=== PATIENT | female | born 1975 | race Caucasian/White ===

== ENCOUNTER → 2020-07-06 08:12 | Outpatient (BNVA) | payer MEDICARE, MEDICAID, SELFPAY | PROVIDERS: PCP Internal Medicine; Referring Provider Internal Medicine; Visit Provider Internal Medicine | DX: E21.3 Hyperparathyroidism, unspecified (principal); E55.9 Vitamin D deficiency, unspecified | CPT/HCPCS: 99214 ==

== ENCOUNTER 2020-07-14 11:04 | Outpatient (REF) | payer MEDICARE, MEDICAID, SELFPAY ==
--- NOTE | 2020-07-14 11:28 | XR_ITS ---
EXAMINATION: XR CHEST CLINICAL INFORMATION: Shortness of breath COMPARISON: Chest radiographs 10/15/2016, 11/12/2015 TECHNIQUE: Frontal view of the chest was obtained. FINDINGS: The lungs are clear. There is no vascular congestion, airspace consolidation, groundglass opacity, or effusion. No pneumothorax or pleural reaction. The heart is normal in size. The hilar and mediastinal contours and visualized bony structures are unremarkable. XR/XR chest 1V IMPRESSION: Unremarkable examination.
[2020-07-14 12:10] LABS: Glucose Urine UA NEG (NEG); Leukocyte Esterase Urine NEG (NEG); Nitrite Urine NEG (NEG); PH 5.5 (5.0-8.0); Specific Gravity - Urine 1.025 (1.005-1.025); Urine Blood NEG (NEG); Urine Ketones NEG (NEG); Urine Protein TRACE MG/DL (NEG-TRACE)
[2020-07-14 12:11] LABS: Appearance Urine CLEAR; Color Urine YELLOW
[2020-07-14 12:33] LABS: Anion Gap 14 (12-20); Blood Urea Nitrogen 11 mg/dL (9-16); Calcium 9.7 mg/dL (8.4-10.2); Carbon Dioxide 29 mmol/L (22-29); Chloride 102 mmol/L (96-108); Estimated Glomerular Filt Rate > 60; Phosphorus 4.2 mg/dL (2.7-4.5); Potassium 4.9 mmol/l (3.3-5.1); Sodium 140 mmol/L (135-145)
[2020-07-14 12:45] LABS: Creatinine Urine 60.02 mg/dL; Creatinine Urine 60.04 mg/dL; Microalbum/Creatinine Ratio Ur 366.5 ug/mg cr; Protein/Creatinine Ratio, Ur 0.53 (<0.2); Total Protein Urine Random 32 mg/dL (<12)
[2020-07-14 12:47] LABS: Renal w Reflex Lab Use Only Order verified
== END 2020-07-14 11:05 | disposition home or self-care (01) ==
LOC: HO.LAB 11:04
PROVIDERS: PCP Physician Assistant; Visit Provider Internal Medicine Nephrology
DX: R80.9 Proteinuria, unspecified (principal); R31.9 Hematuria, unspecified; F17.200 Nicotine dependence, unspecified, uncomplicated
CPT/HCPCS: 71045; 80051; 81003; 82043; 82310; 82565; 84100; 84156; 84520

== ENCOUNTER → 2020-08-03 13:54 | Outpatient (BNVA) | payer MEDICARE, MEDICAID, SELFPAY | PROVIDERS: PCP Physician Assistant; Referring Provider Physician Assistant; Visit Provider Surgery | DX: R92.1 Mammographic calcification found on diagnostic imaging of breast (principal); Z80.3 Family history of malignant neoplasm of breast | CPT/HCPCS: 99212 ==

== ENCOUNTER 2020-09-07 09:29 | Outpatient (REF) | payer MEDICARE, MEDICAID, SELFPAY ==
--- NOTE | 2020-09-07 09:32 | EMG_ITS ---
HISTORY OF PRESENT ILLNESS: This is a 45-year-old woman with a 6-month history of right upper extremity pain, numbness, and tingling affecting all the fingers. She is on no medications. PHYSICAL EXAMINATION: On examination, she is alert and oriented with normal intellectual functions. Cranial nerves II through XII are normal. Muscle tone and strength are normal in all 4 extremities. Deep tendon reflexes are symmetrical. No Tinel or Phalen sign. IMPRESSION: Rule out carpal tunnel syndrome. Nerve conduction EMG study: Moderately severe carpal tunnel syndrome on the right. Normal EMG of the right C5 through T1 innervated muscles. MD DELMY Mckinney/CHRIS / [id number]
== END 2020-09-07 09:30 | disposition home or self-care (01) ==
LOC: HO.NEURO 09:29
PROVIDERS: Visit Provider Physician Assistant
DX: G56.01 Carpal tunnel syndrome, right upper limb (principal)
CPT/HCPCS: 95886; 95910; 95913

== ENCOUNTER 2020-09-21 15:12 | Outpatient (REF) | payer MEDICARE, MEDICAID, SELFPAY ==
[2020-09-21 17:04] LABS: Rheumatoid Factor < 15.0 IU/mL (<15.0)
[2020-09-21 17:18] LABS: Erythrocyte Sedimentation Rate 16 MM/HR (0-20)
[2020-09-22 16:07] LABS: Cyclic Citrullinated Peptide <16 UNITS
== END 2020-09-21 15:13 | disposition home or self-care (01) ==
LOC: HO.LAB 15:12
PROVIDERS: PCP Internal Medicine; Visit Provider Physician Assistant
DX: M25.50 Pain in unspecified joint (principal)
CPT/HCPCS: 36415; 85652; 86200; 86431

== ENCOUNTER → 2020-09-26 10:29 | Outpatient (BNVA) | payer MEDICARE, MEDICAID, SELFPAY | PROVIDERS: PCP Physician Assistant; Visit Provider Orthopaedic Surgery | DX: G56.02 Carpal tunnel syndrome, left upper limb (principal); G56.01 Carpal tunnel syndrome, right upper limb | CPT/HCPCS: 99202 ==

== ENCOUNTER 2020-10-20 13:30 | Day surgery (SDC) | payer MEDICARE, MEDICAID, SELFPAY ==
[2020-10-20 13:36] VITALS: BP 144/95; PULSE 72; RESP 16; TEMP 36.2; O2SAT 98; BMI 37.3
--- NOTE | 2020-10-20 15:03 | MHC.SHP ---
Pre-Procedural Eval Section B Chief Complaint: RTCPS Allergies: Allergies Allergy/AdvReac Type Severity Reaction Status Date / Time fentanyl [FENTANYL] Allergy Severe VOMITING-SE Verified 07/14/20 10:09 NATALIE ibuprofen [From MOTRIN] AdvReac Intermediate KIDNEY Verified 07/14/20 10:09 PROBLEMS azithromycin AdvReac Unknown stomach Verified 07/14/20 10:09 upset tramadol AdvReac Unknown dizziness Verified 07/14/20 10:09 and vomiting, vomiting FRUIT,FRESH Allergy Severe MOUTH Uncoded 07/06/20 08:51 ITCHING/SWELLING ENVIRONMENTAL Allergy Intermediate HAYFEVER Uncoded 07/06/20 08:51 Plan I have reviewed the history and physical and performed a pertinent physical examination on my patient. No changes have occurred unless specified.
--- NOTE | 2020-10-20 16:45 | W.PM.OPN ---
Operative Note Operative Note Date of Service: 10/20/20 Narrative: Preop diagnosis: 1. Right Carpal tunnel syndrome Postop diagnosis: 1. Right Carpal tunnel syndrome Procedure: 1. Right Carpal tunnel release Surgeon: Elsie Hough MD Anesthesia: local block using 1% lidocaine with epinephrine Findings: Thickened transverse carpal ligament. EBL: Less than 5 mL Specimens: None Complications: None Disposition: Brought to recovery room in stable condition Plan: Follow-up for 7-10 days for wound check and suture removal Indications: The patient is 45 years old, with right carpal tunnel syndrome that has been unresponsive to nonoperative management. The risks and benefits of operative treatment including but not limited to risk of damage to blood vessels, nerves, tendons, infection, persistent pain, persistent symptoms, or possible need for additional surgery were discussed with the patient and the patient wishes to proceed with surgery. Procedure: Once consent was obtained a local block was performed using a combination of 1% lidocaine with epinephrine. The patient was then brought back to the operating suite and placed on the operative table in supine position. A tourniquet was applied to the proximal aspect of the right upper extremity and the limb was prepped and draped in a standard surgical fashion. Once assured that we had a good block, a 1.5 cm longitudinal incision was made centered over the right carpal tunnel. The incision was made through the skin to the subcutaneous tissues using a #15 blade. Dissection was made down to the level of the transverse carpal ligament with care being taken to protect the palmar cutaneous nerve. Once the transverse carpal ligament was clearly visualized, a longitudinal incision was made in the transverse carpal ligament 1st using a #15 blade, then using tenotomy scissors under direct visualization. Care was taken to look for and protect the motor branch of the median nerve when seen in this area. Once satisfied with our carpal tunnel release the wound was copiously irrigated with normal saline and hemostasis was obtained with a brief period of local pressure. The skin edges were reapproximated with some 5.0 nylon suture material and a sterile dressing was applied. The patient appears to have tolerated the procedure well and with no complications. All digits were well vascularized at the conclusion of the case.
[2020-10-20 17:30] VITALS: BP 143/86; PULSE 94; RESP 18; TEMP 37.4; O2SAT 97
== END 2020-10-20 17:50 | disposition home or self-care (01) ==
PROVIDERS: PCP Internal Medicine; Visit Provider Orthopaedic Surgery
PROC: (CPT 64721; principal; 2020-10-20 15:00)
DX: G56.01 Carpal tunnel syndrome, right upper limb (principal); I10 Essential (primary) hypertension; F17.210 Nicotine dependence, cigarettes, uncomplicated; Z88.1 Allergy status to other antibiotic agents; Z88.8 Allergy status to other drugs, medicaments and biological substances
CPT/HCPCS: 64721

== ENCOUNTER → 2020-10-27 08:37 | Outpatient (BNVA) | payer MEDICARE, MEDICAID, SELFPAY | PROVIDERS: Visit Provider Orthopaedic Surgery | DX: G56.01 Carpal tunnel syndrome, right upper limb (principal); G56.02 Carpal tunnel syndrome, left upper limb | CPT/HCPCS: 99212 ==

== ENCOUNTER → 2020-11-10 12:08 | Outpatient (BNVA) | payer MEDICARE, MEDICAID, SELFPAY | PROVIDERS: PCP Physician Assistant; Visit Provider Internal Medicine | DX: E66.01 Morbid (severe) obesity due to excess calories (principal); R00.0 Tachycardia, unspecified | CPT/HCPCS: 99212 ==

== ENCOUNTER → 2020-12-16 10:42 | Outpatient (BNVA) | payer MEDICARE, MEDICAID, SELFPAY | PROVIDERS: PCP Physician Assistant; Visit Provider Internal Medicine | DX: E66.01 Morbid (severe) obesity due to excess calories (principal); E21.3 Hyperparathyroidism, unspecified; E83.52 Hypercalcemia; E55.9 Vitamin D deficiency, unspecified | CPT/HCPCS: Q3014 ==

== ENCOUNTER 2021-01-05 09:43 | Outpatient (REF) | payer MEDICARE, MEDICAID, SELFPAY ==
[2021-01-05 11:21] LABS: MANUAL DIFF FLAG NO
[2021-01-05 11:37] LABS: Basophils Percent Auto 0.9 % (0-2); Eosinophils Absolute Auto 0.1 X10*3/uL (0.0-0.4); Eosinophils Percent Auto 3.1 % (0-4); Hematocrit 41.9 % (37-47); Hemoglobin 12.9 g/dl (12.0-16.0); Imm Gran Abs Auto 0.01 X10*3/uL (0.00-0.03); Imm Gran Pct Auto 0.2 % (0.0-0.4); Lymphocytes Absolute Auto 2.3 X10*3/uL (1.2-4.9); Lymphocytes Percent Auto 51.4 % (20-40); Mean Corpuscular HGB Conc 30.8 g/dl (31.0-35.0); Mean Corpuscular Hemoglobin 25.1 pg (27.0-33.0); Mean Corpuscular Volume 81.5 fL (80-98); Monocytes Absolute Auto 0.5 X10*3/uL (0.1-1.2); Neutrophils Absolute Auto 1.5 X10*3/uL (2.0-8.3); Neutrophils Percent Auto 34.4 % (45-73); Platelet Count 305 X10*3/uL (160-400); Red Blood Count 5.14 X10*6/uL (4.20-5.50); Red Cell Distribution Width 13.6 % (11.0-16.0); White Blood Count 4.5 X10*3/uL (4.8-10.8)
[2021-01-05 12:05] LABS: Alanine Aminotransferase 99 U/L (0-31); Albumin Level 4.5 g/dL (3.5-5.0); Alkaline Phosphatase 117 U/L (39-117); Anion Gap 14 (12-20); Aspartate Amino Transferase 57 U/L (5-31); Bilirubin Total 0.5 mg/dL (0.0-1.0); Blood Urea Nitrogen 11 mg/dL (9-16); Calcium 10.1 mg/dL (8.4-10.2); Carbon Dioxide 29 mmol/L (22-29); Chloride 102 mmol/L (96-108); Estimated Glomerular Filt Rate > 60; Glucose Random 135 mg/dL (60-115); Potassium 4.7 mmol/L (3.3-5.1); Sodium 140 mmol/L (135-145); Total Protein 7.9 g/dL (6.5-8.0)
[2021-01-06 05:42] LABS: Mumps Virus IgG Antibody <9.00 AU/mL; Rubella IgG Antibody 5.93 Index
== END 2021-01-05 09:44 | disposition home or self-care (01) ==
LOC: HO.LAB 09:43
PROVIDERS: Absent Provider Internal Medicine; PCP Internal Medicine; Visit Provider Physician Assistant
DX: D72.819 Decreased white blood cell count, unspecified (principal); Z01.84 Encounter for antibody response examination
CPT/HCPCS: 36415; 80053; 85025; 86735; 86762; 86765; 86787

== ENCOUNTER 2021-01-11 06:50 | Outpatient (REF) | payer MEDICARE, MEDICAID, SELFPAY ==
[2021-01-11 08:00] LABS: Glucose Fasting 150 mg/dL (60-99)
[2021-01-11 08:00] LABS: Anion Gap 17 (12-20); Blood Urea Nitrogen 14 mg/dL (9-16); Calcium 10.2 mg/dL (8.4-10.2); Carbon Dioxide 25 mmol/L (22-29); Chloride 100 mmol/L (96-108); Estimated Glomerular Filt Rate > 60; Glucose Fasting 152 mg/dL (60-99); Potassium 4.9 mmol/L (3.3-5.1); Sodium 137 mmol/L (135-145)
[2021-01-11 08:11] LABS: Estimated Average Glucose 166 mg/dL; Hemoglobin A1C 152.4632 umol/L; Hemoglobin A1c % 7.4 %
[2021-01-11 09:18] LABS: Glucose 1 Hour 327 mg/dL
[2021-01-11 10:00] LABS: Glucose 2 Hour 262 mg/dL
[2021-01-12 14:42] LABS: Adrenocorticotropic Hormone 58 pg/mL (6-50)
== END 2021-01-11 06:51 | disposition home or self-care (01) ==
LOC: HO.LAB 06:50
PROVIDERS: PCP Physician Assistant; Visit Provider Internal Medicine
DX: E66.01 Morbid (severe) obesity due to excess calories (principal)
CPT/HCPCS: 36415; 80048; 82024; 82533; 83036

== ENCOUNTER → 2021-02-07 09:29 | Outpatient (BNVA) | payer MEDICARE, MEDICAID, SELFPAY | PROVIDERS: Visit Provider Obstetrics & Gynecology ==

== ENCOUNTER → 2021-02-08 10:56 | Outpatient (BNVA) | payer MEDICARE, MEDICAID, SELFPAY | PROVIDERS: PCP Internal Medicine; Visit Provider Internal Medicine | DX: E11.65 Type 2 diabetes mellitus with hyperglycemia (principal); E78.5 Hyperlipidemia, unspecified; I10 Essential (primary) hypertension; E21.3 Hyperparathyroidism, unspecified; E83.52 Hypercalcemia; E55.9 Vitamin D deficiency, unspecified | CPT/HCPCS: 99212 ==

== ENCOUNTER 2021-02-09 07:17 | Outpatient (REF) | payer MEDICARE, MEDICAID, SELFPAY ==
[2021-02-09 08:48] LABS: Cholesterol 247 mg/dL; HDL Cholesterol 47 mg/dL; LDL Cholesterol Calculated 171 mg/dl; Triglycerides 148 mg/dL
[2021-02-10 04:42] LABS: LDL Cholesterol Direct 166 mg/dL (<100)
[2021-02-10 22:06] LABS: Adrenocorticotropic Hormone <5 pg/mL (6-50)
[2021-02-15 20:52] LABS: Dexamethasone 346 ng/dL
== END 2021-02-09 07:18 | disposition home or self-care (01) ==
LOC: HO.LAB 07:17
PROVIDERS: PCP Internal Medicine; Visit Provider Internal Medicine
DX: E83.52 Hypercalcemia (principal); E11.9 Type 2 diabetes mellitus without complications
CPT/HCPCS: 36415; 80061; 80299; 82024; 82533; 83721; 84449

== ENCOUNTER 2021-02-15 14:24 | Outpatient (REF) | payer MEDICARE, MEDICAID, SELFPAY | END 2021-02-15 14:25 | disposition home or self-care (01) | LOC: HO.MAMMO 14:24 | PROVIDERS: Visit Provider Obstetrics & Gynecology | DX: Z13.89 Encounter for screening for other disorder (principal) ==

== ENCOUNTER 2021-02-23 14:30 | Outpatient (RCR) | payer MEDICARE, MEDICAID, SELFPAY ==
--- NOTE | 2020-12-06 13:41 | MHC.OT.OEV ---
[address] [phone] F: [phone] Occupational Therapy Evaluation Diagnosis: R CTR Date of Onset: 04/16/20 Date of Surgery: 10/20/20 Attending Provider: Elsie Hough Prescribed Treatment: Harsh and magdalena GAFFNEY Follow Up Appointment: History of Current Condition: About one year of numbness, tingling and pain in the R hand. S/P R CTR 10/20/20 EMG nerve conduction study: Performed by Dr. Humphrey on 09/07/2020 of the right upper extremity shows evidence moderately severe carpal tunnel syndrome on the right . 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, enjoys yard work, wood working, baseball Living Situation, Family and/or Social Support: Lives with and daughter (16 years old) Current Level of Function and Occupation Self Care, Employment, Leisure: OOW since Covid-19 pandemic, completing online school with increased pain in R hand from typing and mouse use; unable to do leisure activities post-op Sleep: No problems with sleeping Driving: Difficulty changing gears of car Pain Assessment Pain Score: 0-10 Pain Scale Used: Numeric (0 - 10) Pain Location and Description: R volar wrist/carpal tunnel Aggravating Factors: Driving, using R hand for IADLs Alleviating Factors: Not currently using heat/ice for pain relief Skin and Soft Tissue Assessment Skin and Soft Tissue: Redness Swelling Scar Tissue Comments: Healing R volar palm incision, mild redness and edema at surgical site Sensory Assessment Temperature: Light Touch: WFL Proprioception: Vibration: Comments: R RF, SF 2.83 (normal), MF, IF, thumb 3.61 (diminished light touch) Reports burning in carpal tunnel Edema Assessment Upper Extremity: WNL Lower Extremity: Comments: R wrist circumference, distal to U.S. 18.6 cm, L 18.5 cm R DPC circumference 20.5 cm, 20.3 cm Dexterity Assessment Dexterity: WFL Comments: Functional dexterity test: R 28 sec (moderately functional), L 28 sec Special Tests Comments: (-) reverse phalens AROM(PROM) Strength Elbow Flexion: Extension: Pronation: Supination: Comments: WFL, continue to assess as necessary Flexion: Extension: Pronation: Supination: Comments: Wrist Flexion: R 55; L 65 Extension: R 49; L 65 Ulnar Deviation: R 30; L 30 Radial Deviation: R 15; L 15 Comments: R wrist pain with RD/UD Flexion: Extension: Ulnar Deviation: Radial Deviation: Comments: Thumb Thumb CMC Flexion: Thumb MCP Flexion: Thumb IP Flexion: Radial Abduction: Palmar Abduction: Lannon (Kapandji 0-10): Comments: Mild pain with thumb movement; ROM WFL Digits Index MCP: PIP: DIP: Long MCP: PIP: DIP: Ring MCP: PIP: DIP: Small MCP: PIP: DIP: Comments: WFL Gross Grasp: R 19 lb; L 65 Lateral Pinch: R 8, L 17 Two-Point Pinch: R 9, L 10 Three-Jaw Alex: R 12, L 18 Comments: R hand pain with all strength testing Patient Education Primary Language: Lao Special Librarian Required: No Current Knowledge: Understands information with skills for self-management Teaching Method: Demonstration Handouts Verbal Education Needs Identified on Evaluation: ADL's Disease Information Exercise Pain Safety How did patient/family demonstrate learning? Patient demonstrates Patient verbalizes Barriers to Learning: None Readiness for Learning: Accepting Who was educated? Patient Comments: Plan of Care Assessment: Marlyn is a 45 year old woman who had been having carpal tunnel symptoms for almost a year, who opted to undergo R CTR on 10/20/[address] Hough. 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 Pt previously independent with ADLs/IADLs, and enjoys yard work, house cleaning, and wood working. Her surgery has relieved the numbness and tingling, yet edema and pain continue to limit use of the R hand. She reports hypersensitivity and burning sensation in her R palm/carpal tunnel region and has diminished sensation to her thumb, IF, and LF. She will benefit from skilled OT 2x/week for 6 weeks to maximize independence and return of function to the R hand. STG Duration: 3 weeks Short Term Goals: Ind HEP Ind heat/ice use Ind desensitization/scar massage R wrist ext >55 degrees R wrist flexion >60 degrees Reports <5/10 pain with light ADLs/IADLs R gross grasp >40 lbs LTG Duration: 6 weeks Hand Ii Thermal Cutter Goals: R wrist ext >60 degrees R gross grasp >60 lbs QuickDASH < 37% Report <2/10 pain with ADLs/IADLs Tolerate lifting >10 lbs without pain Frequency and Duration: The patient will be seen 2x/week for 6 weeks Treatment Plan: Therapeutic Exercise Therapeutic Activity Home Exercise Program Splinting Neuro Re-ed Patient Education Desensitization/Sensory Re-ed Edema Control ADL Training Ultrasound NMES Iontophoresis Paraffin Fluidotherapy MHP Cold Packs Joint Mobilization Soft Tissue Mobilization Kinesiotaping Other (see comments) Electronically Signed By: Siena Varela OT/s Reviewed/agree with student documentation: Yes Therapist: Macy Eubanks OTR/L Please sign and return to therapist, Thank you for your referral.
--- NOTE | 2021-02-23 15:43 | MHC.OT.DC ---
[address] [phone] F: [phone] Occupational Therapy Discharge Note Provider: Dr Hough Diagnosis: R CTR Date of Surgery: 10/20/20 Date of Evaluation: 12/06/20 Date of Discharge: 02/23/21 Treatments to Date: 19 Cancellations to Date: 3 Discharge Status: Improved Function Independent with HEP Discharge Summary: Marlyn was seen post-op right carpal tunnel release w/ increased edema and pillar pain. She has progressed well w/ overall good use of the hand, still decreased strength and pain w/ heavy gripping activities. Good follow through w/ HEP and joint protection, good understanding for self management Electronically Signed By: Jaida Wlaler OTR/L Please Sign and return to therapist, thank you for your referral.
== END 2021-02-23 15:43 | disposition other institution (70) ==
LOC: HO.OT 14:30
PROVIDERS: PCP Physician Assistant; Visit Provider Orthopaedic Surgery
DX: G56.01 Carpal tunnel syndrome, right upper limb (principal)
CPT/HCPCS: 29130; 97035; 97110; 97112; 97140; 97166; 97760

== ENCOUNTER → 2021-03-14 09:04 | Outpatient (BNVA) | payer MEDICARE, MEDICAID, SELFPAY | PROVIDERS: PCP Internal Medicine; Visit Provider Dietitian, Registered | DX: E11.65 Type 2 diabetes mellitus with hyperglycemia (principal); E24.9 Cushing's syndrome, unspecified; E66.01 Morbid (severe) obesity due to excess calories; E55.9 Vitamin D deficiency, unspecified; E78.5 Hyperlipidemia, unspecified; E21.3 Hyperparathyroidism, unspecified; I10 Essential (primary) hypertension; Z68.35 Body mass index [BMI] 35.0-35.9, adult; Z91.011 Allergy to milk products; Z88.5 Allergy status to narcotic agent; Z88.8 Allergy status to other drugs, medicaments and biological substances; Z91.018 Allergy to other foods | CPT/HCPCS: 97802 ==

== ENCOUNTER 2021-04-26 15:12 | Outpatient (REF) | payer MEDICARE, MEDICAID, SELFPAY ==
--- NOTE | ~2021-04-26 | MM_ITS ---
EXAMINATION: MM SCREENING DIGITAL BREAST TOMOSYNTHESIS, BILATERAL CLINICAL INFORMATION: Screening. Asymptomatic. COMPARISON: Mammography: April 25, 2020 and studies dating back to March 04, 2012 TECHNIQUE: Digital breast tomosynthesis is performed in both the craniocaudal and mediolateral oblique views along with computer-aided detection (CAD). Synthesized 2D images are generated from the tomosynthesis. FINDINGS: The breasts are heterogeneously dense, which may obscure small masses (ACR BI-RADS breast composition Category c). There are no significant masses, abnormal calcifications, or other abnormalities. MM/MM tomosynthesis screening BI IMPRESSION: There are no significant changes from prior study. ASSESSMENT: BI-RADS 1: Negative RECOMMENDATION: Routine annual mammography screening. This patient's information was entered into a reminder system with a target due date for their next mammogram.
== END 2021-04-26 15:13 | disposition home or self-care (01) ==
LOC: HO.MAMMO 15:12
PROVIDERS: Visit Provider Internal Medicine
DX: Z12.31 Encounter for screening mammogram for malignant neoplasm of breast (principal)
CPT/HCPCS: 77063; 77067

== ENCOUNTER → 2021-05-09 10:34 | Outpatient (BNVA) | payer MEDICARE, MEDICAID, SELFPAY | PROVIDERS: PCP Internal Medicine; Visit Provider Dietitian, Registered | DX: E11.65 Type 2 diabetes mellitus with hyperglycemia (principal); Z71.3 Dietary counseling and surveillance | CPT/HCPCS: 97803 ==

== ENCOUNTER 2021-06-14 10:57 | Outpatient (REF) | payer MEDICARE, MEDICAID, SELFPAY ==
[2021-06-14 11:54] LABS: Hematocrit 42.5 % (37-47); Hemoglobin 13.1 g/dl (12.0-16.0); Mean Corpuscular HGB Conc 30.8 g/dl (31.0-35.0); Mean Corpuscular Volume 81.3 fL (80-98); Mean Platelet Volume 11.6 fL (9.4-12.3); Platelet Count 279 X10*3/uL (160-400); Red Blood Count 5.23 X10*6/uL (4.20-5.50); Red Cell Distribution Width 14.2 % (11.0-16.0); White Blood Count 4.9 X10*3/uL (4.8-10.8)
[2021-06-14 12:05] LABS: Estimated Average Glucose 123 mg/dL; Hemoglobin A1c % 5.9 %
[2021-06-14 12:21] LABS: Creatinine Urine 84.53 mg/dL; Microalbum/Creatinine Ratio Ur 243.7 ug/mg cr
[2021-06-14 12:23] LABS: Alanine Aminotransferase 26 U/L (0-31); Albumin Level 4.6 g/dL (3.5-5.0); Alkaline Phosphatase 79 U/L (39-117); Anion Gap 13 (12-20); Aspartate Amino Transferase 19 U/L (5-31); Bilirubin Total 0.4 mg/dL (0.0-1.0); Blood Urea Nitrogen 15 mg/dL (9-16); Calcium 10.3 mg/dL (8.4-10.2); Carbon Dioxide 27 mmol/L (22-29); Chloride 106 mmol/L (96-108); Cholesterol 241 mg/dL; Estimated Glomerular Filt Rate > 60; Glucose Random 99 mg/dL (60-115); HDL Cholesterol 54 mg/dL; LDL Cholesterol Calculated 156 mg/dl; Sodium 141 mmol/L (135-145); Total Protein 7.9 g/dL (6.5-8.0); Triglycerides 158 mg/dL
[2021-06-14 12:43] LABS: TSH reflex Free T4 1.35 uIU/mL (0.32-4.0)
[2021-06-14 12:59] LABS: Vitamin B12 435 pg/mL (200-900)
[2021-06-15 23:17] LABS: LDL Cholesterol Direct 163 mg/dL (<100)
[2021-06-21 05:22] LABS: Fructosamine 248 umol/L (205-285)
== END 2021-06-14 10:58 | disposition home or self-care (01) ==
LOC: HO.LAB 10:57
PROVIDERS: Internal Medicine; PCP Internal Medicine; Visit Provider Physician Assistant
DX: E11.65 Type 2 diabetes mellitus with hyperglycemia (principal); I10 Essential (primary) hypertension
CPT/HCPCS: 36415; 80053; 80061; 82043; 82607; 82985; 83036; 83721; 84443; 85027

== ENCOUNTER → 2021-07-05 09:53 | Outpatient (BNVA) | payer MEDICARE, MEDICAID, SELFPAY | PROVIDERS: PCP Internal Medicine; Visit Provider Internal Medicine | DX: E11.65 Type 2 diabetes mellitus with hyperglycemia (principal); E78.5 Hyperlipidemia, unspecified; E21.3 Hyperparathyroidism, unspecified; E83.52 Hypercalcemia; E55.9 Vitamin D deficiency, unspecified; I10 Essential (primary) hypertension | CPT/HCPCS: 99212 ==

== ENCOUNTER → 2021-08-09 11:04 | Outpatient (BNVA) | payer MEDICARE, MEDICAID, SELFPAY | PROVIDERS: PCP Internal Medicine; Visit Provider Dietitian, Registered | DX: E11.65 Type 2 diabetes mellitus with hyperglycemia (principal) | CPT/HCPCS: 97803 ==

== ENCOUNTER 2021-09-15 11:35 | Outpatient (REF) | payer MEDICARE, MEDICAID, SELFPAY ==
[2021-09-15 12:02] LABS: Basophils Percent Auto 0.6 % (0-2); Eosinophils Absolute Auto 0.1 X10*3/uL (0.0-0.4); Eosinophils Percent Auto 2.6 % (0-4); Hematocrit 42.1 % (37.0-47.0); Hemoglobin 13.2 g/dl (12.0-16.0); Lymphocytes Percent Auto 60.3 % (20-40); MANUAL DIFF FLAG SCAN; Mean Corpuscular HGB Conc 31.4 g/dl (31.0-35.0); Mean Corpuscular Hemoglobin 25.6 pg (27.0-33.0); Mean Corpuscular Volume 81.7 fL (80.0-98.0); Mean Platelet Volume 11.2 fL (9.4-12.3); Monocytes Absolute Auto 0.4 X10*3/uL (0.1-1.2); Monocytes Percent Auto 7.2 % (2-11); Neutrophils Absolute Auto 1.5 x10*3/uL (2.0-8.3); Neutrophils Percent Auto 29.3 % (45-73); Platelet Count 266 X10*3/uL (160-400); Red Blood Count 5.15 X10*6/uL (4.20-5.50); Red Cell Distribution Width 13.2 % (11.0-16.0); SCAN SMEAR FLAG 1
[2021-09-15 12:25] LABS: SLIDE REVIEW VERIFIED
[2021-09-15 12:30] LABS: Estimated Average Glucose 126 mg/dL
[2021-09-15 12:33] LABS: Alanine Aminotransferase 22 U/L (0-31); Albumin Level 4.6 g/dL (3.5-5.0); Alkaline Phosphatase 82 U/L (39-117); Anion Gap 12 (12-20); Aspartate Amino Transferase 17 U/L (5-31); Bilirubin Total 0.5 mg/dL (0.0-1.0); Blood Urea Nitrogen 18 mg/dL (9-16); Calcium 10.2 mg/dL (8.4-10.2); Carbon Dioxide 31 mmol/L (22-29); Chloride 102 mmol/L (96-108); Cholesterol 257 mg/dL; Estimated Glomerular Filt Rate > 60; Glucose Fasting 105 mg/dL (60-99); HDL Cholesterol 50 mg/dL; LDL Cholesterol Calculated 172 mg/dl; Potassium 4.8 mmol/L (3.3-5.1); Sodium 140 mmol/L (135-145); Total Protein 8.2 g/dL (6.5-8.0); Triglycerides 178 mg/dL
== END 2021-09-15 11:36 | disposition home or self-care (01) ==
LOC: HO.LAB 11:35
PROVIDERS: PCP Internal Medicine; Visit Provider Nurse Practitioner Acute Care
DX: Z00.00 Encounter for general adult medical examination without abnormal findings (principal)
CPT/HCPCS: 36415; 80053; 80061; 83036; 85025

== ENCOUNTER → 2021-10-18 13:56 | Outpatient (BNVA) | payer MEDICARE, MEDICAID, SELFPAY | PROVIDERS: PCP Internal Medicine; Visit Provider Dietitian, Registered | DX: E11.65 Type 2 diabetes mellitus with hyperglycemia (principal); Z71.3 Dietary counseling and surveillance | CPT/HCPCS: 97803 ==

== ENCOUNTER 2021-12-04 08:25 | Outpatient (REF) | payer MEDICARE, MEDICAID, SELFPAY ==
[2021-12-04 10:10] LABS: Estimated Average Glucose 128 mg/dL; Hemoglobin A1c % 6.1 %
[2021-12-04 10:27] LABS: Alanine Aminotransferase 26 U/L (0-31); Albumin Level 4.4 g/dL (3.5-5.0); Alkaline Phosphatase 79 U/L (39-117); Anion Gap 13 (12-20); Aspartate Amino Transferase 17 U/L (5-31); Bilirubin Total 0.5 mg/dL (0.0-1.0); Blood Urea Nitrogen 20 mg/dL (9-16); Calcium 10.4 mg/dL (8.4-10.2); Carbon Dioxide 26 mmol/L (22-29); Chloride 104 mmol/L (96-108); Cholesterol 162 mg/dL; Estimated Glomerular Filt Rate > 60; Glucose Random 116 mg/dL (60-115); HDL Cholesterol 45 mg/dL; LDL Cholesterol Calculated 98 mg/dl; Potassium 4.7 mmol/L (3.3-5.1); Sodium 138 mmol/L (135-145); Total Protein 7.5 g/dL (6.5-8.0); Triglycerides 97 mg/dL
[2021-12-04 10:53] LABS: Vitamin D 25-OH Total 20.9 ng/mL (>30)
[2021-12-05 23:02] LABS: LDL Cholesterol Direct 90 mg/dL (<100)
[2021-12-06 22:37] LABS: Calcium (PTHI) 10.4 mg/dL (8.6-10.2); PTHI 40 pg/mL (16-77)
== END 2021-12-04 08:26 | disposition home or self-care (01) ==
LOC: HO.LAB 08:25
PROVIDERS: PCP Physician Assistant; Visit Provider Internal Medicine
DX: E21.3 Hyperparathyroidism, unspecified (principal); E55.9 Vitamin D deficiency, unspecified; E11.65 Type 2 diabetes mellitus with hyperglycemia
CPT/HCPCS: 36415; 80053; 80061; 82306; 83036; 83721; 83970

== ENCOUNTER → 2021-12-06 14:58 | Outpatient (BNVA) | payer MEDICARE, MEDICAID, SELFPAY | PROVIDERS: PCP Internal Medicine; Visit Provider Internal Medicine | DX: E11.65 Type 2 diabetes mellitus with hyperglycemia (principal); E78.5 Hyperlipidemia, unspecified; E21.3 Hyperparathyroidism, unspecified; E83.52 Hypercalcemia; E55.9 Vitamin D deficiency, unspecified; I10 Essential (primary) hypertension | CPT/HCPCS: 82947; 99212 ==

== ENCOUNTER → 2022-01-17 10:59 | Outpatient (BNVA) | payer MEDICARE, MEDICAID, SELFPAY | PROVIDERS: PCP Internal Medicine; Visit Provider Dietitian, Registered | DX: E11.65 Type 2 diabetes mellitus with hyperglycemia (principal) | CPT/HCPCS: 97803 ==

== ENCOUNTER 2022-01-23 07:53 | Outpatient (REF) | payer MEDICARE, MEDICAID, SELFPAY ==
--- NOTE | ~2022-01-23 | XR_ITS ---
EXAMINATION: XR SHOULDER, RIGHT CLINICAL INFORMATION: Pain right shoulder. COMPARISON: None TECHNIQUE: Three views of the right shoulder. FINDINGS: The bones and soft tissues are normal. No fracture. Glenohumeral and acromioclavicular alignment is anatomic with normal joint space. No abnormal soft tissue calcifications. There is a soft tissue artifact overlying the head of humerus only in one view. XR/XR shoulder RT min 2V IMPRESSION: Unremarkable right shoulder exam.
== END 2022-01-23 07:54 | disposition home or self-care (01) ==
LOC: HO.HOSX 07:53
PROVIDERS: Visit Provider Physician Assistant
DX: M75.101 Unspecified rotator cuff tear or rupture of right shoulder, not specified as traumatic (principal)
CPT/HCPCS: 73030; 99202

== ENCOUNTER → 2022-02-06 11:26 | Outpatient (BNVA) | payer MEDICARE, MEDICAID, SELFPAY | PROVIDERS: PCP Internal Medicine; Visit Provider Physician Assistant | DX: M75.101 Unspecified rotator cuff tear or rupture of right shoulder, not specified as traumatic (principal); E11.65 Type 2 diabetes mellitus with hyperglycemia | CPT/HCPCS: 99212; J1020; J1040 ==

== ENCOUNTER → 2022-02-13 10:01 | Outpatient (BNVA) | payer MEDICARE, MEDICAID, SELFPAY | PROVIDERS: PCP Internal Medicine; Visit Provider Obstetrics & Gynecology | DX: Z13.89 Encounter for screening for other disorder (principal) ==

== ENCOUNTER 2022-04-16 14:10 | Outpatient (REF) | payer MEDICARE, MEDICAID, SELFPAY | END 2022-04-16 14:11 | disposition home or self-care (01) | LOC: HO.MAMMO 14:10 | PROVIDERS: Visit Provider Internal Medicine | DX: Z13.89 Encounter for screening for other disorder (principal) ==

== ENCOUNTER → 2022-04-24 11:04 | Outpatient (BNVA) | payer MEDICARE, MEDICAID, SELFPAY | PROVIDERS: PCP Internal Medicine; Visit Provider Dietitian, Registered | DX: E11.65 Type 2 diabetes mellitus with hyperglycemia (principal) | CPT/HCPCS: 97803 ==

== ENCOUNTER 2022-04-30 14:00 | Outpatient (REF) | payer MEDICARE, MEDICAID, SELFPAY ==
--- NOTE | ~2022-04-30 | MM_ITS ---
EXAMINATION: MM SCREENING DIGITAL BREAST TOMOSYNTHESIS, BILATERAL CLINICAL INFORMATION: Screening. Asymptomatic. The lifetime risk of breast cancer based on the Tyrer-Cuzick Model is 19%. COMPARISON: Mammography: 04/26/2021, 04/25/2020, 12/03/2018 TECHNIQUE: Digital breast tomosynthesis is performed in both the craniocaudal and mediolateral oblique views along with computer-aided detection (CAD). Synthesized 2D images are generated from the tomosynthesis. FINDINGS: The breasts are heterogeneously dense, which may obscure small masses (ACR BI-RADS breast composition Category c). Parenchymal pattern is similar to prior studies. There is no developing density or architectural abnormality. No abnormal calcifications. The axilla and skin contours are unremarkable. No significant changes. MM/MM tomosynthesis screening BI IMPRESSION: No mammographic evidence of malignancy. ASSESSMENT: BI-RADS 1: Negative RECOMMENDATION: Routine annual mammography screening. This patient's information was entered into a reminder system with a target due date for their next mammogram.
== END 2022-04-30 14:01 | disposition home or self-care (01) ==
LOC: HO.MAMMO 14:00
PROVIDERS: PCP Physician Assistant; Visit Provider Internal Medicine
DX: Z12.31 Encounter for screening mammogram for malignant neoplasm of breast (principal)
CPT/HCPCS: 77063; 77067

== ENCOUNTER 2022-06-11 09:22 | Outpatient (REF) | payer MEDICARE, MEDICAID, SELFPAY ==
--- NOTE | ~2022-06-11 | XR_ITS ---
EXAMINATION: XR SACRUM AND COCCYX CLINICAL INFORMATION: Hip pain. COMPARISON: None. TECHNIQUE: 2 views of the sacrum and 2 views of the coccyx were obtained. FINDINGS: No fracture or malalignment. There is transitional anatomy at the lumbosacral junction, unchanged from prior. Mild osteoarthritis the pubic symphysis. Hip joints appear well preserved. Soft tissues are unremarkable. XR/XR sacrum coccyx min 2V IMPRESSION: Mild osteoarthritis of the pubic symphysis. Normal appearance of the sacrum and coccyx.
--- NOTE | ~2022-06-11 | XR_ITS ---
EXAMINATION: XR HIP, RIGHT CLINICAL INFORMATION: Right hip pain. COMPARISON: None TECHNIQUE: AP and frog-leg lateral views of the right hip. FINDINGS: Right hip joint appears relatively well-preserved. No fracture or malalignment. Joint space is normal. Bone mineralization is normal. Transitional anatomy is evident at the lumbosacral junction. Soft tissues are normal. XR/XR hip RT min 2V IMPRESSION: Right hip joint appears relatively well-preserved radiographically. No acute osseous findings.
[2022-06-11 10:10] LABS: Estimated Average Glucose 131 mg/dL; Hemoglobin A1c % 6.2 %
[2022-06-11 10:28] LABS: Alanine Aminotransferase 22 U/L (0-31); Albumin Level 4.7 g/dL (3.5-5.0); Alkaline Phosphatase 79 U/L (39-117); Anion Gap 15 (12-20); Aspartate Amino Transferase 18 U/L (5-31); Bilirubin Total 0.2 mg/dL (0.0-1.0); Blood Urea Nitrogen 13 mg/dL (9-16); Calcium 10.1 mg/dL (8.4-10.2); Carbon Dioxide 27 mmol/L (22-29); Chloride 104 mmol/L (96-108); Cholesterol 172 mg/dL; Estimated Glomerular Filt Rate > 60; Glucose Fasting 122 mg/dL (60-99); HDL Cholesterol 42 mg/dL; LDL Cholesterol Calculated 106 mg/dl; Potassium 4.7 mmol/L (3.3-5.1); Sodium 141 mmol/L (135-145); Total Protein 7.8 g/dL (6.5-8.0); Triglycerides 124 mg/dL
[2022-06-11 10:51] LABS: TSH reflex Free T4 1.26 uIU/mL (0.32-4.0); Vitamin D 25-OH Total 35.9 ng/mL (>30)
[2022-06-11 11:19] LABS: Creatinine Urine 87.11 mg/dL
[2022-06-12 11:02] LABS: Calcium (PTHI) 10.1 mg/dL (8.6-10.2); PTHI 50 pg/mL (16-77)
== END 2022-06-11 09:23 | disposition home or self-care (01) ==
LOC: HO.LAB 09:22
PROVIDERS: PCP Physician Assistant; Visit Provider Physician Assistant
DX: M25.551 Pain in right hip (principal); E21.3 Hyperparathyroidism, unspecified; I10 Essential (primary) hypertension; E11.65 Type 2 diabetes mellitus with hyperglycemia; E78.2 Mixed hyperlipidemia
CPT/HCPCS: 36415; 72220; 73502; 80053; 80061; 82043; 82306; 83036; 83970; 84443

== ENCOUNTER → 2022-07-17 13:39 | Outpatient (BNVA) | payer MEDICARE, MEDICAID, SELFPAY | PROVIDERS: PCP Physician Assistant; Visit Provider Physician Assistant | DX: M75.101 Unspecified rotator cuff tear or rupture of right shoulder, not specified as traumatic (principal); E11.65 Type 2 diabetes mellitus with hyperglycemia | CPT/HCPCS: 99212; J1020 ==

== ENCOUNTER 2022-07-23 06:01 | Outpatient (REF) | payer MEDICARE, MEDICAID, SELFPAY | END 2022-07-23 06:02 | disposition home or self-care (01) | LOC: HO.HOSX 06:01 | PROVIDERS: Visit Provider Physician Assistant | DX: Z13.89 Encounter for screening for other disorder (principal) ==

== ENCOUNTER → 2022-07-25 11:00 | Outpatient (BNVA) | payer MEDICARE, MEDICAID, SELFPAY | PROVIDERS: PCP Physician Assistant; Visit Provider Dietitian, Registered | DX: E11.65 Type 2 diabetes mellitus with hyperglycemia (principal) | CPT/HCPCS: 97803 ==

== ENCOUNTER → 2022-11-14 10:24 | Outpatient (BNVA) | payer MEDICARE, MEDICAID, SELFPAY | PROVIDERS: PCP Physician Assistant; Visit Provider Dietitian, Registered | DX: E11.65 Type 2 diabetes mellitus with hyperglycemia (principal); Z79.891 Long term (current) use of opiate analgesic | CPT/HCPCS: 97803 ==

== ENCOUNTER 2022-12-20 10:01 | Outpatient (REF) | payer MEDICARE, MEDICAID, SELFPAY ==
[2022-12-20 11:12] LABS: Estimated Average Glucose 134 mg/dL; Hemoglobin A1c % 6.3 %
[2022-12-20 11:38] LABS: Blood Urea Nitrogen 12 mg/dL (9-16); Cholesterol 127 mg/dL; Estimated Glomerular Filt Rate > 60; HDL Cholesterol 39 mg/dL; LDL Cholesterol Calculated 65 mg/dl; Triglycerides 115 mg/dL
[2022-12-20 11:40] LABS: Creatinine Urine 33.58 mg/dL; Microalbum/Creatinine Ratio Ur 312.6 ug/mg cr
== END 2022-12-20 10:02 | disposition home or self-care (01) ==
LOC: HO.LAB 10:01
PROVIDERS: PCP Physician Assistant; Visit Provider Physician Assistant
DX: E11.9 Type 2 diabetes mellitus without complications (principal)
CPT/HCPCS: 36415; 80061; 82043; 82565; 83036; 84520

== ENCOUNTER → 2023-02-18 10:10 | Outpatient (BNVA) | payer MEDICARE, MEDICAID, SELFPAY | PROVIDERS: PCP Physician Assistant; Visit Provider Obstetrics & Gynecology | DX: Z01.419 Encounter for gynecological examination (general) (routine) without abnormal findings (principal) | CPT/HCPCS: G0101 ==

== ENCOUNTER 2023-05-02 14:32 | Outpatient (REF) | payer MEDICARE, MEDICAID, SELFPAY ==
--- NOTE | ~2023-05-02 | MM_ITS ---
EXAMINATION: MM SCREENING DIGITAL BREAST TOMOSYNTHESIS, BILATERAL CLINICAL INFORMATION: Screening. Asymptomatic. COMPARISON: Mammography: This study is compared with prior exams dating back to TECHNIQUE: Digital breast tomosynthesis is performed in both the craniocaudal and mediolateral oblique views along with computer-aided detection (CAD). Synthesized 2D images are generated from the tomosynthesis. FINDINGS: The breasts are heterogeneously dense, which may obscure small masses (ACR BI-RADS breast composition Category c). There are no significant masses, abnormal calcifications, or other abnormalities. MM/MM tomosynthesis screening BI IMPRESSION: No mammographic evidence of malignancy. ASSESSMENT: BI-RADS BI-RADS 1 - Negative RECOMMENDATION: Routine annual mammography screening. 1 year F/U This examination should not preclude the clinical evaluation of a suspicious palpable abnormality. This patient's information was entered into a reminder system with a target due date for their next mammogram.
== END 2023-05-02 14:33 | disposition home or self-care (01) ==
LOC: HO.MAMMO 14:32
PROVIDERS: PCP Physician Assistant; Visit Provider Obstetrics & Gynecology
DX: Z12.31 Encounter for screening mammogram for malignant neoplasm of breast (principal)
CPT/HCPCS: 77063; 77067

== ENCOUNTER → 2023-05-02 14:45 | Outpatient (BNV) | payer MEDICARE, MEDICAID, SELFPAY | PROVIDERS: PCP Physician Assistant; Visit Provider Radiology Diagnostic Radiology | DX: Z12.31 Encounter for screening mammogram for malignant neoplasm of breast (principal) | CPT/HCPCS: 77063; 77067 ==

== ENCOUNTER 2023-06-12 15:00 | Outpatient (AMB) | payer MEDICARE, MEDICAID, SELFPAY ==
[2023-06-12 15:12] VITALS: BP 116/72; PULSE 85; RESP 17; O2SAT 98; BMI 36.4
--- NOTE | 2023-06-12 15:12 | MHC.PC.OV ---
Vital Signs 06/12/23 15:12 Height 5 ft 4 in Weight 212 lb 2 oz BMI 36.4 BP 116/72 Blood Pressure Location Lt brachial Position Sitting Respiration 17 Pulse 85 Pulse Source Pulse Oximeter Pulse Oximetry (%) 98 Oxygen Delivery Method Room Air Intake Visit Reasons: f/u DMII Allergies lactose Allergy (Unknown, Verified 06/12/23 15:29) upset stomach fentanyl [FENTANYL] Adverse Reaction (Severe, Verified 06/12/23 15:29) VOMITING-SEVERE azithromycin Adverse Reaction (Intermediate, Verified 06/12/23 15:29) stomach upset ibuprofen [From MOTRIN] Adverse Reaction (Intermediate, Verified 06/12/23 15:29) KIDNEY PROBLEMS tramadol Adverse Reaction (Intermediate, Verified 06/12/23 15:29) dizziness and vomiting, vomiting FRUIT,FRESH Allergy (Severe, Uncoded 12/24/22 09:56) MOUTH ITCHING/SWELLING Medication List - Last Reconciled 06/12/23 by Maury Caputo PA-C albuterol sulfate 2.5 mg inhalation Q4H PRN albuterol sulfate 90 mcg/actuation inhalation atorvastatin 20 mg PO BEDTIME 90 days blood sugar diagnostic (FreeStyle Lite Strips) 1 strip miscellaneous TID blood-glucose meter (FreeStyle Lite Meter kit) As directed Ca lac-mag cit-pas flwr-everett rt 25-50-20-10 mg (MyoCalm) tabs PO cholecalciferol (vitamin D3) 50 mcg PO DAILY 30 days clotrimazole-betamethasone 1-0.05 % 1 appl topical BID 15 days epinephrine 0.3 mg IM ONCE PRN fexofenadine 180 mg PO DAILY 90 days fluticasone propionate 50 mcg/actuation sprays intranasal hydrocortisone 2.5% appl topical lancets (FreeStyle Lancets) 4x daily losartan 50 mg PO DAILY 90 days montelukast (Singulair) 10 mg PO BEDTIME 90 days pantoprazole 40 mg PO DAILY 90 days Tobacco use date assessed: 12/24/22 Dental Screening Dental Screen Date: 06/12/23 Did you have a dental visit in the last 12 months?: Yes Did you have a dental problem in the last 6 months where you did not have access to dental care?: No Was dental information given to patient?: Patient has dentist HPI f/u DMII HPI Details patient is a 48-year-old female here today for follow-up visit..? Patient has a past history significant for hyperlipidemia,? type 2 diabetes, obesity, , mild lymphocytosis,? asthma,? polyarthralgia. Unfortunately has gained weight since last office visit- she reports she has a problem with food would like medication to help her reduce her portion sizes. Concerns--> continues to have bilateral wrist and ankle localized swelling. She does report a time when a physical therapist did do a side she that did help this willing go down. Has tried her partner's water pill though was not effective. Recent renal functions normal. Microalbuminuria improved from previous. . .. Hyperparathyroidism:? Did recently have an elevated calcium though parathyroid hormone normal.? Endocrinology suspect this is due to a robust albumin.? No further workup needed at this time.? She will continue vitamin-D supplementation .. DMII:? Has been working adamantly on lifestyle to reduce carbohydrates in her diet and being more physically active to reduce her weight.? Patient's most recent A1c is 6.4. PLAN: She is interested in starting G LP 1 to help with her diabetes an added benefit of weight loss. .. ?Hyperlipidemia:? Most recent lipid panel much improved with LDL at 90 and total cholesterol 160s. ?She is willing to continue statin therapy ( atorvastatin 20mg) Laboratory Tests 06/11/22 06/11/22 06/11/22 09:37 09:45 09:45 Fasting Glucose 122 H LDL Cholesterol, C alc 106 Urine Microalbumin 203.0 12/20/22 12/20/22 10:22 10:24 Fasting Glucose LDL Cholesterol, C alc 65 Urine Microalbumin 105.0 [facility] Medical History Visit for suture removal GERD (gastroesophageal reflux disease) HLD (hyperlipidemia) HTN (hypertension) T2DM (type 2 diabetes mellitus) T2DM (type 2 diabetes mellitus) Morbid obesity Vitamin D deficiency Hyperparathyroidism Hypercalcemia Surgical History History of carpal tunnel release History of removal of cyst H/O myringotomy History of endometrial ablation H/O LEEP Family History Sister Lung cancer AIDS IV drug user Paternal Uncle Colon cancer Paternal Aunt Colon cancer Breast cancer Maternal Aunt Ovarian cancer Leukemia Breast cancer Brain cancer Brother AIDS IV drug user Family/Other FH: mental illness Social History Housing: Apartment Alcohol intake: current Alcohol intake frequency: holidays/special occasions only Alcohol type: hard liquor Patient Tobacco Use Status: Former Tobacco user Quit Date: 2019 Tobacco use type: Cigarette Years Smoked: 30 e-Cigarette/Vaping Use: Never Used Second Hand Smoke Exposure: No service: No Current occupational status: unemployed Current occupation: Right Handed Cognitive needs: No Hearing needs: No Vision needs: No Female Reproductive History Menstrual Age of Menarche: 7 Questionnaire Thrive Questionnaire Date Thrive assessed: 12/24/22 KAYLIE-7 AMB Questionnaire KAYLIE-7 Date KAYLIE - 7 assessed: 12/24/22 (pt has complex PTSD) Source: Developed by Drs. Lee Vigil, Karli Turner, Tuan Kline and colleagues, with an educational tati from [employer]. Review of Systems Const Denies headache(s) Eyes Denies loss of vision ENT Denies vertigo, Denies dizziness, Denies headache(s) and Denies sore throat Card Denies chest pain, Denies leg edema and Denies lightheadedness Resp Denies cough, Denies hemoptysis and Denies wheezing GI Denies abdominal pain, Denies melena, Denies constipation, Denies diarrhea and Denies vomiting Denies urinary frequency, Denies dysuria and Denies urinary urgency Musc Denies arthralgias, Denies joint swelling, Denies numbness and Denies tingling Neuro Denies Abnormal speech present, Denies behavioral changes, Denies vertigo, Denies dizziness, Denies headache(s), Denies loss of vision, Denies memory loss, Denies numbness and Denies tingling Psych Denies anxiety, Denies behavioral changes, Denies depression, Denies memory loss and Denies panic attacks Reji/Lymph Denies easy bleeding and Denies easy bruising Aller/Immun Denies wheezing Physical exam (Primary Care) Vital Signs: Last Vital Signs Pulse 85 06/12/23 15:12 Resp 17 06/12/23 15:12 BP 116/72 06/12/23 15:12 Pulse Ox 98 06/12/23 15:12 Oxygen Delivery Method Room Air 06/12/23 15:12 BMI result Body Mass Index 36.4 BMI Assessment/Plan discussion: High Tobacco/Smoking Status: Tobacco use Status Tobacco use date assessed 12/24/22 06/12/23 15:13 Patient Tobacco Use Status Former Tobacco user 06/12/23 15:13 Tobacco use type Cigarette 06/12/23 15:13 e-Cigarette/Vaping Use Never Used 06/12/23 15:13 Thrive Assessment: Date of Thrive Assessment Date Thrive assessed 12/24/22 06/12/23 15:13 Const Other: Obese General: healthy appearing, no acute distress, alert and awake Nutritional Appearance: well nourished Orientation/consciousness: oriented to person, oriented to place and oriented to time HENMT Ears: TM's normal bilaterally General nose exam: Normal nasal mucous membranes and turbinates present Eyes Conjunctivae: conjunctivae normal Sclerae: sclerae normal Pupils: Equal, round and reactive pupils present Neck Neck: Yes no lymphadenopathy and Yes no JVD Thyroid: Thyroid normal Carotids: no bruits Resp Effort & Inspection: normal respiratory effort and not tachypneic Auscultation: no crackles, no rales, no rhonchi and no wheezes Cardio Rate: regular rate Rhythm: regular rhythm Heart sounds: no murmurs and normal S1 and S2 GI Palpation (GI): Soft to palpation, nontender, no hepatomegaly and no splenomegaly Auscultation: normal bowel sounds Skin General skin exam: no rashes or lesions noted and dry skin Neuro General: oriented to person, oriented to place and oriented to time Cranial nerves: Yes Equal, round and reactive pupils present Speech: No Abnormal speech present Gait exam (Neuro): Normal gait present Motor exam (neuro): no tremor noted Extrem Other: BILATERAL UPPER EXTREMITIES AND REGION AROUND NECK WITH LOCALIZED EDEMA Right upper extremity: full ROM and edema Left upper extremity: full ROM and edema Right lower extremity: full ROM; no edema Left lower extremity: full ROM; no edema Psych Mental Status: mental status grossly normal Speech and movement: Normal speech and movement present Affect: normal affect Attitude: cooperative Thought process: Normal thought process present Results AMB Hemoglobin A1c AMB Hemoglobin A1c 6.4 % Last Edit by LOKI Medina on 06/12/23 15:30 Assessment and Plan Assessment & Plan (1) T2DM (type 2 diabetes mellitus): Comment: Most recent A1c at 6.2% on 05/2022 (pre DM) , BMI 34.9/203 lbs (11/2022) was 33.8/197 lbs (07/2022) Code(s): E11.9 - Type 2 diabetes mellitus without complications Qualifiers: Diabetes mellitus longterm insulin use: without longterm use Diabetes mellitus complication status: with hyperglycemia Qualified Code(s): E11.65 - Type 2 diabetes mellitus with hyperglycemia Plan: Patient's type 2 diabetes well managed lifestyle modifications. Today's A1c acceptable. Patient would like to start GLP for added benefit of weight loss. Goal A1c is to remain below 6.5 (2) HLD (hyperlipidemia): Code(s): E78.5 - Hyperlipidemia, unspecified Qualifiers: Hyperlipidemia type: mixed hyperlipidemia Qualified Code(s): E78.2 - Mixed hyperlipidemia Plan: Patient continues working on lifestyle modifications on reducing high cholesterol foods in her diet. She continues on atorvastatin 20 mg. Most recent lipid panel showing acceptable total cholesterol and LDL. Goal LDL to be below 100. (3) Lymphedema: Code(s): I89.0 - Lymphedema, not elsewhere classified Plan: Unclear etiology to patient's bilateral forearm and ankle localized swelling. Likely lymphedema thus will send for occupational therapy for lymphedema wrappings and massage. (4) HTN (hypertension): Code(s): I10 - Essential (primary) hypertension Qualifiers: Hypertension type: unspecified Qualified Code(s): I10 - Essential (primary) hypertension Plan: Patient's blood pressure acceptable today in office. Will continue her on her current dose of losartan 50 mg with goal blood pressure to be below 140/90 (5) Obese: Code(s): E66.9 - Obesity, unspecified Qualifiers: Obesity type: due to excess calories Obesity classification: adult class 1 (BMI 30 - 34.9) Serious obesity comorbidity presence: with serious comorbidity Body mass index: BMI 33.0-33.9 Qualified Code(s): E66.09 - Other obesity due to excess calories; Z68.33 - Body mass index [BMI] 33.0-33.9, adult Plan: Unfortunately has gained weight since last office visit. Patient does understand her BMI is over 30 and will work on being more physically active and adapting to better eating habits to reduce her weight Orders: Orders OT Evaluation and Treatment Today I89.0 - Lymphedema, not elsewhere classified AMB Hemoglobin A1c Today E11.9 - Type 2 diabetes mellitus without complications Lipid Panel Today E78.5 - Hyperlipidemia, unspecified Medications: New semaglutide (Ozempic) for 6 weeks 0.25 mg (0.368 mL) subcut QWEEK 6 weeks 3 mL 1RF E11.65 - Type 2 diabetes mellitus with hyperglycemia Coding Level of Care Code Est Pt Level 4 (61027) Diagnoses Type 2 diabetes mellitus with hyperglycemia, without long-term current use of insulin E11.65 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
== END 2023-06-12 15:59 | disposition home or self-care (01) ==
PROVIDERS: PCP Physician Assistant; Visit Provider Physician Assistant
DX: E11.65 Type 2 diabetes mellitus with hyperglycemia (principal); E11.9 Type 2 diabetes mellitus without complications; E21.3 Hyperparathyroidism, unspecified; E78.2 Mixed hyperlipidemia; I89.0 Lymphedema, not elsewhere classified; I10 Essential (primary) hypertension; E66.09 Other obesity due to excess calories; Z68.33 Body mass index [BMI] 33.0-33.9, adult
CPT/HCPCS: 83036; 99214

== ENCOUNTER 2023-07-25 10:50 | Outpatient (AMB) | payer MEDICARE, MEDICAID, SELFPAY ==
[2023-07-25 10:53] VITALS: BP 118/80; PULSE 70; O2SAT 98; BMI 36.2
--- NOTE | 2023-07-25 10:53 | MHC.PC.OV ---
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 Accompanied by: Self / Same As Patient Allergies lactose Allergy (Unknown, Verified 07/25/23 12:33) upset stomach fentanyl [FENTANYL] Adverse Reaction (Severe, Verified 07/25/23 12:33) VOMITING-SEVERE azithromycin Adverse Reaction (Intermediate, Verified 07/25/23 12:33) stomach upset ibuprofen [From MOTRIN] Adverse Reaction (Intermediate, Verified 07/25/23 12:33) KIDNEY PROBLEMS tramadol Adverse Reaction (Intermediate, Verified 07/25/23 12:33) dizziness and vomiting, vomiting FRUIT,FRESH Allergy (Severe, Uncoded 12/24/22 09:56) MOUTH ITCHING/SWELLING Medication List - Last Reconciled 07/25/23 by Maury Caputo PA-C albuterol sulfate 2.5 mg inhalation Q4H PRN albuterol sulfate 90 mcg/actuation inhalation atorvastatin 20 mg PO BEDTIME 90 days blood sugar diagnostic (FreeStyle Lite Strips) 1 strip miscellaneous TID blood-glucose meter (FreeStyle Lite Meter kit) As directed Ca lac-mag cit-pas flwr-everett rt 25-50-20-10 mg (MyoCalm) tabs PO cholecalciferol (vitamin D3) 50 mcg PO DAILY 30 days clotrimazole-betamethasone 1-0.05 % 1 appl topical BID 15 days epinephrine 0.3 mg IM ONCE PRN fexofenadine 180 mg PO DAILY 90 days fluticasone propionate 50 mcg/actuation sprays intranasal hydrocortisone 2.5% appl topical lancets (FreeStyle Lancets) 4x daily losartan 50 mg PO DAILY 90 days montelukast (Singulair) 10 mg PO BEDTIME 90 days pantoprazole 40 mg PO DAILY 90 days semaglutide (Ozempic) 0.5 mg (0.736 mL) subcut QWEEK 6 weeks Tobacco use date assessed: 12/24/22 Dental Screening Dental Screen Date: 07/25/23 Did you have a dental visit in the last 12 months?: Yes Did you have a dental problem in the last 6 months where you did not have access to dental care?: No Was dental information given to patient?: Patient has dentist HPI f/u weight check HPI Details patient is a 48-year-old female here today for follow-up visit..? Patient has a past history significant for hyperlipidemia,? type 2 diabetes, obesity, , mild lymphocytosis,? asthma,? polyarthralgia. Last visit we discussed her weight and type 2 diabetes. She is willing to start G LP 1. She has noted some weight loss with the medication. No notable side effects. She would like to continue with the medication and will increase her dose to 0.5 mg weekly. CHRONIC MEDICAL CONDITIONS--> Concerns--> continues to have bilateral wrist and ankle localized swelling. She does report a time when a physical therapist did do a side she that did help this willing go down. Has tried her partner's water pill though was not effective. Recent renal functions normal. Microalbuminuria improved from previous. . .. Hyperparathyroidism:? Did recently have an elevated calcium though parathyroid hormone normal.? Endocrinology suspect this is due to a robust albumin.? No further workup needed at this time.? She will continue vitamin-D supplementation .. DMII:? Has been working adamantly on lifestyle to reduce carbohydrates in her diet and being more physically active to reduce her weight.? Patient's most recent A1c is 6.4. HAS STARTED GLP1 ?Hyperlipidemia:? Most recent lipid panel much improved with LDL at 90 and total cholesterol 160s. ?She is willing to continue statin therapy ( atorvastatin 20mg) [facility] History Visit for suture removal GERD (gastroesophageal reflux disease) HLD (hyperlipidemia) HTN (hypertension) T2DM (type 2 diabetes mellitus) T2DM (type 2 diabetes mellitus) Morbid obesity Vitamin D deficiency Hyperparathyroidism Hypercalcemia Surgical History History of carpal tunnel release History of removal of cyst H/O myringotomy History of endometrial ablation H/O LEEP Family History Sister Lung cancer AIDS IV drug user Paternal Uncle Colon cancer Paternal Aunt Colon cancer Breast cancer Maternal Aunt Ovarian cancer Leukemia Breast cancer Brain cancer Brother AIDS IV drug user Family/Other FH: mental illness Social History Housing: Apartment Alcohol intake: current Alcohol intake frequency: holidays/special occasions only Alcohol type: hard liquor Patient Tobacco Use Status: Former Tobacco user Quit Date: 2019 Tobacco use type: Cigarette Years Smoked: 30 e-Cigarette/Vaping Use: Never Used Second Hand Smoke Exposure: No service: No Current occupational status: unemployed Current occupation: Right Handed Cognitive needs: No Hearing needs: No Vision needs: No Female Reproductive History Menstrual Age of Menarche: 7 Questionnaire Thrive Questionnaire Date Thrive assessed: 12/24/22 KAYLIE-7 AMB Questionnaire KAYLIE-7 Date KAYLIE - 7 assessed: 12/24/22 (pt has complex PTSD) Source: Developed by Drs. Lee Vigil, Karli Turner, Tuan Kline and colleagues, with an educational tati from [employer]. Review of Systems Const Denies headache(s) Eyes Denies loss of vision ENT Denies vertigo, Denies dizziness, Denies headache(s) and Denies sore throat Card Denies chest pain, Denies leg edema and Denies lightheadedness Resp Denies cough, Denies hemoptysis and Denies wheezing GI Denies abdominal pain, Denies melena, Denies constipation, Denies diarrhea and Denies vomiting Denies urinary frequency, Denies dysuria and Denies urinary urgency Musc Denies arthralgias, Denies joint swelling, Denies numbness and Denies tingling Neuro Denies Abnormal speech present, Denies behavioral changes, Denies vertigo, Denies dizziness, Denies headache(s), Denies loss of vision, Denies memory loss, Denies numbness and Denies tingling Psych Denies anxiety, Denies behavioral changes, Denies depression, Denies memory loss and Denies panic attacks Reji/Lymph Denies easy bleeding and Denies easy bruising Aller/Immun Denies wheezing Physical exam (Primary Care) Vital Signs: Last Vital Signs Pulse 70 07/25/23 10:53 BP 118/80 07/25/23 10:53 Pulse Ox 98 07/25/23 10:53 Oxygen Delivery Method Room Air 07/25/23 10:53 BMI result Body Mass Index 36.2 BMI Assessment/Plan discussion: High Tobacco/Smoking Status: Tobacco use Status Tobacco use date assessed 12/24/22 07/25/23 10:53 Patient Tobacco Use Status Former Tobacco user 07/25/23 10:53 Tobacco use type Cigarette 07/25/23 10:53 e-Cigarette/Vaping Use Never Used 07/25/23 10:53 Thrive Assessment: Date of Thrive Assessment Date Thrive assessed 12/24/22 07/25/23 10:53 Const Other: Obese General: healthy appearing, no acute distress, alert and awake Nutritional Appearance: well nourished Orientation/consciousness: oriented to person, oriented to place and oriented to time HENMT Ears: TM's normal bilaterally General nose exam: Normal nasal mucous membranes and turbinates present Eyes Conjunctivae: conjunctivae normal Sclerae: sclerae normal Pupils: Equal, round and reactive pupils present Neck Neck: Yes no lymphadenopathy and Yes no JVD Thyroid: Thyroid normal Carotids: no bruits Resp Effort & Inspection: normal respiratory effort and not tachypneic Auscultation: no crackles, no rales, no rhonchi and no wheezes Cardio Rate: regular rate Rhythm: regular rhythm Heart sounds: no murmurs and normal S1 and S2 GI Palpation (GI): Soft to palpation, nontender, no hepatomegaly and no splenomegaly Auscultation: normal bowel sounds Skin General skin exam: no rashes or lesions noted and dry skin Neuro General: oriented to person, oriented to place and oriented to time Cranial nerves: Yes Equal, round and reactive pupils present Speech: No Abnormal speech present Gait exam (Neuro): Normal gait present Motor exam (neuro): no tremor noted Extrem Right upper extremity: full ROM Left upper extremity: full ROM Right lower extremity: full ROM; no edema Left lower extremity: full ROM; no edema Psych Mental Status: mental status grossly normal Speech and movement: Normal speech and movement present Affect: normal affect Attitude: cooperative Thought process: Normal thought process present Assessment and Plan Assessment & Plan (1) T2DM (type 2 diabetes mellitus): Code(s): E11.9 - Type 2 diabetes mellitus without complications Qualifiers: Diabetes mellitus complication status: with hyperglycemia Diabetes mellitus mcfp insulin use: without extermination supervisor use Qualified Code(s): E11.65 - Type 2 diabetes mellitus with hyperglycemia Plan: Patient's type 2 diabetes well managed lifestyle modifications. Patient has started G LP 1 and has noted some weight loss. She will increase her dose to 0.5 mg weekly. Advised to get fasting labs done to evaluate fasting blood sugar Goal A1c is to remain below 6.5 Medications: Changed From semaglutide (Ozempic) for 6 weeks 0.25 mg (0.368 mL) subcut QWEEK 3 mL 1RF 6 weeks E11.65 - Type 2 diabetes mellitus with hyperglycemia To semaglutide (Ozempic) 0.5 mg (0.736 mL) subcut QWEEK 3 mL 1RF 6 weeks E11.65 - Type 2 diabetes mellitus with hyperglycemia Coding Level of Care Code Est Pt Level 3 (65731) Diagnoses Type 2 diabetes mellitus with hyperglycemia, without long-term current use of insulin E11.65 Diabetes mellitus complication status: with hyperglycemia Diabetes mellitus extermination supervisor insulin use: without extermination supervisor use
== END 2023-07-25 11:27 | disposition home or self-care (01) ==
PROVIDERS: PCP Physician Assistant; Visit Provider Physician Assistant
DX: E11.65 Type 2 diabetes mellitus with hyperglycemia (principal)
CPT/HCPCS: 99213

== ENCOUNTER 2023-09-05 10:36 | Outpatient (AMB) | payer MEDICARE, MEDICAID, SELFPAY ==
[2023-09-05 11:00] VITALS: BP 122/80; PULSE 74; RESP 16; BMI 36.0
--- NOTE | 2023-09-05 11:00 | A.OFFPC_ITS ---
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 Accompanied by: Self / Same As Patient Allergies lactose Allergy (Unknown, Verified 09/05/23 11:09) upset stomach fentanyl [FENTANYL] Adverse Reaction (Severe, Verified 09/05/23 11:09) VOMITING-SEVERE azithromycin Adverse Reaction (Intermediate, Verified 09/05/23 11:09) stomach upset ibuprofen [From MOTRIN] Adverse Reaction (Intermediate, Verified 09/05/23 11:09) KIDNEY PROBLEMS tramadol Adverse Reaction (Intermediate, Verified 09/05/23 11:09) dizziness and vomiting, vomiting FRUIT,FRESH Allergy (Severe, Uncoded 09/05/23 11:03) MOUTH ITCHING/SWELLING Medication List - Last Reconciled 09/05/23 by Maury Caputo PA-C albuterol sulfate 2.5 mg inhalation Q4H PRN albuterol sulfate 90 mcg/actuation inhalation atorvastatin 20 mg PO BEDTIME 90 days blood sugar diagnostic (FreeStyle Lite Strips) 1 strip miscellaneous TID blood-glucose meter (FreeStyle Lite Meter kit) As directed Ca lac-mag cit-pas flwr-everett rt 25-50-20-10 mg (MyoCalm) tabs PO cholecalciferol (vitamin D3) 50 mcg PO DAILY 30 days clotrimazole-betamethasone 1-0.05 % 1 appl topical BID 15 days epinephrine 0.3 mg IM ONCE PRN fexofenadine 180 mg PO DAILY 90 days fluticasone propionate 50 mcg/actuation sprays intranasal hydrocortisone 2.5% appl topical lancets (FreeStyle Lancets) 4x daily losartan 50 mg PO DAILY 90 days montelukast (Singulair) 10 mg PO BEDTIME 90 days pantoprazole 40 mg PO DAILY 90 days semaglutide (Ozempic) 0.5 mg (0.736 mL) subcut QWEEK 6 weeks Tobacco use date assessed: 12/24/22 Dental Screening Dental Screen Date: 09/05/23 Did you have a dental visit in the last 12 months?: Yes Did you have a dental problem in the last 6 months where you did not have access to dental care?: No Was dental information given to patient?: Patient has dentist HPI f/u Weight - HPI Details Patient is a 48-year-old female here today for follow-up visit..? Patient has a past history significant for hyperlipidemia,? type 2 diabetes, obesity, , mild lymphocytosis,? asthma,? polyarthralgia. Type 2 diabetes--> Last visit we discussed her weight and type 2 diabetes. She has noted some weight loss with the medication. No notable side effects. Will hold off on increasing dose of Ozempic. She will try to increase her physical activity for more weight loss. .. CHRONIC MEDICAL CONDITIONS--> . . .. Hyperparathyroidism:? Did recently have an elevated calcium though parathyroid hormone normal.? Endocrinology suspect this is due to a robust albumin.? No further workup needed at this time.? She will continue vitamin-D supplementation .. DMII:? Has been working adamantly on lifestyle to reduce carbohydrates in her diet and being more physically active to reduce her weight.? Patient's most recent A1c is 6.4. HAS STARTED GLP1 ?Hyperlipidemia:? Most recent lipid panel much improved with LDL at 90 and total cholesterol 160s. ?She is willing to continue statin therapy ( atorvastatin 20mg). [facility] Medical History Visit for suture removal GERD (gastroesophageal reflux disease) HLD (hyperlipidemia) HTN (hypertension) T2DM (type 2 diabetes mellitus) T2DM (type 2 diabetes mellitus) Morbid obesity Vitamin D deficiency Hyperparathyroidism Hypercalcemia Surgical History History of carpal tunnel release History of removal of cyst H/O myringotomy History of endometrial ablation H/O LEEP Family History Sister Lung cancer AIDS IV drug user Paternal Uncle Colon cancer Paternal Aunt Colon cancer Breast cancer Maternal Aunt Ovarian cancer Leukemia Breast cancer Brain cancer Brother AIDS IV drug user Family/Other FH: mental illness Social History Housing: Apartment Alcohol intake: current Alcohol intake frequency: holidays/special occasions only Alcohol type: hard liquor Patient Tobacco Use Status: Former Tobacco user Quit Date: 2019 Tobacco use type: Cigarette Years Smoked: 30 e-Cigarette/Vaping Use: Never Used Second Hand Smoke Exposure: No service: No Current occupational status: unemployed Current occupation: Right Handed Cognitive needs: No Hearing needs: No Vision needs: No Female Reproductive History Menstrual Age of Menarche: 7 Questionnaire Thrive Questionnaire Date Thrive assessed: 12/24/22 KAYLIE-7 AMB Questionnaire KAYLIE-7 Date KAYLIE - 7 assessed: 12/24/22 (pt has complex PTSD) Source: Developed by Drs. Lee Vigil, Karli Turner, Tuan Kline and colleagues, with an educational tati from [employer]. Review of Systems Const Denies headache(s) Eyes Denies loss of vision ENT Denies vertigo, Denies dizziness, Denies headache(s) and Denies sore throat Card Denies chest pain, Denies leg edema and Denies lightheadedness Resp Denies cough, Denies hemoptysis and Denies wheezing GI Denies abdominal pain, Denies melena, Denies constipation, Denies diarrhea and Denies vomiting Denies urinary frequency, Denies dysuria and Denies urinary urgency Musc Reports back pain, Reports arthralgias, Reports joint swelling, Denies numbness and Denies tingling Neuro Denies Abnormal speech present, Denies behavioral changes, Denies vertigo, Denies dizziness, Denies headache(s), Denies loss of vision, Denies memory loss, Denies numbness and Denies tingling Psych Denies anxiety, Denies behavioral changes, Denies depression, Denies memory loss and Denies panic attacks Reji/Lymph Denies easy bleeding and Denies easy bruising Aller/Immun Denies wheezing Physical exam (Primary Care) Vital Signs: Last Vital Signs Pulse 74 09/05/23 11:00 Resp 16 09/05/23 11:00 BP 122/80 09/05/23 11:00 BMI result Body Mass Index 36.0 BMI Assessment/Plan discussion: High Tobacco/Smoking Status: Tobacco use Status Tobacco use date assessed 12/24/22 09/05/23 11:06 Patient Tobacco Use Status Former Tobacco user 09/05/23 11:06 Tobacco use type Cigarette 09/05/23 11:06 e-Cigarette/Vaping Use Never Used 09/05/23 11:06 Thrive Assessment: Date of Thrive Assessment Date Thrive assessed 12/24/22 09/05/23 11:06 Const Other: Obese General: healthy appearing, no acute distress, alert and awake Nutritional Appearance: well nourished Orientation/consciousness: oriented to person, oriented to place and oriented to time HENMT Ears: TM's normal bilaterally General nose exam: Normal nasal mucous membranes and turbinates present Eyes Conjunctivae: conjunctivae normal Sclerae: sclerae normal Pupils: Equal, round and reactive pupils present Neck Neck: Yes no lymphadenopathy and Yes no JVD Thyroid: Thyroid normal Carotids: no bruits Resp Effort & Inspection: normal respiratory effort and not tachypneic Auscultation: no crackles, no rales, no rhonchi and no wheezes Cardio Rate: regular rate Rhythm: regular rhythm Heart sounds: no murmurs and normal S1 and S2 GI Palpation (GI): Soft to palpation, nontender, no hepatomegaly and no splenomegaly Auscultation: normal bowel sounds Skin General skin exam: no rashes or lesions noted and dry skin Neuro General: oriented to person, oriented to place and oriented to time Cranial nerves: Yes Equal, round and reactive pupils present Speech: No Abnormal speech present Gait exam (Neuro): Normal gait present Motor exam (neuro): no tremor noted Extrem Right upper extremity: full ROM Left upper extremity: full ROM Right lower extremity: full ROM; no edema Left lower extremity: full ROM; no edema Psych Mental Status: mental status grossly normal Speech and movement: Normal speech and movement present Affect: normal affect Attitude: cooperative Thought process: Normal thought process present Results AMB Hemoglobin A1c AMB Hemoglobin A1c 6.4 % Last Edit by LOKI Medina on 09/05/23 11:09 Results Reviewed Results Reviewed: Laboratory Last Values Hgb A1c (Clinic) 6.4 % (4.0-6.0) H 09/05/23 11:07 Assessment and Plan Assessment & Plan (1) T2DM (type 2 diabetes mellitus): Code(s): E11.9 - Type 2 diabetes mellitus without complications Qualifiers: Diabetes mellitus complication status: with hyperglycemia 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 Patient has started G LP 1 and has noted some weight loss. She does understand most for problem was the relationship with food and will try to work on reducing her carbohydrates. Advised to get fasting labs done to evaluate fasting blood sugar Goal A1c is to remain below 6.5 Orders: Orders AMB Hemoglobin A1c Today E11.9 - Type 2 diabetes mellitus without complications Medications: Changed From semaglutide (Ozempic) 0.5 mg (0.736 mL) subcut QWEEK 6 weeks 3 mL 1RF E11.65 - Type 2 diabetes mellitus with hyperglycemia To semaglutide (Ozempic) 0.5 mg (0.736 mL) subcut QWEEK 4 weeks 3 mL 3RF E11.65 - Type 2 diabetes mellitus with hyperglycemia From fluticasone propionate 50 mcg/actuation intranasal To fluticasone propionate 50 mcg/actuation 1 spray intranasal BID 30 days 16 grams 3RF From albuterol sulfate 90 mcg/actuation inhalation J45.909 - Unspecified asthma, uncomplicated To albuterol sulfate 90 mcg/actuation 2 puffs inhalation Q6-8H 30 days 8.5 grams 3RF J45.909 - Unspecified asthma, uncomplicated Refilled losartan 50 mg PO DAILY 90 days 90 tabs 1RF I10 - Essential (primary) hypertension montelukast (Singulair) 10 mg PO BEDTIME 90 days 90 tabs 1RF J45.909 - Unspecified asthma, uncomplicated clotrimazole-betamethasone 1-0.05 % 1 appl topical BID 15 days 45 grams 1RF B35.3 - Tinea pedis losartan 50 mg PO DAILY 90 days 90 tabs 1RF I10 - Essential (primary) hypertension Coding Level of Care Code Est Pt Level 3 (61561) Diagnoses Type 2 diabetes mellitus with hyperglycemia, without long-term current use of insulin E11.65 Diabetes mellitus complication status: with hyperglycemia Diabetes mellitus assisted insulin use: without assisted use
== END 2023-09-05 11:36 | disposition home or self-care (01) ==
PROVIDERS: PCP Physician Assistant; Visit Provider Physician Assistant
DX: E11.65 Type 2 diabetes mellitus with hyperglycemia (principal); E11.9 Type 2 diabetes mellitus without complications
CPT/HCPCS: 83036; 99213

== ENCOUNTER 2023-10-17 09:57 | Outpatient (AMB) | payer MEDICARE, MEDICAID, SELFPAY ==
[2023-10-17 09:58] VITALS: BP 110/84; PULSE 91; O2SAT 97; BMI 35.4
--- NOTE | 2023-10-17 09:58 | MHC.PC.OV ---
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: No Accompanied by: Self / Same As Patient Allergies lactose Allergy (Unknown, Verified 10/17/23 10:46) upset stomach fentanyl [FENTANYL] Adverse Reaction (Severe, Verified 10/17/23 10:46) VOMITING-SEVERE azithromycin Adverse Reaction (Intermediate, Verified 10/17/23 10:46) stomach upset ibuprofen [From MOTRIN] Adverse Reaction (Intermediate, Verified 10/17/23 10:46) KIDNEY PROBLEMS tramadol Adverse Reaction (Intermediate, Verified 10/17/23 10:46) dizziness and vomiting, vomiting FRUIT,FRESH Allergy (Severe, Uncoded 10/17/23 10:46) MOUTH ITCHING/SWELLING Medication List - Last Reconciled 10/17/23 by Brian Arias MD albuterol sulfate 2.5 mg inhalation Q4H PRN albuterol sulfate 90 mcg/actuation 2 puffs inhalation Q6-8H 30 days atorvastatin 20 mg PO BEDTIME 90 days blood sugar diagnostic (FreeStyle Lite Strips) 1 strip miscellaneous TID blood-glucose meter (FreeStyle Lite Meter kit) As directed Ca lac-mag cit-pas flwr-everett rt 25-50-20-10 mg (MyoCalm) tabs PO cephalexin 500 mg PO BID cholecalciferol (vitamin D3) 50 mcg PO DAILY 30 days clotrimazole-betamethasone 1-0.05 % 1 appl topical BID 15 days epinephrine 0.3 mg IM ONCE PRN fexofenadine 180 mg PO DAILY 90 days fluticasone propionate 50 mcg/actuation 1 spray intranasal BID 30 days hydrocortisone 2.5% appl topical lancets (FreeStyle Lancets) 4x daily losartan 50 mg PO DAILY 90 days montelukast (Singulair) 10 mg PO BEDTIME 90 days pantoprazole 40 mg PO DAILY 90 days semaglutide (Ozempic) 0.5 mg (0.736 mL) subcut QWEEK 4 weeks Tobacco use date assessed: 10/17/23 Dental Screening Dental Screen Date: 10/17/23 Did you have a dental visit in the last 12 months?: Yes Did you have a dental problem in the last 6 months where you did not have access to dental care?: No Was dental information given to patient?: Patient has dentist HPI ongoing strep throat HPI Details Patient comes in today for follow up of her sore throat States that her throat is still currently sore; has noticed that she still seems to have a large whitish abscess on the right side of her tonsils but states that it was not present when she looked into her throat yesterday, leading her to think that her throat is finally starting to get better and is wondering why the abscess came back She went to her local urgent care center in [place] initially on 10/03/2023 for what appears to be as asthma exacerbation brought about by a URI of about 3 weeks' duration She had a chest x-ray done at the time which showed a patchy left lower lobe infiltrate but recalls that she was never advised that she had pneumonia then She was sent home at that time with Rx for oral Prednisone taper and Augmentin 875 mg BID x 7 days for empiric Abx Tx States that she finished all of her prescribed Rx but felt that her symptoms did not really improve much although she admitted that she did not take the prednisone taper due to concerns about her blood sugar as she is a diabetic She went back to urgent care 12 days later on 10/15/2023 when she woke up in the middle of the night with increased sore throat Exam of her throat then reportedly revealed only increased erythema and some congestion but she tested positive for strep She was started then on oral Cephalexin 500 mg BID x 10 days and she is currently on day #3 of her Abx Tx States that she did run a fever yesterday, with her temperature going up to 102 F; denies any chills Relates (+) sore throat (as above), and on and off ear pain and discomfort lately Denies any chest pains, no SOB No nausea/vomiting, no abdominal pain and no change in bowel habits noted PFSH Medical History Visit for suture removal GERD (gastroesophageal reflux disease) HLD (hyperlipidemia) HTN (hypertension) T2DM (type 2 diabetes mellitus) T2DM (type 2 diabetes mellitus) Morbid obesity Vitamin D deficiency Hyperparathyroidism Hypercalcemia Surgical History History of carpal tunnel release History of removal of cyst H/O myringotomy History of endometrial ablation H/O LEEP Family History Sister Lung cancer AIDS IV drug user Paternal Uncle Colon cancer Paternal Aunt Colon cancer Breast cancer Maternal Aunt Ovarian cancer Leukemia Breast cancer Brain cancer Brother AIDS IV drug user Family/Other FH: mental illness Social History Housing: Apartment Alcohol intake: current Alcohol intake frequency: holidays/special occasions only Alcohol type: hard liquor Patient Tobacco Use Status: Former Tobacco user Quit Date: 2019 Tobacco use type: Cigarette Years Smoked: 30 e-Cigarette/Vaping Use: Never Used Second Hand Smoke Exposure: No service: No Current occupational status: unemployed Current occupation: Right Handed Cognitive needs: No Hearing needs: No Vision needs: No Female Reproductive History Menstrual Age of Menarche: 7 Questionnaire PHQ-9 Over the last 2 weeks, how often have you been bothered by any of the following problems? 1. Little interest or pleasure in doing things: not at all 2. Feeling down, depressed, or hopeless: not at all 3. Trouble falling or staying asleep, or sleeping too much: not at all 4. Feeling tired or having little energy: not at all 5. Poor appetite or overeating: not at all 6. Feeling bad about yourself - or that you are a failure or have let yourself or your family down: not at all 7. Trouble concentrating on things, such as reading the newspaper or watching television: not at all 8. Moving or speaking so slowly that other people could have noticed. Or the opposite - being so fidgety or restless that you have been moving around a lot more than usual: not at all 9. Thoughts that you would be better off or of hurting yourself in some way: not at all Total score: 0 Depression Screening Interpretation: Negative Depression Screening Done: Yes 89069 - PHQ-9 Billing: Yes Source: Developed by Drs. Lee Vigil, Karli Turner, Tuan Kline and colleagues, with an educational tati from [employer]. Thrive Questionnaire Date Thrive assessed: 10/17/23 I am a: Patient What is your living situation today?: I have a steady place to live Within the past 12 months, did the food you bought not last and you didn't have the money to get more?: Never true Within the past 12 months, did you worry whether your food would run out before you got money to buy more?: Never true Do you have trouble paying for medicines?: No Do you have trouble getting transportation to medical appointments?: No Do you have trouble paying your heating and electricity bill?: No Do you have trouble taking care of your child, family member or friend?: No Do you have trouble with day-to-day activities such as bathing, preparing meals, shopping, managing finances, etc.?: No Are you currently unemployed and looking for a job?: No Are you interested in more education?: No Please select the resources that you would like help with: None Currently or been in a relationship where the following occur: no concerns reported THRIVE Score: 0 AUDIT C Alcohol Use Questionnaire (AUDIT-C) 1. How often do you have a drink containing alcohol?: Monthly or less 2. How many drinks containing alcohol do you have on a typical day when you are drinking?: 1 or 2 3. How often do you have six or more drinks on one occasion?: Never Total Score: 1 Score Reviewed/Action Taken: Yes KYALIE-7 AMB Questionnaire KAYLIE-7 Date KAYLIE - 7 assessed: 10/17/23 (pt has complex PTSD) Feeling nervous, anxious, or on edge: 0 = Not at all Not being able to stop or control worryin = Not at all Worrying too much about different things: 0 = Not at all Trouble relaxin = Not at all Being so restless that it is hard to sit still: 0 = Not at all Becoming easily annoyed or irritable: 0 = Not at all Feeling afraid as if something awful might happen: 0 = Not at all Total KAYLIE-7 score (0-4 normal; 5-9 mild; 10-14 moderate; 15-21 severe): 0 Source: Developed by Drs. Lee Vigil, Karli Turner, Tuan Kline and colleagues, with an educational tati from [employer]. Review of Systems Const Denies chills, Reports fatigue, Reports fever(s) and Denies headache(s) ENT Denies dysphagia, Denies dizziness, Reports otalgia (on and off in both ears), Denies headache(s), Reports nasal congestion, Denies neck pain, Reports odynophagia, Reports sinus pressure and Reports sore throat (increased) Card Denies chest pain, Denies irregular heart rhythm, Denies palpitations and Reports dyspnea on exertion (mild) Resp Reports chest congestion (chest feels tight at times), Reports cough (on and off - coughs up thick brownish phlegm at times), Denies pain with cough, Reports dyspnea on exertion (mild) and Reports wheezing (on and off) GI Denies abdominal pain, Denies constipation, Denies dysphagia, Denies diarrhea, Denies nausea, Reports odynophagia and Denies vomiting Denies difficulty voiding, Denies nocturia and Denies urinary urgency Musc Denies back pain and Denies neck pain Skin/Breast Denies rash Neuro Denies dizziness and Denies headache(s) Endo Reports fatigue and Denies palpitations Aller/Immun Reports wheezing (on and off) Physical exam (Primary Care) Vital Signs: Last Vital Signs Pulse 91 10/17/23 09:58 BP 110/84 10/17/23 09:58 Pulse Ox 97 10/17/23 09:58 Oxygen Delivery Method Room Air 10/17/23 09:58 BMI result Body Mass Index 35.4 Tobacco/Smoking Status: Tobacco use Status Tobacco use date assessed 10/17/23 10/17/23 10:00 Patient Tobacco Use Status Former Tobacco user 10/17/23 10:00 Tobacco use type Cigarette 10/17/23 10:00 e-Cigarette/Vaping Use Never Used 10/17/23 10:00 PHQ-9: PHQ-9 Score PHQ-9: Total score 0 10/17/23 10:52 Depression Screening Interpretation: Negative Thrive Assessment: Date of Thrive Assessment Date Thrive assessed 10/17/23 10/17/23 10:00 Currently or been in a relationship where the following occur: no concerns reported Const General: no acute distress and alert HENMT Ears: TM's normal bilaterally and EAC's normal Throat: Yes abnormal tonsil ((+) large exudate noted on the right tonsil) and Yes posterior oropharynx abnormal (increased erythema of the posterior pharynx) Neck Neck: Yes supple and Yes lymphadenopathy ((+) palpable bilateral posterior cervical lymph nodes) Resp Auscultation: no rales, rhonchi (scattered) throughout, wheezes (occasional) expiratory wheezes (bilaterally), diminished lung sounds (slightly) bilateral and bronchial breath sounds bilateral Cardio Rate: regular rate Rhythm: regular rhythm Heart sounds: no murmurs GI Palpation (GI): Soft to palpation and nontender Auscultation: normal bowel sounds Extrem General: Yes no clubbing, cyanosis or edema Assessment and Plan Assessment & Plan (1) Strep pharyngitis: Code(s): J02.0 - Streptococcal pharyngitis Plan: Will increase her Cephalexin 500 mg BID to 500 mg Q 6 hours for a total of 7 days - will send in Rx for additional 10 capsules so she can complete a 10 days course of Cephalexin as originally instructed Will also start her additionally on Doxycycline 100 mg BID x 7 days (2) Pneumonia: Code(s): J18.9 - Pneumonia, unspecified organism Qualifiers: Laterality: unspecified laterality Lung location: unspecified part of lung Pneumonia type: due to unspecified organism Qualified Code(s): J18.9 - Pneumonia, unspecified organism Plan: Will have her get repeat chest x-rays in 7 days for follow up She has been advised to increase her Cephalexin 500 mg to Q 6 hours dosing and to start additionally on Doxycycline 100 mg BID x 7 days for double Abx coverage (3) Asthma exacerbation: Code(s): J45.901 - Unspecified asthma with (acute) exacerbation Qualifiers: Asthma severity: moderate Asthma persistence: persistent Qualified Code(s): J45.41 - Moderate persistent asthma with (acute) exacerbation Plan: Patient will be on double Abx coverage for the next 7 to 10 days (Cephalexin and Doxycycline) She prefers NOT to take oral Prednisone taper due to concerns about her diabetes Have advised her to start using her nebulizer with her Albuterol neb solution Q 6 hours when she is at home and her Montelukast 10 mg QD Have advised her to seek medical attention JOE if she experiences progressive dyspnea/SOB despite her inhaler or nebulizer treatments at any time over the next couple of weeks Plan Follow up as scheduled in December 2023 with her PCP Orders: Orders XR chest 2V 1 Week J18.9 - Pneumonia, unspecified organism Medications: New cephalexin 500 mg PO Q6H 10 caps 0RF doxycycline monohydrate 100 mg PO BID 7 days 14 caps 0RF pneumonia Coding Level of Care Code Est Pt Level 4 (22241) Diagnoses Strep pharyngitis J02.0 Pneumonia due to infectious organism, unspecified laterality, unspecified part of lung J18.9 Laterality: unspecified laterality Lung location: unspecified part of lung Pneumonia type: due to unspecified organism Moderate persistent asthma with exacerbation J45.41 Asthma severity: moderate Asthma persistence: persistent
== END 2023-10-17 11:00 | disposition home or self-care (01) ==
PROVIDERS: PCP Physician Assistant; Visit Provider Internal Medicine
DX: J02.0 Streptococcal pharyngitis (principal); J18.9 Pneumonia, unspecified organism; J45.41 Moderate persistent asthma with (acute) exacerbation
CPT/HCPCS: 99214

== ENCOUNTER 2023-11-05 11:51 | Outpatient (REF) | payer MEDICARE, MEDICAID, SELFPAY ==
--- NOTE | ~2023-11-05 | XR_ITS ---
EXAMINATION: XR CHEST CLINICAL INFORMATION: Pneumonia follow up. COMPARISON: 07/14/2020 TECHNIQUE: Two views of the chest were obtained. FINDINGS: There is no gross pneumothorax. Heart size is normal. No pleural effusion. No focal consolidation to suggest pneumonia. Mild degenerative changes in the thoracic spine. XR/XR chest 2V IMPRESSION: No evidence of pneumonia.
== END 2023-11-05 11:52 | disposition home or self-care (01) ==
LOC: HO.XRAY 11:51
PROVIDERS: Visit Provider Internal Medicine
DX: J18.9 Pneumonia, unspecified organism (principal)
CPT/HCPCS: 71046

== ENCOUNTER 2023-12-09 10:12 | Outpatient (REF) | payer MEDICARE, MEDICAID, SELFPAY ==
[2023-12-09 10:58] LABS: Hematocrit 42.4 % (37.0-47.0); Hemoglobin 13.3 g/dl (12.0-16.0); Mean Corpuscular HGB Conc 31.4 g/dl (31.0-35.0); Mean Corpuscular Hemoglobin 25.2 pg (27.0-33.0); Mean Corpuscular Volume 80.3 fL (80.0-98.0); Mean Platelet Volume 11.7 fL (9.4-12.3); Platelet Count 284 X10*3/uL (160-400); Red Blood Count 5.28 X10*6/uL (4.20-5.50); White Blood Count 4.8 X10*3/uL (4.8-10.8)
[2023-12-09 11:40] LABS: Alanine Aminotransferase 22 U/L (0-31); Albumin Level 4.6 g/dL (3.5-5.0); Alkaline Phosphatase 88 U/L (39-117); Anion Gap 14 (12-20); Aspartate Amino Transferase 16 U/L (5-31); Blood Urea Nitrogen 12 mg/dL (9-16); Calcium 9.9 mg/dL (8.4-10.2); Carbon Dioxide 27 mmol/L (22-29); Chloride 105 mmol/L (96-108); Cholesterol 152 mg/dL (<200); Estimated Glomerular Filt Rate > 60; Glucose Fasting 106 mg/dL (60-99); HDL Cholesterol 46 mg/dL (>40); LDL Cholesterol Calculated 72 mg/dL (<100); Potassium 4.4 mmol/L (3.3-5.1); Sodium 142 mmol/L (135-145); Total Protein 8.1 g/dL (6.5-8.0); Triglycerides 171 mg/dL (<150)
[2023-12-09 11:42] LABS: Rheumatoid Factor < 13.0 IU/mL (<15.0)
[2023-12-09 12:47] LABS: Bilirubin Total 0.4 mg/dL (0.0-1.0)
[2023-12-10 10:04] LABS: Complement C3 164 mg/dL (83-193)
[2023-12-13 12:18] LABS: ANA Titer 2 1:40 titer; Anti Nuclear Antibody Pattern Nuclear, Homogeneous; Anti Nuclear Antibody Screen POSITIVE (NEGATIVE)
== END 2023-12-09 10:13 | disposition home or self-care (01) ==
LOC: HO.LAB 10:12
PROVIDERS: PCP Physician Assistant; Visit Provider Physician Assistant
DX: E11.65 Type 2 diabetes mellitus with hyperglycemia (principal); I89.0 Lymphedema, not elsewhere classified; E78.5 Hyperlipidemia, unspecified
CPT/HCPCS: 36415; 80053; 80061; 85027; 86038; 86039; 86160; 86431

== ENCOUNTER 2023-12-18 19:16 | Emergency (ER) | payer OTHER, SELFPAY ==
--- NOTE | 2023-12-18 19:23 | ED_ITS ---
HPI - Head Injury General Chief complaint: Head Injury Stated complaint: work inj, hit by door Time Seen by Provider: 12/18/23 19:41 Source: patient Mode of arrival: ambulatory Limitations: no limitations History of Present Illness HPI Narrative: 48 yo female with PMH of HTN not on thinners here with c/o hitting forehead against heavy door swinging back at her while at work 345pm. No LOC but since then has nausea and headache. No prior head injury took motrin with little relief. MD Complaint: head injury and head pain Onset (ago): day(s) (today 345pm) Mechanism of Injury: work related injury Place: work Loss of Consciousness: no Location of injury: frontal Severity: mild Quality: aching Radiation: neck Other Injuries: none Associated symptoms: neck pain and other (headache) Related Data Home Medications Medication Instructions Recorded Confirmed albuterol sulfate 2.5 mg/3 mL 2.5 mg inhalation Q4H PRN 08/10/20 10/17/23 (0.083 %) solution for nebulization hydrocortisone 2.5 % topical cream applic topical 08/10/20 10/17/23 epinephrine 0.3 mg/0.3 mL 0.3 mg IM ONCE PRN 12/16/20 10/17/23 injection, auto-injector calcium lact-mag citr-passion tab PO 07/27/22 10/17/23 flower-valerian 25 mg-50 mg-20 mg tablet (MyoCalm) cephalexin 500 mg capsule 500 mg PO BID 10/17/23 10/17/23 Previous Rx's Medication Instructions Recorded blood-glucose meter (FreeStyle #1 ea 01/12/21 Lite Meter kit) lancets 28 gauge (FreeStyle #100 ea 01/12/21 Lancets) fexofenadine 180 mg tablet 180 mg PO DAILY allergies 90 days 12/19/21 #90 tabs blood sugar diagnostic (FreeStyle 1 strip miscellaneous TID for 06/13/22 Lite Strips) diabetes mellitus #300 strips cholecalciferol (vitamin D3) 50 50 mcg PO DAILY 30 days #30 caps 09/03/22 mcg (2,000 unit) capsule atorvastatin 20 mg tablet 20 mg PO BEDTIME 90 days #90 tabs 06/10/23 pantoprazole 40 mg tablet,delayed 40 mg PO DAILY 90 days #90 tabs 07/16/23 release albuterol sulfate 90 mcg/actuation 2 puff inhalation Q6-8H 30 days 09/05/23 aerosol inhaler #8.5 grams clotrimazole-betamethasone 1 1 appl topical BID 15 days #45 09/05/23 %-0.05 % topical cream grams fluticasone propionate 50 1 spray intranasal BID 30 days #16 09/05/23 mcg/actuation nasal grams spray,suspension losartan 50 mg tablet 50 mg PO DAILY 90 days #90 tabs 09/05/23 montelukast 10 mg tablet 10 mg PO BEDTIME 90 days #90 tabs 09/05/23 (Singulair) semaglutide 0.25 mg or 0.5 mg (2 0.5 mg (0.736 mL) subcut QWEEK 4 09/05/23 mg/3 mL) subcutaneous pen injector weeks #3 mL (Ozempic) cephalexin 500 mg capsule 500 mg PO Q6H #10 caps 10/17/23 doxycycline monohydrate 100 mg 100 mg PO BID pneumonia 7 days #14 10/17/23 capsule caps cyclobenzaprine 10 mg tablet 10 mg PO TID PRN muscle spasm #20 12/18/23 tabs losartan 50 mg tablet 50 mg PO DAILY #30 tabs 12/18/23 ondansetron 4 mg disintegrating 4 mg PO Q8H PRN nausea and 12/18/23 tablet vomiting #20 tabs Allergies Allergy/AdvReac Type Severity Reaction Status Date / Time lactose Allergy Unknown upset Verified 12/18/23 19:26 stomach fentanyl [FENTANYL] AdvReac Severe VOMITING-SE Verified 12/18/23 19:26 NATALIE azithromycin AdvReac Intermediate stomach Verified 12/18/23 19:26 upset ibuprofen [From MOTRIN] AdvReac Intermediate KIDNEY Verified 12/18/23 19:26 PROBLEMS tramadol AdvReac Intermediate dizziness Verified 12/18/23 19:26 and vomiting, vomiting FRUIT,FRESH Allergy Severe MOUTH Uncoded 12/18/23 19:26 ITCHING/SWELLING Review of Systems Review of Systems: Constitutional : No Fever, No Chills, No Fatigue ENT/Mouth : No sore throat, No Rhinorrhea Eyes: No Eye Pain, No Swelling, No Redness Cardiovascular : No Chest Pain, No SOB, No Dyspnea on Exertion Respiratory : No Cough, No Sputum Gastrointestinal : No Nausea, No Vomiting, No Diarrhea, No abdominal Pain Genitourinary : No Dysuria, No Urinary Frequency, No Hematuria, Musculoskeletal : No joint pain, No Myalgias, No Joint Swelling, pos neck pain Skin : No Skin Lesions, No rash Neuro : No Weakness, No Numbness, No Dizziness, positive Headache Psych : No Anxiety/Panic, No Depression All other systems reviewed and are negative PMFSH Past Medical History Attestation statement: The following information was validated with the patient. Source: old records reviewed Medical History Visit for suture removal GERD (gastroesophageal reflux disease) HLD (hyperlipidemia) HTN (hypertension) T2DM (type 2 diabetes mellitus) T2DM (type 2 diabetes mellitus) Morbid obesity Vitamin D deficiency Hyperparathyroidism Hypercalcemia Surgical History History of carpal tunnel release History of removal of cyst H/O myringotomy History of endometrial ablation H/O LEEP Family History Family History Sister Lung cancer AIDS IV drug user Paternal Uncle Colon cancer Paternal Aunt Colon cancer Breast cancer Maternal Aunt Ovarian cancer Leukemia Breast cancer Brain cancer Brother AIDS IV drug user Family/Other FH: mental illness Social History Social History Housing: Apartment Alcohol intake: current Alcohol intake frequency: holidays/special occasions only Alcohol type: hard liquor Patient Tobacco Use Status: Former Tobacco user Quit Date: 2019 Tobacco use type: Cigarette Years Smoked: 30 Smoked in Last 30 Days: No e-Cigarette/Vaping Use: Never Used Second Hand Smoke Exposure: No Use of substances other than those prescribed or required for medical reasons: No Advance Directives: No Advance Directives Information Provided: No Patient : No service: No Current occupational status: unemployed Current occupation: Right Handed Cognitive needs: No Hearing needs: No Vision needs: No Physical Exam Vital Signs: Vital Signs: Last Vital Signs Temp 99 F 12/18/23 19:26 Pulse 104 H 12/18/23 19:26 Resp 16 12/18/23 19:26 BP 154/96 H 12/18/23 19:26 Pulse Ox 97 12/18/23 19:26 O2 Del Method Room Air 04/03/24 19:26 BMI result Body Mass Index 35.7 Appearance: Alert. Oriented X3. No acute distress. Eyes: Pupils equal, round and reactive to light. ENT: Pharynx normal. Frontal R sided no obvious trauma or hematoma no raccoon e yes no loza sign no hemotympanum Neck: No midline ttp some mild bilateral trapezius ttp CVS: Normal heart rate and rhythm. Pulses normal. Respiratory: No respiratory distress. Breath sounds normal. Abdomen: Soft and nontender. Skin: Skin warm and dry. Normal skin color. Normal skin turgor. Extremities: No lower extremity edema. No calf ttp Neuro: Oriented X 3. No motor deficit. No sensory deficit. Course Course Course Narrative: This is an RME: Additional HPI, ROS, PE not included below will be deferred to primary provider. This is [id number]-female, with a history of asthma, GERD, hypertension, hyperlipidemia, prediabetes, who presents emergency department after work- related injury. Patient states that she hit her head with a door while working at 3:45 p.m.. She is endorsing headache, nausea, and neck pain. No midline spine tenderness. Alert, oriented, no focal deficits seen on examination. Plan: CT head, neck, further ER evaluation needed. Medical Decision Making Medical Decision Making MDM Narrative: 48 yo female with PMH of HTN, DM here with c/o head injury after door swung back and hit her in head she is not on thinners she is GCS 15 suspect concussion. Has some lateral neck pain she is NV intact. Suspect concussion I doubt cervical spine fracture given no midline ttp and doubt ICH given 4.5 hours no severe headaches, vomiting and minimal swelling seen ext on forehead. Given precautions to return. Differential Diagnosis Differential Diagnoses: The differential diagnosis associated with the presentation includes head injury, concussion, neck strain Admission/Observation Consideration of admission/observation: Escalation of care including admission/observation considered GCS 15 4.5 hours after incident without thinners or LOC can be DC home External Record Review External record reviewed: Office record Tests considered The following testing was considered but not selected: CT head and neck but given GCS 15 at 4.5 hours, no thinners and appears not toxic no midline ttp doubt ICH or cervical fracture Prescription Management I considered prescription management with: Pain Medication and Other Discharge Plan Discharge Clinical Impression: Acute strain of neck muscle Qualifiers: Encounter type: initial encounter Qualified Code(s): S16.1XXA - Strain of m uscle, fascia and tendon at neck level, initial encounter Concussion Qualifiers: Encounter type: initial encounter Loss of consciousness presence/duration: without LOC Qualified Code(s): S06.0X0A - Concussion without loss of consciousness, initial encounter Patient Disposition: Home, Self-Care Instructions: Cervical Strain (ED), Concussion (ED) Additional Instructions: return for vomiting, worsening pain, confusion or any other concerns. follow up with your doctor or work connection if headaches persiste after 5 days. Prescriptions: New cyclobenzaprine 10 mg tablet 10 mg PO TID PRN (Reason: muscle spasm) Qty: 20 0RF ondansetron 4 mg tablet,disintegrating 4 mg PO Q8H PRN (Reason: nausea and vomiting) Qty: 20 0RF losartan 50 mg tablet 50 mg PO DAILY Qty: 30 0RF No Action (DME) lancets [FreeStyle Lancets] 28 gauge misc See Rx Instructions .ROUTE .MEDSUPPLY Qty: 100 11RF Rx Instructions: 4x daily (DME) blood-glucose meter [FreeStyle Lite Meter] Kit See Rx Instructions .ROUTE .MEDSUPPLY Qty: 1 0RF Rx Instructions: As directed cholecalciferol (vitamin D3) 50 mcg (2,000 unit) capsule 50 mcg PO DAILY 30 Days Qty: 30 11RF atorvastatin 20 mg tablet 20 mg PO BEDTIME 90 Days Qty: 90 3RF pantoprazole 40 mg tablet,delayed release (DR/EC) 40 mg PO DAILY 90 Days Qty: 90 1RF hydrocortisone 2.5 % cream topical albuterol sulfate 2.5 mg /3 mL (0.083 %) solution for nebulization 2.5 mg inhalation Q4H PRN montelukast [Singulair] 10 mg tablet 10 mg PO BEDTIME 90 Days Qty: 90 1RF Ozempic 0.25 mg or 0.5 mg (2 mg/3 mL) pen injector 0.5 mg subcut QWEEK 28 Days Qty: 3 3RF albuterol sulfate 90 mcg/actuation HFA aerosol inhaler 2 puff inhalation Q6-8H 30 Days Qty: 8.5 3RF clotrimazole-betamethasone 1-0.05 % cream 1 appl topical BID 15 Days Qty: 45 1RF fluticasone propionate 50 mcg/actuation spray,suspension 1 spray intranasal BID 30 Days Qty: 16 3RF losartan 50 mg tablet 50 mg PO DAILY 90 Days Qty: 90 1RF fexofenadine 180 mg tablet 180 mg PO DAILY 90 Days Qty: 90 1RF FreeStyle Lite Strips Strip 1 strip miscellaneous TID Qty: 300 1RF cephalexin 500 mg capsule 500 mg PO BID cephalexin 500 mg capsule 500 mg PO Q6H Qty: 10 0RF doxycycline monohydrate 100 mg capsule 100 mg PO BID 7 Days Qty: 14 0RF epinephrine 0.3 mg/0.3 mL auto-injector 0.3 mg IM ONCE PRN MyoCalm 25-50-20-10 mg tablet PO Stand Alone Forms: Work/School Release
[2023-12-18 19:26] VITALS: BP 154/96; PULSE 104; RESP 16; TEMP 37.2; O2SAT 97; BMI 35.7
[2023-12-18 20:24] VITALS: BP 128/82; PULSE 88; RESP 20; TEMP 36.9; O2SAT 98
[2023-12-18] MEDS: Acetaminophen 325 MG TABLET 975 MG PO (20:49)
[2023-12-18 20:56] VITALS: BP 128/82; PULSE 88; RESP 20; TEMP 36.9; O2SAT 98
== END 2023-12-18 20:58 | disposition home or self-care (01) ==
PROVIDERS: Emergency Provider Emergency Medicine
DX: S06.0X0A Concussion without loss of consciousness, initial encounter (principal); S16.1XXA Strain of muscle, fascia and tendon at neck level, initial encounter; E11.9 Type 2 diabetes mellitus without complications; I10 Essential (primary) hypertension; W20.8XXA Other cause of strike by thrown, projected or falling object, initial encounter; Y93.9 Activity, unspecified; Y92.89 Other specified places as the place of occurrence of the external cause; Y99.0 Civilian activity done for income or pay
CPT/HCPCS: 99283; 99284

== ENCOUNTER 2024-01-09 09:40 | Outpatient (AMB) | payer MEDICARE, MEDICAID, SELFPAY ==
--- NOTE | 2024-01-09 09:55 | MHC.PC.OV ---
Vital Signs 01/09/24 10:15 Height 5 ft 4 in Weight 207 lb BMI 35.5 BP 124/74 Blood Pressure Location Lt brachial Position Sitting Pulse 70 Pulse Source Pulse Oximeter Pulse Oximetry (%) 97 Oxygen Delivery Method Room Air Intake Visit Reasons: f/u DMII- weight check Ambulance Assistant Required: No Accompanied by: Self / Same As Patient Allergies lactose Allergy (Unknown, Verified 01/09/24 10:35) upset stomach fentanyl [FENTANYL] Adverse Reaction (Severe, Verified 01/09/24 10:35) VOMITING-SEVERE azithromycin Adverse Reaction (Intermediate, Verified 01/09/24 10:35) stomach upset ibuprofen [From MOTRIN] Adverse Reaction (Intermediate, Verified 01/09/24 10:35) KIDNEY PROBLEMS tramadol Adverse Reaction (Intermediate, Verified 01/09/24 10:35) dizziness and vomiting, vomiting FRUIT,FRESH Allergy (Severe, Uncoded 01/09/24 10:16) MOUTH ITCHING/SWELLING Medication List - Last Reconciled 01/09/24 by Maury Caputo PA-C albuterol sulfate 2.5 mg inhalation Q4H PRN albuterol sulfate 90 mcg/actuation 2 puffs inhalation Q6-8H 30 days atorvastatin 20 mg PO BEDTIME 90 days blood sugar diagnostic (FreeStyle Lite Strips) 1 strip miscellaneous TID blood-glucose meter (FreeStyle Lite Meter kit) As directed Ca lac-mag cit-pas flwr-everett rt 25-50-20-10 mg (MyoCalm) tabs PO cephalexin 500 mg PO BID cholecalciferol (vitamin D3) 50 mcg PO DAILY 30 days clotrimazole-betamethasone 1-0.05 % 1 appl topical BID 15 days cyclobenzaprine 10 mg PO TID PRN doxycycline monohydrate 100 mg PO BID 7 days epinephrine 0.3 mg IM ONCE PRN fexofenadine 180 mg PO DAILY 90 days fluticasone propionate 50 mcg/actuation 1 spray intranasal BID 30 days hydrocortisone 2.5% appl topical lancets (FreeStyle Lancets) 4x daily losartan 50 mg PO DAILY 90 days montelukast (Singulair) 10 mg PO BEDTIME 90 days ondansetron 4 mg PO Q8H PRN pantoprazole 40 mg PO DAILY 90 days semaglutide (Ozempic) 0.5 mg (0.736 mL) subcut QWEEK 4 weeks Tobacco use date assessed: 10/17/23 Dental Screening Dental Screen Date: 10/17/23 HPI f/u DMII- weight check HPI Details Patient is a 48-year-old female here today for follow-up visit..? Patient has a past history significant for hyperlipidemia,? type 2 diabetes, obesity, , mild lymphocytosis,? asthma,? polyarthralgia. Concern--> reports a few episodes over the last few months heart palpitations during times of physical activity and perhaps anxiety. She is concerned that she has a cardiac condition. She reports she often has to cough or tap the mid lower chest to have the palpitation go away. She has seen a pershing missile crewmember in the past and did have a benign sinus tachycardia. She otherwise denies any chest discomfort, shortness of breath or dizziness .. Polyarthralgia: She continues to have bilateral hand, knee and ankle pains. She did have an OSCAR that was weakly positive 1:80. Does have upcoming appointment with Rheumatology. PLAN: Will get x-rays of affected joints evaluate for evidence of inflammatory arthritis Type 2 diabetes--> Last visit we discussed her weight and type 2 diabetes. Today's A1c is 6.1. She has noted some weight loss with the medication. No notable side effects. She has not noted any significant weight loss. Asking for higher dose of Ozempic. .. Lymphedema: Does seem to have mild lymphedema in the upper and lower extremities. Did do a few lymphedema massage is with occupational therapy that did help. .. CHRONIC MEDICAL CONDITIONS--> . . .. Hyperparathyroidism:? Did recently have an elevated calcium though parathyroid hormone normal.? Endocrinology suspect this is due to a robust albumin.? No further workup needed at this time.? She will continue vitamin-D supplementation .. ?Hyperlipidemia:? Most recent lipid panel much improved with LDL at 90 and total cholesterol 160s. ?She is willing to continue statin therapy ( atorvastatin 20mg PFSH Medical History Visit for suture removal GERD (gastroesophageal reflux disease) HLD (hyperlipidemia) HTN (hypertension) T2DM (type 2 diabetes mellitus) T2DM (type 2 diabetes mellitus) Morbid obesity Vitamin D deficiency Hyperparathyroidism Hypercalcemia Surgical History History of carpal tunnel release History of removal of cyst H/O myringotomy History of endometrial ablation H/O LEEP Family History Sister Lung cancer AIDS IV drug user Paternal Uncle Colon cancer Paternal Aunt Colon cancer Breast cancer Maternal Aunt Ovarian cancer Leukemia Breast cancer Brain cancer Brother AIDS IV drug user Family/Other FH: mental illness Social History Housing: Apartment Alcohol intake: current Alcohol intake frequency: holidays/special occasions only Alcohol type: hard liquor Patient Tobacco Use Status: Former Tobacco user Quit Date: 2019 Tobacco use type: Cigarette Years Smoked: 30 e-Cigarette/Vaping Use: Never Used Second Hand Smoke Exposure: No service: No Current occupational status: unemployed Current occupation: Right Handed Cognitive needs: No Hearing needs: No Vision needs: No Female Reproductive History Menstrual Age of Menarche: 7 Questionnaire Thrive Questionnaire Date Thrive assessed: 10/17/23 KAYLIE-7 AMB Questionnaire KAYLIE-7 Date KAYLIE - 7 assessed: 10/17/23 Source: Developed by Drs. Lee Vigil, Karli Turner, Tuan Kline and colleagues, with an educational tati from [employer] software. Review of Systems Const Denies headache(s) Eyes Denies loss of vision ENT Denies vertigo, Denies dizziness, Denies headache(s) and Denies sore throat Card Denies chest pain, Denies leg edema and Denies lightheadedness Resp Denies cough, Denies hemoptysis and Denies wheezing GI Denies abdominal pain, Denies melena, Denies constipation, Denies diarrhea and Denies vomiting Denies urinary frequency, Denies dysuria and Denies urinary urgency Musc Denies back pain, Reports arthralgias, Denies joint swelling, Denies numbness, Reports stiffness and Denies tingling Neuro Denies Abnormal speech present, Denies behavioral changes, Denies vertigo, Denies dizziness, Denies headache(s), Denies loss of vision, Denies memory loss, Denies numbness and Denies tingling Psych Denies anxiety, Denies behavioral changes, Denies depression, Denies memory loss and Denies panic attacks Reji/Lymph Denies easy bleeding and Denies easy bruising Aller/Immun Denies wheezing Physical exam (Primary Care) Vital Signs: Last Vital Signs Pulse 70 01/09/24 10:15 BP 124/74 01/09/24 10:15 Pulse Ox 97 01/09/24 10:15 Oxygen Delivery Method Room Air 01/09/24 10:15 BMI result Body Mass Index 35.5 Tobacco/Smoking Status: Tobacco use Status Tobacco use date assessed 10/17/23 01/09/24 09:56 Patient Tobacco Use Status Former Tobacco user 01/09/24 09:56 Tobacco use type Cigarette 01/09/24 09:56 e-Cigarette/Vaping Use Never Used 01/09/24 09:56 Thrive Assessment: Date of Thrive Assessment Date Thrive assessed 10/17/23 01/09/24 09:56 Const General: healthy appearing, no acute distress, alert and awake Nutritional Appearance: well nourished Orientation/consciousness: oriented to person, oriented to place and oriented to time HENMT Ears: TM's normal bilaterally General nose exam: Normal nasal mucous membranes and turbinates present Eyes Conjunctivae: conjunctivae normal Sclerae: sclerae normal Pupils: Equal, round and reactive pupils present Neck Neck: Yes no lymphadenopathy and Yes no JVD Thyroid: Thyroid normal Carotids: no bruits Resp Effort & Inspection: normal respiratory effort and not tachypneic Auscultation: no crackles, no rales, no rhonchi and no wheezes Cardio Rate: regular rate Rhythm: regular rhythm Heart sounds: no murmurs and normal S1 and S2 GI Palpation (GI): Soft to palpation, nontender, no hepatomegaly and no splenomegaly Auscultation: normal bowel sounds Skin General skin exam: no rashes or lesions noted and dry skin Neuro General: oriented to person, oriented to place and oriented to time Cranial nerves: Yes Equal, round and reactive pupils present Speech: No Abnormal speech present Gait exam (Neuro): Normal gait present Motor exam (neuro): no tremor noted Extrem Right upper extremity: full ROM Left upper extremity: full ROM Right lower extremity: full ROM; no edema Left lower extremity: full ROM; no edema Psych Mental Status: mental status grossly normal Speech and movement: Normal speech and movement present Affect: normal affect Attitude: cooperative Thought process: Normal thought process present Results AMB Hemoglobin A1c AMB Hemoglobin A1c 6.1 % Last Edit by LOKI Medina on 01/09/24 10:26 Results Reviewed Results Reviewed: Laboratory Last Values Hgb A1c (Clinic) 6.1 % (4.0-6.0) H 01/09/24 09:48 Assessment and Plan Assessment & Plan (1) HTN (hypertension): Code(s): I10 - Essential (primary) hypertension Qualifiers: Hypertension type: unspecified Qualified Code(s): I10 - Essential (primary) hypertension Plan: Patient's blood pressure acceptable today in office. Will continue her current dose of antihypertensive medication with goal blood pressure to be below 140/90 (2) T2DM (type 2 diabetes mellitus): Code(s): E11.9 - Type 2 diabetes mellitus without complications Qualifiers: Diabetes mellitus complication status: with hyperglycemia Diabetes mellitus skilled nursing insulin use: without skilled nursing use Qualified Code(s): E11.65 - Type 2 diabetes mellitus with hyperglycemia Plan: Patient's type 2 diabetes well controlled. She is interested in further weight reduction thus will increase her Ozempic to 1 mg. Goal A1c is to remain below 6.5 (3) HLD (hyperlipidemia): Code(s): E78.5 - Hyperlipidemia, unspecified Qualifiers: Hyperlipidemia type: unspecified Qualified Code(s): E78.5 - Hyperlipidemia, unspecified (4) Lymphedema: Code(s): I89.0 - Lymphedema, not elsewhere classified Plan: Patient continues to have what seems to be lymphedema in her extremities which has been evident for the past several years. She has had treatment in her right upper extremity with occupational therapy lymphedema massage which had helped reduce her swelling. She is interested in perhaps getting compression sleeves. (5) Positive OSCAR (antinuclear antibody): Code(s): R76.8 - Other specified abnormal immunological findings in serum Plan: As per HPI patient does have positive OSCAR . Her rheumatoid factor was negative. Concerns for rheumatoid arthritis due to her polyarthralgia complaints. (6) Arthralgia of hands, bilateral: Code(s): M25.541 - Pain in joints of right hand; M25.542 - Pain in joints of left hand (7) Bilateral knee pain: Code(s): M25.561 - Pain in right knee; M25.562 - Pain in left knee Qualifiers: Chronicity: unspecified Qualified Code(s): M25.561 - Pain in right knee; M25.562 - Pain in left knee (8) Bilateral foot pain: Code(s): M79.671 - Pain in right foot; M79.672 - Pain in left foot Orders: Orders XR hand RT 2V Today M25.541 - Pain in joints of right hand, M25.542 - Pain in joints of left hand XR knee LT 3V Today M25.561 - Pain in right knee, M25.562 - Pain in left knee XR foot LT 2V Today M79.671 - Pain in right foot, M79.672 - Pain in left foot XR foot RT 2V Today M79.671 - Pain in right foot, M79.672 - Pain in left foot AMB Hemoglobin A1c Today E11.65 - Type 2 diabetes mellitus with hyperglycemia XR hand LT 2V Today M25.541 - Pain in joints of right hand, M25.542 - Pain in joints of left hand XR knee RT 3V Today M25.561 - Pain in right knee, M25.562 - Pain in left knee Medications: New semaglutide (Ozempic) 1 mg (0.75 mL) subcut QWEEK 4 weeks 3 mL 3RF E11.65 - Type 2 diabetes mellitus with hyperglycemia, M25.561 - Pain in right knee, M25.562 - Pain in left knee Discontinued semaglutide (Ozempic) Discontinued Reason: Doctor's Order 0.5 mg (0.736 mL) subcut QWEEK 4 weeks 3 mL 3RF E11.65 - Type 2 diabetes mellitus with hyperglycemia Coding Level of Care Code Est Pt Level 4 (00080) Diagnoses Hypertension, unspecified type I10 Hypertension type: unspecified Type 2 diabetes mellitus with hyperglycemia, without long-term current use of insulin E11.65 Diabetes mellitus complication status: with hyperglycemia 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
[2024-01-09 10:15] VITALS: BP 124/74; PULSE 70; O2SAT 97; BMI 35.5
== END 2024-01-09 11:09 | disposition home or self-care (01) ==
PROVIDERS: PCP Physician Assistant; Visit Provider Physician Assistant
DX: I10 Essential (primary) hypertension (principal); E11.65 Type 2 diabetes mellitus with hyperglycemia; E78.5 Hyperlipidemia, unspecified; I89.0 Lymphedema, not elsewhere classified; R76.8 Other specified abnormal immunological findings in serum; M25.541 Pain in joints of right hand; M25.542 Pain in joints of left hand; M25.561 Pain in right knee; M25.562 Pain in left knee; M79.671 Pain in right foot; M79.672 Pain in left foot
CPT/HCPCS: 83036; 99214

== ENCOUNTER 2024-01-23 12:47 | Outpatient (REF) | payer MEDICARE, MEDICAID, SELFPAY ==
--- NOTE | ~2024-01-23 | XR_ITS ---
EXAMINATION: XR KNEES, BILATERAL XR HANDS, BILATERAL XR FEET, BILATERAL CLINICAL INFORMATION: Pain in right knee, joints of right hand and right foot. COMPARISON: Bilateral knees 11/22/2016. TECHNIQUE: 3 views of each hand, 3 views of each foot, 3 views of each knee. FINDINGS: RIGHT FOOT: Moderate dorsal and plantar calcaneal spurs. The bone mineralization is normal. Moderate degenerative changes in the first metatarsophalangeal joint with joint space narrowing and hypertrophic change. LEFT FOOT: [id number] dorsal and plantar calcaneal spurs. The bone mineralization is normal. Moderate degenerative changes in the first metatarsophalangeal joint with joint space narrowing and hypertrophic change. RIGHT KNEE: Moderate narrowing of the medial compartment with small medial marginal osteophytes. Trace joint effusion. Tiny posterior patellar osteophytes. LEFT KNEE: Mild narrowing of the medial compartment with small medial marginal osteophytes. Trace joint effusion. Tiny posterior patellar osteophytes. RIGHT HAND: Mild degenerative changes in the first carpometacarpal joint. There are a few small scattered cystic lucencies, with examples notable in the third metacarpal head, first proximal phalanx, and lunate. No displaced fracture appreciated. Subtle sclerosis with associated cystic lucencies in the lunate. LEFT HAND: Mild degenerative changes in the first carpometacarpal joint. There are a few scattered cystic lucencies. Subtle sclerosis with associated cystic lucencies in the lunate. Alignment preserved. No displaced fracture appreciated. XR/XR knee LT 3V IMPRESSION: 1. Moderate degenerative changes in the bilateral first metatarsophalangeal joints. 2. Moderate degenerative changes in the bilateral knees. 3. Mild degenerative changes in the bilateral first carpometacarpal joints. 4. Scattered cystic lucencies in the bilateral hands. 5. Subtle sclerosis with associated cystic lucencies in the bilateral lunate bones, more notable on the left. 6. Recommend follow-up imaging in 10-14 days if fracture is suspected.
--- NOTE | ~2024-01-23 | XR_ITS ---
EXAMINATION: XR KNEES, BILATERAL XR HANDS, BILATERAL XR FEET, BILATERAL CLINICAL INFORMATION: Pain in right knee, joints of right hand and right foot. COMPARISON: Bilateral knees 11/22/2016. TECHNIQUE: 3 views of each hand, 3 views of each foot, 3 views of each knee. FINDINGS: RIGHT FOOT: Moderate dorsal and plantar calcaneal spurs. The bone mineralization is normal. Moderate degenerative changes in the first metatarsophalangeal joint with joint space narrowing and hypertrophic change. LEFT FOOT: [id number] dorsal and plantar calcaneal spurs. The bone mineralization is normal. Moderate degenerative changes in the first metatarsophalangeal joint with joint space narrowing and hypertrophic change. RIGHT KNEE: Moderate narrowing of the medial compartment with small medial marginal osteophytes. Trace joint effusion. Tiny posterior patellar osteophytes. LEFT KNEE: Mild narrowing of the medial compartment with small medial marginal osteophytes. Trace joint effusion. Tiny posterior patellar osteophytes. RIGHT HAND: Mild degenerative changes in the first carpometacarpal joint. There are a few small scattered cystic lucencies, with examples notable in the third metacarpal head, first proximal phalanx, and lunate. No displaced fracture appreciated. Subtle sclerosis with associated cystic lucencies in the lunate. LEFT HAND: Mild degenerative changes in the first carpometacarpal joint. There are a few scattered cystic lucencies. Subtle sclerosis with associated cystic lucencies in the lunate. Alignment preserved. No displaced fracture appreciated. XR/XR foot RT 2V IMPRESSION: 1. Moderate degenerative changes in the bilateral first metatarsophalangeal joints. 2. Moderate degenerative changes in the bilateral knees. 3. Mild degenerative changes in the bilateral first carpometacarpal joints. 4. Scattered cystic lucencies in the bilateral hands. 5. Subtle sclerosis with associated cystic lucencies in the bilateral lunate bones, more notable on the left. 6. Recommend follow-up imaging in 10-14 days if fracture is suspected.
--- NOTE | ~2024-01-23 | XR_ITS ---
EXAMINATION: XR KNEES, BILATERAL XR HANDS, BILATERAL XR FEET, BILATERAL CLINICAL INFORMATION: Pain in right knee, joints of right hand and right foot. COMPARISON: Bilateral knees 11/22/2016. TECHNIQUE: 3 views of each hand, 3 views of each foot, 3 views of each knee. FINDINGS: RIGHT FOOT: Moderate dorsal and plantar calcaneal spurs. The bone mineralization is normal. Moderate degenerative changes in the first metatarsophalangeal joint with joint space narrowing and hypertrophic change. LEFT FOOT: [id number]-[id number] dorsal and plantar calcaneal spurs. The bone mineralization is normal. Moderate degenerative changes in the first metatarsophalangeal joint with joint space narrowing and hypertrophic change. RIGHT KNEE: Moderate narrowing of the medial compartment with small medial marginal osteophytes. Trace joint effusion. Tiny posterior patellar osteophytes. LEFT KNEE: Mild narrowing of the medial compartment with small medial marginal osteophytes. Trace joint effusion. Tiny posterior patellar osteophytes. RIGHT HAND: Mild degenerative changes in the first carpometacarpal joint. There are a few small scattered cystic lucencies, with examples notable in the third metacarpal head, first proximal phalanx, and lunate. No displaced fracture appreciated. Subtle sclerosis with associated cystic lucencies in the lunate. LEFT HAND: Mild degenerative changes in the first carpometacarpal joint. There are a few scattered cystic lucencies. Subtle sclerosis with associated cystic lucencies in the lunate. Alignment preserved. No displaced fracture appreciated. XR/XR foot LT 2V IMPRESSION: 1. Moderate degenerative changes in the bilateral first metatarsophalangeal joints. 2. Moderate degenerative changes in the bilateral knees. 3. Mild degenerative changes in the bilateral first carpometacarpal joints. 4. Scattered cystic lucencies in the bilateral hands. 5. Subtle sclerosis with associated cystic lucencies in the bilateral lunate bones, more notable on the left. 6. Recommend follow-up imaging in 10-14 days if fracture is suspected.
--- NOTE | ~2024-01-23 | XR_ITS ---
EXAMINATION: XR KNEES, BILATERAL XR HANDS, BILATERAL XR FEET, BILATERAL CLINICAL INFORMATION: Pain in right knee, joints of right hand and right foot. COMPARISON: Bilateral knees 11/22/2016. TECHNIQUE: 3 views of each hand, 3 views of each foot, 3 views of each knee. FINDINGS: RIGHT FOOT: Moderate dorsal and plantar calcaneal spurs. The bone mineralization is normal. Moderate degenerative changes in the first metatarsophalangeal joint with joint space narrowing and hypertrophic change. LEFT FOOT: [id number] dorsal and plantar calcaneal spurs. The bone mineralization is normal. Moderate degenerative changes in the first metatarsophalangeal joint with joint space narrowing and hypertrophic change. RIGHT KNEE: Moderate narrowing of the medial compartment with small medial marginal osteophytes. Trace joint effusion. Tiny posterior patellar osteophytes. LEFT KNEE: Mild narrowing of the medial compartment with small medial marginal osteophytes. Trace joint effusion. Tiny posterior patellar osteophytes. RIGHT HAND: Mild degenerative changes in the first carpometacarpal joint. There are a few small scattered cystic lucencies, with examples notable in the third metacarpal head, first proximal phalanx, and lunate. No displaced fracture appreciated. Subtle sclerosis with associated cystic lucencies in the lunate. LEFT HAND: Mild degenerative changes in the first carpometacarpal joint. There are a few scattered cystic lucencies. Subtle sclerosis with associated cystic lucencies in the lunate. Alignment preserved. No displaced fracture appreciated. XR/XR knee RT 3V IMPRESSION: 1. Moderate degenerative changes in the bilateral first metatarsophalangeal joints. 2. Moderate degenerative changes in the bilateral knees. 3. Mild degenerative changes in the bilateral first carpometacarpal joints. 4. Scattered cystic lucencies in the bilateral hands. 5. Subtle sclerosis with associated cystic lucencies in the bilateral lunate bones, more notable on the left. 6. Recommend follow-up imaging in 10-14 days if fracture is suspected.
== END 2024-01-23 12:48 | disposition home or self-care (01) ==
LOC: HO.XRAY 12:47
PROVIDERS: Visit Provider Physician Assistant
DX: M25.541 Pain in joints of right hand (principal); M25.542 Pain in joints of left hand; M25.561 Pain in right knee; M25.562 Pain in left knee; M79.671 Pain in right foot; M79.672 Pain in left foot
CPT/HCPCS: 73120; 73562; 73620

== ENCOUNTER 2024-01-24 10:57 | Outpatient (AMB) | payer OTHER, SELFPAY ==
[2024-01-24 11:00] VITALS: BP 132/76; PULSE 76; O2SAT 98; BMI 35.9
--- NOTE | 2024-01-24 11:00 | MHC.OFFVIS ---
Vital Signs 01/24/24 11:00 Height 5 ft 4 in Weight 208 lb 15.971 oz BMI 35.9 BP 132/76 Blood Pressure Location Rt brachial Position Sitting Pulse 76 Pulse Source Pulse Oximeter Pulse Oximetry (%) 98 Oxygen Delivery Method Room Air Intake Visit Reasons: + OSCAR/Joint Pain Intake Note: New patient, internally referred, presents to office today for wrist pain. Reports pain in all joints, really bad bl feet. Pain began approx since she was in her 20's. 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 Markham 48yoF presents for evaluation of Joint pain and +OSCAR. She has had multiple joint pain now for many years. She describes that the pain jumps around to different joints. --sometimes right index finger hooker, and right big toe, or lateral left foot. --+OSCAR 1:80 --Morning stiffness last about about 20 minutes. --denies rashes, but gets hives with contact to surfaces. --Female cousin with Lupus and other with RA. --Reports calcium deposits in right shoulder and got corticosteroids injections in the past about 2 years ago (07/2022) [facility] Medical History Visit for suture removal GERD (gastroesophageal reflux disease) HLD (hyperlipidemia) HTN (hypertension) T2DM (type 2 diabetes mellitus) T2DM (type 2 diabetes mellitus) Morbid obesity Vitamin D deficiency Hyperparathyroidism Hypercalcemia Surgical History History of carpal tunnel release History of removal of cyst H/O myringotomy History of endometrial ablation H/O LEEP Family History Sister Lung cancer AIDS IV drug user Paternal Uncle Colon cancer Paternal Aunt Colon cancer Breast cancer Maternal Aunt Ovarian cancer Leukemia Breast cancer Brain cancer Brother AIDS IV drug user Family/Other FH: mental illness Social History Housing: Apartment Alcohol intake: current Alcohol intake frequency: holidays/special occasions only Alcohol type: hard liquor Patient Tobacco Use Status: Former Tobacco user Tobacco use type: Cigarette Years Smoked: 30 e-Cigarette/Vaping Use: Never Used Second Hand Smoke Exposure: No service: No Current occupational status: unemployed Current occupation: Right Handed Cognitive needs: No Hearing needs: No Vision needs: No Female Reproductive History Menstrual Age of Menarche: 7 Review of Systems Const All systems reviewed & are unremarkable except as noted in HPI and below Physical Exam Vital Signs: Last Vital Signs Pulse 76 01/24/24 11:00 BP 132/76 01/24/24 11:00 Pulse Ox 98 01/24/24 11:00 Oxygen Delivery Method Room Air 01/24/24 11:00 BMI result Body Mass Index 35.9 Const General: cooperative, healthy appearing and no acute distress Resp Effort & Inspection: normal respiratory effort and able to speak in complete sentences Cardio Rate: regular rate Peripheral pulses: Peripheral pulses 2+ throughout GI Palpation (GI): Soft to palpation Skin Lesions: no lesions Rashes: no rashes Extrem Other: Right shoulder: Normal to inspection. No ecchymosis, erythema, or edema. Full ROM in all plains. Slight the tenderness to palpation of the bicep tendon insertion. Positive cross-body reach. Positive empty can due to pain but not weakness. Negative drop arm. NVI. Results Reviewed Results Reviewed: XR/XR knee RT 3V IMPRESSION: 1. Moderate degenerative changes in the bilateral first metatarsophalangeal joints. 2. Moderate degenerative changes in the bilateral knees. 3. Mild degenerative changes in the bilateral first carpometacarpal joints. 4. Scattered cystic lucencies in the bilateral hands. 5. Subtle sclerosis with associated cystic lucencies in the bilateral lunate bones, more notable on the left. 6. Recommend follow-up imaging in 10-14 days if fracture is suspected. Laboratory Tests 12/09/23 01/27/24 10:24 14:52 WBC 4.8 RBC 5.28 Hgb 13.3 Hct 42.4 ESR 23 H Uric Acid 5.3 Total Creatine Kinase 143 H C-Reactive Protein 0.49 Total Protein (PEP) 8.3 H Qizuv-6-Ycqjautsu 1.0 H Apvt-6-Pwgpdqxr 0.6 H IgG Total 1314 IgA Total 398 H IgM 54 OSCAR Titer 1:80 H OSCAR Titer 2 1:40 H Assessment & Plan Assessment & Plan (1) Positive OSCAR (antinuclear antibody): Code(s): R76.8 - Other specified abnormal immunological findings in serum Category: Medical (2) Bilateral knee pain: Code(s): M25.561 - Pain in right knee; M25.562 - Pain in left knee Category: Medical Qualifiers: Chronicity: unspecified Qualified Code(s): M25.561 - Pain in right knee; M25.562 - Pain in left knee (3) Bilateral foot pain: Code(s): M79.671 - Pain in right foot; M79.672 - Pain in left foot Category: Medical (4) Painful arc syndrome of right shoulder: Code(s): M75.101 - Unspecified rotator cuff tear or rupture of right shoulder, not specified as traumatic Category: Medical Plan The patient is here for evaluation of multiple joint pain and +OSCAR. While she does have multiple joint pain, initially, I do not see a clinical presentation for a CTD or inflammatory process that underlies her complaints. There is no synovitis or periaticular or soft tissue swelling or tenderness on PE. She does hae some right shoulder pathology that she has received steroid injection for in the past. 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 I will obtain a Rheum panel for further evaluation. f/u 3 weeks. I spent 35 minutes reviewing history, evaluation patient and documenting. Orders: Orders Anti-Centromere B Antibodies 01/27/24 R76.8 - Other specified abnormal immunological findings in serum, M79.671 - Pain in right foot, M79.672 - Pain in left foot, M25.561 - Pain in right knee, M25.562 - Pain in left knee C Reactive Protein 01/27/24 R76.8 - Other specified abnormal immunological findings in serum, M79.671 - Pain in right foot, M79.672 - Pain in left foot, M25.561 - Pain in right knee, M25.562 - Pain in left knee Erythrocyte Sedimentation Rate 01/27/24 R76.8 - Other specified abnormal immunological findings in serum, M79.671 - Pain in right foot, M79.672 - Pain in left foot, M25.561 - Pain in right knee, M25.562 - Pain in left knee Immunofixation Pnl, Serum 01/27/24 R76.8 - Other specified abnormal immunological findings in serum, M79.671 - Pain in right foot, M79.672 - Pain in left foot, M25.561 - Pain in right knee, M25.562 - Pain in left knee Anti DNA DS Antibody 01/27/24 R76.8 - Other specified abnormal immunological findings in serum, M79.671 - Pain in right foot, M79.672 - Pain in left foot, M25.561 - Pain in right knee, M25.562 - Pain in left knee Anti Extractable Nuclear Ag 01/27/24 R76.8 - Other specified abnormal immunological findings in serum, M79.671 - Pain in right foot, M79.672 - Pain in left foot, M25.561 - Pain in right knee, M25.562 - Pain in left knee Complement C3 01/27/24 R76.8 - Other specified abnormal immunological findings in serum, M79.671 - Pain in right foot, M79.672 - Pain in left foot, M25.561 - Pain in right knee, M25.562 - Pain in left knee Complement C4 01/27/24 R76.8 - Other specified abnormal immunological findings in serum, M79.671 - Pain in right foot, M79.672 - Pain in left foot, M25.561 - Pain in right knee, M25.562 - Pain in left knee Creatine Kinase Total 01/27/24 R76.8 - Other specified abnormal immunological findings in serum, M79.671 - Pain in right foot, M79.672 - Pain in left foot, M25.561 - Pain in right knee, M25.562 - Pain in left knee Immunoglobulins,IgG IgA IgM 01/27/24 R76.8 - Other specified abnormal immunological findings in serum, M79.671 - Pain in right foot, M79.672 - Pain in left foot, M25.561 - Pain in right knee, M25.562 - Pain in left knee Protein Electrophoresis, Serum 01/27/24 R76.8 - Other specified abnormal immunological findings in serum, M79.671 - Pain in right foot, M79.672 - Pain in left foot, M25.561 - Pain in right knee, M25.562 - Pain in left knee Sjogren's Antibodies 01/27/24 R76.8 - Other specified abnormal immunological findings in serum, M79.671 - Pain in right foot, M79.672 - Pain in left foot, M25.561 - Pain in right knee, M25.562 - Pain in left knee Uric Acid 01/27/24 M79.671 - Pain in right foot, M79.672 - Pain in left foot Coding Level of Care Code New Pt Level 4 (67405) Diagnoses Positive OSCAR (antinuclear antibody) R76.8 Pain in both knees, unspecified chronicity M25.561; M25.562 Chronicity: unspecified Bilateral foot pain M79.671; M79.672 Painful arc syndrome of right shoulder M75.101
== END 2024-01-24 11:59 | disposition home or self-care (01) ==
PROVIDERS: PCP Physician Assistant; Visit Provider Nurse Practitioner Family
DX: R76.8 Other specified abnormal immunological findings in serum (principal); M25.561 Pain in right knee; M25.562 Pain in left knee; M79.671 Pain in right foot; M79.672 Pain in left foot; M75.101 Unspecified rotator cuff tear or rupture of right shoulder, not specified as traumatic
CPT/HCPCS: 99204

== ENCOUNTER → 2024-01-24 10:57 | Outpatient (BNVA) | payer MEDICAID, SELFPAY | PROVIDERS: PCP Physician Assistant; Visit Provider Nurse Practitioner Family | DX: R76.8 Other specified abnormal immunological findings in serum (principal); M25.561 Pain in right knee; M25.562 Pain in left knee; M79.671 Pain in right foot; M79.672 Pain in left foot; M75.101 Unspecified rotator cuff tear or rupture of right shoulder, not specified as traumatic | CPT/HCPCS: 99202 ==

== ENCOUNTER 2024-01-27 14:15 | Outpatient (REF) | payer MEDICARE, MEDICAID, SELFPAY ==
[2024-01-27 16:13] LABS: C Reactive Protein 0.49 mg/dL (< or = 0.50); Uric Acid 5.3 mg/dL (2.4-5.7)
[2024-01-27 19:48] LABS: Erythrocyte Sedimentation Rate 23 MM/HR (0-20)
[2024-01-28 14:19] LABS: Anti DNA DS Antibody <1 IU/mL; Antibody to SS-A Antigen <1.0 NEG AI (<1.0 NEG); Antibody to SS-B Antigen <1.0 NEG AI (<1.0 NEG); SM/Ribonucleoprotein Ab <1.0 NEG AI (<1.0 NEG); Smith Protein <1.0 NEG AI (<1.0 NEG)
[2024-01-28 17:19] LABS: Complement C3 184 mg/dL (83-193)
[2024-01-28 22:47] LABS: Prot Elec - Albumin 4.6 g/dL (3.8-4.8); Prot Elec - Alpha1 0.3 g/dL (0.2-0.3); Prot Elec - Beta 1 0.5 g/dL (0.4-0.6); Prot Elec - Beta 2 0.6 g/dL (0.2-0.5); Prot Elec - Gamma 1.3 g/dL (0.8-1.7); Prot Elec - Total Protein 8.3 g/dL (6.1-8.1)
[2024-01-29 07:53] LABS: Anti-Centromere B Antibodies <1.0 NEG AI (<1.0 NEG)
[2024-01-30 16:28] LABS: IgA 398 mg/dL (47-310); IgG 1314 mg/dL (600-1640); IgM 54 mg/dL (50-300)
== END 2024-01-27 14:16 | disposition home or self-care (01) ==
LOC: HO.LAB 14:15
PROVIDERS: PCP Physician Assistant; Visit Provider Nurse Practitioner Family
DX: R76.8 Other specified abnormal immunological findings in serum (principal); M79.671 Pain in right foot; M79.672 Pain in left foot; M25.561 Pain in right knee; M25.562 Pain in left knee
CPT/HCPCS: 36415; 82550; 82784; 84165; 84550; 85652; 86140; 86160; 86225; 86235; 86334

== ENCOUNTER 2024-02-17 15:18 | Outpatient (AMB) | payer MEDICARE, MEDICAID, SELFPAY ==
[2024-02-17 15:19] VITALS: BMI 35.7
--- NOTE | 2024-02-17 15:19 | A.OFFVIS_ITS ---
Vital Signs 02/17/24 15:19 Height 5 ft 4 in Weight 208 lb BMI 35.7 Intake Visit Reasons: right shoulder injection Intake Note: Cassy is a 48 year old right hand dominant female who presents today for a follow up of the right shoulder, Last injection 07/17/22. Patient reports not sure on how long the injection lasted her since its been 2 years. She expresses that she wants to repeat. Allergies lactose Allergy (Unknown, Verified 01/24/24 11:05) upset stomach fentanyl [FENTANYL] Adverse Reaction (Severe, Verified 01/24/24 11:05) VOMITING-SEVERE azithromycin Adverse Reaction (Intermediate, Verified 01/24/24 11:05) stomach upset ibuprofen [From MOTRIN] Adverse Reaction (Intermediate, Verified 01/24/24 11:05) KIDNEY PROBLEMS tramadol Adverse Reaction (Intermediate, Verified 01/24/24 11:05) dizziness and vomiting, vomiting FRUIT,FRESH Allergy (Severe, Uncoded 01/24/24 11:05) MOUTH ITCHING/SWELLING HPI HPI right shoulder injection : Details: 48-year-old right hand dominant female who presents in the office today for a follow up of right shoulder pain. I last saw the patient in the office on 07/17/2022 when she received a cortisone injection in the right shoulder. While in the office today the patient reports she would like to repeat the cortisone injection. She reports having controlled diabetes with an A1c of 6.1 as of 12/2023. Patient has a significant medical history of diabetes mellitus. [facility] Medical History Visit for suture removal GERD (gastroesophageal reflux disease) HLD (hyperlipidemia) HTN (hypertension) T2DM (type 2 diabetes mellitus) T2DM (type 2 diabetes mellitus) Morbid obesity Vitamin D deficiency Hyperparathyroidism Hypercalcemia Surgical History History of carpal tunnel release History of removal of cyst H/O myringotomy History of endometrial ablation H/O LEEP Family History Sister Lung cancer AIDS IV drug user Paternal Uncle Colon cancer Paternal Aunt Colon cancer Breast cancer Maternal Aunt Ovarian cancer Leukemia Breast cancer Brain cancer Brother AIDS IV drug user Family/Other FH: mental illness Social History Housing: Apartment Alcohol intake: current Alcohol intake frequency: holidays/special occasions only Alcohol type: hard liquor Patient Tobacco Use Status: Former Tobacco user Tobacco use type: Cigarette Years Smoked: 30 e-Cigarette/Vaping Use: Never Used Second Hand Smoke Exposure: No service: No Current occupational status: unemployed Current occupation: Right Handed Cognitive needs: No Hearing needs: No Vision needs: No Female Reproductive History Menstrual Age of Menarche: 7 Review of Systems Const All systems reviewed & are unremarkable except as noted in HPI and below Physical Exam Vital Signs: BMI result Body Mass Index 35.7 Const General: cooperative, healthy appearing and no acute distress Resp Effort & Inspection: normal respiratory effort and able to speak in complete sentences Cardio Rate: regular rate Peripheral pulses: Peripheral pulses 2+ throughout GI Palpation (GI): Soft to palpation Skin Lesions: no lesions Rashes: no rashes Extrem Other: Right shoulder: Normal to inspection. No ecchymosis, erythema, or edema. Full ROM in all plains. Slight the tenderness to palpation of the bicep tendon insertion. Positive cross-body reach. Positive empty can due to pain but not weakness. Negative drop arm. NVI. Office Procedures Joint Injection/Drain Joint Injection/Drain Primary Site: right shoulder Prep: site was prepped using aseptic technique, ethochloride spray was applied and injection warnings given Injected: 80 mg of, DepoMedrol, with 8 mL of (2% plain lido ) and in the subcromial space Approach Used: posterolateral Procedure: The patient tolerated the procedure well, but had some pain with the injection and there was some relief with the local anesthesia Coding 80195 - Large joint Procedure code (CPT) selection complete Assessment & Plan Assessment & Plan (1) Painful arc syndrome of right shoulder: Code(s): M75.101 - Unspecified rotator cuff tear or rupture of right shoulder, not specified as traumatic Category: Medical (2) T2DM (type 2 diabetes mellitus): Code(s): E11.9 - Type 2 diabetes mellitus without complications Category: Medical Qualifiers: Diabetes mellitus complication status: with hyperglycemia Diabetes mellitus detention insulin use: without detention use Qualified Code(s): E11.65 - Type 2 diabetes mellitus with hyperglycemia Plan Ms. Markham is a 48-year-old right hand dominant female who presents in the office today for a follow up of right shoulder pain. I last saw the patient in the office on 07/17/2022 when she received a cortisone injection in the right s houlder. While in the office today the patient reports she would like to repeat the cortisone injection. She reports having controlled diabetes with an A1c of 6.1 as of 12/2023. Patient has a significant medical history of diabetes mellitus. The patient was offered a cortisone injection in the right shoulder with 80 mg of DepoMedrol. The patient was explained the risk, benefits, and alternatives to receiving this injection. After receiving consent for the injection, the patient had the procedure done while in the office today. The patient tolerated the procedure well with no complications. Due to the patient?s history of diabetes, they were instructed to monitor her blood glucose level. The patient was informed that they could see a rise in their numbers and if the numbers became too high, they were instructed to call their PCP. The patient was also informed that they could have facial flushing as a side effect of the injection, but this will pass. Follow-up will be PRN, or sooner if needed. Patient Instructions: Scribed by Ginger Thompson medical laboratory manager, for Jacqueline Almodovar PA-C on 02/17/2024 at 3:32 pm, EST. 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
== END 2024-02-17 15:43 | disposition home or self-care (01) ==
PROVIDERS: PCP Physician Assistant; Visit Provider Physician Assistant
DX: M75.101 Unspecified rotator cuff tear or rupture of right shoulder, not specified as traumatic (principal); E11.65 Type 2 diabetes mellitus with hyperglycemia
CPT/HCPCS: 20610; 99213

== ENCOUNTER → 2024-02-17 15:18 | Outpatient (BNVA) | payer MEDICARE, MEDICAID, SELFPAY | PROVIDERS: PCP Physician Assistant; Visit Provider Physician Assistant | DX: M75.101 Unspecified rotator cuff tear or rupture of right shoulder, not specified as traumatic (principal); E11.65 Type 2 diabetes mellitus with hyperglycemia | CPT/HCPCS: 20610; 99212; J1010 ==

== ENCOUNTER 2024-02-25 09:28 | Outpatient (REF) | payer MEDICARE, MEDICAID, SELFPAY ==
[2024-02-28 00:38] LABS: HPV mRNA E6/E7 rflx Not Detected (Not Detected)
== END 2024-02-25 09:29 | disposition home or self-care (01) ==
LOC: HO.LNP 09:28
PROVIDERS: PCP Physician Assistant; Visit Provider Obstetrics & Gynecology
DX: Z01.419 Encounter for gynecological examination (general) (routine) without abnormal findings (principal); N90.89 Other specified noninflammatory disorders of vulva and perineum; R76.8 Other specified abnormal immunological findings in serum; M25.561 Pain in right knee; M25.562 Pain in left knee; M79.671 Pain in right foot; M79.672 Pain in left foot; M75.101 Unspecified rotator cuff tear or rupture of right shoulder, not specified as traumatic
CPT/HCPCS: 87624; 88142; 99212; G0101; Q0091

== ENCOUNTER 2024-02-25 09:28 | Outpatient (AMB) | payer MEDICARE, MEDICAID, SELFPAY ==
--- NOTE | 2024-02-25 09:42 | A.OFFVIS_ITS ---
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: No Information Interpreted: non-clinical & clinical Food Service Clerk: Food Service Clerk Present (Leslie Frazier ADELFO) Accompanied by: Self / Same As Patient Allergies lactose Allergy (Unknown, Verified 02/25/24 09:47) upset stomach fentanyl [FENTANYL] Adverse Reaction (Severe, Verified 02/25/24 09:47) VOMITING-SEVERE azithromycin Adverse Reaction (Intermediate, Verified 02/25/24 09:47) stomach upset ibuprofen [From MOTRIN] Adverse Reaction (Intermediate, Verified 02/25/24 09:47) KIDNEY PROBLEMS tramadol Adverse Reaction (Intermediate, Verified 02/25/24 09:47) dizziness and vomiting, vomiting FRUIT,FRESH Allergy (Severe, Uncoded 02/25/24 09:47) MOUTH ITCHING/SWELLING Post menopausal: Yes HPI Comments Details: Presenting for annual exam. Complaining of periclitoral itching and irritation Last Pap/HPV was negative in 03/05, h/o severe dysplasia s/p leep in Last Mammogram was BI-RADS 1 in 05/08 Last colonoscopy was in June of 2016, the recommendation was to repeat colonoscopy in her early 50s [facility] Medical History Visit for suture removal GERD (gastroesophageal reflux disease) HLD (hyperlipidemia) HTN (hypertension) T2DM (type 2 diabetes mellitus) T2DM (type 2 diabetes mellitus) Morbid obesity Vitamin D deficiency Hyperparathyroidism Hypercalcemia Surgical History History of carpal tunnel release History of removal of cyst H/O myringotomy History of endometrial ablation H/O LEEP Family History Sister Lung cancer AIDS IV drug user Paternal Uncle Colon cancer Paternal Aunt Colon cancer Breast cancer Maternal Aunt Ovarian cancer Leukemia Breast cancer Brain cancer Brother AIDS IV drug user Family/Other FH: mental illness Social History Housing: Apartment Alcohol intake: current Alcohol intake frequency: holidays/special occasions only Alcohol type: hard liquor Patient Tobacco Use Status: Former Tobacco user Tobacco use type: Cigarette Years Smoked: 30 e-Cigarette/Vaping Use: Never Used Second Hand Smoke Exposure: No service: No Current occupational status: unemployed Current occupation: Right Handed Cognitive needs: No Hearing needs: No Vision needs: No Female Reproductive History Menstrual Age of Menarche: 7 Date of last pap smear: 03/01/20 Date of Mammogram: 05/02/23 Review of Systems Const All systems reviewed & are unremarkable except as noted in HPI and below Card Reports as per HPI Resp Reports as per HPI GI Reports as per HPI and Reports no additional complaints Reports as per HPI Physical Exam Vital Signs: Last Vital Signs BP 110/70 02/25/24 09:43 BMI result Body Mass Index 35.6 Const General: cooperative, healthy appearing and comfortable Chest Chest palpation & inspection: normal inspection of the chest and normal palpation of entire chest wall Breast/axilla inspection: normal inspection of the breasts and normal inspection of the axillae Breast/axilla palpation: normal palpation of the breasts, normal palpation of the axillae and no axillary lymphadenopathy Resp Effort & Inspection: normal respiratory effort Auscultation: clear to auscultation bilaterally Percussion: percussion normal Cardio Palpation: normal PMI Rate: regular rate Rhythm: regular rhythm Heart sounds: no murmurs and no rubs Peripheral pulses: Peripheral pulses 2+ throughout GI Inspection: Yes normal to inspection Palpation (GI): Soft to palpation, nontender, no guarding, not rigid and No hepatosplenomegaly present Percussion: Yes normal to percussion Auscultation: normal bowel sounds Rectal Exam - Female: deferred General: Yes bladder normal to palpation External Female Exam: lesion (Periclitoral leukoplakia/lesion) Speculum Exam - Vagina: normal appearance of the vagina, normal palpation, normal vaginal discharge and not erythematous Speculum Exam - Cervix: normal appearance of the cervix and normal palpation Bimanual exam- vagina & uterus: normal bimanual exam, normal palpation, uterine size normal, bladder normal to palpation, consistency normal and normal palpation Bimanual Exam- Adnexa, other: normal adnexae, no masses and no tenderness Assessment & Plan Assessment & Plan (1) Well woman exam: Code(s): Z01.419 - Encounter for gynecological examination (general) (routine) without abnormal findings Category: Medical Plan: Co testing done since the patient has history of KIMI 3 status post LEEP in . Counseled the patient about the recommended dietary allowance of 1200 mg of Calcium & 600 IU of vitamin D. Instructions given the patient to schedule next screening Mammogram in 05/09. The patient will call her GI to schedule her next screening colonoscopy . The patient was instructed to perform monthly self-breast exams and schedule annual exam in a year. All questions answered and the patient verbalized understanding. (2) Vulvar lesion: Comment: Periclitoral lesion/leukoplakia Code(s): N90.89 - Other specified noninflammatory disorders of vulva and perineum Category: Medical Plan: Discussed with the patient the finding on pelvic exam, periclitoral leukoplakia/lesion rule out BARBER, recommended biopsy. Instructions given the patient to schedule a 2 week biopsy appointment. All questions answered, the patient verbalized understanding Coding Level of Care Code Est Pt Prev Care 40-64y(98189) Diagnoses Well woman exam Z01.419 Vulvar lesion N90.89
[2024-02-25 09:43] VITALS: BP 110/70; BMI 35.6
== END 2024-02-25 10:37 | disposition home or self-care (01) ==
PROVIDERS: PCP Physician Assistant; Visit Provider Obstetrics & Gynecology
DX: Z01.419 Encounter for gynecological examination (general) (routine) without abnormal findings (principal); N90.89 Other specified noninflammatory disorders of vulva and perineum
CPT/HCPCS: 99213; G0101; Q0091

== ENCOUNTER 2024-02-25 10:22 | Outpatient (AMB) | payer MEDICARE, MEDICAID, SELFPAY ==
[2024-02-25 10:40] VITALS: BP 130/76; PULSE 74; O2SAT 97; BMI 35.7
--- NOTE | 2024-02-25 10:40 | MHC.OFFVIS ---
Vital Signs 02/25/24 10:40 Height 5 ft 4 in Weight 207 lb 14.334 oz BMI 35.7 BP 130/76 Blood Pressure Location Rt brachial Position Sitting Pulse 74 Pulse Source Pulse Oximeter Pulse Oximetry (%) 97 Oxygen Delivery Method Room Air Intake Visit Reasons: +OSCAR/Calcific Tendinitis Intake Note: Patient last seen 01/24/24 by Mery, presents today for follow up and test results. 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 Shahrzad Bundy returns for follow-up of evaluation of Joint pain and +OSCAR to review lab results and imaging. She a right shoulder injection 02/16/2024 and feels improved. Initial History 01/24/2024: Ms. Shahrzad Bundy presents for evaluation of Joint pain and +OSCAR. She has had multiple joint pain now for many years. She describes that the pain jumps around to different joints. --sometimes right index finger hooker, and right big toe, or lateral left foot. --+OSCAR 1:80 --Morning stiffness last about about 20 minutes. --denies rashes, but gets hives with contact to surfaces. --Female cousin with Lupus and other with RA. --Reports calcium deposits in right shoulder and got corticosteroids injections in the past about 2 years ago (07/2022) [facility] Medical History Visit for suture removal GERD (gastroesophageal reflux disease) HLD (hyperlipidemia) HTN (hypertension) T2DM (type 2 diabetes mellitus) T2DM (type 2 diabetes mellitus) Morbid obesity Vitamin D deficiency Hyperparathyroidism Hypercalcemia Surgical History History of carpal tunnel release History of removal of cyst H/O myringotomy History of endometrial ablation H/O LEEP Family History Sister Lung cancer AIDS IV drug user Paternal Uncle Colon cancer Paternal Aunt Colon cancer Breast cancer Maternal Aunt Ovarian cancer Leukemia Breast cancer Brain cancer Brother AIDS IV drug user Family/Other FH: mental illness Social History Housing: Apartment Alcohol intake: current Alcohol intake frequency: holidays/special occasions only Alcohol type: hard liquor Patient Tobacco Use Status: Former Tobacco user Tobacco use type: Cigarette Years Smoked: 30 e-Cigarette/Vaping Use: Never Used Second Hand Smoke Exposure: No service: No Current occupational status: unemployed Current occupation: Right Handed Cognitive needs: No Hearing needs: No Vision needs: No Female Reproductive History Menstrual Age of Menarche: 7 Review of Systems Const All systems reviewed & are unremarkable except as noted in HPI and below Physical Exam Vital Signs: Last Vital Signs Pulse 74 02/25/24 10:40 BP 130/76 02/25/24 10:40 Pulse Ox 97 02/25/24 10:40 Oxygen Delivery Method Room Air 02/25/24 10:40 BMI result Body Mass Index 35.7 Const General: cooperative, healthy appearing and no acute distress Resp Effort & Inspection: normal respiratory effort and able to speak in complete sentences Cardio Rate: regular rate Peripheral pulses: Peripheral pulses 2+ throughout GI Palpation (GI): Soft to palpation Skin Lesions: no lesions Rashes: no rashes Extrem Other: Right shoulder: Normal to inspection. No ecchymosis, erythema, or edema. Full ROM in all plains. Slight the tenderness to palpation of the bicep tendon insertion. Positive cross-body reach. Positive empty can due to pain but not weakness. Negative drop arm. NVI. Results Reviewed Results Reviewed: XR/XR knee RT 3V IMPRESSION: 1. Moderate degenerative changes in the bilateral first metatarsophalangeal joints. 2. Moderate degenerative changes in the bilateral knees. 3. Mild degenerative changes in the bilateral first carpometacarpal joints. 4. Scattered cystic lucencies in the bilateral hands. 5. Subtle sclerosis with associated cystic lucencies in the bilateral lunate bones, more notable on the left. 6. Recommend follow-up imaging in 10-14 days if fracture is suspected. Laboratory Tests 12/09/23 01/27/24 10:24 14:52 WBC 4.8 RBC 5.28 Hgb 13.3 Hct 42.4 ESR 23 H Uric Acid 5.3 Total Creatine Kinase 143 H C-Reactive Protein 0.49 Total Protein (PEP) 8.3 H Bvofe-8-Dxeeuznzk 1.0 H Liha-8-Sencumkn 0.6 H IgG Total 1314 IgA Total 398 H IgM 54 OSCAR Titer 1:80 H OSCAR Titer 2 1:40 H Assessment & Plan Assessment & Plan (1) Positive OSCAR (antinuclear antibody): Code(s): R76.8 - Other specified abnormal immunological findings in serum Category: Medical (2) Bilateral knee pain: Code(s): M25.561 - Pain in right knee; M25.562 - Pain in left knee Category: Medical Qualifiers: Chronicity: unspecified Qualified Code(s): M25.561 - Pain in right knee; M25.562 - Pain in left knee (3) Bilateral foot pain: Code(s): M79.671 - Pain in right foot; M79.672 - Pain in left foot Category: Medical (4) Painful arc syndrome of right shoulder: Code(s): M75.101 - Unspecified rotator cuff tear or rupture of right shoulder, not specified as traumatic Category: Medical Plan #+OSCAR/OA multiple sites: At this time I do not see that there is an underlying CTD or inflammatory arthritis to her joint pain. She does have a history of calcific tendinitis to the right shoulder. She has had right shoulder pain since high school when she injured her shoulder playing softball. Imaging of feet, hand and knees showed mild to moderate arthritis. She would benefit from supportive footwear, especially to the right foot where there appears to be collapsed arch (patient also says it was not flat before). The Rehum panel shows mild elevated IgA, identifying some acute inflammatory process - no synovitis or soft tissue swelling seen on PE. Mild Elevated ESR at 23(20). Patient knows to call the office if she develop red, warm swollen joints and other symptoms discussed. I also discussed with her that certain calcium bjorn deposits in her soft tissue can cause swelling, especially the dorsum of the hands. f/u as needed I spent 20 minutes reviewing history, evaluation patient and documenting. Initial Assessment: The patient is here for evaluation of multiple joint pain and +OSCAR. While she does have multiple joint pain, initially, I do not see a clinical presentation for a CTD or inflammatory process that underlies her complaints. There is no synovitis or periaticular or soft tissue swelling or tenderness on PE. She does have some right shoulder pathology that she has received steroid injection for in the past. 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 I will obtain a Rheum panel for further evaluation. Coding Level of Care Code Est Pt Level 3 (32625) Diagnoses Positive OSCAR (antinuclear antibody) R76.8 Pain in both knees, unspecified chronicity M25.561; M25.562 Chronicity: unspecified Bilateral foot pain M79.671; M79.672 Painful arc syndrome of right shoulder M75.101
== END 2024-02-25 11:18 | disposition home or self-care (01) ==
LOC: HO.RHE 10:22
PROVIDERS: PCP Physician Assistant; Visit Provider Nurse Practitioner Family
DX: R76.8 Other specified abnormal immunological findings in serum (principal); M25.561 Pain in right knee; M25.562 Pain in left knee; M79.671 Pain in right foot; M79.672 Pain in left foot; M75.101 Unspecified rotator cuff tear or rupture of right shoulder, not specified as traumatic
CPT/HCPCS: 99213

== ENCOUNTER 2024-03-06 10:26 | Emergency (ER) | payer MEDICARE, MEDICAID, SELFPAY ==
--- NOTE | ~2024-03-06 | XR_ITS ---
EXAMINATION: XR CHEST CLINICAL INFORMATION: Cough with green sputum COMPARISON: Chest radiograph 11/05/2023 TECHNIQUE: 2 views of the chest were obtained. FINDINGS: The lungs are adequately expanded. No focal consolidation. No pleural effusion, edema or pneumothorax. The cardiomediastinal silhouette is within normal limits. Degenerative changes of thoracic spine. No acute osseous abnormality. XR/XR chest 2V IMPRESSION: No acute pulmonary disease.
[2024-03-06 10:31] VITALS: BP 144/85; PULSE 89; RESP 16; TEMP 36.3; O2SAT 100; BMI 35.6
[2024-03-06 10:55] LABS: IDNOW Serial# 08D9AD1C; Strep A Nucleic Acid Negative (Negative)
--- NOTE | 2024-03-06 11:16 | ED.URI ---
HPI - URI/Sore Throat General Chief Complaint: Upper Respiratory Symptoms Stated Complaint: vomiting green Time Seen by Provider: 03/06/24 11:10 Source: patient Mode of arrival: ambulatory Limitations: no limitations History of Present Illness ED Provider: Edgar VELAZQUEZ Narrative: Patient is a 48-year-old female with history of asthma, GERD, multiple episodes of pneumonia, former smoker, has not smoked in the last 3-4 years, T2 DM, HTN, HLD presenting to the emergency department with complaint of productive cough. States symptoms began over the weekend with a sore throat, then progressed to cough productive of yellow-green sputum. Reports 1 subjective fever over the weekend, none since. Denies any abdominal pain, nausea, vomiting, diarrhea. States sore throat has since resolved but is continuing to have productive cough and reports discomfort to upper airway with coughing episodes. Denies wheezing. States cough is only when sputum to cough up is present. Voice hoarseness for past 2 days. MD elicited complaint: cough Pertinent past history: pneumonia and asthma Onset (ago): day(s) Description of mucous: yellow and green Able to tolerate fluids by mouth: Yes Associated symptoms: voice changes, headache and sore throat Related Data Home Medications ?Medication ?Instructions ?Recorded ?Confirmed albuterol sulfate 2.5 mg/3 mL 2.5 mg inhalation Q4H PRN 08/10/20 01/09/24 (0.083 %) solution for nebulization hydrocortisone 2.5 % topical cream applic topical 08/10/20 01/09/24 epinephrine 0.3 mg/0.3 mL 0.3 mg IM ONCE PRN 12/16/20 01/09/24 injection, auto-injector calcium lact-mag citr-passion tab PO 07/27/22 01/09/24 flower-valerian 25 mg-50 mg-20 mg tablet (MyoCalm) Previous Rx's ?Medication ?Instructions ?Recorded blood-glucose meter (FreeStyle #1 ea 01/12/21 Lite Meter kit) lancets 28 gauge (FreeStyle #100 ea 01/12/21 Lancets) fexofenadine 180 mg tablet 180 mg PO DAILY allergies 90 days 12/19/21 #90 tabs blood sugar diagnostic (FreeStyle 1 strip miscellaneous TID for 06/13/22 Lite Strips) diabetes mellitus #300 strips cholecalciferol (vitamin D3) 50 50 mcg PO DAILY 30 days #30 caps 09/03/22 mcg (2,000 unit) capsule atorvastatin 20 mg tablet 20 mg PO BEDTIME 90 days #90 tabs 06/10/23 albuterol sulfate 90 mcg/actuation 2 puff inhalation Q6-8H 30 days 09/05/23 aerosol inhaler #8.5 grams clotrimazole-betamethasone 1 1 appl topical BID 15 days #45 09/05/23 %-0.05 % topical cream grams fluticasone propionate 50 1 spray intranasal BID 30 days #16 09/05/23 mcg/actuation nasal grams spray,suspension montelukast 10 mg tablet 10 mg PO BEDTIME 90 days #90 tabs 09/05/23 (Singulair) cyclobenzaprine 10 mg tablet 10 mg PO TID PRN muscle spasm #20 12/18/23 tabs ondansetron 4 mg disintegrating 4 mg PO Q8H PRN nausea and 12/18/23 tablet vomiting #20 tabs losartan 50 mg tablet 50 mg PO DAILY 90 days #90 tabs 12/19/23 semaglutide 1 mg/dose (4 mg/3 mL) 1 mg (0.75 mL) subcut QWEEK 4 01/09/24 subcutaneous pen injector (Ozempic) weeks #3 mL pantoprazole 40 mg tablet,delayed 40 mg PO DAILY 90 days #90 tabs 01/29/24 release Allergies Allergy/AdvReac Type Severity Reaction Status Date / Time lactose Allergy Unknown upset Verified 03/06/24 10:31 stomach fentanyl [FENTANYL] AdvReac Severe VOMITING-SE Verified 03/06/24 10:31 NATALIE azithromycin AdvReac Intermediate stomach Verified 03/06/24 10:31 upset ibuprofen [From MOTRIN] AdvReac Intermediate KIDNEY Verified 03/06/24 10:31 PROBLEMS tramadol AdvReac Intermediate dizziness Verified 03/06/24 10:31 and vomiting, vomiting FRUIT,FRESH Allergy Severe MOUTH Uncoded 03/06/24 10:31 ITCHING/SWELLING Review of Systems Review of Systems: As per HPI. Yes all other systems are reviewed and are negative Constitutional: Constitutional: Reports as per HPI PMFSH Past Medical History Medical History Visit for suture removal GERD (gastroesophageal reflux disease) HLD (hyperlipidemia) HTN (hypertension) T2DM (type 2 diabetes mellitus) T2DM (type 2 diabetes mellitus) Morbid obesity Vitamin D deficiency Hyperparathyroidism Hypercalcemia Surgical History History of carpal tunnel release History of removal of cyst H/O myringotomy History of endometrial ablation H/O LEEP Family History Family History Sister Lung cancer AIDS IV drug user Paternal Uncle Colon cancer Paternal Aunt Colon cancer Breast cancer Maternal Aunt Ovarian cancer Leukemia Breast cancer Brain cancer Brother AIDS IV drug user Family/Other FH: mental illness Social History Social History Housing: Apartment Alcohol intake: current Alcohol intake frequency: holidays/special occasions only Alcohol type: hard liquor Patient Tobacco Use Status: Former Tobacco user Tobacco use type: Cigarette Years Smoked: 30 e-Cigarette/Vaping Use: Never Used Second Hand Smoke Exposure: No Advance Directives: No Advance Directives Information Provided: No Do you have a plan to hurt others: No Plan service: No Current occupational status: unemployed Current occupation: Right Handed Cognitive needs: No Hearing needs: No Vision needs: No Physical Exam Vital Signs: Vital Signs: Last Vital Signs Temp 97.4 F 03/06/24 10:31 Pulse 89 03/06/24 10:31 Resp 16 03/06/24 10:31 BP 144/85 H 03/06/24 10:31 Pulse Ox 100 03/06/24 10:31 O2 Del Method Room Air 03/06/24 10:31 BMI result Body Mass Index 35.6 Vital signs have been reviewed and appear to be correct. Blood pressure normal. Heart rate normal. Respiratory rate normal. Temperature normal. Oxygen saturation normal. Const: General: cooperative, healthy appearing and no acute distress Orientation/consciousness: oriented to person, oriented to place, oriented to time and patient oriented x3 Limitations: no limitations HEENT: Head: Yes normocephalic and Yes atraumatic Ears: external ears normal, TM's normal bilaterally and EAC's normal General nose exam: Normal external nose present Face and sinus: Yes face symmetric Mouth: Normal oral and palatal mucosa present, oropharynx normal, moist mucous membranes, no drooling and no trismus Throat: Yes uvula midline, Yes abnormal tonsil (erythema present, no exudate or edema), No peritonsillar mass and No uvular edema Eyes: Pupils: Equal, round and reactive pupils present Neck: Neck: Yes normal visual inspection, Yes no lymphadenopathy and Yes supple Resp: Effort & Inspection: normal respiratory effort and able to speak in complete sentences Auscultation: clear to auscultation bilaterally Cardio: Rate: regular rate Rhythm: regular rhythm Heart sounds: S1 normal heart sound present and S2 normal heart sound present GI: Palpation (GI): Soft to palpation and nontender Auscultation: normoactive bowel sounds : General: Yes no CVA tenderness Back/Spine/Pelvis: Back: no CVA tenderness Skin: General skin exam: elasticity normal and turgor normal Neuro: General: oriented to person, oriented to place, oriented to time, patient oriented x3, moves all extremities, no focal motor deficits and CN's II-XI intact bilaterally Cranial nerves: Yes Equal, round and reactive pupils present Cognition (Neuro): normal cognition Extrem: General: Yes full ROM, Yes no pedal edema and Yes no calf tenderness Psych: Mental Status: mental status grossly normal Affect: normal affect Thought process: Normal thought process present Medical Decision Making Medical Decision Making [facility] Narrative: Patient is a 48-year-old female with history of asthma, GERD, multiple episodes of pneumonia, former smoker, has not smoked in the last 3-4 years, T2 DM, HTN, HLD presenting to the emergency department with complaint of productive cough. On exam patient is awake, A+Ox3, VS WNL, afebrile, normal neurological exam without focal deficits, physical exam findings as above. Given reported symptoms and physical exam findings, initial differential includes strep pharyngitis, viral illness, COVID, flu, RSV, bronchitis, pneumonia. Strep and viral swabs negative. X-ray chest notable for no evidence of pneumonia. My interpretation is in agreement with the radiologist's interpretation. Discussed with patient that symptoms are likely due to viral illness. Advised patient to monitor her oxygen level at home with pulse oximeter. Instructed her to follow-up with PCP. Return precautions discussed at bedside. Patient verbalized understanding of and agreement with plan. Differential Diagnosis Differential Diagnoses: The differential diagnosis associated with the presentation includes As per MDM. Lab Data [facility] Lab Attestation statement: I reviewed the patient's lab results. As per MDM. Labs: Lab Results 03/06/24 Range/Units 10:41 Influenza Type A (PCR) NEGATIVE (Negative) Influenza Type B (PCR) NEGATIVE (Negative) RSV RNA Qual (PCR) NEGATIVE (Negative) SARS-CoV-2 RNA (RT-PCR) NEGATIVE (Negative) S. pyogenes GrpA SAUL Negative (Negative) Independent Interpretation I performed an independent interpretation of an: Plain X-Ray Interpretation: No evidence of pneumonia on chest x-rayORDER #: [id number] XR/XR chest 2V IMPRESSION: No acute pulmonary disease. Radiology Impression Discussion of test interpretation with radiology: I have reviewed the radiologist's reading. External Record Review External record reviewed: Inpatient record, Office record and Outpatient record Prescription Management offered cough medicine, patient declined Discharge Plan Discharge Clinical Impression: Upper respiratory infection, viral Patient Disposition: Home, Self-Care Instructions: Upper Respiratory Infection (DC), Viral Syndrome (ED) Additional Instructions: You were evaluated in the emergency department today for sore throat and cough. Your Covid, flu, RSV and strep tests were all negative. Your chest x-ray did not show any evidence of pneumonia. Your symptoms are likely related to a viral illness which will resolve on its own with time and rest. You should ensure adequate fluid intake, and can use Tylenol 650 mg or ibuprofen 600 mg every 6 hours as needed for fever or discomfort. Please follow-up with your primary care provider this week. Return to the emergency department if you develop chest pain, worsening shortness of breath, difficulty swallowing, fever 100.4? F or greater or any other concerning symptoms. Prescriptions: No Action (DME) lancets [FreeStyle Lancets] 28 gauge misc See Rx Instructions .ROUTE .MEDSUPPLY Qty: 100 11RF Rx Instructions: 4x daily (DME) blood-glucose meter [FreeStyle Lite Meter] Kit See Rx Instructions .ROUTE .MEDSUPPLY Qty: 1 0RF Rx Instructions: As directed cholecalciferol (vitamin D3) 50 mcg (2,000 unit) capsule 50 mcg PO DAILY 30 Days Qty: 30 11RF atorvastatin 20 mg tablet 20 mg PO BEDTIME 90 Days Qty: 90 3RF losartan 50 mg tablet 50 mg PO DAILY 90 Days Qty: 90 2RF pantoprazole 40 mg tablet,delayed release (DR/EC) 40 mg PO DAILY 90 Days Qty: 90 1RF cyclobenzaprine 10 mg tablet 10 mg PO TID PRN (Reason: muscle spasm) Qty: 20 0RF ondansetron 4 mg tablet,disintegrating 4 mg PO Q8H PRN (Reason: nausea and vomiting) Qty: 20 0RF hydrocortisone 2.5 % cream topical albuterol sulfate 2.5 mg /3 mL (0.083 %) solution for nebulization 2.5 mg inhalation Q4H PRN montelukast [Singulair] 10 mg tablet 10 mg PO BEDTIME 90 Days Qty: 90 1RF albuterol sulfate 90 mcg/actuation HFA aerosol inhaler 2 puff inhalation Q6-8H 30 Days Qty: 8.5 3RF clotrimazole-betamethasone 1-0.05 % cream 1 appl topical BID 15 Days Qty: 45 1RF fluticasone propionate 50 mcg/actuation spray,suspension 1 spray intranasal BID 30 Days Qty: 16 3RF fexofenadine 180 mg tablet 180 mg PO DAILY 90 Days Qty: 90 1RF FreeStyle Lite Strips Strip 1 strip miscellaneous TID Qty: 300 1RF Ozempic 1 mg/dose (4 mg/3 mL) pen injector 1 mg subcut QWEEK 28 Days Qty: 3 3RF epinephrine 0.3 mg/0.3 mL auto-injector 0.3 mg IM ONCE PRN MyoCalm 25-50-20-10 mg tablet PO Print Language: Burkinan
[2024-03-06 11:27] LABS: Influenza A PCR NEGATIVE (Negative); Influenza B PCR NEGATIVE (Negative); Resp Syncy Virus RNA Qual PCR NEGATIVE (Negative); SARS COV2 PCR INHOUSE NEGATIVE (Negative)
[2024-03-06 12:07] VITALS: BP 144/85; PULSE 89; RESP 16; TEMP 36.3; O2SAT 100
== END 2024-03-06 12:08 | disposition home or self-care (01) ==
PROVIDERS: Emergency Provider Emergency Medicine; PCP Physician Assistant
DX: J06.9 Acute upper respiratory infection, unspecified (principal); R05.9 Cough, unspecified; Z87.891 Personal history of nicotine dependence; Z79.899 Other long term (current) drug therapy; Z03.818 Encounter for observation for suspected exposure to other biological agents ruled out
CPT/HCPCS: 0241U; 71046; 87651; 99282; 99283

== ENCOUNTER 2024-03-16 11:04 | Outpatient (AMB) | payer MEDICARE, MEDICAID, SELFPAY ==
--- NOTE | 2024-03-16 11:06 | MHC.OFFVIS ---
Vital Signs 03/16/24 11:07 Height 5 ft 4 in Weight 207 lb BMI 35.5 BP 128/90 H Blood Pressure Location Lt brachial Position Sitting Intake Visit Reasons: Vulva biopsy Allergies lactose Allergy (Unknown, Verified 03/16/24 11:09) upset stomach fentanyl [FENTANYL] Adverse Reaction (Severe, Verified 03/16/24 11:09) VOMITING-SEVERE azithromycin Adverse Reaction (Intermediate, Verified 03/16/24 11:09) stomach upset ibuprofen [From MOTRIN] Adverse Reaction (Intermediate, Verified 03/16/24 11:09) KIDNEY PROBLEMS tramadol Adverse Reaction (Intermediate, Verified 03/16/24 11:09) dizziness and vomiting, vomiting FRUIT,FRESH Allergy (Severe, Uncoded 03/16/24 11:09) MOUTH ITCHING/SWELLING HPI Comments Details: Presenting for vulvar biopsy for periclitoral leukoplakia [facility] Medical History Visit for suture removal GERD (gastroesophageal reflux disease) HLD (hyperlipidemia) HTN (hypertension) T2DM (type 2 diabetes mellitus) T2DM (type 2 diabetes mellitus) Morbid obesity Vitamin D deficiency Hyperparathyroidism Hypercalcemia Surgical History History of carpal tunnel release History of removal of cyst H/O myringotomy History of endometrial ablation H/O LEEP Family History Sister Lung cancer AIDS IV drug user Paternal Uncle Colon cancer Paternal Aunt Colon cancer Breast cancer Maternal Aunt Ovarian cancer Leukemia Breast cancer Brain cancer Brother AIDS IV drug user Family/Other FH: mental illness Social History Housing: Apartment Alcohol intake: current Alcohol intake frequency: holidays/special occasions only Alcohol type: hard liquor Patient Tobacco Use Status: Former Tobacco user Tobacco use type: Cigarette Years Smoked: 30 e-Cigarette/Vaping Use: Never Used Second Hand Smoke Exposure: No service: No Current occupational status: unemployed Current occupation: Right Handed Cognitive needs: No Hearing needs: No Vision needs: No Female Reproductive History Menstrual Age of Menarche: 7 Review of Systems Const All systems reviewed & are unremarkable except as noted in HPI and below Physical Exam Vital Signs: Last Vital Signs BP 128/90 H 03/16/24 11:07 BMI result Body Mass Index 35.5 General: Yes no CVA tenderness External Female Exam: No normal external appearance (Left periclitoral leukoplakia) and normal appearance of the urethra Speculum Exam - Vagina: normal appearance of the vagina, normal palpation, no lesions and no masses Speculum Exam - Cervix: normal appearance of the cervix, normal palpation, no lesions, no masses and nontender Bimanual exam- vagina & uterus: normal bimanual exam, normal palpation, uterine size normal, normal palpation, uterine shape normal, No Cervical tenderness present and non-tender Bimanual Exam- Adnexa, other: normal adnexae Back/Spine/Pelvis Back: no CVA tenderness Office Procedures QA SPECIALIST Biopsy Before the procedure was started d/w patient the procedure, alternatives ( do nothing, medical rx), & all the risks associated with the procedure ( bleeding , infection, vulvar scarring, painful intercourse, injury to vessels, possible need for transfusion with all its risks) then patient signed the consent. Preop dx: Left periclitoral leukoplakia Op: Left periclitoral leukoplakia biopsy Post op: Same Anesthesia: Lidocaine 1% 3cc used Procedure: Using betadine the area was scrubbed and draped in the usual manner. 3 cc of lidocaine was used for anesthesia at the left vulvar lesion area ; using punch biopsy forceps and pickup the left vulvar lesion biopsy was performed. Pressure was used for hemostasis. The patient tolerated the procedure well. Discharge Instructions: The patient was instructed to schedule an appointment in 2 weeks for follow-up and to call if temp>100.4, area of the biopsy redness or pain, nausea/vomiting. This note was generated with a voice recognition program. Some errors may have been overlooked during the review of this note. Sometimes these errors may affect the content or meaning of a given sentence. [id number] of Vulva/Perineum Procedure code (CPT) selection complete Assessment & Plan Assessment & Plan (1) Vulvar lesion: Comment: Periclitoral lesion/leukoplakia Code(s): N90.89 - Other specified noninflammatory disorders of vulva and perineum Category: Medical Plan: Vulvar biopsy done, see procedure note Orders: Orders AMB QA SPECIALIST Biopsy Today N90.89 - Other specified noninflammatory disorders of vulva and perineum Coding Level of Care Code Procedure Only Diagnoses Vulvar lesion N90.89 CPT Codes QA SPECIALIST Biopsy - CPT: 80126-Ritlzz of Vulva/Perineum ([id number])
[2024-03-16 11:07] VITALS: BP 128/90; BMI 35.5
== END 2024-03-16 11:35 | disposition home or self-care (01) ==
PROVIDERS: PCP Physician Assistant; Visit Provider Obstetrics & Gynecology
DX: N90.89 Other specified noninflammatory disorders of vulva and perineum (principal)
CPT/HCPCS: 56605

== ENCOUNTER 2024-03-16 11:04 | Outpatient (REF) | payer MEDICARE, MEDICAID, SELFPAY | END 2024-03-16 11:05 | disposition home or self-care (01) | LOC: HO.LAB 11:04 | PROVIDERS: PCP Physician Assistant; Visit Provider Obstetrics & Gynecology | DX: N90.89 Other specified noninflammatory disorders of vulva and perineum (principal) | CPT/HCPCS: 56605; 88305; 88312 ==

== ENCOUNTER 2024-03-18 09:05 | Outpatient (AMB) | payer MEDICARE, MEDICAID, SELFPAY ==
[2024-03-18 09:17] VITALS: BP 132/80; PULSE 78; O2SAT 96; BMI 35.4
--- NOTE | 2024-03-18 09:17 | A.OFFPC_ITS ---
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 Nonselling Required: No Accompanied by: Self / Same As Patient Allergies lactose Allergy (Unknown, Verified 03/18/24 09:26) upset stomach fentanyl [FENTANYL] Adverse Reaction (Severe, Verified 03/18/24 09:26) VOMITING-SEVERE azithromycin Adverse Reaction (Intermediate, Verified 03/18/24 09:26) stomach upset ibuprofen [From MOTRIN] Adverse Reaction (Intermediate, Verified 03/18/24 09:26) KIDNEY PROBLEMS tramadol Adverse Reaction (Intermediate, Verified 03/18/24 09:26) dizziness and vomiting, vomiting FRUIT,FRESH Allergy (Severe, Uncoded 03/18/24 09:26) MOUTH ITCHING/SWELLING Medication List - Last Reconciled 03/18/24 by Maury Caputo PA-C albuterol sulfate 2.5 mg inhalation Q4H PRN albuterol sulfate 90 mcg/actuation 2 puffs inhalation Q6-8H 30 days atorvastatin 20 mg PO BEDTIME 90 days blood sugar diagnostic (FreeStyle Lite Strips) 1 strip miscellaneous TID blood-glucose meter (FreeStyle Lite Meter kit) As directed Ca lac-mag cit-pas flwr-everett rt 25-50-20-10 mg (MyoCalm) tabs PO cholecalciferol (vitamin D3) 50 mcg PO DAILY 30 days clotrimazole-betamethasone 1-0.05 % 1 appl topical BID 15 days cyclobenzaprine 10 mg PO TID PRN epinephrine 0.3 mg IM ONCE PRN fexofenadine 180 mg PO DAILY 90 days fluticasone propionate 50 mcg/actuation 1 spray intranasal BID 30 days hydrocortisone 2.5% appl topical lancets (FreeStyle Lancets) 4x daily losartan 50 mg PO DAILY 90 days montelukast (Singulair) 10 mg PO BEDTIME 90 days ondansetron 4 mg PO Q8H PRN pantoprazole 40 mg PO DAILY 90 days semaglutide (Ozempic) 1 mg (0.75 mL) subcut QWEEK 4 weeks Tobacco use date assessed: 10/17/23 Dental Screening Dental Screen Date: 10/17/23 HPI Follow up HPI Details Patient is a 48-year-old female here today for follow-up visit..? Patient has a past history significant for hyperlipidemia,? type 2 diabetes, obesity, , mild lymphocytosis,? asthma,? polyarthralgia. Concern--> reports recently seen at the ER for acute upper respiratory viral infection. Chest x-ray normal, labs stable. Viral testing was negative. She does continue to congestion feeling in her mid chest which has been a chronic issue that flares up every once in awhile. She does report some productivity of her cough. Has a history of asthma though has been better since she stopped smoking. She is interested in seeing a tombstone carver in possibly doing some allergy testing. Of note does see ENT for her allergies and did do allergy injections though did have side effect of localized injection site reaction. She also is concerned about her bilateral plantar dry skin and occasional itchiness. She does report antifungal cream is helpful though continues to have breakthrough symptoms. She would like to see a professor of english .. Polyarthralgia: Has followed up with Rheumatology about her polyarthralgias particularly her shoulder and was told she has osteoarthritis. Type 2 diabetes--> Last visit we discussed her weight and type 2 diabetes. Most recent A1c is 6.1. She has noted some weight loss with the medication. No notable side effects. She has not noted any significant weight loss. Asking for higher dose of Ozempic. .. Lymphedema: Does seem to have mild lymphedema in the upper and lower extremities. Did do a few lymphedema massage is with occupational therapy that did help. She is interested in being evaluated for pneumatic compression due to her upper extremity lymphedema .. CHRONIC MEDICAL CONDITIONS--> . . .. Hyperparathyroidism:? Did recently have an elevated calcium though parathyroid hormone normal.? Endocrinology suspect this is due to a robust albumin.? No further workup needed at this time.? She will continue vitamin-D supplementation .. ?Hyperlipidemia:? Most recent lipid panel much improved with LDL at 90 and total cholesterol 160s. Continues on atorvastatin 20 mg. [facility] Medical History Visit for suture removal GERD (gastroesophageal reflux disease) HLD (hyperlipidemia) HTN (hypertension) T2DM (type 2 diabetes mellitus) T2DM (type 2 diabetes mellitus) Morbid obesity Vitamin D deficiency Hyperparathyroidism Hypercalcemia Surgical History History of carpal tunnel release History of removal of cyst H/O myringotomy History of endometrial ablation H/O LEEP Family History Sister Lung cancer AIDS IV drug user Paternal Uncle Colon cancer Paternal Aunt Colon cancer Breast cancer Maternal Aunt Ovarian cancer Leukemia Breast cancer Brain cancer Brother AIDS IV drug user Family/Other FH: mental illness Social History Housing: Apartment Alcohol intake: current Alcohol intake frequency: holidays/special occasions only Alcohol type: hard liquor Patient Tobacco Use Status: Former Tobacco user Tobacco use type: Cigarette Years Smoked: 30 e-Cigarette/Vaping Use: Never Used Second Hand Smoke Exposure: No service: No Current occupational status: unemployed Current occupation: Right Handed Cognitive needs: No Hearing needs: No Vision needs: No Female Reproductive History Menstrual Age of Menarche: 7 Questionnaire Thrive Questionnaire Date Thrive assessed: 10/17/23 KAYLIE-7 AMB Questionnaire KAYLIE-7 Date KAYLIE - 7 assessed: 10/17/23 Source: Developed by Drs. Lee Vigil, Karli Turner, Tuan Kline and colleagues, with an educational tati from [employer]. Review of Systems Const Denies headache(s) Eyes Denies loss of vision ENT Denies vertigo, Denies dizziness, Denies headache(s) and Denies sore throat Card Denies chest pain, Denies leg edema and Denies lightheadedness Resp Reports cough, Denies hemoptysis, Reports excessive phlegm production and Denies wheezing GI Denies abdominal pain, Denies melena, Denies constipation, Denies diarrhea and Denies vomiting Denies urinary frequency, Denies dysuria and Denies urinary urgency Musc Denies arthralgias, Denies joint swelling, Denies numbness and Denies tingling Neuro Denies Abnormal speech present, Denies behavioral changes, Denies vertigo, Denies dizziness, Denies headache(s), Denies loss of vision, Denies memory loss, Denies numbness and Denies tingling Psych Denies anxiety, Denies behavioral changes, Denies depression, Denies memory loss and Denies panic attacks Reji/Lymph Denies easy bleeding and Denies easy bruising Aller/Immun Denies wheezing Physical exam (Primary Care) Vital Signs: Last Vital Signs Pulse 78 03/18/24 09:17 BP 132/80 03/18/24 09:17 Pulse Ox 96 03/18/24 09:17 Oxygen Delivery Method Room Air 03/18/24 09:17 BMI result Body Mass Index 35.4 Tobacco/Smoking Status: Tobacco use Status Tobacco use date assessed 10/17/23 03/18/24 09:18 Patient Tobacco Use Status Former Tobacco user 03/18/24 09:18 Tobacco use type Cigarette 03/18/24 09:18 e-Cigarette/Vaping Use Never Used 03/18/24 09:18 Thrive Assessment: Date of Thrive Assessment Date Thrive assessed 10/17/23 03/18/24 09:18 Const General: healthy appearing, no acute distress, alert and awake Nutritional Appearance: well nourished Orientation/consciousness: oriented to person, oriented to place and oriented to time HENMT Ears: TM's normal bilaterally General nose exam: Normal nasal mucous membranes and turbinates present Eyes Conjunctivae: conjunctivae normal Sclerae: sclerae normal Pupils: Equal, round and reactive pupils present Neck Neck: Yes no lymphadenopathy and Yes no JVD Thyroid: Thyroid normal Carotids: no bruits Resp Effort & Inspection: normal respiratory effort and not tachypneic Auscultation: no crackles, no rales, no rhonchi and no wheezes Cardio Rate: regular rate Rhythm: regular rhythm Heart sounds: no murmurs and normal S1 and S2 GI Palpation (GI): Soft to palpation, nontender, no hepatomegaly and no splenomegaly Auscultation: normal bowel sounds Skin General skin exam: no rashes or lesions noted and dry skin Neuro General: oriented to person, oriented to place and oriented to time Cranial nerves: Yes Equal, round and reactive pupils present Speech: No Abnormal speech present Gait exam (Neuro): Normal gait present Motor exam (neuro): no tremor noted Extrem Other: LEFT UPPER EXTREMITY CIRCUMFERENTIAL FOREARM -TO 225 CM AND BICEPS-245 CM RIGHT UPPER EXTREMITY CIRCUMFERENTIAL FOREARM- 260 CM BICEPS 335 CM Right upper extremity: full ROM Left upper extremity: full ROM Right lower extremity: full ROM; no edema Left lower extremity: full ROM; no edema Psych Mental Status: mental status grossly normal Speech and movement: Normal speech and movement present Affect: normal affect Attitude: cooperative Thought process: Normal thought process present Assessment and Plan Assessment & Plan (1) Bronchitis: Code(s): J40 - Bronchitis, not specified as acute or chronic Plan: Patient recently suffered an upper respiratory viral infection. No antibiotics needed. Has been clinically improving. She does report often having chest congestion and a productive cough over last several years. Does have asthma though has been better since she stopped smoking. She does significant environmental allergies does use Singulair. She is interested in seeing a tombstone carver and perhaps being evaluated for biologic to help her pulmonary symptoms. (2) Lymphedema: Code(s): I89.0 - Lymphedema, not elsewhere classified Plan: Patient continues to have what seems to be lymphedema in her extremities which has been evident for the past several years. She has had treatment in her right upper extremity with occupational therapy lymphedema massage which had helped reduce her swelling. She is interested in p erhaps getting a pneumatic compression machine. PLEASE SEE UPPER EXTREMITY CIRCUMFERENTIAL MEASUREMENTS (3) HTN (hypertension): Code(s): I10 - Essential (primary) hypertension Qualifiers: Hypertension type: unspecified Qualified Code(s): I10 - Essential (primary) hypertension Plan: Patient's blood pressure acceptable today in office. Will continue her current dose of antihypertensive medication with goal blood pressure to be below 140/90 (4) T2DM (type 2 diabetes mellitus): Code(s): E11.9 - Type 2 diabetes mellitus without complications Qualifiers: Diabetes mellitus penitentiary insulin use: without remote computer terminal operator use Diabetes mellitus complication status: with hyperglycemia Qualified Code(s): E11.65 - Type 2 diabetes mellitus with hyperglycemia Plan: Patient's type 2 diabetes well controlled. She is interested in further weight reduction thus will increase her Ozempic to 1 mg. Goal A1c is to remain below 6.5 (5) HLD (hyperlipidemia): Code(s): E78.5 - Hyperlipidemia, unspecified Qualifiers: Hyperlipidemia type: unspecified Qualified Code(s): E78.5 - Hyperlipidemia, unspecified (6) Asthma: Code(s): J45.909 - Unspecified asthma, uncomplicated Qualifiers: Asthma severity: mild Asthma persistence: persistent Asthma complication type: uncomplicated Qualified Code(s): J45.30 - Mild persistent asthma, uncomplicated (7) Tinea pedis, recurrent: Code(s): B35.3 - Tinea pedis Plan: Patient continues to have bilateral foot dry skin and fungal infection. Antifungal topical treatment is helpful temporarily though continues to come back. Has been moisturizing and exfoliating her feet though has not been significantly helpful. She would like to see a professor of english Orders: Orders Resp Allergy Profile Region I Today J40 - Bronchitis, not specified as acute or chronic, R05.9 - Cough, unspecified Referrals Pulmonology Referral J40 - Bronchitis, not specified as acute or chronic, J45.30 - Mild persistent asthma, uncomplicated Dermatology Referral B35.3 - Tinea pedis Medications: Refilled montelukast (Singulair) 10 mg PO BEDTIME 90 days 90 tabs 1RF J45.909 - Unspecified asthma, uncomplicated atorvastatin 20 mg PO BEDTIME 90 days 90 tabs 3RF E78.2 - Mixed hyperlipidemia Patient Instructions: Goal: A1c to remain below 6.5, goal LDL to be below 100 Barrier: Adherence to physical activity and healthy eating habits Coding Level of Care Code Est Pt Level 4 (31075) Complex EM visit Add On G2211 Diagnoses Bronchitis J40 Lymphedema I89.0 Hypertension, unspecified type I10 Hypertension type: unspecified Type 2 diabetes mellitus with hyperglycemia, without long-term current use of insulin E11.65 Diabetes mellitus penitentiary insulin use: without penitentiary use Diabetes mellitus complication status: with hyperglycemia Hyperlipidemia, unspecified hyperlipidemia type E78.5 Hyperlipidemia type: unspecified Mild persistent asthma without complication J45.30 Asthma severity: mild Asthma persistence: persistent Asthma complication type: uncomplicated Tinea pedis, recurrent B35.3
== END 2024-03-18 09:59 | disposition home or self-care (01) ==
PROVIDERS: PCP Physician Assistant; Visit Provider Physician Assistant
DX: J40 Bronchitis, not specified as acute or chronic (principal); I89.0 Lymphedema, not elsewhere classified; E11.65 Type 2 diabetes mellitus with hyperglycemia; I10 Essential (primary) hypertension; E78.5 Hyperlipidemia, unspecified; J45.30 Mild persistent asthma, uncomplicated; B35.3 Tinea pedis
CPT/HCPCS: 99214; G2211

== ENCOUNTER 2024-03-30 10:19 | Outpatient (AMB) | payer MEDICARE, MEDICAID, SELFPAY ==
--- NOTE | 2024-03-30 10:20 | A.OFFVIS_ITS ---
Intake Visit Reasons: TV Biopsy results Allergies lactose Allergy (Unknown, Verified 03/18/24 09:26) upset stomach fentanyl [FENTANYL] Adverse Reaction (Severe, Verified 03/18/24 09:26) VOMITING-SEVERE azithromycin Adverse Reaction (Intermediate, Verified 03/18/24 09:26) stomach upset ibuprofen [From MOTRIN] Adverse Reaction (Intermediate, Verified 03/18/24 09:26) KIDNEY PROBLEMS tramadol Adverse Reaction (Intermediate, Verified 03/18/24 09:26) dizziness and vomiting, vomiting FRUIT,FRESH Allergy (Severe, Uncoded 03/18/24 09:26) MOUTH ITCHING/SWELLING HPI Comments Details: The patient is scheduled tele health visit to discuss the results of the vulvar biopsy pathology. Doing well complaining of long-term history of urinary frequency with urine incontinence upon coughing laughing or lifting heavy objects in addition to urgency and urge incontinence. 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 See description. [facility] Medical History Visit for suture removal GERD (gastroesophageal reflux disease) HLD (hyperlipidemia) HTN (hypertension) T2DM (type 2 diabetes mellitus) T2DM (type 2 diabetes mellitus) Morbid obesity Vitamin D deficiency Hyperparathyroidism Hypercalcemia Surgical History History of carpal tunnel release History of removal of cyst H/O myringotomy History of endometrial ablation H/O LEEP Family History Sister Lung cancer AIDS IV drug user Paternal Uncle Colon cancer Paternal Aunt Colon cancer Breast cancer Maternal Aunt Ovarian cancer Leukemia Breast cancer Brain cancer Brother AIDS IV drug user Family/Other FH: mental illness Social History Housing: Apartment Alcohol intake: current Alcohol intake frequency: holidays/special occasions only Alcohol type: hard liquor Patient Tobacco Use Status: Former Tobacco user Tobacco use type: Cigarette Years Smoked: 30 e-Cigarette/Vaping Use: Never Used Second Hand Smoke Exposure: No service: No Current occupational status: unemployed Current occupation: Right Handed Cognitive needs: No Hearing needs: No Vision needs: No Female Reproductive History Menstrual Age of Menarche: 7 Review of Systems Const All systems reviewed & are unremarkable except as noted in HPI and below Reports as per HPI and Reports no additional complaints GI Reports no additional complaints Reports no additional complaints Telehealth Telehealth Telehealth Platform: Telephone Location of provider rendering services: practice address Location of patient: address on file Patient Identification confirmed using: Name, : Yes Telehealth method: video Patient verbally consented to treatment: Yes Patient verbally consented to billing insurance company: Yes Patient informed of any privacy concerns related to visit: Yes Assessment & Plan Assessment & Plan (1) Lichen simplex chronicus: Code(s): L28.0 - Lichen simplex chronicus Category: Medical Plan: Discussed with the patient the pathology results showing lichen simplex chronicus. Counseled the patient on how to stop the ?itch-scratch cycle,? the following information were discussed with the patient regarding vulvar care and hygiene: Avoid baby wipes on anti-septic so but the fluid, scented toilet paper, creams or gels, personal lubricant, nylon underwear, specific laundry detergents, shaving, latex products, sanitary products, soaps, oils, topical agent . In addition recommended to the patient to use the following: Mild soaps, avoiding it on the vulva, cleanse of out with water only, gently pat the vulva dry after bathing, fly preservative-free, unscented or fragrance free emollients to hold the moisture in the skin, use Anne care bottles to rinse after urination, with 100% cotton, and scented fragments free menstrual pads use adequate lubricant for intercourse. Will prescribe a medium-potency, Triamcinolone acetonide 0.1% cream to be used 1-2 times daily for 4 weeks and if it does not work, instructed the patient to call back will send the prescription for clobetasol 0.05%, a high-potency topical corticosteroid ointment , and oral antipruritic medication hydroxyzine 25 mg p.o. Q 6-8 p.r.n. Instructions given the patient to call in case of persistence or worsening of her symptoms. All questions answered, the patient verbalized understanding. (2) Urine incontinence: Code(s): R32 - Unspecified urinary incontinence Category: Medical Plan: Discussed with the patient the different types of Urine incontinence, stress urinary incontinence, intrinsic sphincter deficiency, overactive bladder and its work up. We will refer to [facility] per patient request. All questions answered, the patient verbalized understanding. I spent a total of 20 minutes reviewing the chart, talking to the patient via video and documenting in the medical record. Orders: Referrals Urogynecology Referral R32 - Unspecified urinary incontinence Medications: New triamcinolone acetonide 0.1% Apply to the affected area twice a day for 4 weeks 1 appl topical BID 4 weeks 80 grams 0RF Discontinued clotrimazole-betamethasone 1-0.05 % Discontinued Reason: Doctor's Order 1 appl topical BID 15 days 45 grams 1RF B35.3 - Tinea pedis Coding Level of Care Code Tele Est Pt Level 1 (79225) Diagnoses Lichen simplex chronicus L28.0 Urine incontinence R32
== END 2024-03-30 11:52 | disposition home or self-care (01) ==
LOC: HO.HWS 10:19
PROVIDERS: PCP Physician Assistant; Visit Provider Obstetrics & Gynecology
DX: L28.0 Lichen simplex chronicus (principal); R32 Unspecified urinary incontinence
CPT/HCPCS: 99211

== ENCOUNTER → 2024-03-30 10:19 | Outpatient (BNVA) | payer MEDICARE, MEDICAID, SELFPAY | PROVIDERS: PCP Physician Assistant; Visit Provider Obstetrics & Gynecology ==

== ENCOUNTER 2024-04-13 09:57 | Outpatient (AMB) | payer MEDICARE, MEDICAID, SELFPAY ==
[2024-04-13 10:10] VITALS: BP 104/70; PULSE 96; O2SAT 99; BMI 35.8
--- NOTE | 2024-04-13 10:10 | A.OFFPC_ITS ---
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 Required: No Accompanied by: Self / Same As Patient Allergies lactose Allergy (Unknown, Verified 04/13/24 10:11) upset stomach fentanyl [FENTANYL] Adverse Reaction (Severe, Verified 04/13/24 10:11) VOMITING-SEVERE azithromycin Adverse Reaction (Intermediate, Verified 04/13/24 10:11) stomach upset ibuprofen [From MOTRIN] Adverse Reaction (Intermediate, Verified 04/13/24 10:11) KIDNEY PROBLEMS tramadol Adverse Reaction (Intermediate, Verified 04/13/24 10:11) dizziness and vomiting, vomiting FRUIT,FRESH Allergy (Severe, Uncoded 04/13/24 10:11) MOUTH ITCHING/SWELLING Medication List - Last Reconciled 04/13/24 by Maury Caputo PA-C albuterol sulfate 2.5 mg inhalation Q4H PRN albuterol sulfate 90 mcg/actuation 2 puffs inhalation Q6-8H 30 days atorvastatin 20 mg PO BEDTIME 90 days blood sugar diagnostic (FreeStyle Lite Strips) 1 strip miscellaneous TID blood-glucose meter (FreeStyle Lite Meter kit) As directed Ca lac-mag cit-pas flwr-everett rt 25-50-20-10 mg (MyoCalm) tabs PO cholecalciferol (vitamin D3) 50 mcg PO DAILY 30 days cyclobenzaprine 10 mg PO TID PRN epinephrine 0.3 mg IM ONCE PRN fexofenadine 180 mg PO DAILY 90 days fluticasone propionate 50 mcg/actuation 1 spray intranasal BID 30 days lancets (FreeStyle Lancets) 4x daily losartan 50 mg PO DAILY 90 days montelukast (Singulair) 10 mg PO BEDTIME 90 days ondansetron 4 mg PO Q8H PRN pantoprazole 40 mg PO DAILY 90 days semaglutide (Ozempic) 1 mg (0.75 mL) subcut QWEEK 4 weeks triamcinolone acetonide 0.1% 1 appl topical BID 4 weeks Tobacco use date assessed: 10/17/23 Dental Screening Dental Screen Date: 10/17/23 HPI f/u weight check HPI Details Patient is a 48-year-old female here today for follow-up visit..? Patient has a past history significant for hyperlipidemia,? type 2 diabetes, obesity, , mild lymphocytosis,? asthma,? polyarthralgia. 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 Has been referred to urogynecology for her urinary incontinence. Asthma: Still at times has chest congestion and a cough. Does have upcoming appointment to establish with pulmonology Type 2 diabetes--> Last visit we discussed her weight and type 2 diabetes. Today's A1c is 6.2. She has noted some weight loss with the medication. No notable side effects. We did discuss possibly increasing her Ozempic dose of will like to continue on current dose and start lifestyle and dietary modifications. She has not noted any significant weight loss. .. [facility] Medical History Visit for suture removal GERD (gastroesophageal reflux disease) HLD (hyperlipidemia) HTN (hypertension) T2DM (type 2 diabetes mellitus) T2DM (type 2 diabetes mellitus) Morbid obesity Vitamin D deficiency Hyperparathyroidism Hypercalcemia Surgical History History of carpal tunnel release History of removal of cyst H/O myringotomy History of endometrial ablation H/O LEEP Family History Sister Lung cancer AIDS IV drug user Paternal Uncle Colon cancer Paternal Aunt Colon cancer Breast cancer Maternal Aunt Ovarian cancer Leukemia Breast cancer Brain cancer Brother AIDS IV drug user Family/Other FH: mental illness Social History Housing: Apartment Alcohol intake: current Alcohol intake frequency: holidays/special occasions only Alcohol type: hard liquor Patient Tobacco Use Status: Former Tobacco user Tobacco use type: Cigarette Years Smoked: 30 e-Cigarette/Vaping Use: Never Used Second Hand Smoke Exposure: No service: No Current occupational status: unemployed Current occupation: Right Handed Cognitive needs: No Hearing needs: No Vision needs: No Female Reproductive History Menstrual Age of Menarche: 7 Questionnaire Thrive Questionnaire Date Thrive assessed: 10/17/23 KAYLIE-7 AMB Questionnaire KAYLIE-7 Date KAYLIE - 7 assessed: 10/17/23 Source: Developed by Drs. Lee Vigil, Karli Turner, Tuan Kline and colleagues, with an educational tati from [employer]. Review of Systems Const Denies headache(s) Eyes Denies loss of vision ENT Denies vertigo, Denies dizziness, Denies headache(s) and Denies sore throat Card Denies chest pain, Denies leg edema and Denies lightheadedness Resp Reports chest congestion, Reports cough, Denies hemoptysis and Denies wheezing GI Denies abdominal pain, Denies melena, Denies constipation, Denies diarrhea and Denies vomiting Denies urinary frequency, Denies dysuria and Denies urinary urgency Musc Denies arthralgias, Denies joint swelling, Denies numbness and Denies tingling Neuro Denies Abnormal speech present, Denies behavioral changes, Denies vertigo, Denies dizziness, Denies headache(s), Denies loss of vision, Denies memory loss, Denies numbness and Denies tingling Psych Denies anxiety, Denies behavioral changes, Denies depression, Denies memory loss and Denies panic attacks Reji/Lymph Denies easy bleeding and Denies easy bruising Aller/Immun Denies wheezing Physical exam (Primary Care) Vital Signs: Last Vital Signs Pulse 96 04/13/24 10:10 BP 104/70 04/13/24 10:10 Pulse Ox 99 04/13/24 10:10 Oxygen Delivery Method Room Air 04/13/24 10:10 BMI result Body Mass Index 35.8 Tobacco/Smoking Status: Tobacco use Status Tobacco use date assessed 10/17/23 04/13/24 10:11 Patient Tobacco Use Status Former Tobacco user 04/13/24 10:11 Tobacco use type Cigarette 04/13/24 10:11 e-Cigarette/Vaping Use Never Used 04/13/24 10:11 Thrive Assessment: Date of Thrive Assessment Date Thrive assessed 10/17/23 04/13/24 10:11 Const General: healthy appearing, no acute distress, alert and awake Nutritional Appearance: well nourished Orientation/consciousness: oriented to person, oriented to place and oriented to time HENMT Ears: TM's normal bilaterally General nose exam: Normal nasal mucous membranes and turbinates present Eyes Conjunctivae: conjunctivae normal Sclerae: sclerae normal Pupils: Equal, round and reactive pupils present Neck Neck: Yes no lymphadenopathy and Yes no JVD Thyroid: Thyroid normal Carotids: no bruits Resp Effort & Inspection: normal respiratory effort and not tachypneic Auscultation: no crackles, no rales, no rhonchi and no wheezes Cardio Rate: regular rate Rhythm: regular rhythm Heart sounds: no murmurs and normal S1 and S2 GI Palpation (GI): Soft to palpation, nontender, no hepatomegaly and no splenomegaly Auscultation: normal bowel sounds Skin General skin exam: no rashes or lesions noted and dry skin Neuro General: oriented to person, oriented to place and oriented to time Cranial nerves: Yes Equal, round and reactive pupils present Speech: No Abnormal speech present Gait exam (Neuro): Normal gait present Motor exam (neuro): no tremor noted Extrem Right upper extremity: full ROM Left upper extremity: full ROM Right lower extremity: full ROM; no edema Left lower extremity: full ROM; no edema Psych Mental Status: mental status grossly normal Speech and movement: Normal speech and movement present Affect: normal affect Attitude: cooperative Thought process: Normal thought process present Assessment and Plan Assessment & Plan (1) T2DM (type 2 diabetes mellitus): Code(s): E11.9 - Type 2 diabetes mellitus without complications Qualifiers: Diabetes mellitus retirement insulin use: without retirement use Diabetes mellitus complication status: with hyperglycemia Qualified Code(s): E11.65 - Type 2 diabetes mellitus with hyperglycemia Plan: Patient's type 2 diabetes well controlled. Continue Ozempic at current dose of 1 mg. She will work extensively on lifestyle and dietary modifications. Will follow-up in 3 months Goal A1c is to remain below 6.5 (2) HTN (hypertension): Code(s): I10 - Essential (primary) hypertension Qualifiers: Hypertension type: unspecified Qualified Code(s): I10 - Essential (primary) hypertension Plan: Patient's blood pressure acceptable today in office. Will continue her current dose of antihypertensive medication with goal blood pressure to be below 140/90 (3) Asthma: Code(s): J45.909 - Unspecified asthma, uncomplicated Qualifiers: Asthma severity: mild Asthma persistence: persistent Asthma complication type: uncomplicated Qualified Code(s): J45.30 - Mild persistent asthma, uncomplicated Plan: Will be establishing care with medical practice manager in late April. Continues to a heaviness in her chest and cough though has been better since she has stopped smoking. Orders: Orders Comprehensive [place]. 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
== END 2024-04-13 10:30 | disposition home or self-care (01) ==
PROVIDERS: PCP Physician Assistant; Visit Provider Physician Assistant
DX: E11.65 Type 2 diabetes mellitus with hyperglycemia (principal); I10 Essential (primary) hypertension; J45.30 Mild persistent asthma, uncomplicated
CPT/HCPCS: 99214

== ENCOUNTER 2024-05-07 14:40 | Outpatient (REF) | payer MEDICARE, MEDICAID, OTHER, SELFPAY ==
--- NOTE | ~2024-05-07 | MM_ITS ---
EXAMINATION: MM SCREENING DIGITAL BREAST TOMOSYNTHESIS, BILATERAL CLINICAL INFORMATION: Screening. Asymptomatic. COMPARISON: Mammography: This study is compared with prior exams dating back to 2019. TECHNIQUE: Digital breast tomosynthesis is performed in both the craniocaudal and mediolateral oblique views along with computer-aided detection (CAD). Synthesized 2D images are generated from the tomosynthesis. FINDINGS: The breasts are heterogeneously dense, which may obscure small masses (ACR BI-RADS breast composition Category c). There are no significant masses, abnormal calcifications, or other abnormalities. MM/MM tomosynthesis screening BI IMPRESSION: No mammographic evidence of malignancy. ASSESSMENT: BI-RADS BI-RADS 1 - Negative RECOMMENDATION: Routine annual mammography screening. 1 year F/U This examination should not preclude the clinical evaluation of a suspicious palpable abnormality. This patient's information was entered into a reminder system with a target due date for their next mammogram. Electronically signed by: Lizzy Hooks MD 05/25/2024 08:02 AM INEZT
== END 2024-05-07 14:41 | disposition home or self-care (01) ==
LOC: HO.MAMMO 14:40
PROVIDERS: PCP Physician Assistant; Visit Provider Physician Assistant
DX: Z12.31 Encounter for screening mammogram for malignant neoplasm of breast (principal)
CPT/HCPCS: 77063; 77067

== ENCOUNTER → 2024-05-07 14:45 | Outpatient (BNV) | payer MEDICARE, MEDICAID, OTHER, SELFPAY | PROVIDERS: PCP Physician Assistant; Visit Provider Radiology Diagnostic Radiology | DX: Z12.31 Encounter for screening mammogram for malignant neoplasm of breast (principal) | CPT/HCPCS: 77063; 77067 ==

== ENCOUNTER → 2024-05-12 13:59 | Outpatient (RCR) | payer MEDICARE, MEDICAID, SELFPAY ==
[2020-07-05 10:47] VITALS: BP 138/72; PULSE 70; RESP 20; TEMP 36.7; O2SAT 99
[2020-07-05 10:54] VITALS: BMI 36.4
--- NOTE | 2020-07-05 13:11 | PM.HEMONCPN ---
Medical Summary - Medical Summary Chief complaint: Follow-up Medical Summary: Diagnosis: Leukopenia/mild neutropenia, chronic Mildly reduced ANC ranging from 1.5-2.5. Normal WBC count, normal hemoglobin and platelet counts. Slightly elevated lymphocytes. Hematological workup showed positive OSCAR with titer 1 : 40. Normal serum protein electrophoresis and immunofixation. Flow cytometry negative for clonal expansion or atypical lymphocytes, rare CD 34 positive circulating myeloblasts noted, comprising 0.1% of all analyzed WBCs, significance reported as uncertain. Medical and Surgical History Depression GERD Past history of alcohol and substance abuse Allergic rhinitis Arthritis History of iron deficiency anemia secondary to menorrhagia, status post endometrial ablation Myringotomy HPV positive, ascus, status post LEEP in 2002 Mild hypercalcemia. Interval History Interval history: Patient is here to discuss results of blood work from the last visit. She has no new complaints today. Review of Systems - Constitutional Reports no additional constitutional complaints PMFSH Family History: Family History (Last Updated 07/05/20 @ 11:10 by Soumya Teague RN) Sister Lung cancer Paternal Uncle Colon cancer Paternal Aunt Colon cancer Breast cancer Maternal Aunt Ovarian cancer Leukemia Breast cancer Brain cancer Home Medications and Allergies Home Medications Medication Instructions Recorded Confirmed Type fexofenadine 1 tab PO DAILY PRN 07/05/20 07/05/20 History fluticasone propionate 2 spray INTRANASAL DAILY 07/05/20 07/05/20 History pantoprazole 1 tab PO DAILY 07/05/20 07/05/20 History Allergies Allergy/AdvReac Type Severity Reaction Status Date / Time fentanyl [FENTANYL] Allergy Severe VOMITING-SE Unverified 06/02/20 14:52 NATALIE ibuprofen [From MOTRIN] AdvReac Intermediate KIDNEY Unverified 06/02/20 14:52 PROBLEMS azithromycin AdvReac Unknown stomach Unverified 05/12/20 00:00 upset tramadol AdvReac Unknown dizziness Unverified 05/12/20 00:00 and vomiting, vomiting FRUIT,FRESH Allergy Severe MOUTH Uncoded 06/02/20 14:52 ITCHING/SWELLING ENVIRONMENTAL Allergy Intermediate HAYFEVER Uncoded 06/02/20 14:52 Exam Vital signs: Vital Signs Temp 98.1 F 07/05/20 10:47 Pulse 70 07/05/20 10:47 Resp 20 07/05/20 10:47 BP 138/72 07/05/20 10:47 Pulse Ox 99 07/05/20 10:47 Intake & Output 07/04/20 07/05/20 07/05/20 18:59 06:59 18:59 Other: Weight 96.3 kg Weight 96.3 kg Body Mass Index 36.4 - Constitutional Present: no acute distress Progress Note: A/P (1) Leucopenia Status: Chronic Assessment and plan: This is a 45-year-old woman with mild leukopenia/neutropenia and relative lymphocytosis. This is intermittent and not associated with any symptoms. 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 She does not have hematinic deficiencies. Blood flow cytometry did not reveal any clonal expansion or atypical findings but myeloblasts seen which is reported as uncertain significance. I discussed this finding with the patient. Repeat flow cytometry in 6 months. Patient states that she just quit smoking. Over 15 minutes spent counseling the patient about above findings. Follow-up in 6 months. - Time Spent With Patient Total time spent is greater than 50% in coordination of care (as documented) at patient's floor/unit and/or counseling patient: less than 15 minutes
--- NOTE | 2020-07-05 13:51 | MHC.HEMONC ---
Patient here today for follow up and to discuss labs with patient. Patient has pain in bilateral legs but no other complaints. MD aware. Follow up scheduled.
== END | disposition home or self-care (01) ==
LOC: HO.ONC 07-05 10:09
PROVIDERS: PCP Internal Medicine; Visit Provider Internal Medicine
DX: D70.9 Neutropenia, unspecified (principal)
CPT/HCPCS: 99213

== ENCOUNTER 2024-07-16 15:42 | Outpatient (AMB) | payer MEDICARE, MEDICAID, OTHER, SELFPAY ==
[2024-07-16 15:54] VITALS: BP 120/76; PULSE 111; O2SAT 97; BMI 36.9
--- NOTE | 2024-07-16 15:54 | A.OFFPC_ITS ---
Vital Signs 3 07/16/24 15:54 Height 5 ft 4 in Weight 215 lb 4 oz BMI 36.9 BP 120/76 Blood Pressure Location Lt brachial Position Sitting Pulse 111 H Pulse Source Pulse Oximeter Pulse Oximetry (%) 97 Oxygen Delivery Method Room Air Intake Visit Reasons: 3 Month F/U Allergies lactose Allergy (Unknown, Verified 07/16/24 15:56) upset stomach fentanyl [FENTANYL] Adverse Reaction (Severe, Verified 07/16/24 15:56) VOMITING-SEVERE azithromycin Adverse Reaction (Intermediate, Verified 07/16/24 15:56) stomach upset ibuprofen [From MOTRIN] Adverse Reaction (Intermediate, Verified 07/16/24 15:56) KIDNEY PROBLEMS tramadol Adverse Reaction (Intermediate, Verified 07/16/24 15:56) dizziness and vomiting, vomiting FRUIT,FRESH Allergy (Severe, Uncoded 07/16/24 15:56) MOUTH ITCHING/SWELLING Medication List - Last Reconciled 07/16/24 by Maury Caputo PA-C albuterol sulfate 2.5 mg inhalation Q4H PRN albuterol sulfate 90 mcg/actuation 2 puffs inhalation Q6-8H 30 days atorvastatin 20 mg PO BEDTIME 90 days blood sugar diagnostic (FreeStyle Lite Strips) 1 strip miscellaneous TID blood-glucose meter (FreeStyle Lite Meter kit) As directed Ca lac-mag cit-pas flwr-everett rt 25-50-20-10 mg (MyoCalm) tabs PO cholecalciferol (vitamin D3) 50 mcg PO DAILY 30 days cyclobenzaprine 10 mg PO TID PRN epinephrine 0.3 mg IM ONCE PRN fexofenadine 180 mg PO DAILY 90 days fluticasone propionate 50 mcg/actuation 1 spray intranasal BID 30 days lancets (FreeStyle Lancets) 4x daily losartan 50 mg PO DAILY 90 days montelukast (Singulair) 10 mg PO BEDTIME 90 days ondansetron 4 mg PO Q8H PRN pantoprazole 40 mg PO DAILY 90 days semaglutide (Ozempic) 1 mg (0.75 mL) subcut QWEEK 4 weeks triamcinolone acetonide 0.1% 1 appl topical BID 4 weeks Tobacco use date assessed: 10/17/23 Dental Screening Dental Screen Date: 10/17/23 HPI 3 Month F/U 2 HPI0 Details Patient is a 49-year-old female here today for follow-up visit..? Patient has a past history significant for hyperlipidemia,? type 2 diabetes, obesity, , mild lymphocytosis,? asthma,? polyarthralgia. Concern--> over last 2 days having a sore throat. She does admit to a sick contact in her grandson. On physical exam today she does have tonsillar exudates noted. Type 2 diabetes--> today's A1c is 6.2.. patient's type 2 diabetes has been well controlled recently. She has been on GLP 1 (Ozempic) though has not noted any weight loss. She does admit her life is pretty sedentary and she is not consistent with good eating habits.. Unfortunately at some side effects of constipation with Ozempic. She is interested in returning back to metformin and getting off of Ozempic as she is not seeing much weight loss [facility] Medical History Visit for suture removal GERD (gastroesophageal reflux disease) HLD (hyperlipidemia) HTN (hypertension) T2DM (type 2 diabetes mellitus) T2DM (type 2 diabetes mellitus) Morbid obesity Vitamin D deficiency Hyperparathyroidism Hypercalcemia Surgical History History of carpal tunnel release History of removal of cyst H/O myringotomy History of endometrial ablation H/O LEEP Family History Sister Lung cancer AIDS IV drug user Paternal Uncle Colon cancer Paternal Aunt Colon cancer Breast cancer Maternal Aunt Ovarian cancer Leukemia Breast cancer Brain cancer Brother AIDS IV drug user Family/Other FH: mental illness Social History Housing: Apartment Alcohol intake: current Alcohol intake frequency: holidays/special occasions only Alcohol type: hard liquor Patient Tobacco Use Status: Former Tobacco user Tobacco use type: Cigarette Years Smoked: 30 e-Cigarette/Vaping Use: Never Used Second Hand Smoke Exposure: No service: No Current occupational status: unemployed Current occupation: Right Handed Cognitive needs: No Hearing needs: No Vision needs: No Female Reproductive History Menstrual Age of Menarche: 7 Questionnaire Thrive Questionnaire Date Thrive assessed: 10/17/23 KAYLIE-7 AMB Questionnaire KAYLIE-7 Date KAYLIE - 7 assessed: 10/17/23 Source: Developed by Drs. Lee Vigil, Karli Turner, Tuan Kline and colleagues, with an educational tati from [employer]. Review of Systems Const Denies headache(s) Eyes Denies loss of vision ENT Denies vertigo, Denies dizziness, Denies headache(s) and Denies sore throat Card Denies chest pain, Denies leg edema and Denies lightheadedness Resp Denies cough, Denies hemoptysis and Denies wheezing GI Denies abdominal pain, Denies melena, Denies constipation, Denies diarrhea and Denies vomiting Denies urinary frequency, Denies dysuria and Denies urinary urgency Musc Denies arthralgias, Denies joint swelling, Denies numbness and Denies tingling Neuro Denies Abnormal speech present, Denies behavioral changes, Denies vertigo, Denies dizziness, Denies headache(s), Denies loss of vision, Denies memory loss, Denies numbness and Denies tingling Psych Denies anxiety, Denies behavioral changes, Denies depression, Denies memory loss and Denies panic attacks Reji/Lymph Denies easy bleeding and Denies easy bruising Aller/Immun Denies wheezing Physical exam (Primary Care) Vital Signs: Last Vital Signs Pulse 111 H 07/16/24 15:54 BP 120/76 07/16/24 15:54 Pulse Ox 97 07/16/24 15:54 Oxygen Delivery Method Room Air 07/16/24 15:54 BMI result Body Mass Index 36.9 BMI Assessment/Plan discussion: High BMI High, discussed plan: lifestyle, weight reduction, dietary and physical activity Tobacco/Smoking Status: Tobacco use Status Tobacco use date assessed 10/17/23 07/16/24 15:55 Patient Tobacco Use Status Former Tobacco user 07/16/24 15:55 Tobacco use type Cigarette 07/16/24 15:55 e-Cigarette/Vaping Use Never Used 07/16/24 15:55 Thrive Assessment: Date of Thrive Assessment Date Thrive assessed 10/17/23 07/16/24 15:55 Const General: healthy appearing, no acute distress, alert and awake Nutritional Appearance: well nourished Orientation/consciousness: oriented to person, oriented to place and oriented to time HENMT Ears: TM's normal bilaterally General nose exam: Normal nasal mucous membranes and turbinates present Mouth/tongue images: 2 1. NOTED TONSILLAR EXUDATES Eyes Conjunctivae: conjunctivae normal Sclerae: sclerae normal Pupils: Equal, round and reactive pupils present Neck Neck: Yes no lymphadenopathy and Yes no JVD Thyroid: Thyroid normal Carotids: no bruits Resp Effort & Inspection: normal respiratory effort and not tachypneic Auscultation: no crackles, no rales, no rhonchi and no wheezes Cardio Rate: regular rate Rhythm: regular rhythm Heart sounds: no murmurs and normal S1 and S2 GI Palpation (GI): Soft to palpation, nontender, no hepatomegaly and no splenomegaly Auscultation: normal bowel sounds Skin General skin exam: no rashes or lesions noted and dry skin Neuro General: oriented to person, oriented to place and oriented to time Cranial nerves: Yes Equal, round and reactive pupils present Speech: No Abnormal speech present Gait exam (Neuro): Normal gait present Motor exam (neuro): no tremor noted Extrem Right upper extremity: full ROM Left upper extremity: full ROM Right lower extremity: full ROM; no edema Left lower extremity: full ROM; no edema Psych Mental Status: mental status grossly normal Speech and movement: Normal speech and movement present Affect: normal affect Attitude: cooperative Thought process: Normal thought process present Office Procedures Flu Questionnaire Does the patient have a severe egg allergy?: No Does the patient have severe life threatening allergies?: No Does the patient have a fever or illness today?: No Has the patient ever had Guillain-[place] Syndrome?: No Has the patient ever had any past reaction to a flu shot?: No Results AMB Hemoglobin A1c 2 AMB Hemoglobin A1c 6.2 % Last Edit by ADELFO House on 07/16/24 16:22 Immunizations Fluarix Triv [id number] (PF) 45 mcg (15 mcg x 3)/0.5 mL IM syringe Performing Provider: aMury Caputo PA-C [facility] [place] [facility] Documented (not given) by: LOKI Medina on 07/16/24 15:55 Reason Not Given: Patient Refused Results Reviewed Results Reviewed: Laboratory Last Values Hgb A1c (Clinic) 6.2 % (4.0-6.0) H 07/16/24 15:56 Coding Level of Care Code Est Pt Level 4 (11853) Diagnoses Type 2 diabetes mellitus with hyperglycemia, without long-term current use of insulin E11.65 Diabetes mellitus complication status: with hyperglycemia Diabetes mellitus prison insulin use: without prison use Hypertension, unspecified type I10 Hypertension type: unspecified Acute bacterial tonsillitis J03.80; B96.89 Mixed hyperlipidemia E78.2 Hyperlipidemia type: mixed hyperlipidemia Assessment & Plan Assessment & Plan (1) T2DM (type 2 diabetes mellitus): Code(s): E11.9 - Type 2 diabetes mellitus without complications Category: Medical Qualifiers: Diabetes mellitus complication status: with hyperglycemia Diabetes mellitus prison insulin use: without prison use Qualified Code(s): E11.65 - Type 2 diabetes mellitus with hyperglycemia Plan: Patient's type 2 diabetes well controlled at this time. Was better controlled with GLP 1 though had side effect and no added benefit of weight loss. She would like to return back to using metformin thus will start 500 mg daily and increase to 500 b.i.d.. Goal A1c is to remain below 6.5. (2) HTN (hypertension): Code(s): I10 - Essential (primary) hypertension Category: Medical Qualifiers: Hypertension type: unspecified Qualified Code(s): I10 - Essential (primary) hypertension Plan: Patient's blood pressure acceptable today in office. Will continue on losartan 50 mg daily with blood pressure to remain below 140/90 (3) Acute bacterial tonsillitis: Code(s): J03.80 - Acute tonsillitis due to other specified organisms; B96.89 - Other specified bacterial agents as the cause of diseases classified elsewhere Category: Medical Plan: Patient does have tonsillar exudates on physical exam today. Will supply patient with amoxicillin to use if symptoms worsen. (4) HLD (hyperlipidemia): Code(s): E78.5 - Hyperlipidemia, unspecified Category: Medical Qualifiers: Hyperlipidemia type: mixed hyperlipidemia Qualified Code(s): E78.2 - Mixed hyperlipidemia Plan: Patient's most recent lipid panel showing good control over total cholesterol and LDL. Goal LDL is to remain below 100. Orders: Orders 2 Influenza [id number] Immunization 07/16/24 Z23 - Encounter for immunization AMB Hemoglobin A1c 07/16/24 E11.65 - Type 2 diabetes mellitus with hyperglycemia Referrals 2 Podiatry Referral M72.2 - Plantar fascial fibromatosis Medications: New 2 metformin 500 mg PO BID 30 days 60 tabs 1RF E11.65 - Type 2 diabetes mellitus with hyperglycemia amoxicillin 500 mg PO Q8H 7 days 21 caps 0RF B96.89 - Other specified bacterial agents as the cause of diseases classified elsewhere, J03.80 - Acute tonsillitis due to other specified organisms Refilled 2 losartan 50 mg PO DAILY 90 days 90 tabs 2RF I10 - Essential (primary) hypertension Discontinued 2 semaglutide (Ozempic) Discontinued Reason: Doctor's Order 1 mg (0.75 mL) subcut QWEEK 4 weeks 3 mL 3RF E11.65 - Type 2 diabetes mellitus with hyperglycemia, M25.561 - Pain in right knee, M25.562 - Pain in left knee Patient Instructions: Goal: A1c to remain below 6.5, LDL to remain below 100 Barriers: Adherence to physical activity and healthy eating habits
== END 2024-07-16 16:26 | disposition home or self-care (01) ==
LOC: HO.HMCH 15:42
PROVIDERS: PCP Physician Assistant; Visit Provider Physician Assistant
DX: E11.65 Type 2 diabetes mellitus with hyperglycemia (principal); I10 Essential (primary) hypertension; J03.80 Acute tonsillitis due to other specified organisms; B96.89 Other specified bacterial agents as the cause of diseases classified elsewhere; E78.2 Mixed hyperlipidemia

== ENCOUNTER → 2024-07-16 15:42 | Outpatient (BNVA) | payer MEDICARE, MEDICAID, OTHER, SELFPAY | PROVIDERS: PCP Physician Assistant; Visit Provider Physician Assistant | DX: E11.65 Type 2 diabetes mellitus with hyperglycemia (principal); I10 Essential (primary) hypertension; J03.80 Acute tonsillitis due to other specified organisms; B96.89 Other specified bacterial agents as the cause of diseases classified elsewhere; E78.2 Mixed hyperlipidemia; Z23 Encounter for immunization | CPT/HCPCS: 83036; 90471; 90656; 99212 ==

== ENCOUNTER 2024-10-21 08:49 | Outpatient (AMB) | payer MEDICARE, MEDICAID, OTHER, SELFPAY ==
--- NOTE | 2024-10-21 08:53 | A.OFFPC_ITS ---
Vital Signs 10/21/24 08:55 Height 5 ft 4 in Weight 213 lb 8 oz BMI 36.6 BP 120/68 Blood Pressure Location Lt brachial Position Sitting Pulse 67 Pulse Source Pulse Oximeter Temp 97.3 F Temp Source Skin Pulse Oximetry (%) 98 Oxygen Delivery Method Room Air Intake Visit Reasons: f/u DMII Intake Note: Patient is here to follow up on DM. Pt decline flu shot today. Children'S Tutor Required: No Apprenticeship Representative: Not Required per policy Accompanied by: Self / Same As Patient Allergies lactose Allergy (Unknown, Verified 10/21/24 09:10) upset stomach fentanyl [FENTANYL] Adverse Reaction (Severe, Verified 10/21/24 09:10) VOMITING-SEVERE azithromycin Adverse Reaction (Intermediate, Verified 10/21/24 09:10) stomach upset ibuprofen [From MOTRIN] Adverse Reaction (Intermediate, Verified 10/21/24 09:10) KIDNEY PROBLEMS tramadol Adverse Reaction (Intermediate, Verified 10/21/24 09:10) dizziness and vomiting, vomiting FRUIT,FRESH Allergy (Severe, Uncoded 10/21/24 09:10) MOUTH ITCHING/SWELLING Medication List - Last Reconciled 10/21/24 by Maury Caputo PA-C albuterol sulfate 2.5 mg inhalation Q4H PRN albuterol sulfate 90 mcg/actuation 2 puffs inhalation Q6-8H 30 days atorvastatin 20 mg PO BEDTIME 90 days betamethasone, augmented 0.05 % 1 appl topical BID blood sugar diagnostic (FreeStyle Lite Strips) 1 strip miscellaneous TID blood-glucose meter (FreeStyle Lite Meter kit) As directed Ca lac-mag cit-pas flwr-everett rt 25-50-20-10 mg (MyoCalm) tabs PO cholecalciferol (vitamin D3) 50 mcg PO DAILY 30 days cyclobenzaprine 10 mg PO TID PRN epinephrine 0.3 mg IM ONCE PRN fexofenadine 180 mg PO DAILY 90 days fluticasone propionate 50 mcg/actuation 1 spray intranasal BID 30 days lancets (FreeStyle Lancets) 4x daily losartan 50 mg PO DAILY 90 days metformin 500 mg PO BID montelukast (Singulair) 10 mg PO BEDTIME 90 days ondansetron 4 mg PO Q8H PRN pantoprazole 40 mg PO DAILY 90 days triamcinolone acetonide 0.1% 1 appl topical BID 4 weeks Tobacco use date assessed: 10/21/24 Dental Screening Dental Screen Date: 10/21/24 Did you have a dental visit in the last 12 months?: Yes Did you have a dental problem in the last 6 months where you did not have access to dental care?: No Was dental information given to patient?: Patient has dentist HPI f/u DMII HPI Details Patient is a 49-year-old female here today for follow-up visit..? Patient has a past history significant for hyperlipidemia,? type 2 diabetes, obesity, , mild lymphocytosis,? asthma,? polyarthralgia. Eczema--> The patient also presents with dyshidrotic eczema, primarily affecting her hands and feet. She described consistent presence of blisters that are sometimes painful and itchy, necessitating manual drainage for relief. The patient confirmed that diagnosis followed a scrape test indicating eczema, excluded for fungal infection. She is currently using betamethasone dipropionate ointment for management Type 2 diabetes--> She patient has a documented history of Type 2 Diabetes Mellitus. She previously used Ozempic for glycemic control but discontinued due to insufficient weight loss and high blood sugar readings. She recently recorded a blood sugar level of 209 mg/dL after fasting for two hours and expressed concerns about her A1c, which had been 6.2 but increased to 6.8. The patient is actively making dietary changes to manage weight and improve glycemic control. There is a longstanding history of obesity, with the patient expressing challenges in weight management. The patient discussed previous metformin prescription and family member perceptions of its renal protective benefits. [facility] Medical History Visit for suture removal GERD (gastroesophageal reflux disease) HLD (hyperlipidemia) HTN (hypertension) T2DM (type 2 diabetes mellitus) T2DM (type 2 diabetes mellitus) Morbid obesity Vitamin D deficiency Hyperparathyroidism Hypercalcemia Surgical History History of carpal tunnel release History of removal of cyst H/O myringotomy History of endometrial ablation H/O LEEP Family History Sister Lung cancer AIDS IV drug user Paternal Uncle Colon cancer Paternal Aunt Colon cancer Breast cancer Maternal Aunt Ovarian cancer Leukemia Breast cancer Brain cancer Brother AIDS IV drug user Family/Other FH: mental illness Social History Housing: Apartment Alcohol intake: current Alcohol intake frequency: holidays/special occasions only Alcohol type: hard liquor Patient Tobacco Use Status: Former Tobacco user Tobacco use type: Cigarette Years Smoked: 30 e-Cigarette/Vaping Use: Never Used Second Hand Smoke Exposure: Yes service: No Current occupational status: unemployed Current occupation: Right Handed Cognitive needs: No Hearing needs: No Vision needs: No Female Reproductive History Menstrual Age of Menarche: 7 Questionnaire PHQ-9 Over the last 2 weeks, how often have you been bothered by any of the following problems? 1. Little interest or pleasure in doing things: not at all 2. Feeling down, depressed, or hopeless: not at all 3. Trouble falling or staying asleep, or sleeping too much: not at all 4. Feeling tired or having little energy: not at all 5. Poor appetite or overeating: not at all 6. Feeling bad about yourself - or that you are a failure or have let yourself or your family down: not at all 7. Trouble concentrating on things, such as reading the newspaper or watching television: not at all 8. Moving or speaking so slowly that other people could have noticed. Or the opposite - being so fidgety or restless that you have been moving around a lot more than usual: not at all 9. Thoughts that you would be better off or of hurting yourself in some way: not at all Total score: 0 Depression Screening Interpretation: Negative Depression Screening Done: Yes 20635 - PHQ-9 Billing: Yes Source: Developed by Drs. Lee Vigil, Karli Turner, Tuan Kline and colleagues, with an educational tati from [employer]. Thrive Questionnaire Date Thrive assessed: 10/21/24 I am a: Patient What is your living situation today?: I have a steady place to live Within the past 12 months, did the food you bought not last and you didn't have the money to get more?: Never true Within the past 12 months, did you worry whether your food would run out before you got money to buy more?: Never true Do you have trouble paying for medicines?: No Do you have trouble getting transportation to medical appointments?: No Do you have trouble paying your heating and electricity bill?: No Do you have trouble taking care of your child, family member or friend?: No Do you have trouble with day-to-day activities such as bathing, preparing meals, shopping, managing finances, etc.?: No Are you currently unemployed and looking for a job?: No Are you interested in more education?: No Please select the resources that you would like help with: None Currently or been in a relationship where the following occur: No concerns reported THRIVE Score: 0 AUDIT C Alcohol Use Questionnaire (AUDIT-C) 1. How often do you have a drink containing alcohol?: Monthly or less 2. How many drinks containing alcohol do you have on a typical day when you are drinking?: 1 or 2 Total Score: 1 KAYLIE-7 AMB Questionnaire KAYLIE-7 Date KAYLIE - 7 assessed: 10/21/24 Feeling nervous, anxious, or on edge: 0 = Not at all Not being able to stop or control worryin = Not at all Worrying too much about different things: 0 = Not at all Trouble relaxin = Not at all Being so restless that it is hard to sit still: 0 = Not at all Becoming easily annoyed or irritable: 0 = Not at all Feeling afraid as if something awful might happen: 0 = Not at all Total KAYLIE-7 score (0-4 normal; 5-9 mild; 10-14 moderate; 15-21 severe): 0 Source: Developed by Drs. Lee Vigil, Karli Turner, Tuan Kline and colleagues, with an educational tati from [employer]. KAYLIE-7 Assessment Billing KAYLIE-7 Assessment Tool: KAYLEI-7 Assessment 05352 Review of Systems Const Denies headache(s) Eyes Denies loss of vision ENT Denies vertigo, Denies dizziness, Denies headache(s) and Denies sore throat Card Denies chest pain, Denies leg edema and Denies lightheadedness Resp Denies cough, Denies hemoptysis and Denies wheezing GI Denies abdominal pain, Denies melena, Denies constipation, Denies diarrhea and Denies vomiting Denies urinary frequency, Denies dysuria and Denies urinary urgency Musc Denies arthralgias, Denies joint swelling, Denies numbness and Denies tingling Neuro Denies Abnormal speech present, Denies behavioral changes, Denies vertigo, Denies dizziness, Denies headache(s), Denies loss of vision, Denies memory loss, Denies numbness and Denies tingling Psych Denies anxiety, Denies behavioral changes, Denies depression, Denies memory loss and Denies panic attacks Reji/Lymph Denies easy bleeding and Denies easy bruising Aller/Immun Denies wheezing Physical exam (Primary Care) Vital Signs: Last Vital Signs Temp 97.3 F 10/21/24 08:55 Pulse 67 10/21/24 08:55 BP 120/68 10/21/24 08:55 Pulse Ox 98 10/21/24 08:55 Oxygen Delivery Method Room Air 10/21/24 08:55 BMI result Body Mass Index 36.6 BMI Assessment/Plan discussion: High BMI High, discussed plan: lifestyle, weight reduction, dietary and physical activity Tobacco/Smoking Status: Tobacco use Status Tobacco use date assessed 10/21/24 10/21/24 09:04 Patient Tobacco Use Status Former Tobacco user 10/21/24 09:04 Tobacco use type Cigarette 10/21/24 09:04 e-Cigarette/Vaping Use Never Used 10/21/24 09:04 PHQ-9: PHQ-9 Score PHQ-9: Total score 0 10/21/24 09:04 Depression Screening Interpretation: Negative Thrive Assessment: Date of Thrive Assessment Date Thrive assessed 10/21/24 10/21/24 09:04 Currently or been in a relationship where the following occur: No concerns reported Const General: healthy appearing, no acute distress, alert and awake Nutritional Appearance: well nourished Orientation/consciousness: oriented to person, oriented to place and oriented to time HENMT Ears: TM's normal bilaterally General nose exam: Normal nasal mucous membranes and turbinates present Eyes Conjunctivae: conjunctivae normal Sclerae: sclerae normal Pupils: Equal, round and reactive pupils present Neck Neck: Yes no lymphadenopathy and Yes no JVD Thyroid: Thyroid normal Carotids: no bruits Resp Effort & Inspection: normal respiratory effort and not tachypneic Auscultation: no crackles, no rales, no rhonchi and no wheezes Cardio Rate: regular rate Rhythm: regular rhythm Heart sounds: no murmurs and normal S1 and S2 GI Palpation (GI): Soft to palpation, nontender, no hepatomegaly and no splenomegaly Auscultation: normal bowel sounds Skin General skin exam: no rashes or lesions noted and dry skin Neuro General: oriented to person, oriented to place and oriented to time Cranial nerves: Yes Equal, round and reactive pupils present Speech: No Abnormal speech present Gait exam (Neuro): Normal gait present Motor exam (neuro): no tremor noted Extrem Right upper extremity: full ROM Left upper extremity: full ROM Right lower extremity: full ROM; no edema Left lower extremity: full ROM; no edema Psych Mental Status: mental status grossly normal Speech and movement: Normal speech and movement present Affect: normal affect Attitude: cooperative Thought process: Normal thought process present Results AMB Hemoglobin A1c AMB Hemoglobin A1c 6.8 % Last Edit by ADELFO House on 10/21/24 09:22 Coding Level of Care Code Est Pt Level 4 (65405) Diagnoses Type 2 diabetes mellitus with hyperglycemia, without long-term current use of insulin E11.65 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 living use Diabetes mellitus complication status: with hyperglycemia Hypertension, unspecified type I10 Hypertension type: unspecified Mixed hyperlipidemia E78.2 Hyperlipidemia type: mixed hyperlipidemia Dyshydrosis L30.1 Class 2 obesity E66.812 Additional Codes PHQ-9 - 19957 - PHQ-9 Billing: Yes ([id number]) KAYLIE-7 Assessment Billing - KAYLIE-7 Assessment Tool: KAYLIE-7 Assessment [id number] ([id number]) Assessment & Plan Assessment & Plan (1) T2DM (type 2 diabetes mellitus): Code(s): E11.9 - Type 2 diabetes mellitus without complications Category: Medical Qualifiers: 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 She is interested in capturing better glycemic control and is willing to start metformin 500 b.i.d.. She is concerned about side effects and elevations in her liver enzymes which will be monitored. Goal A1c is to be below 6.0 (2) HTN (hypertension): Code(s): I10 - Essential (primary) hypertension Category: Medical Qualifiers: Hypertension type: unspecified Qualified Code(s): I10 - Essential ( primary) hypertension Plan: Patient's blood pressure acceptable today in office. Will continue on losartan 50 mg daily with blood pressure to remain below 140/90 (3) HLD (hyperlipidemia): Code(s): E78.5 - Hyperlipidemia, unspecified Category: Medical Qualifiers: Hyperlipidemia type: mixed hyperlipidemia Qualified Code(s): E78.2 - Mi xed hyperlipidemia Plan: Patient's most recent lipid panel showing good control over total cholesterol and LDL. Goal LDL is to remain below 100. (4) Dyshydrosis: Code(s): L30.1 - Dyshidrosis [pompholyx] Category: Medical Plan: Has been recently diagnosed with eczema dyshidrosis on her hands and soles. She has been started on topical steroid ointment which has been significantly helping her skin manifestation. (5) Class 2 obesity: Code(s): E66.812 - Obesity, class 2 Category: Medical Plan: Patient does understand her BMI is over 35 and continue working on lifestyle and dietary modifications. Has tried GLP 1 in the past though was not effective on reducing her caloric intake and losing weight. Orders: Orders AMB Hemoglobin A1c Today E11.65 - Type 2 diabetes mellitus with hyperglycemia
[2024-10-21 08:55] VITALS: BP 120/68; PULSE 67; TEMP 36.3; O2SAT 98; BMI 36.6
--- OUTSIDE RECORDS SUMMARY | 2024-10-21 08:55 | XMS_ITS | Clinical Summary ---
Author Organization [facility] ity Address [address] [place] [address] Care Team Providers Care Eyeglass Frames Inspector Name Role Phone Physician, Pcp Unknown Primary Care Provider Tawny vailable Social History Tobacco Use Types Packs/Day Years Used Date Smoking Tobacco: Never Assessed Sex and Gender Information Value Date Recorded Sex Assigned at Not on file Gender Identity Not on file Sexual Orientation Not on file Job Start Date Occupation Industry Not on file Not on file Not on file Plan of Treatment Upcoming Encounters Date Type Department Care Team ([facility] st Contact Info) Description 10/28/2024 9:15 AM EST Office Visit Orthopedic Surgery - [place] [address] [phone] Manjeet Marvin, DPM [address] [address] Health Maintenance Due Date Last Done Comments Breast Cancer Screening 1973 DTaP,Tdap,and Td Vaccines (1 - Tdap) 1992 Hepatitis B Vaccines (1 of 3 - 19+ 3-dose series) 1992 Cervical Cancer Screening: P ap Smear 1994 Zoster Vaccines (1 of 2) 2023 COVID-19 Vaccine ( - 2023-2 5 season) 2024 Influenza Vaccine (#1) 2024 Colorectal Cancer Screening: Colonoscopy 08/19/2024 Depression Screening 08/19/2024 HIV Screening 08/19/2024 Hepatitis C Screening 08/19/2024 Medicare Annual Wellness Visit 08/19/2024 Social Influencers of Health Screening 08/19/2024 HIB Vaccines Aged Out No longer eligi ble based on patient's age to complete this topic HPV Vaccines Aged Out No longer eligi ble based on patient's age to complete this topic Hepatitis A Vaccines Aged Out No long er eligible based on patient's age to complete this topic IPV Vaccines Aged Out No longer eligi ble based on patient's age to complete this topic MMR Vaccines Aged Out No longer eligi ble based on patient's age to complete this topic Meningococcal ACWY Vaccine Aged Out N o longer eligible based on patient's age to complete this topic Pneumococcal Vaccine: Pediat rics (0 to 5 Years) and At-Risk Patients (6 to 64 Years) Aged Out No longer eligible b ased on patient's age to complete this topic RSV Immunization Patients Un mandeep 20 months Aged Out No longer eligible b ased on patient's age to complete this topic Varicella Vaccines Aged Out No longer eligible based on patient's age to complete this topic Care Teams Eyeglass Frames Inspector Relationship Specialty Start Date End Date Physician, Pcp Unknown PCP - General 10/14/24
--- OUTSIDE RECORDS SUMMARY | 2024-10-21 08:55 | XMS_ITS | Clinical Summary ---
Author Organization [facility] Address [address] [address] Phone Care Team Providers Care Wage Hand Name Role Phone Maury Caputo Primary Care Provider [phone] Allergies Active Allergy Reactions Criticality Noted Date Comments Azithromycin Other (see comments) 11/29/2020 Tramadol Other (see comments) 11/29/2020 Medications Albuterol Sulfate (ProAir RespiClick) 108 (90 Base) MCG/ACT aerosol powder Inhale 2 puffs if needed Active fluticasone (FLONASE) 50 MCG/ACT nasal spray Active pantoprazole (PROTONIX) 40 MG EC tablet Take 1 tablet by mouth 2 (two) times a day Active azelastine (ASTELIN) 0.1 % nasal spray if needed 11/30/2020 Active EPINEPHrine (EPIPEN) 0.3 MG/0.3ML injection syringe INJECT THE CONTENTS OF 1 SYRINGE IN THE MUSCLE ONCE NEEDED 11/30/2020 Active fexofenadine (JANEY) 180 MG tablet Take 180 mg by mouth 1 (one) time each day Active montelukast (SINGULAIR) 10 MG tablet Take 10 mg by mouth every night Active atorvastatin (LIPITOR) 20 MG tablet Take 20 mg by mouth at bed time 05/30/2022 Active losartan (COZAAR) 50 MG tablet TAKE 1 TABLET BY MOUTH EVERY DAY 30 tablet 2 06/10/2023 Active Ozempic, 0.25 or 0.5 MG/DOSE, 2 MG/3ML solution pen-injector 0.5 mg 06/12/2023 Active Active Problems Problem Noted Date Diagnosed Date Anxiety 07/24/2022 Asthma 07/24/2022 Depressive disorder 07/24/2022 H/O Spinal surgery 07/24/2022 Migraine 07/24/2022 Essential hypertension 12/23/2020 Blood in urine 11/29/2020 Proteinuria 11/29/2020 Immunizations Name Administration Dates Next Due Influenza, Unspecified 06/25/2021 MMR 02/09/2021 Tdap 10/25/2020 Family History Medical History Relation Comments Hypertension Mother Relation Status Comments Father Mother Alive Social History Tobacco Use Types Packs/Day Years Used Date Smoking Tobacco: Former Cigarettes Q uit: 05/29/2020 Tobacco Cessation:Counseling Given: Not Answered Comments:Smoking History Info:Every day Alcohol Use Standard Drinks/Week Comments Not Currently 0 (1 standard drink = 0.6 oz pur e alcohol) Comments Unknown Sex and Gender Information Value Date Recorded Sex Assigned at Not on file Legal Sex Female 4:46 PM EST Gender Identity Not on file Sexual Orientation Not on file Last Filed Vital Signs Vital Sign Reading Time Taken Comments Blood Pressure 138/72 07/24/2023 12:58 PM EST Pulse 84 07/24/2023 12:58 PM EST Temperature - - Respiratory Rate - - Oxygen Saturation 99% 07/24/2023 12:58 PM EST Inhaled Oxygen Concentration - - Weight 95.3 kg (210 lb) 07/24/2023 12:58 PM EST Height 162.6 cm (5' 4 ) 12/23/2020 4:08 PM EDT Body Mass Index 36.05 12/23/2020 4:08 PM EDT Plan of Treatment Upcoming Encounters Date Type Department Care Team (Late st Contact Info) Description 10/22/2024 4:30 PM EST Office Visit [facility] [address] [phone] Melissa Pelayo ARNP [address] [phone] Health Maintenance Due Date Last Done Comments Breast Cancer Screening 1973 Pneumococcal Vaccine: Pediat rics (0 to 5 Years) and At-Risk Patients (6 to 64 Years) (1 of 2 - PCV) 1979 Hepatitis B Vaccine (1 of 3 - 19+ 3-dose series) 04/20 Colorectal Cancer Screening: Annual FOBT 2022 Colorectal Cancer Screening: Colonoscopy 2022 Colorectal Cancer Screening: Sigmoidoscopy 2022 Influenza Vaccine (#1) 2024 06/25/2021 Insurance [place] Care Teams Wage Hand Relationship Specialty Start Date End Date Maury Caputo PA [address] [facility], [address] [place] [address] PCP - General Physician Lifestyle Director 07/24/23
--- OUTSIDE RECORDS SUMMARY | 2024-10-21 08:55 | XMS_ITS | Encounter Summary ---
Author Organization [facility] Address [address] [facility] [address] [place] [address] Phone Care Team Providers Care Pipe Bowls Paint Trimmer Name Role Phone Maury Caputo Primary Care Provider [phone] Reason for Visit * Reason Comments Med Refill Encounter Details Date Type Department Care Team (Late Contact Info) Description 02/28/2023 Refill [facility] [address] [place] [phone] Landen Nguyen MD Social History Tobacco Use Types Packs/Day Years Used Date Smoking Tobacco: Former Cigarettes Q uit: 05/29/2020 Comments:Smoking History Inf o:Every day Alcohol Use Standard Drinks/Week Comments Not Currently 0 (1 standard drink = 0.6 oz pur e alcohol) Comments Unknown Sex and Gender Information Value Date Recorded Sex Assigned at Not on file Legal Sex Female 4:46 PM EST Gender Identity Not on file Sexual Orientation Not on file documented as of this encounter Plan of Treatment Upcoming Encounters Date Type Department Care Team (Late st Contact Info) Description 10/22/2024 4:30 PM EST Office Visit [facility] [address] [phone] Melissa Pelayo ARNP [address] [facility] [address] [place] [address] documented as of this encounter Visit Diagnoses Not on filedocumented in this encounter Care Teams Pipe Bowls Paint Trimmer Relationship Specialty Start Date End Date Maury Caputo PA [address] [place] [address], [address] [place] [address] PCP - General Physician Jewelry Dipper 07/24/23 documented as of this encounter
== END 2024-10-21 09:40 | disposition home or self-care (01) ==
PROVIDERS: PCP Physician Assistant; Visit Provider Physician Assistant
DX: E11.65 Type 2 diabetes mellitus with hyperglycemia (principal); I10 Essential (primary) hypertension; Z68.36 Body mass index [BMI] 36.0-36.9, adult; E66.812 Obesity, class 2; E78.2 Mixed hyperlipidemia; L30.1 Dyshidrosis [pompholyx]

== ENCOUNTER → 2024-10-21 08:49 | Outpatient (BNVA) | payer MEDICARE, MEDICAID, OTHER, SELFPAY | PROVIDERS: PCP Physician Assistant; Visit Provider Physician Assistant | DX: E11.65 Type 2 diabetes mellitus with hyperglycemia (principal); I10 Essential (primary) hypertension; E78.2 Mixed hyperlipidemia; L30.1 Dyshidrosis [pompholyx]; E66.812 Obesity, class 2; Z68.36 Body mass index [BMI] 36.0-36.9, adult; Z71.3 Dietary counseling and surveillance | CPT/HCPCS: 83036; 96127; 99212 ==

== ENCOUNTER 2024-12-18 09:33 | Outpatient (AMB) | payer MEDICAID, SELFPAY ==
--- NOTE | 2024-12-18 10:06 | MHC.OFFVIS ---
Intake Visit Reasons: Vaginal pump Accompanied by: Self / Same As Patient Allergies lactose Allergy (Unknown, Verified 12/18/24 10:08) upset stomach fentanyl [FENTANYL] Adverse Reaction (Severe, Verified 12/18/24 10:08) VOMITING-SEVERE azithromycin Adverse Reaction (Intermediate, Verified 12/18/24 10:08) stomach upset ibuprofen [From MOTRIN] Adverse Reaction (Intermediate, Verified 12/18/24 10:08) KIDNEY PROBLEMS tramadol Adverse Reaction (Intermediate, Verified 12/18/24 10:08) dizziness and vomiting, vomiting FRUIT,FRESH Allergy (Severe, Uncoded 10/21/24 09:10) MOUTH ITCHING/SWELLING HPI Comments Details: Presenting complaining of periclitoral lesion and nonhealing ulcer over the last few months. The patient has been applying clobetasol to the perineal area Last vulvar biopsy in 04/08 showed lichen sclerosus PFSH Medical History Visit for suture removal GERD (gastroesophageal reflux disease) HLD (hyperlipidemia) HTN (hypertension) T2DM (type 2 diabetes mellitus) T2DM (type 2 diabetes mellitus) Morbid obesity Vitamin D deficiency Hyperparathyroidism Hypercalcemia Surgical History History of carpal tunnel release History of removal of cyst H/O myringotomy History of endometrial ablation H/O LEEP Family History Sister Lung cancer AIDS IV drug user Paternal Uncle Colon cancer Paternal Aunt Colon cancer Breast cancer Maternal Aunt Ovarian cancer Leukemia Breast cancer Brain cancer Brother AIDS IV drug user Family/Other FH: mental illness Social History Housing: Apartment Alcohol intake: current Alcohol intake frequency: holidays/special occasions only Alcohol type: hard liquor Patient Tobacco Use Status: Former Tobacco user Tobacco use type: Cigarette Years Smoked: 30 e-Cigarette/Vaping Use: Never Used Second Hand Smoke Exposure: Yes service: No Current occupational status: unemployed Current occupation: Right Handed Cognitive needs: No Hearing needs: No Vision needs: No Female Reproductive History Menstrual Age of Menarche: 7 Review of Systems Const All systems reviewed & are unremarkable except as noted in HPI and below Physical Exam General: Yes no CVA tenderness External Female Exam: No normal external appearance (Periclitoral lesion whitish in color with a small ulcer) and normal appearance of the urethra Speculum Exam - Vagina: normal appearance of the vagina, normal palpation, no lesions and no masses Speculum Exam - Cervix: normal appearance of the cervix, normal palpation, no lesions, no masses and nontender Bimanual exam- vagina & uterus: normal bimanual exam, normal palpation, uterine size normal, normal palpation, uterine shape normal, No Cervical tenderness present and non-tender Bimanual Exam- Adnexa, other: normal adnexae Back/Spine/Pelvis Back: no CVA tenderness Office Procedures ACADEMIC DEPARTMENT CHAIR Biopsy Before the procedure was started d/w patient the procedure, alternatives ( do nothing, medical rx), & all the risks associated with the procedure ( bleeding , infection, vulvar scarring, painful intercourse, injury to vessels, possible need for transfusion with all its risks) then patient signed the consent. Preop dx: Periclitoral lesion/leukoplakia Op: Periclitoral lesion/leukopla biopsy Post op: Same Anesthesia: Lidocaine 1% 3cc used Procedure: Using betadine the area was scrubbed and draped in the usual manner. 3 cc of lidocaine was used for anesthesia at the Periclitoral lesion/leukopla area ; using punch biopsy and pickup the Periclitoral lesion/leukopla was biopsied. Pressure was used for hemostasis. The patient tolerated the procedure well. Discharge Instructions: The patient was instructed to schedule an appointment in 2 weeks for follow-up and to call if temp>100.4, area of the biopsy redness or pain, nausea/vomiting. This note was generated with a voice recognition program. Some errors may have been overlooked during the review of this note. Sometimes these errors may affect the content or meaning of a given sentence. 03091-Aggtyu of Vulva/Perineum Procedure code (CPT) selection complete Assessment & Plan Assessment & Plan (1) Vulvar lesion: Comment: Periclitoral lesion/leukoplakia Code(s): N90.89 - Other specified noninflammatory disorders of vulva and perineum Category: Medical Plan: Discussed with the patient the finding on pelvic exam showing a Periclitoral lesion, recommended biopsy which was taken, see procedure note Orders: Orders AMB ACADEMIC DEPARTMENT CHAIR Biopsy Today N90.89 - Other specified noninflammatory disorders of vulva and perineum Coding Level of Care Code Est Pt Level 3 (44400) Procedure Only Diagnoses Vulvar lesion N90.89 CPT Codes ACADEMIC DEPARTMENT CHAIR Biopsy - CPT: 46069-Mkkvgj of Vulva/Perineum ([id number])
--- OUTSIDE RECORDS SUMMARY | 2024-12-18 10:30 | XMS_ITS | Clinical Summary ---
Author Organization 175 [facility] Address 175 [place] [address] Phone Care Team Providers Care On Air Talent Name Role Phone Physician, Pcp Unknown Primary Care Provider Tawny vailable Social History Tobacco Use Types Packs/Day Years Used Date Smoking Tobacco: Never Assessed Comments Unknown Sex and Gender Information Value Date Recorded Sex Assigned at Not on file Legal Sex Female 10:26 AM EST Gender Identity Not on file Sexual Orientation Not on file Plan of Treatment Upcoming Encounters Date Type Department Care Team ([facility] Contact Info) Description 03/10/2025 8:15 AM EDT Consult Orthopedic Surgery - [place] [address] [phone] Manjeet Marvin, DPM [address] [address] Health Maintenance Due Date Last Done Comments Breast Cancer Screening 1973 DTaP,Tdap,and Td Vaccines (1 - Tdap) 1992 Hepatitis B Vaccines (1 of 3 - 19+ 3-dose series) 1992 Cervical Cancer Screening: P ap Smear 1994 Pneumococcal Vaccine: 50+ Ye ars (1 of 1 - PCV) 2023 Zoster Vaccines (1 of 2) 2023 COVID-19 [...] patient's age to complete this topic Meningococcal B Vacine Aged Out No lo nger eligible based on patient's age to complete [...] on patient's age to complete this topic Insurance MEDICARE MEDICAID - [place] Care Teams On Air Talent Relationship Specialty Start Date End Date Physician, Pcp Unknown PCP - General 10/14/24
--- OUTSIDE RECORDS SUMMARY | 2024-12-18 10:30 | XMS_ITS | Clinical Summary ---
Author Organization [facility] Address [address] [place] [address] Phone Care Team Providers Care Truck Bench Mechanic Name Role Phone Maury Caputo Primary Care Provider [phone] Allergies Active Allergy Reactions Criticality Noted Date [...] (ASTELIN) 0.1 % nasal spray if needed 1 Active EPINEPHrine (EPIPEN) 0.3 MG/0.3ML injection syringe INJECT THE CONTENTS OF 1 SYRINGE IN THE MUSCLE ONCE NEEDED 1 Active fexofenadine (JANEY) 180 MG tablet Take 180 mg by mouth 1 (one) time each day Active atorvastatin (LIPITOR) 20 MG tablet Take 20 mg by mouth at bed time 2 Active losartan (COZAAR) 50 MG tablet TAKE 1 TABLET BY MOUTH EVERY DAY 30 tablet 2 3 Active betamethasone, augmented, (DIPROLENE) 0.05 % ointment 5 Active triamcinolone (KENALOG) 0.1 % cream Apply 1 application. topically in the morning and 1 application. in the evening. Active montelukast (SINGULAIR) 10 MG tablet Take 10 mg by mouth every night 12/03/19 25 Discontinu ed(Med List Maintenanc e) Ozempic, 0.25 or 0.5 MG/DOSE, 2 MG/3ML solution pen-injector 0.5 mg 3 12/03/19 25 Discontinu ed(Med List Maintenanc e) Active Problems Problem Noted Date Diagnosed Date Anxiety 07/24/2022 Asthma 07/24/2022 Depressive disorder 07/24/2022 H/O Spinal surgery 07/24/2022 Migraine 07/24/2022 Essential hypertension 12/23/2020 Blood in urine 11/29/2020 Proteinuria 11/29/2020 Encounters Date Type Department Care Team Description 12/02/2024 8:30 AM EDT Office Visit [facility] [address] [phone] Melissa Pelayo ARNP Persistent proteinuria (Primary Dx); Essential hypertension 12/02/2024 Orders Only [facility] [place] [address] [phone] Melissa Pealyo ARNP 10/22/2024 Documentation Only [facility] [place] [address] [phone] Verenice Harrington MA from Last 3 Months Immunizations Name Administration Dates Next Due Influenza, [...] Sign Reading Time Taken Comments Blood Pressure 118/76 12/02/2024 8:28 AM EDT Pulse 78 12/02/2024 8:28 AM EDT Temperature - - Respiratory Rate - - Oxygen Saturation 98% 12/02/2024 8:28 AM EDT Inhaled Oxygen Concentration - - Weight 97.5 kg (215 lb) 12/02/2024 8:28 AM EDT Height 162.6 cm (5' 4 ) 12/23/2020 4:08 PM EDT Body Mass Index 36.9 12/23/2020 4:08 PM EDT Plan of Treatment Upcoming Encounters Date Type Department Care Team (Late st Contact Info) Description 12/02/2025 7:30 AM EDT Office Visit [facility] [address] [phone] Melissa Pelayo ARNP [address] [phone] Health Maintenance Due Date Last Done Comments [...] Sigmoidoscopy 2022 Influenza Vaccine (#1) 2024 06/25/2021 Procedures Procedure Name Priority Date/Time Associated Diagnosis Comments URINE ALBUMIN / CREATININE RATIO Routine 12/02/2024 7:48 AM EDT PROTEIN / CREATININE RATIO, URINE Routine 12/02/2024 7:48 AM EDT RENAL FUNCTION PANEL Routine 12/02/2024 7:48 AM EDT URINALYSIS WITH MICROSCOPIC Routine 12/02/2024 7:48 AM EDT MICROSCOPIC EXAMINATION - DO NOT USE Routine 12/02/2024 7:48 AM EDT from Last 3 Months Results * Microscopic Examination (12/02/2024 7:48 AM EDT) WBC, Urine None seen 0 - 5 /hpf [facility] RBC, Urine None seen 0 - 2 /hpf [facility] Squamous Epithelial, Urine 0-10 0 - 10 /hpf [facility] Casts None seen None seen /lpf [facility] Bacteria, Urine None seen None seen/Few [facility] 12/02/2024 7:48 AM EDT 12/02/2024 Melissa Pelayo [facility] MICROBIOLOGY - GENERAL ORDERABLES Final Result Performing Organization Address City/[facility]/ZIP Co de Phone Number [facility] [address] [place] [address] * (ABNORMAL) Protein, Total, Random Urine w/Creatinine (Protein/Creat Ratio) (12/02/2024 7:48 AM EDT) Creatinine, Ur 39.4 Not Estab. mg/dL [facility] Protein, Ur 31.7 Not Estab. mg/dL [facility] Urine Protein/Creati nine Ratio 805(H) 0 - 200 mg/g creat [facility] 12/02/2024 7:48 AM EDT 12/02/2024 Melissa [facility] LAB URINE ORDERABLES Final Result Performing Organization Address City/[facility]/ZIP Co de Phone Number [facility] [address] [place] [address] * (ABNORMAL) Urine Albumin / Creatinine Ratio (12/02/2024 7:48 AM EDT) Albumin, Urine 139.9 Not Estab. ug/mL [facility] Albumin/Creatin ine Ratio 355(H) 0 - 29 mg/g creat [facility] Comment: ? Normal: ?0 - ??29 ? Moderately increased: 30 - 300 ? Severely increased: ? >300 12/02/2024 7:48 AM EDT 12/02/2024 Melissa Pierce [facility] URINE ORDERABLES Final Result [facility] [address] [place] [address] * (ABNORMAL) Urinalysis with microscopic (12/02/2024 7:48 AM EDT) Specific [place], Urine 1.013 1.005 - 1.030 [facility] pH Urine 6.0 5.0 - 7.5 [facility] [phone] Color, Urine Yellow Yellow [facility] [phone] Appearance Urine Clear Clear [facility] [phone] WBC Esterase Urine Negative Negative [facility] Protein, Ur 1+(A) Negative/Tra ce [facility] Glucose, Ur Negative Negative [facility] Ketones, Urine Negative Negative [facility] Blood Urine Negative Negative [facility] Bilirubin Urine Negative Negative [facility] [phone] Urobilinogen Urine 0.2 0.2 - 1.0 mg/dL [facility] Nitrite, Urine Negative Negative [facility] [phone] Microscopic Examination See below: [facility] Comment:Microscopic was hetal cated and was performed. 12/02/2024 7:48 AM EDT 12/02/2024 Melissa Pierce [facility] URINE ORDERABLES Final Result [facility] [address] [place] [address] * (ABNORMAL) Renal Function Panel (12/02/2024 7:48 AM EDT) Glucose 124(H) 70 - 99 mg/dL [facility] BUN 12 6 - 24 mg/dL [facility] Creatinine 0.67 0.57 - 1.00 mg/dL [facility] eGFR CKD-EPI CR 2020 106 >59 mL/min/1.7 3 [facility] BUN/Creatinine Ratio 18 9 - 23 [facility] Sodium 139 134 - 144 mmol/L [facility] Potassium 4.5 3.5 - 5.2 mmol/L [facility] Chloride 102 96 - 106 mmol/L [facility] Bicarbonate (CO2) 23 20 - 29 mmol/L [facility] Calcium 10.2 8.7 - 10.2 mg/dL [facility] Phosphorus 3.8 3.0 - 4.3 mg/dL [facility] Albumin 4.5 3.8 - 4.9 g/dL [facility] 12/02/2024 7:48 AM EDT 12/02/2024 Melissa [facility] BLOOD ORDERABLES Final Result [facility] [address] [place] [address] from Last 3 Months Insurance [place]ICAID [place] Member Subscriber Plan / Payer (Ef fective 2020-Present) Name:Markham Marlyn Relation to Subscriber:Self Name:Haily Markhamscilla Payer ID:Not on file Group ID:Not on file Type:Not on file Address: [address] MEDICARE MEDICAID [place] MEDICARE Care Teams Truck Bench Mechanic Relationship Specialty Start Date End Date Maury Caputo PA [address] [place] [address], [address] [place] [address] PCP - General Physician Conference Producer 07/24/23
--- OUTSIDE RECORDS SUMMARY | 2024-12-18 10:30 | XMS_ITS | Encounter Summary ---
Author Organization [facility] Address [address] [facility] [address] [place] [address] Phone Care Team Providers Care Janitorial Cleaner Name Role Phone Maury Caputo Primary Care Provider [phone] Reason for Visit * Reason Comments Med Refill Encounter Details Date Type Department Care Team (Late Contact Info) Description 02/28/2023 Refill [facility] [address] [facility] [address] [place] [phone] Landen Nguyen MD Social History Tobacco Use [...] Visit [facility] [address] [phone] Melissa Pelayo ARNP [address] [phone] documented as of this encounter Visit Diagnoses Not on filedocumented in this encounter Care Teams Janitorial Cleaner Relationship Specialty Start Date End Date Maury Caputo PA [address] [place] [address], [address] [place] [address] [place] [address] PCP - General Physician Mica Spreader 07/24/23 documented as of this encounter
== END 2024-12-18 11:09 | disposition home or self-care (01) ==
PROVIDERS: PCP Physician Assistant; Visit Provider Obstetrics & Gynecology
DX: N90.89 Other specified noninflammatory disorders of vulva and perineum (principal)
CPT/HCPCS: 56605; 99213

== ENCOUNTER 2024-12-18 09:33 | Outpatient (REF) | payer OTHER, MEDICAID, SELFPAY ==
--- OUTSIDE RECORDS SUMMARY | 2024-12-18 14:01 | XMS_ITS | Clinical Summary ---
Author Organization [facility] Address [address] [place] [phone] Phone Care Team Providers Care Boat Builder And Repairer Name Role Phone Maury Caputo Primary Care Provider [phone] Allergies Active Allergy Reactions Criticality Noted Date [...] Office Visit [facility]. [address] [phone] Melissa Pelayo ARNP Persistent proteinuria (Primary Dx); Essential hypertension 12/02/2024 Orders Only [facility] [place] [address] [phone] Melissa Pelayo ARNP 10/22/2024 Documentation Only [facility] [place] [address] [phone] Verenice Harrington MA from Last 3 Months [...] Office Visit [facility] [address] [phone] Melissa Pelayo ARNP [address] [phone] Health Maintenance Due Date Last [...] None seen 0 - 5 /hpf [facility] RBC, Urine None seen 0 - 2 /hpf [facility] Squamous Epithelial, Urine 0-10 0 - 10 /hpf [facility] Casts None seen None seen /lpf [facility] Bacteria, Urine None seen None seen/Few [facility] 12/02/2024 7:48 AM EDT 12/02/2024 Melissa Pelayo [facility] MICROBIOLOGY - GENERAL ORDERABLES Final Result Performing Organization Address City/[facility]/ZIP Co de Phone Number [facility] [address] [place] [address] * (ABNORMAL) Protein, Total, Random Urine w/Creatinine (Protein/Creat Ratio) (12/02/2024 7:48 AM EDT) Creatinine, Ur 39.4 Not Estab. mg/dL [facility] Protein, Ur 31.7 Not Estab. mg/dL [facility] Urine Protein/Creati nine Ratio 805(H) 0 - 200 mg/g creat [facility] 12/02/2024 7:48 AM EDT 12/02/2024 Melissa [facility] URINE ORDERABLES Final Result Performing Organization Address City/[facility]/ZIP Co de Phone Number [facility] [address] [place] [address] * (ABNORMAL) Urine Albumin / Creatinine Ratio (12/02/2024 7:48 AM EDT) Albumin, Urine 139.9 Not Estab. ug/mL [facility] Albumin/Creatin ine Ratio 355(H) 0 - 29 mg/g creat [facility] Comment: ? Normal: ?0 - ??29 ? Moderately increased: 30 - 300 ? Severely increased: ? >300 12/02/2024 7:48 AM EDT 12/02/2024 Melissa Pierce [facility] URINE ORDERABLES Final Result [facility] [address] [place] [address] * (ABNORMAL) Urinalysis with microscopic (12/02/2024 7:48 AM EDT) Specific [place], Urine 1.013 1.005 - 1.030 [facility] pH Urine 6.0 5.0 - 7.5 [facility] [phone] Color, Urine Yellow Yellow [facility] Appearance Urine Clear Clear [facility] WBC Esterase Urine Negative Negative [facility] Protein, Ur 1+(A) Negative/Tra ce [facility] Glucose, Ur Negative Negative [facility] Ketones, Urine Negative Negative [facility] Blood Urine Negative Negative [facility] Bilirubin Urine Negative Negative [facility] [phone] Urobilinogen Urine 0.2 0.2 - 1.0 mg/dL [facility] [phone] Nitrite, Urine Negative Negative [facility] Microscopic Examination See below: [facility] Comment:Microscopic was hetal cated and was performed. 12/02/2024 7:48 AM EDT 12/02/2024 Melissa Pierce [facility] URINE ORDERABLES Final Result [facility] [address] [place] [address] * (ABNORMAL) Renal Function Panel (12/02/2024 7:48 AM EDT) Glucose 124(H) 70 - 99 mg/dL [facility] BUN 12 6 - 24 mg/dL [facility] Creatinine 0.67 0.57 - 1.00 mg/dL [facility] eGFR CKD-EPI CR 2020 106 >59 mL/min/1.7 3 [facility] BUN/Creatinine Ratio 18 9 - 23 [facility] Sodium 139 134 - 144 mmol/L [facility] Potassium 4.5 3.5 - 5.2 mmol/L [facility] Chloride 102 96 - 106 mmol/L [facility] Bicarbonate (CO2) 23 20 - 29 mmol/L [facility] Calcium 10.2 8.7 - 10.2 mg/dL [facility] Phosphorus 3.8 3.0 - 4.3 mg/dL [facility] Albumin 4.5 3.8 - 4.9 g/dL [facility] 12/02/2024 7:48 AM EDT 12/02/2024 Melissa [facility] BLOOD ORDERABLES Final Result [facility] [address] [place] [address] from Last 3 Months Insurance MEDICAID [place] Member Subscriber Plan / Payer (Ef fective 2020-Present) Name:Markham Marlyn Relation to Subscriber:Self Name:Haily Markhamscilla Payer ID:Not on file Group ID:Not on file Type:Not on file Address: [address] MEDICARE MEDICAID [place] MEDICARE Care Teams Boat Builder And Repairer Relationship Specialty Start Date End Date Maury Caputo PA [address] [place] [address], [address] [place] [address] PCP - General Physician Dietitian 07/24/23
--- OUTSIDE RECORDS SUMMARY | 2024-12-18 14:01 | XMS_ITS | Encounter Summary ---
Author Organization [facility] Address [facility] [address] [place] [address] Phone Care Team Providers Care Machine Grainer Name Role Phone Maury Caputo Primary Care Provider [phone] Reason for Visit * Reason Comments Med Refill Encounter Details Date Type Department Care Team (Late Contact Info) Description 02/28/2023 Refill [facility] [address] [place] [phone] Landen Nguyen MD Social History Tobacco Use [...] Visit [facility] [address] [phone] Melissa Pelayo ARNP [address] [phone] documented as of this encounter Visit Diagnoses Not on filedocumented in this encounter Care Teams Machine Grainer Relationship Specialty Start Date End Date Maury Caputo PA [address] [place] [address], [address] [place] [address] [place] [address] PCP - General Physician Substance Abuse Clinician 07/24/23 documented as of this encounter
--- OUTSIDE RECORDS SUMMARY | 2024-12-18 14:01 | XMS_ITS | Clinical Summary ---
Author Organization 175 [facility] Address [address] [place] [address] Phone Care Team Providers Care Court Operations Clerk Name Role Phone Physician, Pcp Unknown Primary [...] Upcoming Encounters Date Type Department Care Team ([facility] Contact Info) Description 03/10/2025 8:15 AM EDT Consult Orthopedic Surgery - [place] [address] [phone] Manjeet Marvin, DPM [address] [address] Health Maintenance Due Date Last Done Comments [...] Insurance MEDICARE MEDICAID - [place] Care Teams Court Operations Clerk Relationship Specialty Start Date End Date Physician, Pcp Unknown PCP - General 10/14/24
== END 2024-12-18 09:34 | disposition home or self-care (01) ==
LOC: HO.LNP 09:33
PROVIDERS: PCP Physician Assistant; Visit Provider Obstetrics & Gynecology
DX: N90.89 Other specified noninflammatory disorders of vulva and perineum (principal)
CPT/HCPCS: 56605; 88305; 88312; 99212

== ENCOUNTER 2025-01-27 08:55 | Outpatient (AMB) | payer MEDICAID, SELFPAY ==
--- NOTE | 2025-01-27 09:07 | MHC.PC.OV ---
Vital Signs 01/27/25 09:18 Height 5 ft 4 in Weight 221 lb 4 oz BMI 38.0 BP 118/76 Blood Pressure Location Rt brachial Position Sitting Pulse 110 H Pulse Source Pulse Oximeter Temp 98.7 F Temp Source Oral Pulse Oximetry (%) 97 Oxygen Delivery Method Room Air Intake Visit Reasons: f/u DMII Cell Tower Climber Required: No Accompanied by: Self / Same As Patient Allergies lactose Allergy (Unknown, Verified 01/27/25 09:31) upset stomach fentanyl [FENTANYL] Adverse Reaction (Severe, Verified 01/27/25 09:31) VOMITING-SEVERE azithromycin Adverse Reaction (Intermediate, Verified 01/27/25 09:31) stomach upset ibuprofen [From MOTRIN] Adverse Reaction (Intermediate, Verified 01/27/25 09:31) KIDNEY PROBLEMS tramadol Adverse Reaction (Intermediate, Verified 01/27/25 09:31) dizziness and vomiting, vomiting FRUIT,FRESH Allergy (Severe, Uncoded 01/27/25 09:31) MOUTH ITCHING/SWELLING Medication List - Last Reconciled 01/27/25 by Maury Caputo PA-C albuterol sulfate 2.5 mg inhalation Q4H PRN albuterol sulfate 90 mcg/actuation 2 puffs inhalation Q6-8H 30 days atorvastatin 20 mg PO BEDTIME 90 days betamethasone, augmented 0.05 % 1 appl topical BID blood sugar diagnostic (FreeStyle Lite Strips) 1 strip miscellaneous TID blood-glucose meter (FreeStyle Lite Meter kit) As directed Ca lac-mag cit-pas flwr-everett rt 25-50-20-10 mg (MyoCalm) tabs PO cholecalciferol (vitamin D3) 50 mcg PO DAILY 30 days cyclobenzaprine 10 mg PO TID PRN epinephrine 0.3 mg IM ONCE PRN fexofenadine 180 mg PO DAILY 90 days fluticasone propionate 50 mcg/actuation 1 spray intranasal BID 30 days lancets (FreeStyle Lancets) 4x daily losartan 50 mg PO DAILY 90 days metformin 500 mg PO BID montelukast (Singulair) 10 mg PO BEDTIME 90 days ondansetron 4 mg PO Q8H PRN pantoprazole 40 mg PO DAILY 90 days triamcinolone acetonide 0.1% 1 appl topical BID 4 weeks Tobacco use date assessed: 10/21/24 Dental Screening Dental Screen Date: 10/21/24 HPI f/u DMII HPI Details Patient is a 49-year-old female here today for follow-up visit..? Patient has a past history significant for hyperlipidemia,? type 2 diabetes, obesity, , mild lymphocytosis,? asthma,? polyarthralgia. Allergies: Her allergic history demonstrates pronounced sensitivity with nasal symptoms, sneezing, and facial discomfort, significantly impairing her daily functioning and work commitments. Previously known for reacting sensitively to environmental allergens, she is markedly cautious in her activities to prevent allergic episodes. Her use of antihistamines like Fexofenadine and nasal corticosteroids like Flonase has been chronic, providing limited relief this season. Eczema--> The patient also presents with dyshidrotic eczema, primarily affecting her hands and feet. She described consistent presence of blisters that are sometimes painful and itchy, necessitating manual drainage for relief. The patient confirmed that diagnosis followed a scrape test indicating eczema, excluded for fungal infection. She is currently using betamethasone dipropionate ointment for management Type 2 diabetes--> She patient has a documented history of Type 2 Diabetes Mellitus. She previously used Ozempic for glycemic control but discontinued due to insufficient weight loss and high blood sugar readings. Today's A1c is 7.0. She does admit to dietary indiscretion as she does stress eat. There is a longstanding history of obesity, with the patient expressing challenges in weight management. The patient discussed previous metformin prescription and family member perceptions of its renal protective benefits. .. Class 2 obesity: Has unfortunately gained weight since last office visit. She is willing to try an alternative GLP 1 to help her with glycemic control and weight loss. Will try Tirzepatide and up titrate per response [facility] Medical History (Updated 02/01/25 @ 08:34 by Maury Caputo PA-C) Visit for suture removal GERD (gastroesophageal reflux disease) HLD (hyperlipidemia) HTN (hypertension) T2DM (type 2 diabetes mellitus) Vitamin D deficiency Hyperparathyroidism Hypercalcemia Surgical History History of carpal tunnel release History of removal of cyst H/O myringotomy History of endometrial ablation H/O LEEP Family History Sister Lung cancer AIDS IV drug user Paternal Uncle Colon cancer Paternal Aunt Colon cancer Breast cancer Maternal Aunt Ovarian cancer Leukemia Breast cancer Brain cancer Brother AIDS IV drug user Family/Other FH: mental illness Social History Housing: Apartment Alcohol intake: current Alcohol intake frequency: holidays/special occasions only Alcohol type: hard liquor Patient Tobacco Use Status: Former Tobacco user Tobacco use type: Cigarette Years Smoked: 30 e-Cigarette/Vaping Use: Never Used Second Hand Smoke Exposure: Yes service: No Current occupational status: unemployed Current occupation: Right Handed Cognitive needs: No Hearing needs: No Vision needs: No Female Reproductive History Menstrual Age of Menarche: 7 Questionnaire PHQ-9 Over the last 2 weeks, how often have you been bothered by any of the following problems? 1. Little interest or pleasure in doing things: not at all 2. Feeling down, depressed, or hopeless: not at all 3. Trouble falling or staying asleep, or sleeping too much: not at all 4. Feeling tired or having little energy: not at all 5. Poor appetite or overeating: several days 6. Feeling bad about yourself - or that you are a failure or have let yourself or your family down: not at all 7. Trouble concentrating on things, such as reading the newspaper or watching television: several days 8. Moving or speaking so slowly that other people could have noticed. Or the opposite - being so fidgety or restless that you have been moving around a lot more than usual: not at all 9. Thoughts that you would be better off or of hurting yourself in some way: not at all Total score: 2 Depression Screening Interpretation: Negative Depression Screening Done: Yes 79030 - PHQ-9 Billing: Yes Source: Developed by Drs. Lee Vigil, Karli Turner, Tuan Kline and colleagues, with an educational tati from [employer]. Thrive Questionnaire Date Thrive assessed: 01/27/25 I am a: Patient What is your living situation today?: I have a steady place to live Within the past 12 months, did the food you bought not last and you didn't have the money to get more?: Never true Within the past 12 months, did you worry whether your food would run out before you got money to buy more?: Never true Do you have trouble paying for medicines?: I choose not to answer this question Do you have trouble getting transportation to medical appointments?: No Do you have trouble paying your heating and electricity bill?: I choose not to answer this question Do you have trouble taking care of your child, family member or friend?: No Do you have trouble with day-to-day activities such as bathing, preparing meals, shopping, managing finances, etc.?: No Are you currently unemployed and looking for a job?: No Are you interested in more education?: No Please select the resources that you would like help with: None Currently or been in a relationship where the following occur: No concerns reported THRIVE Score: 0 AUDIT C Alcohol Use Questionnaire (AUDIT-C) 1. How often do you have a drink containing alcohol?: Never 3. How often do you have six or more drinks on one occasion?: Never Total Score: 0 KAYLIE-7 AMB Questionnaire KAYLIE-7 Date KAYLIE - 7 assessed: 01/27/25 Feeling nervous, anxious, or on edge: 2 = More than half the days Not being able to stop or control worryin = More than half the days Worrying too much about different things: 2 = More than half the days Trouble relaxin = Several days Being so restless that it is hard to sit still: 1 = Several days Becoming easily annoyed or irritable: 1 = Several days Feeling afraid as if something awful might happen: 2 = More than half the days Total KAYLIE-7 score (0-4 normal; 5-9 mild; 10-14 moderate; 15-21 severe): 11 Source: Developed by Drs. Lee Vigil, Karli Turner, Tuan Kline and colleagues, with an educational tati from [employer]. KAYLIE-7 Assessment Billing KAYLIE-7 Assessment Tool: KAYLIE-7 Assessment 29769 Review of Systems Const Denies headache(s) Eyes Denies loss of vision ENT Denies vertigo, Denies dizziness, Denies headache(s) and Denies sore throat Card Denies chest pain, Denies leg edema and Denies lightheadedness Resp Denies cough, Denies hemoptysis and Denies wheezing GI Denies abdominal pain, Denies melena, Denies constipation, Denies diarrhea and Denies vomiting Denies urinary frequency, Denies dysuria and Denies urinary urgency Musc Denies arthralgias, Denies joint swelling, Denies numbness and Denies tingling Neuro Denies Abnormal speech present, Denies behavioral changes, Denies vertigo, Denies dizziness, Denies headache(s), Denies loss of vision, Denies memory loss, Denies numbness and Denies tingling Psych Denies anxiety, Denies behavioral changes, Denies depression, Denies memory loss and Denies panic attacks Reji/Lymph Denies easy bleeding and Denies easy bruising Aller/Immun Denies wheezing Physical exam (Primary Care) Vital Signs: Last Vital Signs Temp 98.7 F 01/27/25 09:18 Pulse 110 H 01/27/25 09:18 BP 118/76 01/27/25 09:18 Pulse Ox 97 01/27/25 09:18 Oxygen Delivery Method Room Air 01/27/25 09:18 BMI result Body Mass Index 38.0 BMI Assessment/Plan discussion: High BMI High, discussed plan: lifestyle, weight reduction, dietary and physical activity Tobacco/Smoking Status: Tobacco use Status Tobacco use date assessed 10/21/24 01/27/25 09:07 Patient Tobacco Use Status Former Tobacco user 01/27/25 09:07 Tobacco use type Cigarette 01/27/25 09:07 e-Cigarette/Vaping Use Never Used 01/27/25 09:07 PHQ-9: PHQ-9 Score PHQ-9: Total score 2 01/27/25 16:58 Depression Screening Interpretation: Negative Thrive Assessment: Date of Thrive Assessment Date Thrive assessed 01/27/25 01/27/25 09:21 Currently or been in a relationship where the following occur: No concerns reported Const General: healthy appearing, no acute distress, alert and awake Nutritional Appearance: well nourished Orientation/consciousness: oriented to person, oriented to place and oriented to time HENMT Ears: TM's normal bilaterally General nose exam: Normal nasal mucous membranes and turbinates present Eyes Conjunctivae: conjunctivae normal Sclerae: sclerae normal Pupils: Equal, round and reactive pupils present Neck Neck: Yes no lymphadenopathy and Yes no JVD Thyroid: Thyroid normal Carotids: no bruits Resp Effort & Inspection: normal respiratory effort and not tachypneic Auscultation: no crackles, no rales, no rhonchi and no wheezes Cardio Rate: regular rate Rhythm: regular rhythm Heart sounds: no murmurs and normal S1 and S2 GI Palpation (GI): Soft to palpation, nontender, no hepatomegaly and no splenomegaly Auscultation: normal bowel sounds Skin General skin exam: no rashes or lesions noted and dry skin Neuro General: oriented to person, oriented to place and oriented to time Cranial nerves: Yes Equal, round and reactive pupils present Speech: No Abnormal speech present Gait exam (Neuro): Normal gait present Motor exam (neuro): no tremor noted Extrem Right upper extremity: full ROM Left upper extremity: full ROM Right lower extremity: full ROM; no edema Left lower extremity: full ROM; no edema Psych Mental Status: mental status grossly normal Speech and movement: Normal speech and movement present Affect: normal affect Attitude: cooperative Thought process: Normal thought process present Results AMB Hemoglobin A1c AMB Hemoglobin A1c 7.0 % Last Edit by LOKI Medina on 01/27/25 09:50 Results Reviewed Results Reviewed: Laboratory Last Values Hgb A1c (Clinic) 7.0 % (4.0-6.0) H 01/27/25 09:19 Coding Level of Care Code Est Pt Level 4 (81559) Diagnoses Acute non-recurrent frontal sinusitis J01.10 Recurrence: non-recurrent Sinusitis location: frontal Type 2 diabetes mellitus with hyperglycemia, without long-term current use of insulin E11.65 Diabetes mellitus bed bug exterminator insulin use: without bed bug exterminator use Diabetes mellitus complication status: with hyperglycemia Hypertension, unspecified type I10 Hypertension type: unspecified Mixed hyperlipidemia E78.2 Hyperlipidemia type: mixed hyperlipidemia Dyshydrosis L30.1 Class 2 obesity E66.812 Additional Codes KAYLIE-7 Assessment Billing - KAYLIE-7 Assessment Tool: KAYLIE-7 Assessment [id number] ([id number]) PHQ-9 - 21619 - PHQ-9 Billing: Yes ([id number]) Assessment & Plan Assessment & Plan (1) Sinusitis, acute: Code(s): J01.90 - Acute sinusitis, unspecified Category: Medical Qualifiers: Recurrence: non-recurrent Sinusitis location: frontal Qualified Code(s): J01.10 - Acute frontal sinusitis, unspecified Plan: We reviewed management with current medication regimens, discussed prednisone taper for immediate relief. Her sinusitis usually evolves into a sinus infection. Will supply patient with an antibiotic prophylactically. Addressed environmental exposure precautions. (2) T2DM (type 2 diabetes mellitus): Code(s): E11.9 - Type 2 diabetes mellitus without complications Category: Medical Qualifiers: Diabetes mellitus mcfp insulin use: without mcfp use Diabetes mellitus complication status: with hyperglycemia Qualified Code(s): E11.65 - Type 2 diabetes mellitus with hyperglycemia Plan: Patient's type 2 diabetes suboptimally controlled with A1c today at 7.0 She is interested in capturing better glycemic control and is willing to try a alternative GLP 1. Goal A1c is to be below 6.0 (3) HTN (hypertension): Code(s): I10 - Essential (primary) hypertension Category: Medical Qualifiers: Hypertension type: unspecified Qualified Code(s): I10 - Essential (primary) hypertension Plan: Patient's blood pressure acceptable today in office. Will continue on losartan 50 mg daily with blood pressure to remain below 140/90 (4) HLD (hyperlipidemia): Code(s): E78.5 - Hyperlipidemia, unspecified Category: Medical Qualifiers: Hyperlipidemia type: mixed hyperlipidemia Qualified Code(s): E78.2 - Mixed hyperlipidemia Plan: Patient's most recent lipid panel showing good control over total cholesterol and LDL. Goal LDL is to remain below 100. (5) Dyshydrosis: Code(s): L30.1 - Dyshidrosis [pompholyx] Category: Medical Plan: Has been recently diagnosed with eczema dyshidrosis on her hands and soles. She has been started on topical steroid ointment which has been significantly helping her skin manifestation. (6) Class 2 obesity: Code(s): E66.812 - Obesity, class 2 Category: Medical Plan: Patient does understand her BMI is over 35 and continue working on lifestyle and dietary modifications. Has tried Ozempic in the past though was not effective on reducing her caloric intake and losing weight. She is willing to try an alternative GLP 1 to see if it will offer her more weight loss. Orders: Orders Comprehensive [place]. Panel Fast 01/27/25 I10 - Essential (primary) hypertension Complete Blood Count no Diff 01/27/25 I10 - Essential (primary) hypertension AMB Hemoglobin A1c 01/27/25 E11.65 - Type 2 diabetes mellitus with hyperglycemia SARS-CoV2/FLU/RSV 01/27/25 R09.89 - Other specified symptoms and signs involving the circulatory and respiratory systems Lipid Panel 01/27/25 E78.2 - Mixed hyperlipidemia Microalbumin, Random (w Creat) 01/27/25 E11.65 - Type 2 diabetes mellitus with hyperglycemia Medications: New prednisone take 3 tabs x 3 days, take 2 tablets x3 days, 1 tablet x3 days 10 mg PO DIRECTED 18 tabs 0RF 9 days J01.10 - Acute frontal sinusitis, unspecified doxycycline monohydrate 100 mg PO BID 14 caps 0RF 7 days J01.10 - Acute frontal sinusitis, unspecified tirzepatide (Mounjaro) for 4 weeks 2.5 mg (0.5 mL) subcut QWEEK 2 mL 0RF 4 weeks E11.65 - Type 2 diabetes mellitus with hyperglycemia Changed From epinephrine 0.3 mg IM ONCE PRN To epinephrine 0.3 mg (0.3 mL) IM ONCE PRN 2 ea 0RF anaphylaxis 30 days Refilled fexofenadine 180 mg PO DAILY 90 tabs 1RF allergies 90 days J45.909 - Unspecified asthma, uncomplicated Patient Instructions: Goal: A1c to be below 7.0, LDL to remain below 100 Barriers: Adherence to physical activity and healthy eating habits
[2025-01-27 09:18] VITALS: BP 118/76; PULSE 110; TEMP 37.1; O2SAT 97; BMI 38.0
--- OUTSIDE RECORDS SUMMARY | 2025-01-27 09:20 | XMS_ITS | Encounter Summary ---
Author Organization [facility] Address [address] [facility] [address] [place] [address] Phone Care Team Providers Care Logistics Project Manager Name Role Phone Maury Caputo Primary Care Provider [phone] Reason for Visit * Reason Comments Med Refill Encounter Details Date Type Department Care Team (Late Contact Info) Description 02/28/2023 Refill [facility] [address] [facility] [address] [place] [phone] Landen Nguyen MD Social History Tobacco Use [...] [facility] [address] [phone] Melissa Pelayo ARNP [address] [phone] documented as of this encounter Visit Diagnoses Not on filedocumented in this encounter Care Teams Logistics Project Manager Relationship Specialty Start Date End Date Maury Caputo PA [address] [place] [address], [address] [place] [address] [place] [address] PCP - General Physician Supervisor Newspaper Deliveries 07/24/23 documented as of this encounter
--- OUTSIDE RECORDS SUMMARY | 2025-01-27 09:20 | XMS_ITS | Clinical Summary ---
Author Organization [facility] Address [address] [place] [phone] Phone Care Team Providers Care Barn Operator Name Role Phone Maury Caputo Primary Care Provider Allergies Active Allergy Reactions Criticality Noted Date [...] and 1 application. in the evening. Active Active Problems Problem Noted Date Diagnosed Date Anxiety 07/24/2022 Asthma 07/24/2022 Depressive disorder 07/24/2022 H/O Spinal surgery 07/24/2022 Migraine 07/24/2022 Essential hypertension 12/23/2020 Blood in urine 11/29/2020 Proteinuria 11/29/2020 Encounters Date Type Department Care Team Description 12/02/2024 8:30 AM EDT Office Visit [facility] [address] [place] [address] Melissa Pelayo ARNP Persistent proteinuria (Primary Dx); Essential hypertension 12/02/2024 Orders Only [facility] [address] [place] [address] Melissa Pelayo ARNP from Last 3 Months Immunizations Immunization Administration Dates Next Due Influenza, Unspecified 06/25/2021 [...] Office Visit [facility] [address] [phone] Melissa PelayoKENYON [address] [phone] Health Maintenance Due Date Last Done Comments Breast Cancer Screening 1975 Hepatitis B Vaccine (1 of 3 - 19+ 3-dose series) 04/20 Pneumococcal Vaccine: 50+ Years (1 of 2 - PCV) 992 Colorectal Cancer Screening: Annual FOBT 2022 Colorectal Cancer Screening: Colonoscopy 2022 Colorectal Cancer Screening: Sigmoidoscopy 2022 Influenza Vaccine (Season Ended) 2025 06/25/20 21 Procedures Procedure Name Priority Date/Time Associated Diagnosis [...] None seen 0 - 5 /hpf [facility] RBC, Urine None seen 0 - 2 /hpf [facility] Squamous Epithelial, Urine 0-10 0 - 10 /hpf [facility] Casts None seen None seen /lpf [facility] Bacteria, Urine None seen None seen/Few [facility] 12/02/2024 7:48 AM EDT 12/02/2024 Melissa Pelayo [facility] MICROBIOLOGY - GENERAL ORDERABLES Final Result Performing Organization Address [facility]/ZIP Co de Phone Number VENICE [facility] [address] [place] [address] * (ABNORMAL) Protein, Total, Random Urine w/Creatinine (Protein/Creat Ratio) (12/02/2024 7:48 AM EDT) Creatinine, Ur 39.4 Not Estab. mg/dL [facility] Protein, Ur 31.7 Not Estab. mg/dL [facility] Urine Protein/Creati nine Ratio 805(H) 0 - 200 mg/g creat [facility] 12/02/2024 7:48 AM EDT 12/02/2024 us Melissa Pelayo [facility] URINE ORDERABLES Final Result Performing Organization Address [facility] Co de Phone Number [facility] [address] [place] [address] * (ABNORMAL) Urine Albumin / Creatinine Ratio (12/02/2024 7:48 AM EDT) Albumin, Urine 139.9 Not Estab. ug/mL [facility] Albumin/Creatin ine Ratio 355(H) 0 - 29 mg/g creat [facility] Comment: ? Normal: ?0 - ??29 ? Moderately increased: 30 - 300 ? Severely increased: ? >300 12/02/2024 7:48 AM EDT 12/02/2024 Melissa Pelayo [facility] URINE ORDERABLES Final Result [facility] [address] [place] [address] * (ABNORMAL) Urinalysis with microscopic (12/02/2024 7:48 AM EDT) Specific Aneta, Urine 1.013 1.005 - 1.030 [facility] [phone] pH Urine 6.0 5.0 - 7.5 [facility] Color, Urine Yellow Yellow [facility] Appearance Urine Clear Clear [facility] WBC Esterase Urine Negative Negative [facility] [phone] Protein, Ur 1+(A) Negative/Tra ce [facility] Glucose, Ur Negative Negative [facility] Ketones, Urine Negative Negative [facility] [phone] Blood Urine Negative Negative [facility] Bilirubin Urine Negative Negative [facility] Urobilinogen Urine 0.2 0.2 - 1.0 mg/dL [facility] [phone] Nitrite, Urine Negative Negative [facility] [phone] Microscopic Examination See below: [facility] [phone] Comment:Microscopic was hetal cated and was performed. 12/02/2024 7:48 AM EDT 12/02/2024 Melissa Pelayo [facility] URINE ORDERABLES Final Result [facility] [address] [place] [address] * (ABNORMAL) Renal Function Panel (12/02/2024 7:48 AM EDT) Glucose 124(H) 70 - 99 mg/dL [facility] BUN 12 6 - 24 mg/dL [facility] Creatinine 0.67 0.57 - 1.00 mg/dL [facility] eGFR CKD-EPI CR 2020 106 >59 mL/min/1.7 3 [facility] BUN/Creatinine Ratio 18 9 - 23 [facility] Sodium 139 134 - 144 mmol/L [facility] Potassium 4.5 3.5 - 5.2 mmol/L [facility] Chloride 102 96 - 106 mmol/L [facility] Bicarbonate (CO2) 23 20 - 29 mmol/L [facility] Calcium 10.2 8.7 - 10.2 mg/dL [facility] Phosphorus 3.8 3.0 - 4.3 mg/dL [facility] Albumin 4.5 3.8 - 4.9 g/dL [facility] 12/02/2024 7:48 AM EDT 12/02/2024 Melissa [facility] LAB BLOOD ORDERABLES Final Result [facility] [address] [place] [address] from Last 3 Months Insurance Medicaid [place] Member Subscriber Plan / Payer (Ef fective 2020-) Name:Marlyn Markham Relation to Subscriber:Self Name:Marlyn Markham Payer ID:Not on file Group ID:Not on file Type:Not on file Address: [place] [id number] Medicare Medicaid [place] Member Subscriber Plan / Payer (Ef fective 2020-) Name:Marlyn Markham Relation to Subscriber:Self Name:Marlyn Markham Payer ID:Not on file Group ID:Not on file Type:Not on file Address: [place] [id number] Medicare Care Teams Barn Operator Relationship Specialty Start Date End Date Maury Caputo PA [address] [place] [address], [address] [place] [address] PCP - General Physician Grain Elevator Superintendent 07/24/23
--- OUTSIDE RECORDS SUMMARY | 2025-01-27 09:20 | XMS_ITS | Clinical Summary ---
Author Organization 175 [facility] Address [address] [place] [address] Phone Care Team Providers Care Director Of Residential Services Name Role Phone Physician, Pcp Unknown Primary [...] Department Care Team ([facility] [address] Contact Info) Description 03/10/2025 8:15 AM EDT Consult Orthopedic Surgery - [place] [address] [phone] Manjeet Marvin, DPM [address] [address] Health Maintenance Due Date Last Done Comments Breast Cancer Screening 1973 DTaP,Tdap,and Td Vaccines (1 - Tdap) 1992 Hepatitis B Vaccines (1 of 3 - 19+ 3-dose series) 1992 Cervical Cancer Screening: P ap Smear 1994 Pneumococcal Vaccine: 50+ Ye ars (1 of 1 - PCV) 2023 Zoster Vaccines (1 of 2) 2023 COVID-19 Vaccine ( - 2023-2 5 season) 2024 Colorectal Cancer Screening: Colonoscopy 08/19/2024 Depression Screening 08/19/2024 HIV Screening 08/19/2024 Hepatitis C Screening 08/19/2024 Medicare Annual Wellness Visit 08/19/2024 Social Influencers of Health Screening 08/19/2024 Influenza Vaccine (Season Ended) 2025 HIB Vaccines Aged Out No longer eligi [...] age to complete this topic Meningococcal B Vaccine Aged Out No l onger eligible based on patient's age to complete [...] Insurance MEDICARE MEDICAID - [place] Care Teams Director Of Residential Services Relationship Specialty Start Date End Date Physician, Pcp Unknown PCP - General 10/14/24
== END 2025-01-27 10:03 | disposition home or self-care (01) ==
LOC: HO.HMCH 08:56
PROVIDERS: PCP Physician Assistant; Visit Provider Physician Assistant
DX: E11.65 Type 2 diabetes mellitus with hyperglycemia (principal)

== ENCOUNTER 2025-01-27 08:55 | Outpatient (REF) | payer MEDICAID, SELFPAY ==
--- OUTSIDE RECORDS SUMMARY | 2025-01-27 09:51 | XMS_ITS | Clinical Summary ---
Author Organization [facility] Address [address] [place] [address] Phone Care Team Providers Care Plant Taxonomist Name Role Phone Maury Caputo Primary Care Provider [phone] Allergies Active Allergy Reactions Criticality Noted Date [...] Office Visit [facility] [address] [facility] [address] [place] [address] Melissa Pelayo ARNP Persistent proteinuria (Primary Dx); Essential hypertension 12/02/2024 Orders Only [facility] [address] [facility] [address] [place] [address] Melissa Pelayo ARNP from Last 3 Months [...] Office Visit [facility] [address] [address] Melissa PelayoKENYON [address] [address] Health Maintenance Due Date Last [...] None seen 0 - 5 /hpf [facility] RBC, Urine None seen 0 - 2 /hpf [facility] Squamous Epithelial, Urine 0-10 0 - 10 /hpf [facility] Casts None seen None seen /lpf [facility] Bacteria, Urine None seen None seen/Few [facility] 12/02/2024 7:48 AM EDT 12/02/2024 Melissa Pelayo [facility] MICROBIOLOGY - GENERAL ORDERABLES Final Result Performing Organization Address [facility]/ZIP Co de Phone Number VENICE [facility] [address] [place] [address] * (ABNORMAL) Protein, Total, Random Urine w/Creatinine (Protein/Creat Ratio) (12/02/2024 7:48 AM EDT) Creatinine, Ur 39.4 Not Estab. mg/dL [facility] Protein, Ur 31.7 Not Estab. mg/dL [facility] Urine Protein/Creati nine Ratio 805(H) 0 - 200 mg/g creat [facility] 12/02/2024 7:48 AM EDT 12/02/2024 us Melissa Pelayo [facility] URINE ORDERABLES Final Result Performing Organization Address [facility] Co de Phone Number LABSetuServ [facility] [address] [place] [address] * (ABNORMAL) Urine Albumin / Creatinine Ratio (12/02/2024 7:48 AM EDT) Albumin, Urine 139.9 Not Estab. ug/mL [facility] Albumin/Creatin ine Ratio 355(H) 0 - 29 mg/g creat [facility] Comment: ? Normal: ?0 - ??29 ? Moderately increased: 30 - 300 ? Severely increased: ? >300 12/02/2024 7:48 AM EDT 12/02/2024 Melissa Pelayo [facility] URINE ORDERABLES Final Result [facility]CO [facility] [address] [place] [address] * (ABNORMAL) Urinalysis with microscopic (12/02/2024 7:48 AM EDT) Specific [place], Urine 1.013 1.005 - 1.030 [facility] pH Urine 6.0 5.0 - 7.5 [facility] Color, Urine Yellow Yellow [facility] Appearance Urine Clear Clear [facility] WBC Esterase Urine Negative Negative [facility] [phone] Protein, Ur 1+(A) Negative/Tra ce [facility] [phone] Glucose, Ur Negative Negative [facility] Ketones, Urine Negative Negative [facility] Blood Urine Negative Negative [facility] Bilirubin Urine Negative Negative [facility] [place] [phone] Urobilinogen Urine 0.2 0.2 - 1.0 mg/dL [facility] Nitrite, Urine Negative Negative [facility] [phone] Microscopic Examination See below: [facility] [phone] Comment:Microscopic was hetal cated and was performed. 12/02/2024 7:48 AM EDT 12/02/2024 Melissa Pelayo [facility] URINE ORDERABLES Final Result [facility] [address] [place] [address] * (ABNORMAL) Renal Function Panel (12/02/2024 7:48 AM EDT) Glucose 124(H) 70 - 99 mg/dL [facility] BUN 12 6 - 24 mg/dL [facility] Creatinine 0.67 0.57 - 1.00 mg/dL [facility] eGFR CKD-EPI CR 2020 106 >59 mL/min/1.7 3 [facility] BUN/Creatinine Ratio 18 9 - 23 [facility] Sodium 139 134 - 144 mmol/L [facility] Potassium 4.5 3.5 - 5.2 mmol/L [facility] Chloride 102 96 - 106 mmol/L [facility] Bicarbonate (CO2) 23 20 - 29 mmol/L [facility] Calcium 10.2 8.7 - 10.2 mg/dL [facility] Phosphorus 3.8 3.0 - 4.3 mg/dL [facility] Albumin 4.5 3.8 - 4.9 g/dL [facility] 12/02/2024 7:48 AM EDT 12/02/2024 Melissa JUAREZP LAB BLOOD ORDERABLES Final Result [facility] [address] [place] [address] from Last 3 Months Insurance [place] Member Subscriber Plan / Payer (Ef fective 2020-) Name:Marlyn Markham Relation to Subscriber:Self Name:Marlyn Markham Payer ID:Not on file Group ID:Not on file Type:Not on file Address: [place] [id number] Medicare Medicaid [place] Member Subscriber Plan / Payer (Ef fective 2020-) Name:Marlyn Markham Relation to Subscriber:Self Name:Marlyn Markham Payer ID:Not on file Group ID:Not on file Type:Not on file Address: [place] [id number] Medicare Care Teams Plant Taxonomist Relationship Specialty Start Date End Date Maury Caputo PA [address] [place] [address], [address] [place] [address] PCP - General Physician Learning Strategist 07/24/23
--- OUTSIDE RECORDS SUMMARY | 2025-01-27 09:51 | XMS_ITS | Clinical Summary ---
Author Organization 175 [facility] Address 175 [place] [address] Phone Care Team Providers Care Beader Tender Name Role Phone Physician, Pcp Unknown Primary [...] Upcoming Encounters Date Type Department Care Team ([facility] Contact Info) Description 03/10/2025 8:15 AM EDT Consult Orthopedic Surgery - [place] [address] [phone] Manjeet Marvin, DPM [address] [address] Health Maintenance Due Date Last Done Comments [...] Insurance MEDICARE MEDICAID - [place] Care Teams Beader Tender Relationship Specialty Start Date End Date Physician, Pcp Unknown PCP - General 10/14/24
--- OUTSIDE RECORDS SUMMARY | 2025-01-27 09:51 | XMS_ITS | Encounter Summary ---
Author Organization [facility] Address [address] [facility] [address] [place] [address] Phone Care Team Providers Care Civil Engineering Professor Name Role Phone Maury Caputo Primary Care Provider [phone] Reason for Visit * Reason Comments Med Refill Encounter Details Date Type Department Care Team (Late Contact Info) Description 02/28/2023 Refill [facility] [address] [facility] [address] [place] [phone] Landen Nguyen MD Social History Tobacco Use [...] Visit [facility] [address] [phone] Melissa Pelayo ARNP [address] [address] documented as of this encounter Visit Diagnoses Not on filedocumented in this encounter Care Teams Civil Engineering Professor Relationship Specialty Start Date End Date Maury Caputo PA [address] [place] [address], [address] [place] [address] [place] [address] PCP - General Physician Corking Machine Operator 07/24/23 documented as of this encounter
[2025-01-27 16:36] LABS: Influenza A PCR NEGATIVE (Negative); Influenza B PCR NEGATIVE (Negative); Resp Syncy Virus RNA Qual PCR NEGATIVE (Negative); SARS COV2 PCR INHOUSE NEGATIVE (Negative)
== END 2025-01-27 08:56 | disposition home or self-care (01) ==
LOC: HO.LAB 08:55
PROVIDERS: PCP Physician Assistant; Visit Provider Physician Assistant
DX: J01.10 Acute frontal sinusitis, unspecified (principal); E11.65 Type 2 diabetes mellitus with hyperglycemia; I10 Essential (primary) hypertension; E78.2 Mixed hyperlipidemia; L30.1 Dyshidrosis [pompholyx]; E66.812 Obesity, class 2; Z68.38 Body mass index [BMI] 38.0-38.9, adult; R09.89 Other specified symptoms and signs involving the circulatory and respiratory systems
CPT/HCPCS: 0241U; 83036; 96127; 99212

== ENCOUNTER 2025-05-04 07:48 | Outpatient (AMB) | payer MEDICAID, SELFPAY ==
--- NOTE | 2025-05-04 07:49 | MHC.OFFVIS ---
Vital Signs 05/04/25 07:52 Height 5 ft 4 in Weight 218 lb BMI 37.4 BP 134/84 Intake Visit Reasons: annual [place] Required: No Information Interpreted: non-clinical & clinical Food Server: Food Server Present (Leslie EMANUEL) Accompanied by: Self / Same As Patient Allergies lactose Allergy (Unknown, Verified 05/04/25 07:53) upset stomach fentanyl (FENTANYL) Adverse Reaction (Severe, Verified 05/04/25 07:53) VOMITING-SEVERE azithromycin Adverse Reaction (Intermediate, Verified 05/04/25 07:53) stomach upset ibuprofen (From MOTRIN) Adverse Reaction (Intermediate, Verified 05/04/25 07:53) KIDNEY PROBLEMS tramadol Adverse Reaction (Intermediate, Verified 05/04/25 07:53) dizziness and vomiting, vomiting FRUIT,FRESH Allergy (Severe, Uncoded 05/04/25 07:53) MOUTH ITCHING/SWELLING Post menopausal: Yes HPI Comments Details: Presenting for annual exam. No complaints. Last Pap/HPV was negative in 03/09 Last Mammogram was BI-RADS 1 in 05/09\last colonoscopy was in 07/01, the recommendation was to repeat in early 50s [facility] Medical History Visit for suture removal GERD (gastroesophageal reflux disease) HLD (hyperlipidemia) HTN (hypertension) T2DM (type 2 diabetes mellitus) Vitamin D deficiency Hyperparathyroidism Hypercalcemia Surgical History History of carpal tunnel release History of removal of cyst H/O myringotomy History of endometrial ablation H/O LEEP Family History Sister Lung cancer AIDS IV drug user Paternal Uncle Colon cancer Paternal Aunt Colon cancer Breast cancer Maternal Aunt Ovarian cancer Leukemia Breast cancer Brain cancer Brother AIDS IV drug user Family/Other FH: mental illness Social History Housing: Apartment Alcohol intake: current Alcohol intake frequency: holidays/special occasions only Alcohol type: hard liquor Patient Tobacco Use Status: Former Tobacco user Tobacco use type: Cigarette Years Smoked: 30 e-Cigarette/Vaping Use: Never Used Second Hand Smoke Exposure: Yes service: No Current occupational status: unemployed Current occupation: Right Handed Cognitive needs: No Hearing needs: No Vision needs: No Female Reproductive History Menstrual Age of Menarche: 7 Date of last pap smear: 02/26/24 Date of Mammogram: 05/07/24 Review of Systems Const All systems reviewed & are unremarkable except as noted in HPI and below Card Reports as per HPI Resp Reports as per HPI GI Reports as per HPI and Reports no additional complaints Reports as per HPI Physical Exam Vital Signs: Last Vital Signs BP 134/84 05/04/25 07:52 BMI result Body Mass Index 37.4 Const General: cooperative, healthy appearing and comfortable Chest Chest palpation & inspection: normal inspection of the chest and normal palpation of entire chest wall Breast/axilla inspection: normal inspection of the breasts and normal inspection of the axillae Breast/axilla palpation: normal palpation of the breasts, normal palpation of the axillae and no axillary lymphadenopathy Resp Effort & Inspection: normal respiratory effort Auscultation: clear to auscultation bilaterally Percussion: percussion normal Cardio Palpation: normal PMI Rate: regular rate Rhythm: regular rhythm Heart sounds: no murmurs and no rubs Peripheral pulses: Peripheral pulses 2+ throughout GI Inspection: Yes normal to inspection Palpation (GI): Soft to palpation, nontender, no guarding, not rigid and No hepatosplenomegaly present Percussion: Yes normal to percussion Auscultation: normal bowel sounds Rectal Exam - Female: deferred General: Yes bladder normal to palpation External Female Exam: No lesion Speculum Exam - Vagina: normal appearance of the vagina, normal palpation, normal vaginal discharge and not erythematous Speculum Exam - Cervix: normal appearance of the cervix and normal palpation Bimanual exam- vagina & uterus: normal bimanual exam, normal palpation, uterine size normal, bladder normal to palpation, consistency normal and normal palpation Bimanual Exam- Adnexa, other: normal adnexae, no masses and no tenderness Assessment & Plan Assessment & Plan (1) Well woman exam: Code(s): Z01.419 - Encounter for gynecological examination (general) (routine) without abnormal findings Category: Medical Plan: Co testing not indicated this year. Counseled the patient about the recommended dietary allowance of 1200 mg of Calcium & 600 IU of vitamin D. Mammogram scheduled for 05/22/2025 The patient was referred to GI for screening colonoscopy . The patient was instructed to perform monthly self-breast exams and schedule annual exam in a year. All questions answered and the patient verbalized understanding. Orders: Referrals Gastroenterology Referral Z12.11 - Encounter for screening for malignant neoplasm of colon Medications: New triamcinolone acetonide 0.1% Apply to the affected area 1 appl topical BID 80 grams 3RF Discontinued triamcinolone acetonide 0.1% Apply to the affected area twice a day for 4 weeks Discontinued Reason: Doctor's Order 1 appl topical BID 4 weeks 80 grams 0RF Coding Level of Care Code Est Pt Prev Care 40-64y(77737) Diagnoses Well woman exam Z01.419
--- OUTSIDE RECORDS SUMMARY | 2025-05-04 07:49 | XMS_ITS | Patient Health Record ---
Author Organization [facility] Address [address] [place] [address] Care Team Providers Care Senior Db2 Systems Programmer Name Role Phone Lilliana Hagan Primary Care Provider Lee Bender Unavailable [phone] Allergies Allergen (clinical drug ingredient) Drug/Non Drug Allergy documented on EMR Reaction Allergy Type Onset Date Status azithromycin Azithromycin Unknown Drug Allergy A ctive Reason For Referral No Information Medications Medication SIG (Take, Route, Fr equency, Duration) Notes Start Date End Date Status Flonase Active albuterol Active Omeprazole 20 MG 1 capsule Orally prn PRN Active Problems Problem Type SNOMED Code ICD Code Onset Dates Problem Status W/U Status Risk Notes Problem 819314167 Irritable bowel syndrome with diarrhea (K58.0) Active confirmed Problem 964592380 Blood in stool (K92.1) Active confirmed Plan Of Treatment Pending Test Test Name Order Date GI BIOPSY 06/18/2016 Future Test Test Name Order Date COLONOSCOPY 04/10/2016 Insurance Providers Payer Name Payer Address Payer Phone Subscriber Number Group Number Insured Name Patient Relationship to Insured Coverage Start Date Coverage End Date MEDICARE OF [place] [address] [place] [id number] [phone] [id number] INESSA LOBO Self - patient is the insured MEDICAID OF [facility] [address] [place] [address] [id number] INESSA LOBO Self - patient is the insured Medical (General) History Medical History History ICD Code Asthma Migraines Denies [place],DM,CVA,Lung disease,renal dise ase Urinary incontinence Surgical History Surgery Date(Month/Year) Tubes in ears Uterine ablation procedure Ganglion cyst
--- OUTSIDE RECORDS SUMMARY | 2025-05-04 07:49 | XMS_ITS | Clinical Summary ---
Author Organization [facility] Address [address] [place] [address] Phone Care Team Providers Care Master Black Belt Name Role Phone Lilliana Hagan MD Primary Care Provid er Allergies Active Allergy Reactions Criticality Noted Date Comments Azithromycin 11/29/2020 Other reaction(s): Other (see comments) Tramadol 11/29/2020 Other reaction(s): Other (see comments) Medications azelastine (OPTIVAR) 0.05 % ophthalmic solution azelastine 0.05 % eye drops INSTILL 1 DROPS IN AFFECTED EYE(S) TWICE DAILY Active clotrimazole-b etamethasone (LOTRISONE) cream clotrimazole-betam ethasone 1 %-0.05 % topical cream APPLY EXTERNALLY TO THE AFFECTED AREA TWICE DAILY FOR 15 DAYS Active dexAMETHasone (DECADRON) 1 MG tablet dexamethasone 1 mg tablet TAKE 1 TABLET BY MOUTH DAILY FOR 1 DAY Active EPINEPHrine 0.3 mg/0.3 mL auto-injector epinephrine 0.3 mg/0.3 mL injection, auto-injector INJECT THE CONTENTS OF 1 SYRINGE IN THE MUSCLE ONCE NEEDED Active erythromycin (ROMYCIN) ophthalmic ointment erythromycin 5 mg/gram (0.5 %) eye ointment APPLY IN AFFECTED EYE(S) TWICE DAILY Active fexofenadine (JANEY ALLERGY) 180 MG tablet daily. Active fluticasone propionate (FLONASE) 50 mcg/actuation nasal spray fluticasone propionate 50 mcg/actuation nasal spray,suspension SPRAY 2 PUFFS INTO BOTH NOSTRILS ONCE DAILY Active losartan (COZAAR) 50 MG tablet losartan 50 mg tablet TAKE 1 TABLET BY MOUTH EVERY DAY 0 Active hydrocortisone 2.5 % cream hydrocortisone 2.5 % topical cream JULIET EXT AA QD Active HYDROcodone-ac etaminophen (NORCO) 5-325 mg per tablet hydrocodone 5 mg-acetaminophen 325 mg tablet TAKE 1 TABLET BY MOUTH EVERY 4 TO 6 HOURS NEEDED FOR PAIN Active montelukast (SINGULAIR) 10 mg tablet montelukast 10 mg tablet TAKE 1 TABLET BY MOUTH AT BEDTIME Active neomycin-polym yxin B-gramicidin (NEOSPORIN) ophthalmic solution neomycin 1.75 mg-polymyxin 10,000 unit-gramicidin 0.025mg/mL eye drops INT 1 GTT IN AFFECTED EYE Q 4 H FOR 7 DAYS Active nicotine (NICODERM CQ) 21 mg/24 hr nicotine 21 mg/24 hr daily transdermal patch APPLY 1 PATCH TOPICALLY QD Active pantoprazole (PROTONIX) 40 MG tablet pantoprazole 40 mg tablet,delayed release TAKE 1 TABLET BY MOUTH EVERY DAY Active predniSONE (DELTASONE) 10 MG tablet prednisone 10 mg tablet TK 1 T PO QD FOR 4 DAYS Active naproxen (NAPROSYN) 500 MG tablet Take 1 tablet (500 mg total) by mouth 2 (two) times a day for 3 days. Then twice daily as needed for pain, inflammation 20 tablet 1 Active Active Problems Problem Noted Date Diagnosed Date Essential hypertension 12/23/2020 Blood in urine 11/29/2020 Proteinuria 11/29/2020 Immunizations Immunization Administration Dates Next Due INFLUENZA, SPLIT VIRUS, TRIVALENT W/ PRESERVATIV E IM 06/25/2021 MMR 02/09/2021 Tdap 10/25/2020 Social History Tobacco Use Types Packs/Day Years [...] Sign Reading Time Taken Comments Blood Pressure 147/88 08/12/2021 1:05 PM EST Pulse 64 08/12/2021 1:05 PM EST Temperature 36.1 C (97 F) 08/12/2021 1:05 PM EST Respiratory Rate 18 08/12/2021 1:05 PM EST Oxygen Saturation 100% 08/12/2021 1:05 PM EST Inhaled Oxygen Concentration - - Weight 86.6 kg (191 lb) 08/12/2021 1:05 PM EST Height 64 cm (2' 1.2 ) 08/12/2021 1:05 PM EST Body Mass Index 211.51 08/12/2021 1:05 PM EST Plan of Treatment Health Maintenance Due Date Last Done Comments BLOOD PRESSURE 1973 CREATININE LEVEL 1973 LIPID PANEL 1973 POTASSIUM LEVEL 1973 DEPRESSION SCREENING 1985 SMOKING Hx and SMOKELESS TOBACCO SCREENING 1986 HEPATITIS C SCREENING 1991 HIV ONE-TIME SCREENING (18-6 5 YEARS) 1991 PAP SMEAR 1994 MAMMOGRAM 2013 COLOGUARD 2018 COLONOSCOPY 2018 COLORECTAL CANCER SCREENING 2018 FIT TEST 2018 FOBT 2018 SIGMOIDOSCOPY 2018 VIRTUAL COLONOSCOPY 2018 PNEUMOCOCCAL VACCINES (50+ years) (1 of 1 - PCV) 2023 ZOSTER VACCINES (1 of 2) 2023 COVID-19 VACCINE (4 - 2023-2 5 season) 2024 07/23/2021, 01/09/2021, 12/17/2020 Adult Td,Tdap Booster 10/25/2030 10/25/2020 HEPATITIS A VACCINES Aged Out No long er eligible based on patient's age to complete this topic HIB VACCINES Aged Out No longer eligi ble based on patient's age to complete this topic MENINGOCOCCAL VACCINES (ACWY) Aged Out No longer eligible based on patient's age to complete this topic MENINGOCOCCAL VACCINES (B) Aged Out N o longer eligible based on patient's age to complete this topic Medical Devices Not on file Insurance MEDICARE PART A & B [facility] MEDICARE PART A & B [facility] MEDICARE PART A & [facility] [place] [id number] MEDICARE PART A & B [place] MED[facility] PART A & [facility] [place] [address] MEDICARE PART A & B [facility] [phone] Care Teams Master Black Belt Relationship Specialty Start Date End Date Lilliana Hagan MD [address] [place] [address] PCP - General Internal Medicine 08/12/21 Additional Source Comments The information contained in this document represents components of the legal health record. It is not the complete legal health record.[facility]
--- OUTSIDE RECORDS SUMMARY | 2025-05-04 07:49 | XMS_ITS | Encounter Summary ---
Author Organization [facility] Address [address] [facility] [address] [place] [address] Phone Care Team Providers Care Gas Turbine Assembler Name Role Phone Maury Caputo Primary Care Provider [phone] Reason for Visit * Reason Comments Med Refill Encounter Details Date Type Department Care Team (Late Contact Info) Description 02/28/2023 Refill [facility] [address] [facility] [address] [place] [phone] Landen Nguyen MD Social History Tobacco Use [...] and [facility] Associates [facility] [address] [address] Melissa Pelayo ARNP [address] [facility] [address] [place] [address] documented as of this encounter Visit Diagnoses Not on filedocumented in this encounter Care Teams Gas Turbine Assembler Relationship Specialty Start Date End Date Maury Caputo PA [address] [place] [address], [address] [place] [address] PCP - General Physician Independent Sales Representative 07/24/23 documented as of this encounter
--- OUTSIDE RECORDS SUMMARY | 2025-05-04 07:49 | XMS_ITS | Clinical Summary ---
Author Organization 175 [facility] Address 175 [place] [address] Phone Care Team Providers Care Beveler Name Role Phone Physician, Pcp Unknown Primary Care Provider Tawny vailable Medications No known medications Encounters Date Type Department Care Team Description 03/10/2025 8:15 AM EDT Consult Orthopedic Surgery [address] [address] Manjeet Marvin DPM Plantar fascial fibromatosis (Primary Dx); Eczema, unspecified type; Tinea pedis of both feet; Type 2 diabetes mellitus without complication, without long-term current use of insulin ([facility] V24, [facility] V28) from Last 3 Months Social History Tobacco Use Types Packs/Day Years Used Date Smoking Tobacco: Never Assessed Comments Unknown Sex and Gender Information Value Date Recorded Sex Assigned at Not on file Legal Sex Female 10:26 AM EST Gender Identity Not on file Sexual Orientation Not on file Last Filed Vital Signs Vital Sign Reading Time Taken Comments Blood Pressure - - Pulse - - Temperature - - Respiratory Rate - - Oxygen Saturation - - Inhaled Oxygen Concentration - - Weight 99.8 kg (220 lb) 03/10/2025 8:15 AM EDT Height 162.6 cm (5' 4 ) 03/10/2025 8:15 AM EDT Body Mass Index 37.76 03/10/2025 8:15 AM EDT Plan of Treatment Upcoming Encounters Date Type Department Care Team (Late st Contact Info) Description 06/09/2025 8:15 AM EDT Office Visit Orthopedic [facility] [address] [address] Manjeet Marvin DPM [address] [address] (work) Health Maintenance Due Date Last Done Comments Breast Cancer Screening 1973 Diabetes: Annual GFR (Glomerular Filtration Rate) 1973 Diabetes: Annual Foot Exam 1983 Diabetes: Annual Retina Eye Exam 1983 Hepatitis B Vaccines (1 of 3 - 19+ 3-dose series) 1992 Pneumococcal Vaccine: 50+ Years (1 of 2 - PCV) 1992 Cervical Cancer Screening: Pap Smear 1994 Zoster Vaccines (1 of 2) 2023 COVID-19 Vaccine ( season) 2024 08/16/2022, 07/23/2021, 01/09/2021, Additional history exists Cholesterol Screening (Lipid Panel) 08/19/2024 Colorectal Cancer Screening: Colonoscopy 08/19/2024 HIV Screening 08/19/2024 Hepatitis C Screening 08/19/2024 Medicare Annual Wellness Visit 08/19/2024 Social Influencers of Health Screening 08/19/2024 Depression Screening 09/16/2024 Diabetes: Annual Urine Albumin-Creatinine Ratio (uACR) 03/11/2025 Diabetes: Blood Sugar Control Test (HGBA1C) 03/11/2025 Hypertension/CHF/CAD Annual BMP Blood Test 03/11/2025 Influenza Vaccine (#1) 2025 , 06/10/2023, 06/13/2022, Additional history exists DTaP,Tdap,and Td Vaccines (2 - Td or Tdap) 10/25/2030 10/25/2020 MMR Vaccines Aged Out 02/09/2021 No longer eligi ble based on patient's age to complete this topic HIB Vaccines Aged Out No longer eligi [...] to complete this topic RSV Immunization Patients Under 20 months Aged Out No longer eligible based on patient's age to complete this topic Varicella Vaccines Aged Out No longer eligible based on patient's age to complete this topic Insurance MEDICARE MEDICAID - [place] Care Teams Beveler Relationship Specialty Start Date End Date Physician, Pcp Unknown PCP - General 10/14/24
[2025-05-04 07:52] VITALS: BP 134/84; BMI 37.4
== END 2025-05-04 08:20 | disposition home or self-care (01) ==
LOC: HO.HWS 07:48
PROVIDERS: PCP Physician Assistant; Visit Provider Obstetrics & Gynecology
DX: Z01.419 Encounter for gynecological examination (general) (routine) without abnormal findings (principal)
CPT/HCPCS: 99396; 99459

== ENCOUNTER → 2025-05-04 07:48 | Outpatient (BNVA) | payer MEDICAID, SELFPAY | PROVIDERS: PCP Physician Assistant; Visit Provider Obstetrics & Gynecology | DX: Z01.419 Encounter for gynecological examination (general) (routine) without abnormal findings (principal) | CPT/HCPCS: 99396 ==

== ENCOUNTER 2025-05-22 09:48 | Outpatient (REF) | payer MEDICAID, SELFPAY ==
--- OUTSIDE RECORDS SUMMARY | 2021-08-12 14:15 | XMS_ITS | Encounter Summary ---
Author Organization Located Within [facility] Address [address] [place] [phone] Phone Care Team Providers Care Top Collar Baster Name Role Phone Lilliana Hagan MD Primary Care Provid er Encounter Details Date Type Department Care Team (Late st Contact Info) Description 08/12/2021 1:15 PM EST Hospital Encounter [facility] [address] [place] [phone] Latoya Peres FNP [address] [place] [phone] [email or web address] Social History Tobacco Use Types Packs/Day Years [...] fracture. 2.Rotator cuff calcific tendinitis. Latoya Peres MECHANICAL MAINTENANCE TECHNICIAN IMG XR UPPER EXTREMITY Petra l Result documented in this encounter Visit Diagnoses Not on filedocumented in this encounter Care Teams Top Collar Baster Relationship Specialty Start Date End Date Lilliana Hagan MD [address] [place] [phone] PCP - General Internal Medicine 08/12/21 documented as of this encounter Additional Source Comments The information contained in this document represents components of the legal health record. It is not the complete legal health record.Located Within [facility]
--- NOTE | ~2025-05-22 | MM_ITS ---
EXAMINATION: MM SCREENING DIGITAL BREAST TOMOSYNTHESIS, BILATERAL CLINICAL INFORMATION: Screening. Asymptomatic. COMPARISON: Mammography: Comparison is made with available priors TECHNIQUE: Digital breast mammography with tomosynthesis is performed in both the craniocaudal and mediolateral oblique views along with computer-aided detection (CAD). FINDINGS: The breasts are heterogeneously dense, which may obscure small masses (ACR BI-RADS breast composition Category c). There are no significant masses, abnormal calcifications, or other abnormalities. MM/MM tomosynthesis screening BI IMPRESSION: No mammographic evidence of malignancy. ASSESSMENT: BI-RADS BI-RADS 1 - Negative RECOMMENDATION: Routine annual mammography screening. 1 year F/U This examination should not preclude the clinical evaluation of a suspicious palpable abnormality. This patient's information was entered into a reminder system with a target due date for their next mammogram. Electronically signed by: Jodi Larios DO 05/25/2025 02:13 PM EDT
--- OUTSIDE RECORDS SUMMARY | 2025-05-22 09:53 | XMS_ITS | Clinical Summary ---
Author Organization [facility] Address [address] [place] [phone] Phone Care Team Providers Care Labor Representative Name Role Phone Maury Caputo Primary Care Provider [phone] Allergies Active Allergy Reactions Criticality Noted Date [...] 11/29/2020 Immunizations Immunization Administration Dates Next Due Influenza, [...] Visit [facility] [address] [address] Melissa Pelayo ARNP [address] [address] Health Maintenance Due Date Last Done Comments Breast Cancer Screening 1973 Hepatitis B Vaccine (1 of 3 - 19+ 3-dose series) 04/20 Pneumococcal Vaccine: 50+ Years (1 of 2 - PCV) 992 Colorectal Cancer Screening: Annual FOBT 2022 Colorectal Cancer Screening: Colonoscopy 2022 Colorectal Cancer Screening: Sigmoidoscopy 2022 Influenza Vaccine (#1) 2025 06/25/2021 [place] Medicaid [place] Care Teams Labor Representative Relationship Specialty Start Date End Date Maury Caputo PA [address] [place] [address], [address] [place] [address] PCP - General Physician Small Craft Operator 07/24/23
--- OUTSIDE RECORDS SUMMARY | 2025-05-22 09:53 | XMS_ITS | Clinical Summary ---
Author Organization [address] [facility] Address [address] [place] [address] Phone Care Team Providers Care Coat Repair Inspector Name Role Phone Physician, Pcp Unknown Primary Care Provider Tawny vailable Medications No known medications Encounters Date Type Department Care Team Description 03/10/2025 8:15 AM EDT Consult Orthopedic Surgery [place] [id number] [address] Manjeet Marvin DPM Plantar fascial fibromatosis (Primary Dx); Eczema, unspecified type; Tinea pedis of both feet; Type 2 diabetes mellitus without complication, without long-term current use of insulin ([facility] V24, [facility] V28) from Last 3 Months [...] 06/09/2025 8:15 AM EDT Office Visit Orthopedic [facility] [address] [address] Manjeet Marvin DPM [address] [address] Health Maintenance Due Date Last Done Comments Breast Cancer Screening 1973 Diabetes: Annual GFR (Glomerular Filtration Rate) 1973 Diabetes: Annual Foot Exam 1983 Diabetes: Annual Retina Eye Exam 1983 Hepatitis B Vaccines (1 of 3 - 19+ 3-dose series) 1992 Pneumococcal Vaccine: 50+ Years (1 of 2 - PCV) 1992 Cervical Cancer Screening: Pap Smear 1994 Zoster Vaccines (1 of 2) 2023 Cholesterol Screening (Lipid Panel) 08/19/2024 Colorectal Cancer Screening: Colonoscopy 08/19/2024 HIV Screening 08/19/2024 Hepatitis C Screening 08/19/2024 Medicare Annual Wellness Visit 08/19/2024 Social Influencers of Health Screening 08/19/2024 Depression Screening 09/16/2024 Diabetes: Annual Urine Albumin-Creatinine Ratio (uACR) 03/11/2025 Diabetes: Blood Sugar Control Test (HGBA1C) 03/11/2025 Hypertension/CHF/CAD Annual BMP Blood Test 03/11/2025 COVID-19 Vaccine ( season) 2025 08/16/2022, 07/23/2021, 01/09/2021, Additional history exists Influenza Vaccine (#1) 2025 , 06/10/2023, 06/13/2022, [...] Insurance MEDICARE MEDICAID - [place] Care Teams Coat Repair Inspector Relationship Specialty Start Date End Date Physician, Pcp Unknown PCP - General 10/14/24
--- OUTSIDE RECORDS SUMMARY | 2025-05-22 09:53 | XMS_ITS | Encounter Summary ---
Author Organization [facility] Address [address] [facility] [address] [place] [address] Phone Care Team Providers Care Pipeline Systems Operator Name Role Phone Maury Caputo Primary Care Provider [phone] Reason for Visit * Reason Comments Med Refill Encounter Details Date Type Department Care Team (Late Contact Info) Description 02/28/2023 Refill [facility] [address] [facility] [address] [place] [phone] Landen Nguyen MD Social History Tobacco Use [...] Visit [facility] [address] [phone] Melissa Pelayo ARNP [address] [facility] [address] [place] [address] documented as of this encounter Visit Diagnoses Not on filedocumented in this encounter Care Teams Pipeline Systems Operator Relationship Specialty Start Date End Date Maury Caputo PA [address] [place] [address], [address] [place] [address] PCP - General Physician Project Control Analyst 07/24/23 documented as of this encounter
--- OUTSIDE RECORDS SUMMARY | 2025-05-22 09:53 | XMS_ITS | Patient Health Record ---
Author Organization [facility] Address [address] [place] [address] Care Team Providers Care Slice Cutting Machine Operator Name Role Phone Lilliana Hagan Primary Care Provider Unavailab Lee Lawrence Unavailable [phone] GLORIA FRANCO Unavailable Unavailable Allergies Allergen (clinical drug ingredient) Drug/Non Drug [...] Problem Status W/U Status Risk Notes Problem [id number] Irritable bowel syndrome with diarrhea (K58.0) Active confirmed Problem 358178105 Blood in stool (K92.1) Active confirmed Plan Of Treatment Pending Test Test Name Order Date GI BIOPSY 06/18/2016 Future Test Test Name Order Date COLONOSCOPY 04/10/2016 Insurance Providers Payer Name Payer Address Payer Phone Subscriber Number Group Number Insured Name Patient Relationship to Insured Coverage Start Date Coverage End Date MEDICARE OF [place] [address] [place]HEL [place] [id number] INESSA LOBO Self - patient is the insured MEDICAID OF [facility] [address] [place] [address] [id number] INESSA LOBO Self - patient is the insured Medical (General) History Medical History History ICD Code Asthma Migraines Denies UT,DM,CVA,Lung disease,renal dise ase Urinary incontinence Surgical History Surgery Date(Month/Year) Tubes in ears Uterine ablation procedure Ganglion cyst
--- OUTSIDE RECORDS SUMMARY | 2025-05-22 09:53 | XMS_ITS | Clinical Summary ---
Author Organization [facility] Address [address] [place] [address] Phone Care Team Providers Care Hotel Or Motel Receptionist Name Role Phone Lilliana Hagan MD Primary [...] 2023 ZOSTER VACCINES (1 of 2) 2023 INFLUENZA VACCINE (#1) 2025 06/25/2021 COVID-19 VACCINE ( - 2024-2 6 season) 2025 07/23/2021, 01/09/2021, 12/17/2020 Adult Td,Tdap Booster 10/25/2030 [...] file Insurance MEDICARE PART A & [facility] [place] [id number] MEDICARE PART A & B [place] A & [facility] & [place] & [facility] [place] & [place] [facility] & B Member Subscriber Plan / Payer (Ef fective 1996-Present) Name:Marlyn Markham Member ID:[id number] Relation to Subscriber:Self Name:Marlyn Markham Subscriber ID:[id number] Payer ID:[id number] Group ID:Not on file Type:Medicare Address: [facility] Inns [facility] [address] [place] [phone] [facility] [place] [address] Care Teams Hotel Or Motel Receptionist Relationship Specialty Start Date End Date Lilliana Hagan MD [address] [place] [address] PCP - General Internal Medicine 08/12/21 Additional Source Comments The information contained in this document represents components of the legal health record. It is not the complete legal health record.[facility]
[2025-05-22 11:25] LABS: Hematocrit 40.1 % (37.0-47.0); Hemoglobin 12.7 g/dl (12.0-16.0); Mean Corpuscular HGB Conc 31.7 g/dl (31.0-35.0); Mean Corpuscular Hemoglobin 25.2 pg (27.0-33.0); Mean Corpuscular Volume 79.6 fL (80.0-98.0); NRBC Abs Auto 0.000 X10*3/uL (0.0-0.012); NRBC Pct Auto 0.0 /100WBC (0.0-0.2); Platelet Count 259 X10*3/uL (160-400); Red Blood Count 5.04 X10*6/uL (4.20-5.50); White Blood Count 5.0 X10*3/uL (4.8-10.8)
[2025-05-22 12:01] LABS: Alanine Aminotransferase 38 U/L (0-31); Albumin Level 4.8 g/dL (3.5-5.0); Alkaline Phosphatase 85 U/L (39-117); Anion Gap 14 (12-20); Aspartate Amino Transferase 30 U/L (5-31); Blood Urea Nitrogen 10 mg/dL (9-16); Calcium 10.1 mg/dL (8.4-10.2); Carbon Dioxide 28 mmol/L (22-29); Chloride 103 mmol/L (96-108); Cholesterol 150 mg/dL (<200); Estimated Glomerular Filt Rate > 60; HDL Cholesterol 47 mg/dL (>40); Potassium 4.6 mmol/L (3.3-5.1); Sodium 140 mmol/L (135-145); Total Protein 7.8 g/dL (6.5-8.0); Triglycerides 144 mg/dL (<150)
[2025-05-22 12:36] LABS: Microalbum/Creatinine Ratio Ur 303.3 ug/mg cr (<30)
== END 2025-05-22 09:49 | disposition home or self-care (01) ==
LOC: HO.MAMMO 09:48
PROVIDERS: PCP Physician Assistant; Visit Provider Physician Assistant
DX: Z12.31 Encounter for screening mammogram for malignant neoplasm of breast (principal); I10 Essential (primary) hypertension; E11.65 Type 2 diabetes mellitus with hyperglycemia; E78.2 Mixed hyperlipidemia
CPT/HCPCS: 36415; 77063; 77067; 80053; 80061; 82043; 82570; 85027

== ENCOUNTER → 2025-05-22 10:45 | Outpatient (BNV) | payer MEDICAID, SELFPAY | PROVIDERS: PCP Physician Assistant; Visit Provider Internal Medicine | DX: Z12.31 Encounter for screening mammogram for malignant neoplasm of breast (principal) | CPT/HCPCS: 77063; 77067 ==

== ENCOUNTER 2025-06-08 08:49 | Outpatient (AMB) | payer MEDICAID, SELFPAY ==
--- OUTSIDE RECORDS SUMMARY | 2021-08-12 14:15 | XMS_ITS | Encounter Summary ---
Author Organization [facility] Address [address] [place] [phone] Phone Care Team Providers Care Veterans Rehabilitation Counselor Name Role Phone Lilliana Hagan MD Primary Care Provid er Encounter Details Date Type Department Care Team (Late st Contact Info) Description 08/12/2021 1:15 PM EST Hospital Encounter [facility] [address] [place] [phone] Latoya Peres FNP [address] [place] [phone] [email or web address] [place] Social History Tobacco Use [...] fracture. 2.Rotator cuff calcific tendinitis. Latoya Peres FIRST AID TEACHER IMG XR UPPER EXTREMITY Petra l Result documented in this encounter Visit Diagnoses Not on filedocumented in this encounter Care Teams Veterans Rehabilitation Counselor Relationship Specialty Start Date End Date Lilliana Hagan MD [address] [place] [phone] PCP - General Internal Medicine 08/12/21 documented as of this encounter Additional Source Comments The information contained in this document represents components of the legal health record. It is not the complete legal health record.[facility]
--- NOTE | 2025-06-08 08:52 | A.OFFPC_ITS ---
Vital Signs 3 06/08/25 08:53 Height 5 ft 4 in Weight 222 lb 2 oz BMI 38.1 BP 130/80 Blood Pressure Location Lt brachial Position Sitting Pulse 74 Pulse Source Pulse Oximeter Temp 97.1 F Temp Source Temporal Artery Scan Pulse Oximetry (%) 98 Oxygen Delivery Method Room Air Intake Visit Reasons: f/u dmii Intake Note: Patient is here to follow up on DM. Teacher Citizenship Required: No Teller Vault: Not Required per policy Accompanied by: Self / Same As Patient Allergies lactose Allergy (Unknown, Verified 06/08/25 09:29) upset stomach fentanyl (FENTANYL) Adverse Reaction (Severe, Verified 06/08/25 09:29) VOMITING-SEVERE azithromycin Adverse Reaction (Intermediate, Verified 06/08/25 09:29) stomach upset ibuprofen (From MOTRIN) Adverse Reaction (Intermediate, Verified 06/08/25 09:29) KIDNEY PROBLEMS tramadol Adverse Reaction (Intermediate, Verified 06/08/25 09:29) dizziness and vomiting, vomiting FRUIT,FRESH Allergy (Severe, Uncoded 06/08/25 09:29) MOUTH ITCHING/SWELLING Medication List - Last Reconciled 06/08/25 by Maury Caputo PA-C albuterol sulfate 2.5 mg inhalation Q4H PRN albuterol sulfate 90 mcg/actuation 2 puffs inhalation Q6-8H 30 days atorvastatin 20 mg PO BEDTIME 90 days blood sugar diagnostic (FreeStyle Lite Strips) 1 strip miscellaneous TID blood-glucose meter (FreeStyle Lite Meter kit) As directed Ca lac-mag cit-pas flwr-everett rt 25-50-20-10 mg (MyoCalm) tabs PO cholecalciferol (vitamin D3) 50 mcg PO DAILY 30 days cyclobenzaprine 10 mg PO TID PRN epinephrine 0.3 mg (0.3 mL) IM ONCE PRN 30 days fexofenadine 180 mg PO DAILY 90 days fluticasone propionate 50 mcg/actuation 1 spray intranasal BID 30 days lancets (FreeStyle Lancets) 4x daily losartan 50 mg PO DAILY 90 days metformin 500 mg PO BID montelukast (Singulair) 10 mg PO BEDTIME 90 days ondansetron 4 mg PO Q8H PRN pantoprazole 40 mg PO DAILY 90 days tirzepatide (Mounjaro) 2.5 mg (0.5 mL) subcut QWEEK 4 weeks triamcinolone acetonide 0.1% 1 appl topical BID Tobacco use date assessed: 06/08/25 Dental Screening Dental Screen Date: 10/21/24 HPI f/u dmii 2 HPI0 Details Patient is a 49-year-old female here today for follow-up visit..? Patient has a past history significant for hyperlipidemia,? type 2 diabetes, obesity, , mild lymphocytosis,? asthma,? polyarthralgia. Concern today--> The patient reports chronic pain in both knees, which she attributes to osteoarthritis diagnosed previously with moderate degenerative changes noted on x-rays last year. 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 She describes the pain as severe, with episodes of her knees giving out, and notes that the pain sometimes radiates to her entire leg. The patient also suspects a meniscus injury, particularly in the right knee, as she experiences a catching sensation and believes the meniscus may be damaged. She reports that the knee sometimes gets stuck while driving or sleeping, and she feels a catching sensation when moving the knee. In addition to knee issues, the patient has arthritis in her hands, with mild degenerative changes noted in both hands, more pronounced in the right hand. She experiences pain and occasional dropping of objects, particularly with the right hand PLAN: Will try for x-rays of both knees and an ultrasound of the right leg to evaluate for a Harrington cyst behind right knee. We did discuss possibly having side effects of statin in the setting of being more physically active causing the pain in herself tissues and musculature of her lower extremities. Will check a creatinine kinase Apneic episodes: Patient has been told she has apneic episodes during the night and is interested in getting screened for obstructive sleep apnea. .. Eczema--> The patient also presents with dyshidrotic eczema, she has followed up with Dermatology in his started Dupixent which completely resolved her skin manifestations over hands and feet Type 2 diabetes--> She patient has a documented history of Type 2 Diabetes Mellitus. She is concerned about using GLP 1 due to side effect profile. She continues with metformin Today's A1c below 7 She does admit to dietary indiscretion as she does stress eat. She has been working on a better diet and has been more physically active .. [facility] Medical History Visit for suture removal GERD (gastroesophageal reflux disease) HLD (hyperlipidemia) HTN (hypertension) T2DM (type 2 diabetes mellitus) Vitamin D deficiency Hyperparathyroidism Hypercalcemia Surgical History History of carpal tunnel release History of removal of cyst H/O myringotomy History of endometrial ablation H/O LEEP Family History Sister Lung cancer AIDS IV drug user Paternal Uncle Colon cancer Paternal Aunt Colon cancer Breast cancer Maternal Aunt Ovarian cancer Leukemia Breast cancer Brain cancer Brother AIDS IV drug user Family/Other FH: mental illness Social History Housing: Apartment Alcohol intake: current Alcohol intake frequency: holidays/special occasions only Alcohol type: hard liquor Patient Tobacco Use Status: Former Tobacco user Tobacco use type: Cigarette Years Smoked: 30 e-Cigarette/Vaping Use: Never Used Second Hand Smoke Exposure: Yes service: No Current occupational status: unemployed Current occupation: Right Handed Cognitive needs: No Hearing needs: No Vision needs: No Female Reproductive History Menstrual Age of Menarche: 7 Questionnaire Thrive Questionnaire Date Thrive assessed: 01/27/25 I am a: Patient What is your living situation today?: I have a steady place to live Within the past 12 months, did the food you bought not last and you didn't have the money to get more?: Never true Within the past 12 months, did you worry whether your food would run out before you got money to buy more?: Never true Do you have trouble paying for medicines?: I choose not to answer this question Do you have trouble getting transportation to medical appointments?: No Do you have trouble paying your heating and electricity bill?: I choose not to answer this question Do you have trouble taking care of your child, family member or friend?: No Do you have trouble with day-to-day activities such as bathing, preparing meals, shopping, managing finances, etc.?: No Are you currently unemployed and looking for a job?: No Are you interested in more education?: No Please select the resources that you would like help with: None Currently or been in a relationship where the following occur: No concerns reported THRIVE Score: 0 KAYLIE-7 AMB Questionnaire KAYLIE-7 Date KAYLIE - 7 assessed: 01/27/25 Source: Developed by Drs. Lee Vigil, Karli Turner, Tuan Kline and colleagues, with an educational tati from [employer]. Review of Systems Const Denies headache(s) Eyes Denies loss of vision ENT Denies vertigo, Denies dizziness, Denies headache(s) and Denies sore throat Card Denies chest pain, Denies leg edema and Denies lightheadedness Resp Denies cough, Denies hemoptysis and Denies wheezing GI Denies abdominal pain, Denies melena, Denies constipation, Denies diarrhea and Denies vomiting Denies urinary frequency, Denies dysuria and Denies urinary urgency Musc Denies arthralgias, Denies joint swelling, Denies numbness and Denies tingling Neuro Denies Abnormal speech present, Denies behavioral changes, Denies vertigo, Denies dizziness, Denies headache(s), Denies loss of vision, Denies memory loss, Denies numbness and Denies tingling Psych Denies anxiety, Denies behavioral changes, Denies depression, Denies memory loss and Denies panic attacks Reji/Lymph Denies easy bleeding and Denies easy bruising Aller/Immun Denies wheezing Physical exam (Primary Care) Vital Signs: Last Vital Signs Temp 97.1 F 06/08/25 08:53 Pulse 74 06/08/25 08:53 BP 130/80 06/08/25 08:53 Pulse Ox 98 06/08/25 08:53 Oxygen Delivery Method Room Air 06/08/25 08:53 BMI result Body Mass Index 38.1 BMI Assessment/Plan discussion: High BMI High, discussed plan: lifestyle, weight reduction, dietary and physical activity Tobacco/Smoking Status: Tobacco use Status Tobacco use date assessed 06/08/25 06/08/25 09:00 Patient Tobacco Use Status Former Tobacco user 06/08/25 09:00 Tobacco use type Cigarette 06/08/25 09:00 e-Cigarette/Vaping Use Never Used 06/08/25 09:00 Thrive Assessment: Date of Thrive Assessment Date Thrive assessed 01/27/25 06/08/25 09:00 Currently or been in a relationship where the following occur: No concerns reported Const General: healthy appearing, no acute distress, alert and awake Nutritional Appearance: well nourished Orientation/consciousness: oriented to person, oriented to place and oriented to time HENMT Ears: TM's normal bilaterally General nose exam: Normal nasal mucous membranes and turbinates present Eyes Conjunctivae: conjunctivae normal Sclerae: sclerae normal Pupils: Equal, round and reactive pupils present Neck Neck: Yes no lymphadenopathy and Yes no JVD Thyroid: Thyroid normal Carotids: no bruits Resp Effort & Inspection: normal respiratory effort and not tachypneic Auscultation: no crackles, no rales, no rhonchi and no wheezes Cardio Rate: regular rate Rhythm: regular rhythm Heart sounds: no murmurs and normal S1 and S2 GI Palpation (GI): Soft to palpation, nontender, no hepatomegaly and no splenomegaly Auscultation: normal bowel sounds Skin General skin exam: no rashes or lesions noted and dry skin Neuro General: oriented to person, oriented to place and oriented to time Cranial nerves: Yes Equal, round and reactive pupils present Speech: No Abnormal speech present Gait exam (Neuro): Normal gait present Motor exam (neuro): no tremor noted Extrem Right upper extremity: full ROM Left upper extremity: full ROM Right lower extremity: full ROM; no edema Left lower extremity: full ROM; no edema Knee images: 2 1. PAIN LOCATED IN THE POSTERIOR LATERAL REGION OF THE RIGHT KNEE. NOTED SOME DECREASE FLEXION Psych Mental Status: mental status grossly normal Speech and movement: Normal speech and movement present Affect: normal affect Attitude: cooperative Thought process: Normal thought process present Results AMB Hemoglobin A1c 2 AMB Hemoglobin A1c 6.8 % Last Edit by ADELFO House on 06/08/25 09:08 Results Reviewed Results Reviewed: Laboratory Last Values Hgb A1c (Clinic) 6.8 % (4.0-6.0) H 06/08/25 08:51 Coding Level of Care Code Est Pt Level 4 (76363) Diagnoses Acute pain of right knee M25.561 Chronicity: acute Acute pain of left knee M25.562 Chronicity: acute MINGO (obstructive sleep apnea) G47.33 Left foot pain M79.672 Type 2 diabetes mellitus with hyperglycemia, without long-term current use of insulin E11.65 Diabetes mellitus complication status: with hyperglycemia Diabetes mellitus assisted insulin use: without long wall mining machine tender use Hypertension, unspecified type I10 Hypertension type: unspecified Mixed hyperlipidemia E78.2 Hyperlipidemia type: mixed hyperlipidemia Dyshydrosis L30.1 Class 2 obesity E66.812 Assessment & Plan Assessment & Plan (1) Right knee pain: Code(s): M25.561 - Pain in right knee Category: Medical Qualifiers: Chronicity: acute Qualified Code(s): M25.561 - Pain in right knee Plan: The plan includes obtaining updated x-rays of the knees to assess any progression of degenerative changes and an ultrasound of the right knee to evaluate for a possible Harrington's cyst. A referral to orthopedics is made for potential cortisone injections to manage knee pain and inflammation. *Of note we did discuss the possibility of her cholesterol medication causing muscle and joint pain in her lower extremities secondary to her being much more physically active lately. Will check a creatinine kinase for possible myalgia related to statin use (2) Left knee pain: Code(s): M25.562 - Pain in left knee Category: Medical Qualifiers: Chronicity: acute Qualified Code(s): M25.562 - Pain in left knee Plan: As above (3) MINGO (obstructive sleep apnea): Code(s): G47.33 - Obstructive sleep apnea (adult) (pediatric) Category: Medical Plan: Patient does have risk for obstructive sleep apnea. For the suspected obstructive sleep apnea, a home sleep study is recommended to confirm the diagnosis and assess the need for CPAP therapy. The patient is advised to continue monitoring blood glucose levels and maintain current diabetes management strategies, with consideration of adjusting metformin dosage if necessary. (4) Left foot pain: Code(s): M79.672 - Pain in left foot Category: Medical Plan: Having left lateral foot pain, would like to get an x-ray to evaluate for any bony abnormalities. (5) T2DM (type 2 diabetes mellitus): Code(s): E11.9 - Type 2 diabetes mellitus without complications Category: Medical Qualifiers: Diabetes mellitus complication status: with hyperglycemia Diabetes mellitus assisted insulin use: without long wall mining machine tender use Qualified Code(s): E11.65 - Type 2 diabetes mellitus with hyperglycemia Plan: Patient's type 2 diabetes now controlled with A1c today at 6.8 She is concerned about using a GLP 1, continues to use metformin . Goal A1c is to be below 6.0 (6) HTN (hypertension): Code(s): I10 - Essential (primary) hypertension Category: Medical Qualifiers: Hypertension type: unspecified Qualified Code(s): I10 - Essential (primary) hypertension Plan: Patient's blood pressure acceptable today in office. Will continue on losartan 50 mg daily with blood pressure to remain below 140/90 (7) HLD (hyperlipidemia): Code(s): E78.5 - Hyperlipidemia, unspecified Category: Medical Qualifiers: Hyperlipidemia type: mixed hyperlipidemia Qualified Code(s): E78.2 - Mixed hyperlipidemia Plan: Patient's most recent lipid panel showing good control over total cholesterol and LDL. Goal LDL is to remain below 100. 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 Has started on Dupixent which has cleared up her dermatological symptoms. (9) Class 2 obesity: Code(s): E66.812 - Obesity, class 2 Category: Medical Plan: Patient does understand her BMI is over 35 and continue working on lifestyle and dietary modifications. Has tried Ozempic in the past though was not effective on reducing her caloric intake and losing weight. She is willing to try an alternative GLP 1 to see if it will offer her more weight loss. Orders: Orders 2 AMB Hemoglobin A1c Today E11.65 - Type 2 diabetes mellitus with hyperglycemia XR knee LT 3V Today M25.562 - Pain in left knee RT home sleep study Today G47.33 - Obstructive sleep apnea (adult) (pediatric) XR foot LT 2V Today M79.672 - Pain in left foot XR knee RT 3V Today M25.561 - Pain in right knee XR knee RT 3V Today M25.561 - Pain in right knee US Extremity Nonvas Limited RT Today M25.561 - Pain in right knee Creatine Kinase Total Today M25.541 - Pain in joints of right hand, M25.542 - Pain in joints of left hand Referrals 2 Orthopedics Referral M25.561 - Pain in right knee Medications: Refilled 2 albuterol sulfate 90 mcg/actuation 2 puffs inhalation Q6-8H 8.5 grams 3RF 30 days J45.909 - Unspecified asthma, uncomplicated atorvastatin 20 mg PO BEDTIME 90 tabs 3RF 90 days E78.2 - Mixed hyperlipidemia pantoprazole 40 mg PO DAILY 90 tabs 1RF 90 days K21.9 - Gastro-esophageal reflux disease without esophagitis
[2025-06-08 08:53] VITALS: BP 130/80; PULSE 74; TEMP 36.2; O2SAT 98; BMI 38.1
--- OUTSIDE RECORDS SUMMARY | 2025-06-08 09:55 | XMS_ITS | Patient Health Record ---
Author Organization [facility] Address [address] [place] [address] Care Team Providers Care Sales Estimator Name Role Phone Lilliana Hagan Primary Care Provider Unavailab Lee Lawrence Unavailable [phone] GLORIA FRANCO Unavailable Unavailable Allergies Allergen (clinical [...] Problem Status W/U Status Risk Notes Problem [id number] Irritable bowel syndrome with diarrhea (K58.0) Active confirmed Problem [id number] Blood in stool (K92.1) Active confirmed Plan Of Treatment Pending Test Test Name Order Date GI BIOPSY 06/18/2016 Future Test Test Name Order Date COLONOSCOPY 04/10/2016 Insurance Providers Payer Name Payer Address Payer Phone Subscriber Number Group Number Insured Name Patient Relationship to Insured Coverage Start Date Coverage End Date MEDICARE OF [place] [address] RACHEL MERCEDES [phone] [id number] INESSA LOBO Self - patient is the insured MEDICAID OF [facility] [address] [place] [address] [id number] INESSA LOBO Self - patient is the insured Medical (General) History Medical History History ICD Code Asthma Migraines Denies MN,DM,CVA,Lung disease,renal dise ase Urinary incontinence Surgical History Surgery Date(Month/Year) Tubes in ears Uterine ablation procedure Ganglion cyst
--- OUTSIDE RECORDS SUMMARY | 2025-06-08 09:55 | XMS_ITS | Clinical Summary ---
Author Organization [address] [facility] Address [address] [place] [address] Phone Care Team Providers Care Outpatient Facility Physical Therapist Name Role Phone Physician, Pcp Unknown Primary Care Provider Tawny vailable Medications No known medications Encounters Date Type Department Care Team Description 03/10/2025 8:15 AM EDT Consult Orthopedic Surgery [facility] [address] [facility] [address] [place] [address] Manjeet Marvin, DPM Plantar fascial fibromatosis (Primary Dx); Eczema, unspecified type; Tinea pedis of both feet; Type 2 diabetes mellitus without complication, without long-term current use of insulin ([facility] V24, [facility] V28) from Last 3 Months [...] 03/10/2025 8:15 AM EDT Plan of Treatment Health Maintenance Due Date [...] Insurance MEDICARE MEDICAID - [place] Care Teams Outpatient Facility Physical Therapist Relationship Specialty Start Date End Date Physician, Pcp Unknown PCP - General 10/14/24
--- OUTSIDE RECORDS SUMMARY | 2025-06-08 09:55 | XMS_ITS | Encounter Summary ---
Author Organization [facility] Address [address] [facility] [address] [place] [address] Phone Care Team Providers Care Home Restoration Service Cleaner Name Role Phone Maury Caputo Primary Care Provider [phone] Reason for Visit * Reason Comments Med Refill Encounter Details Date Type Department Care Team (Late Contact Info) Description 02/28/2023 Refill [facility] [address] [facility] [address] [place] [phone] Landen Nguyen MD Social History Tobacco Use [...] Visit [facility] [address] [address] Melissa Pelayo ARNP [address] [facility] [address] [place] [address] documented as of this encounter Visit Diagnoses Not on filedocumented in this encounter Care Teams Home Restoration Service Cleaner Relationship Specialty Start Date End Date Maury Caputo PA [address] [place] [address], [address] [place] [address] PCP - General Physician Health Actuary 07/24/23 documented as of this encounter
--- OUTSIDE RECORDS SUMMARY | 2025-06-08 09:55 | XMS_ITS | Clinical Summary ---
Author Organization [facility] Address [address] [place] [address] Phone Care Team Providers Care Hospitality Services Manager Name Role Phone Maury Caputo Primary Care Provider [phone] Allergies Active Allergy Reactions Criticality Noted Date [...] of the [facility] [address] [address] Melissa Pelayo ARNP [address] [address] Health Maintenance Due Date Last [...] [place] Care Teams Hospitality Services Manager Relationship Specialty Start Date End Date Maury Caputo PA [address] [place] [address], [address] [place] [address] PCP - General Physician Varnish Melter 07/24/23
--- OUTSIDE RECORDS SUMMARY | 2025-06-08 09:55 | XMS_ITS | Clinical Summary ---
Author Organization [facility] Address [address] [place] [address] Phone Care Team Providers Care Human Resources Supervisor Name Role Phone Lilliana Hagan MD Primary [...] file Insurance MEDICARE PART A & [facility] [place] [id number] MEDICARE PART [place] & [place] [facility] & [place] [facility] & [facility] PART A & [place] PART [place] & [facility] MEDIC[facility] PART A & B [facility] [place] [address] Care Teams Human Resources Supervisor Relationship Specialty Start Date End Date Lilliana Hagan MD [address] [place] [address] PCP - General Internal Medicine 08/12/21 Additional Source Comments The information contained in this document represents components of the legal health record. It is not the complete legal health record.[facility]
== END 2025-06-08 09:56 | disposition home or self-care (01) ==
PROVIDERS: PCP Physician Assistant; Visit Provider Physician Assistant
DX: E11.65 Type 2 diabetes mellitus with hyperglycemia (principal); M25.561 Pain in right knee; M25.562 Pain in left knee; I10 Essential (primary) hypertension; G47.33 Obstructive sleep apnea (adult) (pediatric); M79.672 Pain in left foot; E66.812 Obesity, class 2; E78.2 Mixed hyperlipidemia; L30.1 Dyshidrosis [pompholyx]

== ENCOUNTER → 2025-06-08 08:49 | Outpatient (BNVA) | payer MEDICAID, SELFPAY | PROVIDERS: PCP Physician Assistant; Visit Provider Physician Assistant | DX: M25.561 Pain in right knee (principal); M25.562 Pain in left knee; G47.33 Obstructive sleep apnea (adult) (pediatric); M79.672 Pain in left foot; E11.65 Type 2 diabetes mellitus with hyperglycemia; I10 Essential (primary) hypertension; E78.2 Mixed hyperlipidemia; L30.1 Dyshidrosis [pompholyx]; K21.9 Gastro-esophageal reflux disease without esophagitis; E66.812 Obesity, class 2; Z68.38 Body mass index [BMI] 38.0-38.9, adult | CPT/HCPCS: 83036; 99212 ==

== ENCOUNTER 2025-08-03 13:57 | Outpatient (REF) | payer OTHER, SELFPAY ==
--- OUTSIDE RECORDS SUMMARY | 2021-08-12 13:15 | XMS_ITS | Encounter Summary ---
Author Organization [facility] Address [address] [place] [phone] Phone Care Team Providers Care [employer] History Teacher Name Role Phone Lilliana Hagan MD Primary Care Provid er Encounter Details Date Type Department Care Team (Late st Contact Info) Description 08/12/2021 1:15 PM EST Hospital Encounter [facility] [address] [place] [phone] Latoya Peres FNP [address] [place] [phone] [email or web address] Social History Tobacco Use Types Packs/Day Years [...] fracture. 2.Rotator cuff calcific tendinitis. Latoya Peres ROTOR COIL TAPER IMG XR UPPER EXTREMITY Petra l Result documented in this encounter Visit Diagnoses Not on filedocumented in this encounter Care Teams [employer] History Teacher Relationship Specialty Start Date End Date Lilliana Hagan MD [address] [place] [phone] PCP - General Internal Medicine 08/12/21 documented as of this encounter Additional Source Comments The information contained in this document represents components of the legal health record. It is not the complete legal health record.[facility]
--- NOTE | ~2025-08-03 | XR_ITS ---
EXAMINATION: XR FOOT, LEFT CLINICAL INFORMATION: M79.672 - Pain in left foot COMPARISON: X-ray 02/03/2024 TECHNIQUE: AP, lateral, and oblique views of the left foot. FINDINGS: Alignment is anatomic. No visible acute fracture or dislocation. No significant arthropathy is seen. Moderate plantar and posterior calcaneal enthesopathy. No erosions. No abnormal soft tissue calcification. XR/XR foot LT min 3V IMPRESSION: Calcaneal spurring. Electronically signed by: David Joseph MD 08/04/2025 01:24 PM [facility]
--- NOTE | ~2025-08-03 | US_ITS ---
CLINICAL HISTORY: M25.561 - Pain in right knee Ultrasound right popliteal fossa Comparison: None provided Findings: 3.5 x 0.5 x 1.9 cm fluid collection in anterior knee. Relationship to underlying joint space and bony structures not determined. Collection is 2 cm deep from overlying skin surface. Etiology is indeterminate. Impression: Indeterminate anterior knee fluid collection as above This document has been electronically signed by: Slick Carbajal MD on 08/03/2025 19:28:40
--- NOTE | ~2025-08-03 | XR_ITS ---
EXAMINATION: X-ray bilateral knees CLINICAL INFORMATION: Pain COMPARISON: None TECHNIQUE: Bilateral knees AP one view. Right knee 2 views. Left knee 2 views. FINDINGS: Right knee: Moderate medial compartment, mild lateral patellofemoral arthritis. No visible acute fracture or dislocation. Small suprapatellar joint fluid. No suspicious bony lesions. No abnormal soft tissue calcification. Left knee: Mild medial and patellofemoral compartment arthritis. No visible acute fracture or dislocation. Small suprapatellar joint fluid. No abnormal soft tissue calcification. XR/XR Knee Caio 3V IMPRESSION: Right knee: Moderate medial compartment arthritis. Left knee: Osteoarthritis as above Electronically signed by: David Joseph MD 08/04/2025 01:23 PM [facility]
--- OUTSIDE RECORDS SUMMARY | 2025-08-04 07:53 | XMS_ITS | Clinical Summary ---
Author Organization [facility] Address [address] [place] [address] Phone Care Team Providers Care Body Builder Apprentice Name Role Phone Maury Caputo Primary Care Provider [phone] Allergies Active Allergy Reactions Criticality Noted Date [...] Years Used Date Smoking Tobacco: Former Cigarettes 1 Q uit: 05/29/2020 Tobacco Cessation:Counseling Given: Not [...] Visit [facility] [address] [address] Melissa Pelayo ARNP [address] [address] Health Maintenance Due Date Last [...] [place] Care Teams Body Builder Apprentice Relationship Specialty Start Date End Date Maury Caputo PA [address] [place] [address], [address] [place] [address] PCP - General Physician Windows Software Developer 07/24/23
--- OUTSIDE RECORDS SUMMARY | 2025-08-04 07:53 | XMS_ITS | Clinical Summary ---
Author Organization [facility] Address [address] [place] [address] Phone Care Team Providers Care Chargemaster Analyst Name Role Phone Lilliana Hagan MD Primary [...] INFLUENZA VACCINE (#1) 2025 06/25/2021 COVID-19 VACCINE (4 - 2024-2 6 season) 2025 07/23/2021, 01/09/2021, 12/17/2020 Adult Td,Tdap Booster 10/25/2030 10/25/2020 RSV VACCINE (1 - 1-dose 75+ series) 2048 HEPATITIS A VACCINES Aged Out No long er eligible based on patient's age to complete this topic HIB VACCINES Aged Out No longer eligi ble based on patient's age to complete this topic IPV VACCINES Aged Out No longer eligi ble based on patient's age to complete this topic MENINGOCOCCAL VACCINES (ACWY) Aged Out No longer eligible based on patient's age to complete this topic MENINGOCOCCAL VACCINES (B) Aged Out N o longer eligible based on patient's age to complete this topic Medical Devices Not on file Insurance [place]ARE [place] [address] MEDICARE PART A & B [facility] MEDICARE PART A & B HEALTH MEDICARE PART A & [address] [place], [place] [address]HEALTH MEDICARE PART A & [place] [address] [address] MEDICARE PART A & B Member Subscriber Plan / Payer ( fective 1996-) Name:Marlyn Markham Member ID:[id number] Relation to Subscriber:Self Name:Marlyn Markham Subscriber ID:[id number] Payer ID:[id number] Group ID:Not on file Type:Medicare Address: [employer] [place] [address] [place], [place] [address]HEALTH MEDICARE PART A & B Member Subscriber Plan / Payer ( fective 1996-) Name:Marlyn Markham Member ID:[id number] Relation to Subscriber:Self Name:Marlyn Markham Subscriber ID:[id number] Payer ID:[id number] Group ID:Not on file Type:Medicare Address: [employer]who [address] [place] [address] [place], [place] [address]HEALTH MEDICARE PART A & B [facility] MEDICARE PART A & B [facility] [place] [address] Care Teams Chargemaster Analyst Relationship Specialty Start Date End Date Lilliana Hagan MD [address] [place] [address] PCP - General Internal Medicine 08/12/21 Additional Source Comments The information contained in this document represents components of the legal health record. It is not the complete legal health record.[facility]
--- OUTSIDE RECORDS SUMMARY | 2025-08-04 07:53 | XMS_ITS | Encounter Summary ---
Author Organization [facility] Address 100 [facility] 200 [place] [address] Phone Care Team Providers Care Apparel Pattern Maker Name Role Phone Maury Caputo Primary Care Provider [phone] Reason for Visit * Reason Comments Med Refill Encounter Details Date Type Department Care Team (Late st Contact Info) Description 02/28/2023 Refill [facility] 200 [place] [phone] Landen Nguyen MD [address] [place] [address] Social History Tobacco Use Types Packs/Day Years Used Date Smoking Tobacco: Former Cigarettes 1 Q uit: 05/29/2020 Comments:Smoking History Inf o:Every [...] Visit [facility] [address] [facility] 204 [place] [address] Melissa Pelayo ARNP [address] [facility] 204 [place] [address] documented as of this encounter Visit Diagnoses Not on filedocumented in this encounter Care Teams Apparel Pattern Maker Relationship Specialty Start Date End Date Maury Caputo PA 2 [facility], [address] [place] [address] PCP - General Physician Confidential Investigator 07/24/23 documented as of this encounter
--- OUTSIDE RECORDS SUMMARY | 2025-08-04 07:54 | XMS_ITS | Clinical Summary ---
Author Organization 175 [facility] Address [address] [place] [address] Phone Care Team Providers Care Animal Rehabilitator Name Role Phone Physician, Pcp Unknown Primary Care Provider Tawny vailable Medications No known medications Social History Tobacco Use Types Packs/Day Years [...] Last Done Comments Breast Cancer Screening 1973 Colorectal Cancer Screening: Colonoscopy 1973 Hepatitis B Vaccines (1 of 3 - 19+ 3-dose series) 1992 Pneumococcal Vaccine: 50+ Years (1 of 2 - PCV) 1992 Cervical Cancer Screening: Pap Smear 1994 RSV Immunization Adult Patients (1 - Risk 50-74 years 1-dose series) 2023 Zoster Vaccines (1 of 2) 2023 Cholesterol Screening (Lipid Panel) 08/19/2024 HIV Screening 08/19/2024 Hepatitis C Screening 08/19/2024 Medicare Annual Wellness Visit 08/19/2024 Social Influencers of Health Screening 08/19/2024 Depression Screening 09/16/2024 Hypertension/CHF/CAD Annual BMP Blood Test 03/11/2025 COVID-19 [...] Insurance MEDICARE MEDICAID - [place] Care Teams Animal Rehabilitator Relationship Specialty Start Date End Date Physician, Pcp Unknown PCP - General 10/14/24
== END 2025-08-03 13:58 | disposition home or self-care (01) ==
LOC: HO.US 13:57
PROVIDERS: PCP Physician Assistant; Visit Provider Physician Assistant
DX: M25.561 Pain in right knee (principal); M25.562 Pain in left knee; M79.672 Pain in left foot
CPT/HCPCS: 73562; 73630; 76882

== ENCOUNTER → 2025-08-03 14:01 | Outpatient (BNV) | payer OTHER, SELFPAY | PROVIDERS: PCP Physician Assistant; Visit Provider Radiology Diagnostic Radiology | DX: M25.461 Effusion, right knee (principal) | CPT/HCPCS: 73562; 73630; 76882 ==

== ENCOUNTER 2025-08-10 08:08 | Outpatient (REF) | payer OTHER, SELFPAY ==
--- OUTSIDE RECORDS SUMMARY | 2021-08-12 13:15 | XMS_ITS | Encounter Summary ---
Author Organization [facility] Address [address] [place] [phone] Phone Care Team Providers Care Back Tender Fourdrinier Name Role Phone Lilliana Hagan MD Primary Care Provid er Encounter Details Date Type Department Care Team (Late st Contact Info) Description 08/12/2021 1:15 PM EST Hospital Encounter [facility] [address] [place] [phone] Latoya Peres FNP [address] [place] [phone] [email or web address] Social History Tobacco Use Types Packs/Day Years [...] fracture. 2.Rotator cuff calcific tendinitis. Latoya Peres SKIN LAP BONDER IMG XR UPPER EXTREMITY Petra l Result documented in this encounter Visit Diagnoses Not on filedocumented in this encounter Care Teams Back Tender Fourdrinier Relationship Specialty Start Date End Date Lilliana Hagan MD [address] [place] [phone] PCP - General Internal Medicine 08/12/21 documented as of this encounter Additional Source Comments The information contained in this document represents components of the legal health record. It is not the complete legal health record.[facility]
--- OUTSIDE RECORDS SUMMARY | 2025-08-11 08:19 | XMS_ITS | Clinical Summary ---
Author Organization [facility] Address [address] [place] [address] Phone Care Team Providers Care Child Custody Evaluator Name Role Phone Lilliana Hagan MD Primary [...] file Insurance MEDICARE PART A & [facility] [place] [address] MEDICARE PART A & [place] MEDICARE PART A & B Member Subscriber Plan / Payer ( fective 1996-) Name:Marlyn Markham Member ID:[id number] Relation to Subscriber:Self Name:Marlyn Markham Subscriber ID:[id number] Payer ID:[id number] Group ID:Not on file Type:Medicare Address: [facility] Invaluable [facility] [address] [place] [address] MEDICARE PART A & B [id number] [place] [address] MEDICARE PART A & B HEALTH MEDICARE PART A & B [place] MEDICARE PART A & B HEALTH MEDICARE PART A & B Member Subscriber Plan / Payer ( fective 1996-) Name:Marlyn Markham Member ID:[id number] Relation to Subscriber:Self Name:Marlyn Markham Subscriber ID:[id number] Payer ID:[id number] Group ID:Not on file Type:Medicare Address: [employer] [address] MEDICARE PART A & B [facility] Care Teams Child Custody Evaluator Relationship Specialty Start Date End Date Lilliana Hagan MD [address] [place] [address] PCP - General Internal Medicine 08/12/21 Additional Source Comments The information contained in this document represents components of the legal health record. It is not the complete legal health record.[facility]
--- OUTSIDE RECORDS SUMMARY | 2025-08-11 08:20 | XMS_ITS | Clinical Summary ---
Author Organization 175 [facility] Address [address] [place] [address] Phone Care Team Providers Care Curtain Drier Name Role Phone Physician, Pcp Unknown Primary [...] Insurance MEDICARE MEDICAID - [place] Care Teams Curtain Drier Relationship Specialty Start Date End Date Physician, Pcp Unknown PCP - General 10/14/24
--- OUTSIDE RECORDS SUMMARY | 2025-08-11 08:20 | XMS_ITS | Clinical Summary ---
Author Organization [facility] Address [address] [place] [address] Phone Care Team Providers Care Signal Maintainer Helper Name Role Phone Maury Caputo Primary Care Provider [phone] Allergies Active Allergy Reactions Criticality Noted Date [...] Visit [facility] [address] [address] Melissa Pelayo ARNP [address] [address] Health Maintenance Due Date Last [...] [place] Medicare Care Teams Signal Maintainer Helper Relationship Specialty Start Date End Date Maury Caputo PA [address] [place] [address], [address] [place] [address] PCP - General Physician Loader Helper Sorting Yard 07/24/23
--- OUTSIDE RECORDS SUMMARY | 2025-08-11 08:20 | XMS_ITS | Patient Health Record ---
Author Organization [facility] Address [address] [place] [address] Care Team Providers Care Framing Mill Supervisor Name Role Phone Lilliana Hagan Primary Care Provider Unavailab Lee Lawrence Unavailable [phone] GLORIA FRANCO Unavailable Unavailable Allergies Allergen (clinical drug ingredient) Drug/Non Drug Allergy documented on EMR Reaction Allergy Type Onset Date Status azithromycin Azithromycin Unknown Drug Allergy A ctive Reason For Referral No Information Medications Medication SIG (Take, Route, Frequency, Duration) Notes Start Date End Date Status Flonase Active albuterol Active Omeprazole 20 MG Capsule Delayed Release 1 capsule Orally prn PRN Acti ve Social History Social History Additional Details Category Social Info Options Details Miscellaneous: Marital status: single Occupation: Works at [employer] Caffeine: more than 4 cups per day Section Notes: Smoker 1 ppd; no sig alcohol Problems Problem Type SNOMED Code ICD Code Onset Dates Problem Status W/U Status Risk Notes Problem Irritable bowel syndrome with diarrhea (599312482) Irritable bowel syndrome with diarrhea (K58.0) Active confirmed Problem Blood in stool (991352001) Blood in stool (K92.1) Active confirmed Plan Of Treatment Pending Test Test Name Order Date GI BIOPSY 06/18/2016 Future Test Test Name Order Date COLONOSCOPY 04/10/2016 Insurance Providers Payer Name Payer Address Payer Phone Subscriber Number Group Number Insured Name Patient Relationship to Insured Coverage Start Date Coverage End Date [place] OF [place] [address] [place] [id number] INESSA LOBO Self - patient is the insured MEDICAID OF [facility] [address] [facility] [address] [id number] LBOO, INESSA Self - patient is the insured Medical (General) History Medical History History ICD Code Asthma Migraines Denies DE,DM,CVA,Lung disease,renal dise ase Urinary incontinence Surgical History Surgery Date(Month/Year) Tubes in ears Uterine ablation procedure Ganglion cyst
--- OUTSIDE RECORDS SUMMARY | 2025-08-11 08:20 | XMS_ITS | Encounter Summary ---
Author Organization [facility] Address 100 [facility] 200 [place] [address] Phone Care Team Providers Care Certified Registered Nurse Practitioner Name Role Phone Maury Caputo Primary Care Provider [phone] Reason for Visit * Reason Comments Med Refill Encounter Details Date Type Department Care Team (Late st Contact Info) Description 02/28/2023 Refill [facility] 100 [facility] 200 [place] [phone] Landen Nguyen MD [address] [place] [address] Social History Tobacco Use Types Packs/Day Years [...] Visit [facility] [address] [facility] 204 [place] [address] Melissa Pelayo ARNP [address] [facility] 204 [place] [address] documented as of this encounter Visit Diagnoses Not on filedocumented in this encounter Care Teams Certified Registered Nurse Practitioner Relationship Specialty Start Date End Date Maury Caputo PA 2 [facility], [address] [place] [address] PCP - General Physician [place] 07/24/23 documented as of this encounter
== END 2025-08-10 08:09 | disposition home or self-care (01) ==
LOC: HO.HOSX 08:08
PROVIDERS: Visit Provider Physician Assistant
DX: M17.0 Bilateral primary osteoarthritis of knee (principal)
CPT/HCPCS: 99212

== ENCOUNTER 2025-08-10 08:38 | Outpatient (AMB) | payer MEDICAID, SELFPAY ==
--- OUTSIDE RECORDS SUMMARY | 2021-08-12 13:15 | XMS_ITS | Encounter Summary ---
Author Organization [facility] Address [address] [place] [phone] Phone Care Team Providers Care Manager Engagement Name Role Phone Lilliana Hagan MD Primary Care Provid er Encounter Details Date Type Department Care Team (Late st Contact Info) Description 08/12/2021 1:15 PM EST Hospital Encounter [facility] [address] [place] [phone] Latoya Peres FNP [address] [place] [phone] [email or web address] [place] Social History Tobacco Use Types Packs/Day Years Used Date Smoking Tobacco: Former Smokeless Tobacco: Never Education Answer Date Recorded Are you interested in more education? Not on chhaya e 01/12/2023 Are you concerned about learning? Not on file 01/12/2023 No 01/12/2023 No 01/12/2023 Digital Access Answer Date Recorded No 02/10/2023 No 02/10/2023 No 02/10/2023 Reliable internet access at home? Not on file 02/10/2023 Device with a working camera? Not on file Comments Unknown Sex and Gender Information Value Date Recorded Sex Assigned at Not on file Legal Sex Female 11:38 AM EST Gender Identity Not on file Sexual Orientation Not on file documented as of this encounter Plan of Treatment Not on file documented as of this encounter Procedures Procedure Name Priority Date/Time Associated Diagnosis Comments XR SHOULDER 2 VIEWS (RIGHT) Urgent/patient waiting 08/12/2021 1:37 PM EST Calcific bursitis of shoulder documented in this encounter Results * XR SHOULDER 2 VIEWS (RIGHT) (08/12/2021 1:37 PM EST) Anatomical Region Laterality Modality Shoulder Right Computed Radiogr aphy 08/12/2021 1:47 PM EST Impressions 08/12/2021 1:50 PM EST 1.No acute fracture. 2.Rotator cuff calcific tendinitis. Narrative 08/12/2021 1:50 PM EST XR SHOULDER 2 OR MORE VIEWS (RIGHT) COMPARISON: None FINDINGS: No acute fracture or dislocation. 12 mm calcific focus overlying the greater tuberosity, compatible with calcific tendinopathy. Glenohumeral cartilage space is preserved. Mild acromioclavicular degenerative changes. Procedure Note William Sheehan, DO - 08/12/2021 XR SHOULDER 2 OR MORE VIEWS (RIGHT) COMPARISON: None FINDINGS: No acute fracture or dislocation. 12 mm calcific focus overlying thegreater tuberosity, compatible with calcific tendinopathy. Glenohumeralcartilage space is preserved. Mild acromioclavicular degenerativechanges. IMPRESSION: 1.No acute fracture. 2.Rotator cuff calcific tendinitis. Latoya Peres CONDUIT REAMER OPERATOR IMG XR UPPER EXTREMITY Petra l Result documented in this encounter Visit Diagnoses Not on filedocumented in this encounter Care Teams Manager Engagement Relationship Specialty Start Date End Date Lilliana Hagan MD [address] [place] [phone] PCP - General Internal Medicine 08/12/21 documented as of this encounter Additional Source Comments The information contained in this document represents components of the legal health record. It is not the complete legal health record.[facility]
--- NOTE | 2025-08-10 08:55 | MHC.OFFVIS ---
Intake Visit Reasons: Newprob-Pain in right knee Intake Note: Marlyn is a 50 year old female who presents today for a evaluation of her right knee. Patient was seen with her PCP for her ongoing pain in both knees but the right knee is worse. She mentions that her pain has been ongoing for many years. Patient works 8+ hour shift on her feet/walking. Started working out to lose some weight. Then she was not working for 2 weeks. When she she was helping her daughter move her pain went through her whole leg. Patient has tried taking ibuprofen with relief and also using a muscle massager. Impression (Ultrasound) : Indeterminate anterior knee fluid collection as above Allergies lactose Allergy (Unknown, Verified 08/10/25 09:00) upset stomach fentanyl (FENTANYL) Adverse Reaction (Severe, Verified 08/10/25 09:00) VOMITING-SEVERE azithromycin Adverse Reaction (Intermediate, Verified 08/10/25 09:00) stomach upset ibuprofen (From MOTRIN) Adverse Reaction (Intermediate, Verified 08/10/25 09:00) KIDNEY PROBLEMS tramadol Adverse Reaction (Intermediate, Verified 08/10/25 09:00) dizziness and vomiting, vomiting FRUIT,FRESH Allergy (Severe, Uncoded 06/08/25 09:29) MOUTH ITCHING/SWELLING HPI HPI Newprob-Pain in right knee: Details: Ms. Markham is a 50-year-old female who presents to the office today for bilateral knee pain. She reports many years of bilateral knee pain that waxes and wanes. She was recently seen by her PCP for knee pain in which she referred to Orthopedics. Patient states the right knee pain is worse than left. She reports that she works 8+ hour shifts on her feet/walking which contribute to her bilateral knee pain. Additionally, she has been working on weight loss and was working out doing a high-intensity training class in which she noticed a significant increase in knee pain. After this, she was unable to work for 2 weeks due to pain. Then, she was helping her daughter move and afterwards again felt an increase in pain mainly affecting the right lower extremity. She has tried taking ibuprofen with relief as well as a hand-held muscle massage her with some relief. [facility] Medical History Visit for suture removal GERD (gastroesophageal reflux disease) HLD (hyperlipidemia) HTN (hypertension) T2DM (type 2 diabetes mellitus) Vitamin D deficiency Hyperparathyroidism Hypercalcemia Surgical History History of carpal tunnel release History of removal of cyst H/O myringotomy History of endometrial ablation H/O LEEP Family History Sister Lung cancer AIDS IV drug user Paternal Uncle Colon cancer Paternal Aunt Colon cancer Breast cancer Maternal Aunt Ovarian cancer Leukemia Breast cancer Brain cancer Brother AIDS IV drug user Family/Other FH: mental illness Social History Housing: Apartment Alcohol intake: current Alcohol intake frequency: holidays/special occasions only Alcohol type: hard liquor Patient Tobacco Use Status: Former Tobacco user Tobacco use type: Cigarette Years Smoked: 30 e-Cigarette/Vaping Use: Never Used Second Hand Smoke Exposure: Yes service: No Current occupational status: unemployed Current occupation: Right Handed Cognitive needs: No Hearing needs: No Vision needs: No Female Reproductive History Menstrual Age of Menarche: 7 Review of Systems Const All systems reviewed & are unremarkable except as noted in HPI and below Physical Exam Const General: cooperative, healthy appearing and no acute distress Resp Effort & Inspection: normal respiratory effort and able to speak in complete sentences Extrem Other: Bilateral knees normal to inspection. Tenderness bilaterally both medial and lateral joint lines. Range of motion 0-100 degrees. NVI. Psych Appearance: grossly normal Mental Status: mental status grossly normal Attitude: cooperative Assessment & Plan Assessment & Plan (1) Osteoarthritis of knees, bilateral: Code(s): M17.0 - Bilateral primary osteoarthritis of knee Category: Medical Plan Ms. Markham is a 50-year-old female who presents to the office today for bilateral knee pain. She reports many years of bilateral knee pain that waxes and wanes. She was recently seen by her PCP for knee pain in which she referred to Orthopedics. Patient states the right knee pain is worse than left. She reports that she works 8+ hour shifts on her feet/walking which contribute to her bilateral knee pain. Additionally, she has been working on weight loss and was working out doing a high-intensity training class in which she noticed a significant increase in knee pain. After this, she was unable to work for 2 weeks due to pain. Then, she was helping her daughter move and afterwards again felt an increase in pain mainly affecting the right lower extremity. She has tried taking ibuprofen with relief as well as a hand-held muscle massage her with some relief. While in the office today, we discussed conservative treatment options for bilateral knee osteoarthritis. We discussed oral medications, injections such as corticosteroid and gel as well as topical medications. At this time, the patient will trial topical diclofenac [id number] to see if this assists with her symptoms. Should this not provide sufficient pain relief in order for the patient to perform her activities such as working out she will contact the office in the next step is to discuss cortisone injections. 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 We discussed his cortisone injections are not helpful the next step would be gel injections. She will follow up PRN, sooner if needed. X-rays obtained on 08/03/2025 of bilateral knees are significant for osteoarthritis. No acute fracture or dislocation noted. Orders: Orders XR knee RT 3V Today M25.569 - Pain in unspecified knee Coding Level of Care Code Est Pt Level 3 (51410) Diagnoses Osteoarthritis of knees, bilateral M17.0
--- OUTSIDE RECORDS SUMMARY | 2025-08-10 08:58 | XMS_ITS | Clinical Summary ---
Author Organization [facility] Address [address] [place] [address] Phone Care Team Providers Care Stevedoring Supervisor Name Role Phone Maury Caputo Primary Care Provider [phone] Allergies Active Allergy Reactions Criticality Noted Date [...] Visit [facility] [address] [address] Melissa Pelayo ARNP [address] [address] Health Maintenance Due Date Last [...] [place] Care Teams Stevedoring Supervisor Relationship Specialty Start Date End Date Maury Caputo PA [address] [place] [address], [address] [place] [address] PCP - General Physician Workday Consultant 07/24/23
--- OUTSIDE RECORDS SUMMARY | 2025-08-10 08:58 | XMS_ITS | Clinical Summary ---
Author Organization 175 [facility] Address 175 [place] [address] Phone Care Team Providers Care Breeder Service Technician Name Role Phone Physician, Pcp Unknown Primary [...] Insurance MEDICARE MEDICAID - [place] Care Teams Breeder Service Technician Relationship Specialty Start Date End Date Physician, Pcp Unknown PCP - General 10/14/24
--- OUTSIDE RECORDS SUMMARY | 2025-08-10 08:58 | XMS_ITS | Encounter Summary ---
Author Organization [facility] Address [address] [facility] 200 [place] [address] Phone Care Team Providers Care Eye Technician Name Role Phone Maury Caputo Primary Care Provider [phone] Reason for Visit * Reason Comments Med Refill Encounter Details Date Type Department Care Team (Late st Contact Info) Description 02/28/2023 Refill [facility] [address] [facility] 200 [place] [phone] Landen Nguyen MD [address] [place] [address] Social History Tobacco Use Types Packs/Day Years [...] Visit [facility] [address] [facility] [address] [place] [address] Melissa Pelayo ARNP 2[address] [facility] [address] [place] [address] documented as of this encounter Visit Diagnoses Not on filedocumented in this encounter Care Teams Eye Technician Relationship Specialty Start Date End Date Maury Caputo PA 2 [facility], [address] [place] [address] PCP - General Physician Polishing Machine Operator 07/24/23 documented as of this encounter
--- OUTSIDE RECORDS SUMMARY | 2025-08-10 08:58 | XMS_ITS | Clinical Summary ---
Author Organization [facility] Address [address] [place] [address] Phone Care Team Providers Care Internal Control Consultant Name Role Phone Lilliana Hagan MD Primary [...] file Insurance MEDICARE PART A & [place] [facility] [place] [address] MEDICARE PART A & B [place] MEDICARE PART A & B MEDICARE PART A & B [id number] [place] [address] MEDICARE PART A & B HEALTH MEDICARE PART A & [place] MEDICARE PART A & B HEALTH MEDICARE PART A & B Member Subscriber Plan / Payer ( fective 1996-) Name:Marlyn Markham Member ID:[id number] Relation to Subscriber:Self Name:Marlyn Markham Subscriber ID:[id number] Payer ID:[id number] Group ID:Not on file Type:Medicare Address: [employer] [address] MEDICARE PART A & B [facility] Care Teams Internal Control Consultant Relationship Specialty Start Date End Date Lilliana Hagan MD [address] [place] [address] PCP - General Internal Medicine 08/12/21 Additional Source Comments The information contained in this document represents components of the legal health record. It is not the complete legal health record.[facility]
== END 2025-08-10 09:42 | disposition home or self-care (01) ==
LOC: HO.HOS 08:38
PROVIDERS: PCP Physician Assistant; Visit Provider Physician Assistant
DX: M17.0 Bilateral primary osteoarthritis of knee (principal)
CPT/HCPCS: 99213

== ENCOUNTER → 2025-09-15 08:03 | Outpatient (REF) | payer OTHER, MEDICAID, SELFPAY ==
--- OUTSIDE RECORDS SUMMARY | 2021-08-12 13:15 | XMS_ITS | Encounter Summary ---
Author Organization [facility] Address [address] [place] [phone] Phone Care Team Providers Care Owner Name Role Phone Lilliana Hagan MD Primary Care Provid er Encounter Details Date Type Department Care Team (Late st Contact Info) Description 08/12/2021 1:15 PM EST Hospital Encounter [facility] [address] [place] [phone] Latoya Peres FNP [address] [place] [phone] [email or web address] [place] [place] Social History Tobacco Use [...] fracture. 2.Rotator cuff calcific tendinitis. Latoya Peres INVENTORY CONTROL PLANNER IMG XR UPPER EXTREMITY Petra l Result documented in this encounter Visit Diagnoses Not on filedocumented in this encounter Care Teams Owner Relationship Specialty Start Date End Date Lilliana Hagan MD [address] [place] [phone] PCP - General Internal Medicine 08/12/21 documented as of this encounter Additional Source Comments The information contained in this document represents components of the legal health record. It is not the complete legal health record.[facility]
--- OUTSIDE RECORDS SUMMARY | 2025-09-15 08:08 | XMS_ITS | Clinical Summary ---
Author Organization [facility] Address [address] [place] [address] Phone Care Team Providers Care Folder Inspector Name Role Phone Lilliana Hagan MD Primary [...] file Insurance MEDICARE PART A & [place] [facility] [address] MEDICARE PART A & B [place] MEDICARE PART A & B MEDICARE PART A & [place] [id number] [place] [address] MEDICARE PART A & B HEALTH MEDICARE PART A & [place] MEDICARE PART A & B HEALTH MEDICARE PART A & B Member Subscriber Plan / Payer ( fective 1996-) Name:Marlyn Markham Member ID:[id number] Relation to Subscriber:Self Name:Marlyn Markham Subscriber ID:[id number] Payer ID:[id number] Group ID:Not on file Type:Medicare Address: [email or web address] [address] MEDICARE PART A & B [facility] Care Teams Folder Inspector Relationship Specialty Start Date End Date Lilliana Hagan MD [address] [place] [address] PCP - General Internal Medicine 08/12/21 Additional Source Comments The information contained in this document represents components of the legal health record. It is not the complete legal health record.[facility]
--- OUTSIDE RECORDS SUMMARY | 2025-09-15 08:09 | XMS_ITS | Patient Health Record ---
Author Organization [facility] Address [address] [place] [address] Care Team Providers Care Precinct Captain Name Role Phone Lilliana Hagan Primary Care Provider Unavailab Lee Lawrence Unavailable [phone] GLORIA FRANCO Unavailable Unavailable Allergies Allergen (clinical [...] Miscellaneous: Marital status: single Occupation: Works at [employer] Caffeine: more than 4 cups per day Section Notes: Smoker 1 ppd; no sig alcohol Problems Problem Type SNOMED Code ICD Code Onset Dates Problem Status W/U Status Risk Notes Problem Irritable bowel syndrome with diarrhea (528792713) Irritable bowel syndrome with diarrhea (K58.0) Active confirmed Problem Blood in stool (130348127) Blood in stool (K92.1) Active confirmed Plan Of Treatment Pending Test Test Name Order Date GI BIOPSY 06/18/2016 Future Test Test Name Order Date COLONOSCOPY 04/10/2016 Insurance Providers Payer Name Payer Address Payer Phone Subscriber Number Group Number Insured Name Patient Relationship to Insured Coverage Start Date Coverage End Date [place] OF [place] [address] [place] [id number] INESSA LOBO Self - patient is the insured MEDICAID OF [facility] [address] [facility] [place] [phone] [id number] LOBO, INESSA Self - patient is the insured Medical (General) History Medical History History ICD Code Asthma Migraines Denies [place],DM,CVA,Lung disease,renal dise ase Urinary incontinence Surgical History Surgery Date(Month/Year) Tubes in ears Uterine ablation procedure Ganglion cyst
--- OUTSIDE RECORDS SUMMARY | 2025-09-15 08:09 | XMS_ITS | Clinical Summary ---
Author Organization [address] [facility] Address [address] [place] [address] Phone Care Team Providers Care Library Customer Service Clerk Name Role Phone Physician, Pcp Unknown [...] Insurance MEDICARE MEDICAID - [place] Care Teams Library Customer Service Clerk Relationship Specialty Start Date End Date Physician, Pcp Unknown PCP - General 10/14/24
== END ==
LOC: HO.SL 08:03
PROVIDERS: PCP Physician Assistant; Visit Provider Physician Assistant
DX: Z13.31 Encounter for screening for depression (principal)
CPT/HCPCS: 83036; 95806; 96127

== ENCOUNTER → 2025-09-15 08:17 | Outpatient (BNV) | payer OTHER, MEDICAID, SELFPAY | PROVIDERS: PCP Physician Assistant; Visit Provider Psychiatry & Neurology Neurology | DX: G47.33 Obstructive sleep apnea (adult) (pediatric) (principal) | CPT/HCPCS: 95806 ==

== ENCOUNTER 2025-09-15 15:34 | Outpatient (AMB) | payer OTHER, MEDICAID, SELFPAY ==
--- NOTE | 2025-09-15 15:35 | A.OFFPC_ITS ---
Vital Signs 09/15/25 15:36 Height 5 ft 4 in Weight 225 lb 8 oz BMI 38.7 BP 128/84 Blood Pressure Location Lt brachial Position Sitting Pulse 93 Pulse Source Pulse Oximeter Temp 97.3 F Temp Source Temporal Artery Scan Pulse Oximetry (%) 97 Oxygen Delivery Method Room Air Intake Visit Reasons: Follow-up type 2 diabetes Allergies lactose Allergy (Unknown, Verified 09/15/25 15:43) upset stomach fentanyl (FENTANYL) Adverse Reaction (Severe, Verified 09/15/25 15:43) VOMITING-SEVERE azithromycin Adverse Reaction (Intermediate, Verified 09/15/25 15:43) stomach upset ibuprofen (From MOTRIN) Adverse Reaction (Intermediate, Verified 09/15/25 15:43) KIDNEY PROBLEMS tramadol Adverse Reaction (Intermediate, Verified 09/15/25 15:43) dizziness and vomiting, vomiting FRUIT,FRESH Allergy (Severe, Uncoded 09/15/25 15:43) MOUTH ITCHING/SWELLING Medication List - Last Reconciled 09/15/25 by Maury Caputo PA-C albuterol sulfate 2.5 mg inhalation Q4H PRN albuterol sulfate 90 mcg/actuation 2 puffs inhalation Q6-8H 30 days blood sugar diagnostic (FreeStyle Lite Strips) 1 strip miscellaneous TID blood-glucose meter (FreeStyle Lite Meter kit) As directed Ca lac-mag cit-pas flwr-everett rt 25-50-20-10 mg (MyoCalm) tabs PO cholecalciferol (vitamin D3) 50 mcg PO DAILY 30 days cyclobenzaprine 10 mg PO TID PRN dupilumab (Dupixent) mg subcut epinephrine 0.3 mg (0.3 mL) IM ONCE PRN 30 days fexofenadine 180 mg PO DAILY 90 days fluticasone propionate 50 mcg/actuation 1 spray intranasal BID 30 days lancets (FreeStyle Lancets) 4x daily losartan 50 mg PO DAILY 90 days metformin 500 mg PO BID montelukast (Singulair) 10 mg PO BEDTIME 90 days ondansetron 4 mg PO Q8H PRN pantoprazole 40 mg PO DAILY 90 days tirzepatide (Mounjaro) 2.5 mg (0.5 mL) subcut QWEEK 4 weeks triamcinolone acetonide 0.1% 1 appl topical BID Tobacco use date assessed: 09/15/25 Dental Screening Dental Screen Date: 09/15/25 Did you have a dental visit in the last 12 months?: No Did you have a dental problem in the last 6 months where you did not have access to dental care?: No Was dental information given to patient?: No HPI Follow-up type 2 diabetes HPI Details Patient is a 50 year-old female here today for follow-up visit..? Patient has a past history significant for hyperlipidemia,? type 2 diabetes, obesity, , mild lymphocytosis,? asthma,? polyarthralgia. Concern today--> Bilateral hand osteoarthritis she has followed up with Orthopedics in discuss conservative management versus injections. Apneic episodes: Patient has been told she has apneic episodes during the night and is interested in getting screened for obstructive sleep apnea. .. Eczema--> The patient also presents with dyshidrotic eczema, she has followed up with Dermatology in his started [facility] which completely resolved her skin manifestations over hands and feet .. HLD: Type 2 diabetes--> She patient has a documented history of Type 2 Diabetes Mellitus. She is concerned about using GLP 1 due to side effect profile. She continues with metformin Today's A1c at 6.9 She does admit to dietary indiscretion as she does stress eat. She has been working on a better diet and has been more physically active [facility] Medical History Visit for suture removal GERD (gastroesophageal reflux disease) HLD (hyperlipidemia) HTN (hypertension) T2DM (type 2 diabetes mellitus) Vitamin D deficiency Hyperparathyroidism Hypercalcemia Surgical History History of carpal tunnel release History of removal of cyst H/O myringotomy History of endometrial ablation H/O LEEP Family History Sister Lung cancer AIDS IV drug user Paternal Uncle Colon cancer Paternal Aunt Colon cancer Breast cancer Maternal Aunt Ovarian cancer Leukemia Breast cancer Brain cancer Brother AIDS IV drug user Family/Other FH: mental illness Social History Housing: Apartment Alcohol intake: current Alcohol intake frequency: holidays/special occasions only Alcohol type: hard liquor Patient Tobacco Use Status: Former Tobacco user Tobacco use type: Cigarette Years Smoked: 30 e-Cigarette/Vaping Use: Never Used Second Hand Smoke Exposure: Yes service: No Current occupational status: unemployed Current occupation: Right Handed Cognitive needs: No Hearing needs: No Vision needs: No Female Reproductive History Menstrual Age of Menarche: 7 Questionnaire PHQ-9 Over the last 2 weeks, how often have you been bothered by any of the following problems? 1. Little interest or pleasure in doing things: not at all 2. Feeling down, depressed, or hopeless: not at all 3. Trouble falling or staying asleep, or sleeping too much: not at all 4. Feeling tired or having little energy: not at all 5. Poor appetite or overeating: several days 6. Feeling bad about yourself - or that you are a failure or have let yourself or your family down: not at all 7. Trouble concentrating on things, such as reading the newspaper or watching television: several days 8. Moving or speaking so slowly that other people could have noticed. Or the opposite - being so fidgety or restless that you have been moving around a lot more than usual: not at all 9. Thoughts that you would be better off or of hurting yourself in some way: not at all Total score: 2 Depression Screening Interpretation: Negative Depression Screening Done: Yes Source: Developed by Drs. Lee Vigil, Karli Turner, Tuan Kline and colleagues, with an educational tati from [employer]. Thrive Questionnaire Date Thrive assessed: 01/27/25 I am a: Patient What is your living situation today?: I have a steady place to live Within the past 12 months, did the food you bought not last and you didn't have the money to get more?: Never true Within the past 12 months, did you worry whether your food would run out before you got money to buy more?: Never true Do you have trouble paying for medicines?: I choose not to answer this question Do you have trouble getting transportation to medical appointments?: No Do you have trouble paying your heating and electricity bill?: I choose not to answer this question Do you have trouble taking care of your child, family member or friend?: No Do you have trouble with day-to-day activities such as bathing, preparing meals, shopping, managing finances, etc.?: No Are you currently unemployed and looking for a job?: No Are you interested in more education?: No Currently or been in a relationship where the following occur: No concerns reported THRIVE Score: 0 AUDIT C Alcohol Use Questionnaire (AUDIT-C) 1. How often do you have a drink containing alcohol?: Never 3. How often do you have six or more drinks on one occasion?: Never Total Score: 0 KAYLIE-7 AMB Questionnaire KAYLIE-7 Date KAYLIE - 7 assessed: 01/27/25 Feeling nervous, anxious, or on edge: 2 = More than half the days Not being able to stop or control worryin = More than half the days Worrying too much about different things: 2 = More than half the days Trouble relaxin = Several days Being so restless that it is hard to sit still: 1 = Several days Becoming easily annoyed or irritable: 1 = Several days Feeling afraid as if something awful might happen: 2 = More than half the days Total KAYLIE-7 score (0-4 normal; 5-9 mild; 10-14 moderate; 15-21 severe): 11 Source: Developed by Drs. Lee Vigil, Karli Turner, Tuan Kline and colleagues, with an educational tati from [employer]. Physical exam (Primary Care) Vital Signs: Last Vital Signs Temp 97.3 F 09/15/25 15:36 Pulse 93 09/15/25 15:36 BP 128/84 09/15/25 15:36 Pulse Ox 97 09/15/25 15:36 Oxygen Delivery Method Room Air 09/15/25 15:36 BMI result Body Mass Index 38.7 Tobacco/Smoking Status: Tobacco use Status Tobacco use date assessed 09/15/25 09/15/25 15:42 Patient Tobacco Use Status Former Tobacco user 09/15/25 15:42 Tobacco use type Cigarette 09/15/25 15:42 e-Cigarette/Vaping Use Never Used 09/15/25 15:42 PHQ-9: PHQ-9 Score PHQ-9: Total score 2 09/15/25 15:42 Depression Screening Interpretation: Negative Thrive Assessment: Date of Thrive Assessment Date Thrive assessed 01/27/25 09/15/25 15:42 Currently or been in a relationship where the following occur: No concerns reported Results AMB Hemoglobin A1c AMB Hemoglobin A1c 6.9 % Last Edit by Mignon Farias CMA on 09/15/25 15:45 Coding Diagnoses Colon cancer screening Z12.11 Assessment & Plan Assessment & Plan (1) Colon cancer screening: Code(s): Z12.11 - Encounter for screening for malignant neoplasm of colon Category: Medical Orders: Orders Complete Blood Count no Diff Today I10 - Essential (primary) hypertension Lipid Panel Today E78.5 - Hyperlipidemia, unspecified Hemoglobin A1c Today E11.65 - Type 2 diabetes mellitus with hyperglycemia AMB Hemoglobin A1c Today Z13.9 - Encounter for screening, unspecified Microalbumin, Random (w Creat) Today I10 - Essential (primary) hypertension Comprehensive [facility]. Panel Fast Today I10 - Essential (primary) hypertension Medications: New rosuvastatin 5 mg PO .every other day 15 tabs 3RF 30 days E78.5 - Hyperlipidemia, unspecified
[2025-09-15 15:36] VITALS: BP 128/84; PULSE 93; TEMP 36.3; O2SAT 97; BMI 38.7
--- OUTSIDE RECORDS SUMMARY | 2025-09-15 16:01 | XMS_ITS | Clinical Summary ---
Author Organization [facility] Address [address] [place] [phone] Phone Care Team Providers Care Gold Nib Grinder Name Role Phone Maury Caputo Primary Care Provider [phone] Allergies Active Allergy Reactions Criticality Noted Date [...] Care Team (Late st Contact Info) Description 09/16/2025 Orders Only [facility] [address] [phone] Melissa Pelayo ARNP [address] [phone] Persistent proteinuria; Essential hypertension 12/02/2025 7:30 AM EDT Office Visit [facility] [address] [phone] Melissa Pelayo ARNP [address] [phone] Health Maintenance Due Date Last Done Comments Breast Cancer Screening 1975 Hepatitis B Vaccine (1 of 3 - 19+ 3-dose series) 04/20 Pneumococcal Vaccine: 50+ Years (1 of 2 - PCV) 992 Colorectal Cancer Screening: Annual FOBT 2022 Colorectal Cancer Screening: Colonoscopy 2022 Colorectal Cancer Screening: Sigmoidoscopy 2022 Influenza Vaccine (#1) 2025 06/25/2021 Diabetes: Hemoglobin A1C 08/17/2025 Diabetes: Ophthalmology Exam 08/17/2025 Diabetes: Pedal Pulse Checked 08/17/2025 Diabetes: Sensory Foot Exam 08/17/2025 Diabetes: Visual Foot Exam 08/17/2025 [place] [id number] Medicare Care Teams Gold Nib Grinder Relationship Specialty Start Date End Date Maury Caputo PA [address] [place] [address], [address] [place] [address] PCP - General Physician Deputy Administrator 07/24/23
--- OUTSIDE RECORDS SUMMARY | 2025-09-15 16:01 | XMS_ITS | Encounter Summary ---
Author Organization [facility] Address [address] [facility] [address] [place] [address] Phone Care Team Providers Care Engine Designer Name Role Phone Maury Caputo Primary Care Provider [phone] Reason for Visit * Reason Comments Med Refill Encounter Details Date Type Department Care Team (Late Contact Info) Description 02/28/2023 [facility]ill [facility] [address] [place] [phone] Landen Nguyen MD [address] [place] [id number] Social History Tobacco Use Types Packs/Day Years [...] Orders Only [facility] [address] [phone] Melissa Pelayo ARNP [address] [phone] Persistent proteinuria; Essential hypertension 12/02/2025 7:30 AM EDT Office Visit [facility] [address] [phone] Melissa Pelayo ARNP [address] [facility] [address] [place] [phone] documented as of this encounter Visit Diagnoses Not on filedocumented in this encounter Care Teams Engine Designer Relationship Specialty Start Date End Date Maury Caputo PA [address] [place] [address], [address] [place] [address] PCP - General Physician Quality Rep 07/24/23 documented as of this encounter
== END 2025-09-15 16:10 | disposition home or self-care (01) ==
LOC: HO.HMCH 15:35
PROVIDERS: PCP Physician Assistant; Visit Provider Physician Assistant
DX: Z13.9 Encounter for screening, unspecified (principal)